=== PATIENT | male | born 1945 | race Caucasian/White ===

== ENCOUNTER → 2017-03-26 | Day surgery (SDC) | payer BC ==
[2017-03-05 15:06] VITALS: Ht 172.7 cm; Wt 61.8 kg
[~2017-03-26] VITALS: Ht 172.7 cm; Wt 61.8 kg
[~2017-03-26] MED LIST: 500ML BSS 0.3ML EPI 1:1000PF IRRIG ONE; ACETAMINOPHEN 325 MG TAB PO PRN; AMVISC PLUS 0.8ML SYRINGE INT OCU ONE; ATROPINE SULFATE 0.1 MG/ML 5ML SYR IV PRN; BSS FLUSH ONE; EpHEDrine SULFATE INJ 50 MG/ML AMP IV PRN; EpINEphrine INJ 1MG/ML AMP 1 MG/ML AMP ONE; LACTATED RINGER'S 1000ML 500 ML IV SCH; LIDOCAINE 3.5% OPH GEL PER APPLICATION CHARGE ONE; LIDOCAINE HCL 1% MPF 2 ML VIAL ONE; MIDAZOLAM HCL 1 MG/ML 2ML VIAL ONE; OCUCOAT 1 ML SOLN IO ONE; POVIDONE-IODINE OP SOLN 30 ML BTL ONE; PROPARACAINE 0.5% OP SOLN PER DROP CHARGE OPR SCH; TOBRAMYCIN/DEXAMETHASONE OPH OINT PER APPLN CHARGE ONE
--- NOTE | 2017-03-26 08:30 | History & Physical Bridge - SC ---
H&P Re-Evaluation Bridge Note: I have examined the patient, reviewed the History & Physical and in the interval since the performance of the History & Physical I have noted the following changes of clinical significance: No changes noted
[2017-03-26] MEDS: PHENYLEPHRINE HCL 2.5% OP SOLN PER DROP CHARGE OPR SCH ×2 (08:31→08:36)
[2017-03-26] MEDS: TROPICAMIDE 1% OP SOLN PER DROP CHARGE OPR SCH ×2 (08:32→08:37)
[2017-03-26] MEDS: CYCLOPENTOLATE HCL 1% OP SOLN PER DROP CHARGE OPR SCH ×2 (08:33→08:38)
[2017-03-26] MEDS: KETOROLAC 0.5% OP SOLN PER DROP CHARGE OPR SCH ×2 (08:34→08:39)
[2017-03-26] MEDS: GATIFLOXACIN OP SOLN PER DROP CHARGE OPR SCH ×2 (08:35→08:45)
--- NOTE | 2017-03-26 09:31 | [facility] Operative Report ---
Operative Report Date of Service Mar 26, 2017. Operative Report 1. PREOPERATIVE DIAGNOSIS: Cataract of the right eye. 2. POSTOPERATIVE DIAGNOSIS: Same. 3. PROCEDURE: Phacoemulsification with intraocular lens implantation of the right eye. SURGEON: Dr. Regulo Alvarez. ANESTHESIA: Topical Lidocaine gel, 1% Non- Preserved intracameral Lidocaine, and monitored intravenous sedation. INDICATIONS FOR THE PROCEDURE: The patient is a 71 - year-old male with a history of cataract of the right eye causing significant visual impairment. The details of the proposed procedure were explained to the patient who asked appropriate questions and following discussion of all risks, benefits and alternatives agreed to have the procedure done. 4. OPERATION AND FINDINGS: DESCRIPTION OF PROCEDURE: After informed consent was obtained, the patient was brought to the Operating Room at the [facility]. The patient was placed in a supine position and then the right eye was prepped and draped in the usual sterile fashion for intraocular surgery. A drop of topical Lidocaine gel was placed in the operative eye. A wire lid speculum was then placed in the fornices. A corneal paracentesis was then created temporally. The Non-Preserved Lidocaine was then instilled into the anterior chamber. The anterior chamber was then pressurized with viscoelastic. A 2.0 mm clear corneal incision was then created temporally. A cystotome was inserted into the anterior chamber and used to create a tear in the anterior lens capsule. This capsular tear was then used to create a small flap and the flap was dragged in a counterclockwise direction in order to create a continuous curvilinear capsulorrhexis. Hydrodissection was accomplished with balanced salt solution. Phacoemulsification of the lens nucleus was then performed in a standard [id number]-[id number]-[id number] technique. The phaco time was 35 seconds with an average power of 12 %. The remaining cortical material was removed using irrigation aspiration. The capsular bag was then filled with viscoelastic. A Bausch & Lomb MI60L +20.5 diopters lens was then loaded into the injector and injected into the capsular bag. The remaining viscoelastic was removed with the irrigation aspiration handpiece. The wound was hydrated and then checked and found to be watertight. The intraocular pressure was checked and found to be adequate. The wire lid speculum was removed and the patient's face was cleaned and dried. TobraDex ointment was placed in the inferior fornix. The patient was discharged to the Recovery Room having tolerated the procedure well. There were no complications. The patient will be seen tomorrow in the office for follow-up. I attest to the content of the Intraoperative Record and any orders documented therein. Any exceptions are noted below.
--- NOTE | 2017-03-26 09:31 | Discharge Instructions-SurgCtr ---
Discharge Instructions Date of Service Mar 26, 2017. Visit Reason for Visit: Right Cataract Discharge Discharge Diagnosis / Problem: cataract Discharge Goals Goal(s): Improve function Activity Recommendations Activity Limitations: per Instructions/Follow-up section Anesthesia . Post Anesthesia Instructions: If you have had General Anesthesia or IV Sedation: * Do not drive today. * Resume driving when surgeon permits. * Do not make important decisions or sign legal documents today. * Call surgeon for: 1. Temperature elevations greater than 101 degrees F. 2. Uncontrollable pain. 3. Excessive bleeding. 4. Persistent nausea and vomiting. 5. Medication intolerance (nausea, vomiting or rash). * For nausea and vomiting use only clear liquids such as: tea, soda, bouillon until nausea subsides, then gradually increase diet as tolerated. * If you have any concerns or questions, call your surgeon's office. If physician is unavailable and it is an emergency, call 911 or go to the nearest emergency room. . Instructions / Follow-Up Instructions / Follow-Up ACTIVITY RECOMMENDATIONS: * No strenuous lifting, jogging or running for 4 days * No swimming or yard work for 1 week. * Limited bending is permitted, such as putting on shoes. RETURN TO SCHOOL/WORK: No work until seen by physician in office. MEDICATIONS: Resume previous medications unless instructed otherwise by your surgeon. This includes eye drops for glaucoma. Zymaxid/Gatifloxacin (morris cap) - one drop every 2 hours until bedtime Nevanac/Ilevro/Prolensa/Ketorolac (juarez cap) - one drop every 4 hours until bedtime Prednisolone (white/pink cap, SHAKE WELL) - one drop every 2 hours until bedtime Starting tomorrow - all 3 drops every 4 hours until seen in the office Optive drops - as needed for discomfort SPECIAL CARE INSTRUCTIONS: * Wear eyeshield when sleeping, for four nights. * You may wear your own glasses or sunglasses while awake. * You may read or watch TV * You may shower and wash your face, but be gentle around the eye and pat dry. * Blurry vision and mild irritation are normal. * Call office if pain is more severe or vision becomes dark at . FOLLOW UP VISIT: Follow-up with Dr Alvarez tomorrow. Diet Recommendations Home Diet: resume previous diet Procedures Procedures Performed: Right Cataract Phacoemulsification With Intraocular Lens Implant Pending Studies Studies pending at discharge: no Medical Emergencies . Who to Call and When: Medical Emergencies: If at any time you feel your situation is an emergency, please call 911 immediately. . Non-Emergent Contact Non-Emergency issues call your: Yacht Master . . "Provider Documentation" section prepared by Regulo Alvarez. .
[2017-03-26 09:32] VITALS: TEMP 36.8
--- NOTE | 2017-03-26 09:43 | Anesthesia Progress Nt - [facility] ---
Anesthesia Post Op Note Date & Time Mar 26, 2017 at 09:42 Vital Signs Pain Intensity: 0 Vital Signs Past 12 Hours Date Time Temp Pulse Resp B/P Pulse Ox O2 Delivery O2 Flow Rate FiO2 03/26/17 09:32 36.8 65 16 156/90 100 Room Air 03/26/17 08:20 36.4 74 16 183/95 98 Room Air Notes Mental Status: alert / awake / arousable, participated in evaluation Pt Amnestic to Procedure: Yes Nausea / Vomiting: adequately controlled Pain: adequately controlled Airway Patency, RR, SpO2: stable & adequate BP & HR: stable & adequate Hydration State: stable & adequate Anesthetic Complications: no major complications apparent
[2017-03-26 09:47] VITALS: BP 151/80; PULSE 61; O2SAT 98
== END | disposition home or self-care (01) ==
LOC: X.SURG 08:01
PROVIDERS: ATTEND Ophthalmology
DX: H26.9 Unspecified cataract (principal); N18.3 Chronic kidney disease, stage 3 (moderate); I12.9 Hypertensive chronic kidney disease with stage 1 through stage 4 chronic kidney disease, or unspecified chronic kidney disease; J44.9 Chronic obstructive pulmonary disease, unspecified; M19.90 Unspecified osteoarthritis, unspecified site; F17.200 Nicotine dependence, unspecified, uncomplicated; Z68.20 Body mass index [BMI] 20.0-20.9, adult

== ENCOUNTER → 2017-04-23 | Day surgery (SDC) | payer BC ==
[2017-04-09 11:24] VITALS: Ht 172.7 cm; Wt 61.8 kg
[~2017-04-23] VITALS: Ht 172.7 cm; Wt 61.8 kg
[~2017-04-23] MED LIST changes: +PROPARACAINE 0.5% OP SOLN PER DROP CHARGE OPL SCH; -PROPARACAINE 0.5% OP SOLN PER DROP CHARGE OPR SCH
[2017-04-23] MEDS: PHENYLEPHRINE HCL 2.5% OP SOLN PER DROP CHARGE OPL SCH ×2 (10:17→10:22)
[2017-04-23] MEDS: TROPICAMIDE 1% OP SOLN PER DROP CHARGE OPL SCH ×2 (10:18→10:23)
[2017-04-23] MEDS: CYCLOPENTOLATE HCL 1% OP SOLN PER DROP CHARGE OPL SCH ×2 (10:19→10:24)
[2017-04-23] MEDS: KETOROLAC 0.5% OP SOLN PER DROP CHARGE OPL SCH ×2 (10:20→10:25)
[2017-04-23] MEDS: GATIFLOXACIN OP SOLN PER DROP CHARGE OPL SCH ×2 (10:21→10:31)
--- NOTE | 2017-04-23 11:46 | [facility] Operative Report ---
Operative Report Date of Service April 23, 2017. Operative Report 1. PREOPERATIVE DIAGNOSIS: Cataract of the left eye. 2. POSTOPERATIVE DIAGNOSIS: Same. 3. PROCEDURE: Phacoemulsification with intraocular lens implantation of the left eye. SURGEON: Dr. Regulo Alvarez. ANESTHESIA: Topical Lidocaine gel, 1% Non- Preserved intracameral Lidocaine, and monitored intravenous sedation. INDICATIONS FOR THE PROCEDURE: The patient is a 71 - year-old male with a history of cataract of the left eye causing significant visual impairment. The details of the proposed procedure were explained to the patient who asked appropriate questions and following discussion of all risks, benefits and alternatives agreed to have the procedure done. 4. OPERATION AND FINDINGS: DESCRIPTION OF PROCEDURE: After informed consent was obtained, the patient was brought to the Operating Room at the [facility]. The patient was placed in a supine position and then the left eye was prepped and draped in the usual sterile fashion for intraocular surgery. A drop of topical Lidocaine gel was placed in the operative eye. A wire lid speculum was then placed in the fornices. A corneal paracentesis was then created temporally. The Non-Preserved Lidocaine was then instilled into the anterior chamber. The anterior chamber was then pressurized with viscoelastic. A 2.0 mm clear corneal incision was then created temporally. A cystotome was inserted into the anterior chamber and used to create a tear in the anterior lens capsule. This capsular tear was then used to create a small flap and the flap was dragged in a counterclockwise direction in order to create a continuous curvilinear capsulorrhexis. Hydrodissection was accomplished with balanced salt solution. Phacoemulsification of the lens nucleus was then performed in a standard cyakhy-chz-xlkkaaz technique. The phaco time was 27 seconds with an average power of 20 %. The remaining cortical material was removed using irrigation aspiration. The capsular bag was then filled with viscoelastic. A Bausch & Lomb MI60L +21.5 diopters lens was then loaded into the injector and injected into the capsular bag. The remaining viscoelastic was removed with the irrigation aspiration handpiece. The wound was hydrated and then checked and found to be watertight. The intraocular pressure was checked and found to be adequate. The wire lid speculum was removed and the patient's face was cleaned and dried. TobraDex ointment was placed in the inferior fornix. The patient was discharged to the Recovery Room having tolerated the procedure well. There were no complications. The patient will be seen tomorrow in the office for follow-up. I attest to the content of the Intraoperative Record and any orders documented therein. Any exceptions are noted below.
--- NOTE | 2017-04-23 11:46 | Discharge Instructions-SurgCtr ---
Discharge Instructions Date of Service April 23, 2017. Visit Reason for Visit: Left Cataract Discharge Discharge Diagnosis / Problem: cataract Discharge Goals Goal(s): Improve function Activity Recommendations Activity Limitations: per Instructions/Follow-up section Anesthesia . Post Anesthesia Instructions: If you have had General Anesthesia or IV Sedation: * Do not drive today. * Resume driving when surgeon permits. * Do not make important decisions or sign legal documents today. * Call surgeon for: 1. Temperature elevations greater than 101 degrees F. 2. Uncontrollable pain. 3. Excessive bleeding. 4. Persistent nausea and vomiting. 5. Medication intolerance (nausea, vomiting or rash). * For nausea and vomiting use only clear liquids such as: tea, soda, bouillon until nausea subsides, then gradually increase diet as tolerated. * If you have any concerns or questions, call your surgeon's office. If physician is unavailable and it is an emergency, call 911 or go to the nearest emergency room. . Instructions / Follow-Up Instructions / Follow-Up ACTIVITY RECOMMENDATIONS: * No strenuous lifting, jogging or running for 4 days * No swimming or yard work for 1 week. * Limited bending is permitted, such as putting on shoes. RETURN TO SCHOOL/WORK: No work until seen by physician in office. MEDICATIONS: Resume previous medications unless instructed otherwise by your surgeon. This includes eye drops for glaucoma. Zymaxid/Gatifloxacin (morris cap) - one drop every 2 hours until bedtime Nevanac/Ilevro/Prolensa/Ketorolac (juarez cap) - one drop every 4 hours until bedtime Prednisolone (white/pink cap, SHAKE WELL) - one drop every 2 hours until bedtime Starting tomorrow - all 3 drops every 4 hours until seen in the office Optive drops - as needed for discomfort SPECIAL CARE INSTRUCTIONS: * Wear eyeshield when sleeping, for four nights. * You may wear your own glasses or sunglasses while awake. * You may read or watch TV * You may shower and wash your face, but be gentle around the eye and pat dry. * Blurry vision and mild irritation are normal. * Call office if pain is more severe or vision becomes dark at . FOLLOW UP VISIT: Follow-up with Dr Alvarez tomorrow. Diet Recommendations Home Diet: resume previous diet Procedures Procedures Performed: Left Cataract Phacoemulsification With Intraocular Lens Implant Pending Studies Studies pending at discharge: no Medical Emergencies . Who to Call and When: Medical Emergencies: If at any time you feel your situation is an emergency, please call 911 immediately. . Non-Emergent Contact Non-Emergency issues call your: Candle Making Supervisor . . "Provider Documentation" section prepared by Regulo Alvarez. .
[2017-04-23 11:49] VITALS: TEMP 36.3
[2017-04-23 11:58] VITALS: BP 143/83; PULSE 60; O2SAT 97
--- NOTE | 2017-04-23 12:03 | Anesthesia Progress Nt - [facility] ---
Anesthesia Post Op Note Date & Time April 23, 2017 at 12:04 Vital Signs Pain Intensity: 0 Vital Signs Past 12 Hours Date Time Temp Pulse Resp B/P Pulse Ox O2 Delivery O2 Flow Rate FiO2 04/23/17 11:58 60 16 143/83 97 Room Air 04/23/17 11:49 36.3 60 16 146/80 100 Room Air 04/23/17 10:12 36.8 62 20 183/104 97 Room Air 195/74 Notes Mental Status: alert / awake / arousable, participated in evaluation Pt Amnestic to Procedure: Yes Nausea / Vomiting: adequately controlled Pain: adequately controlled Airway Patency, RR, SpO2: stable & adequate BP & HR: stable & adequate Hydration State: stable & adequate Anesthetic Complications: no major complications apparent
== END | disposition home or self-care (01) ==
LOC: X.SURG 09:47
PROVIDERS: ATTEND Ophthalmology
DX: H26.9 Unspecified cataract (principal); N18.3 Chronic kidney disease, stage 3 (moderate); J44.9 Chronic obstructive pulmonary disease, unspecified

== ENCOUNTER 2019-08-31 08:45 | Inpatient (IN) ==
[2019-08-31] MEDS ORDERED: HEPARIN (PORCINE) 1000 UNIT/ML 10 ML (CATH LAB USE ONLY) ONE (09:03)
[2019-08-31] MEDS ORDERED: NiCARDipine HCL INJ 2.5 MG/ML 10 ML AMP ONE (09:03)
[2019-08-31] MEDS ORDERED: fentaNYL citrate 100 MCG/2 ML VIAL ONE (09:03)
[2019-08-31] MEDS ORDERED: MIDAZOLAM HCL 1 MG/ML 2ML VIAL ONE (09:04)
[2019-08-31] MEDS ORDERED: NITROGLYCERIN/D5W 100MCG/ML 20ML SYR ONE (09:04)
[2019-08-31] MEDS ORDERED: ASPIRIN CHEW 324 MG ONE (09:06)
[2019-08-31] MEDS ORDERED: NITROGLYCERIN SL 0.4 MG/TAB TAB ONE (09:09)
[2019-08-31] MEDS ORDERED: ASPIRIN CHEW 324 MG PO STA (09:11)
[2019-08-31] MEDS ORDERED: NITROGLYCERIN SL 0.4 MG/TAB TAB SL PRN (09:11)
[2019-08-31] MEDS ORDERED: HEPARIN SOD (PORCINE) 1000 UNIT/ML 10 ML VIAL ONE (09:17)
--- NOTE | 2019-08-31 09:24 | Pre Anesthesia Assessment ---
Date of Service August 31, 2019 Pre Sedation Assessment Vital Signs Temp Pulse Pulse Resp BP BP Pulse Ox 08/31/19 09:11 72 16 158/90 H 96 08/31/19 08:51 97.7 F 70 16 134/77 96 Cardiovascular RRR, no murmur, no edema Respiratory normal respiratory effort, lungs clear to auscultation Pre-Sedation Airway Assessment Smoking Status: Current every day smoker Hx Sleep Apnea: No Hx Difficult Intubation: No Short, Thick Neck: No Thyromental Distance: > or= 3.5 Finger Breadths Oral Cavity: + WNL Mallampati Class: III Procedure Planning Contraindications for Sedation: none Current Medications Reviewed: Yes Notes The planned sedation has been discussed with the patient. Informed Consent was obtained. I have identified the patient, determined the appropriateness of sedation and have assessed the patient immediately prior to the procedure. All medicine(s) and interventions are by my order.
--- NOTE | 2019-08-31 09:25 | Cardiology Consultation ---
Date of Consultation August 31, 2019 Assessment & Plan (1) Acute ST elevation myocardial infarction (STEMI): Presentation consistent with inferoposterior STEMI and recommend proceeding with emergent cardiac catheterization and likely primary PCI. No apparent contraindications to procedure. Discussed risks, benefits, alternatives of procedure with patient and they are willing to proceed. Given IV heparin in the ED. Further recommendations pending findings of coronary angiography. History of Present Illness History of Present Illness 73-year-old man here with acute chest pain and ECG concerning for acute VT. Patient seen emergently in the ED after heart alert activated upon arrival. No prior cardiac history. Cardiac risk factors include hypertension and ongoing tobacco use. No other active medical issues and takes no medications. Chest pain has been ongoing for the last 2 days off and on. Associated with some nausea, vomiting. No prior similar symptoms in the past. This morning again had chest pressure and contacted his PCP who recommended he present to ED. Emergency department mild active ongoing pain given once a little nitroglycerin and aspirin. Hemodynamically stable. EKG consistent with inferoposterior STEMI with deep Q waves in inferior leads and possible 2-1 AV block. Allergies Allergy/AdvReac Type Severity Reaction Status Date / Time No Known Drug Allergies Allergy Unknown . Verified 08/31/19 09:09 Patient History Medical History Hypertension Rheumatic fever Family History Other Family history non-contributory Social History Feels Safe at Home: Yes Smoking Status: Current every day smoker Review of Systems Review of Systems: Not obtained in the setting of emergent situation. Physical Exam Physical Exam: General: No acute distress HEENT: Sclerae anicteric Lungs: Clear to auscultation bilaterally Cardiac: Regular rate and rhythm, no murmurs. Abdomen: Soft, nontender Extremities: Warm, well perfused, no edema. 2+ radial pulses Skin: No rashes or lesions. Neuro: Nonfocal Psych: Alert orient x3, normal affect and mood Results & Data Vital Signs (Past 12 Hours) Vital Signs Temp Pulse Pulse Resp BP BP Pulse Ox 08/31/19 09:11 72 16 158/90 H 96 08/31/19 08:51 97.7 F 70 16 134/77 96 PG Care Time/CCT Total # of Minutes Spent Total Time Spent with Patient: Total time spent is greater than 50% in coordination of care (as documented) at patient's floor/unit and/or counseling patient: (1) Acute ST elevation myocardial infarction (STEMI) Involved coronary artery: unspecified coronary artery Qualified Code(s): I21.3 - ST elevation (STEMI) myocardial infarction of unspecified site
[2019-08-31 09:42] LABS: Basophils # (auto) 0.02 K/uL (0-0.2); Basophils % (auto) 0.1 %; Hematocrit (blood only) 46.7 % (42-52); Hemoglobin 15.9 g/dL (14.0-18.0); Immature Granulocytes # (auto) 0.06 K/uL (0.00-0.02); Immature Granulocytes % (auto) 0.4 %; Lymphocytes # (auto) 1.21 K/uL (1.2-3.4); Lymphocytes % (auto) 7.6 %; Mean Corpuscular Hemoglobin 30.9 pg (25-34); Mean Corpuscular Volume 90.7 fL (80-100); Mean Platelet Volume 11.6 fL (7.4-10.4); Monocytes # (auto) 1.62 K/uL (0.11-0.59); Monocytes % (auto) 10.2 %; Neutrophils # (auto) 12.99 K/uL (1.4-6.5); Neutrophils % (auto) 81.7 %; Platelet Count 169 K/uL (130-400); RDW Standard Deviation 49.9 fL (36.4-46.3); Red Blood Count 5.15 M/uL (4.7-6.1)
[2019-08-31] MEDS ORDERED: ATROPINE SULFATE 0.1 MG/ML 10ML SYR IV ONE (09:47)
[2019-08-31] MEDS ORDERED: EPTIFIBATIDE 2 MG/ML 10 ML VIAL (CATH LAB USE ONLY) ONE (09:49)
[2019-08-31] MEDS ORDERED: EPTIFIBATIDE 0.75 MG/ML 75MG VIAL (CATH LAB USE ONLY) ONE (09:49)
[2019-08-31 09:59] LABS: Albumin Level 3.7 gm/dl (3.4-5.0); BUN Creatinine Ratio 19.4 (10-20); Calcium 9.2 mg/dl (8.5-10.1); Creatinine Clr Calc Pharmacy 24.5 ml/min; Est GFR (Non-African American) 30.2; Potassium 4.5 mmol/L (3.5-5.1)
[2019-08-31 10:04] LABS: Globulin 3.6 gm/dl (2.5-4.0); Total Protein 7.3 gm/dl (6.4-8.2)
[2019-08-31] MEDS ORDERED: TICAGRELOR 90 MG TAB PO ONE (10:15)
[2019-08-31] MEDS ORDERED: ICU PROTOCOL FOR HYPERGLYCEMIA PRN (10:25)
[2019-08-31] MEDS ORDERED: ONDANSETRON INJ 2 MG/ML 2 ML VIAL IV PRN (10:31)
[2019-08-31] MEDS ORDERED: ACETAMINOPHEN 325 MG TAB PO PRN (10:31)
[2019-08-31] MEDS ORDERED: EPTIFIBATIDE BOLUS/DRIP IV STA (10:31)
[2019-08-31] MEDS ORDERED: SODIUM CHLORIDE 0.9% 1000ML 1,000 ML IV SCH (10:45)
--- NOTE | 2019-08-31 10:47 | Post Anesthesia Assessment ---
Date of Service August 31, 2019 Post Sedation Assessment Vital Signs Temp Pulse Pulse Resp BP BP Pulse Ox 08/31/19 09:11 72 16 158/90 H 96 08/31/19 08:51 97.7 F 70 16 134/77 96 Recovery Score Activity: Moves 4 extremities Respiration: Deep Breath/Cough Circulation: +/-20% PreAnes Value Consciousness: Fully Awake Oxygen Saturation: O2 needed for >90% Discharge Sedation Level of Care: Fast Track Phase II Post Sedation Plan On clinical assessment, the patient appears to have tolerated the sedation without complications. Patient is recovering as anticipated. Patient will continue to be monitored by nursing and may be discharged when sedation discharge criteria are met per below protocol. Upon Completions of procedure and additional 15 minutes continue every 5 minute vital signs and the P.A.R. score; then discharge to a Phase I or Fast Track to Phase II per the following guidelines: * Discharge Patient to appropriate Phase II area if PAR is 8 or greater or return to pre- procedure baseline. The post - procedure orders will be as directed. * If PAR score is less than 8 or not return to pre-procedure baseline then patient will follow Phase I monitoring till PAR is reached for Phase II. The Phase I may be done in procedure room or may call to secure a Phase I area. * If naloxone or flumazenil are used for reversal, hold in Phase I for continued monitoring from when last reversal dose was given for a minimum of 60 minutes or longer pending the nurse and/or physician discretion of patient condition before discharge to Phase II. Please call the Sedation Physician to re-evaluate and complete post-note for discharge to Phase II area. Do NOT discharge from procedure sedation or Phase 1 until post- sedation evaluation note is complete by procedure /sedation MD Sedation Discharge Instructions to be given to the patient at discharge to home.
--- NOTE | 2019-08-31 10:58 | Cardiac Catheterization ---
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 Cardiac Status Clinical evaluation leading to the procedure CAD Presenation: STEMI Anginal Classification: CCS IV Heart Failure: No Cardiogenic Shock within 24 Hours: No Cardiac Arrest within 24 Hours: No Imaging Studies Past 6 Months: No Stress Studies Past 6 Months: No Diagnostic Physicians Name: Ruben Elizabeth MD Status: Elective Closure Device Percutaneous Entry Location: Radial Closure Device: Radial Band Recommendations: PCI without planned CABG PCI Indication: PCI for STEMI - Stable Lesion Segment Name: mid RCA Culprit Artery: Yes Stenosis Prior to Rx (%): 100 Chronic Total Occlusion: No IVUS: No Pre-Procedure MARY Flow: 0 Previously Treated Lesion: No Lesion Complexity: Non-High/Non-C Lesion Length (mm): 30 Thrombus Present: Yes Bifurcation Lesion: No Guidewire Across Lesion: Stenosis Post-Procedure (%): 0 Post-Procedure MARY Flow: 3 Devices(s) Deployed: Yes Yes Intraprocedure Events Significant Disection: No Perforation: No Cardiac Cath Procedure Full Procedure Date August 31, 2019 Pre-Procedure Diagnosis Pre-Procedure Diagnosis: STEMI AUC Score AUC Score: 9 Post-Procedure Diagnosis Post-Procedure Diagnosis: Severe CAD, Successful PCI and Normal Intracardiac Pressures Procedure(s) Performed Procedure(s) Performed: Coronary Angiography, Left Heart Cath and Drug Eluting Stent Diet Aide Ruben Elizabeth MD Name Plate Stamping Machine Operator(s) Luis Estimated Blood Loss Estimated Blood Loss: 15 Medication(s) Medication(s): Fentanyl, Heparin, Integrilin, Lidocaine 1%, Nicardipine, Nitroglycerin and Versed Medication(s): Ticagrelor Summary of Findings Indication: STEMI/Heart Alert Access: 6 Fr right radial artery under ultrasound guidance Catheters: Ikari 3.5 guide, pigtail Findings: LM -Short, moderate caliber, no significant disease LAD -moderate caliber, luminal irregularities, wraps around apex, gives off 2 small diagonals without significant disease. Circumflex -small caliber vessel, luminal irregularities. RCA -large caliber vessel, dominant, 100% acute on chronic mid RCA occlusion. Distal vessel fills partially via left to right collaterals. LVEDP -17 -- PCI -- Antithrombotic therapy: Heparin, Integrilin, ticagrelor Procedure: RCA cannulated with Ikari 3.5 guide Manager Sports 50 wire passed across lesion into distal vessel Mid RCA lesion predilated with 2.5 compliant balloon Heavy thrombus burden and started on IC Integrilin as well as Integrilin drip. Dilated lesion stented with 3.5 x 30 mm [place] drug-eluting stent Stent post-dilated with 4.0 noncompliant balloon IC vasodilators administered for spasm Noted to have moderate to severe residual stenosis in latemid RCA which was stented with a second overlapping BJ (3.5 x 15 mm [place]). Post procedure MARY 3 flow, stents well expanded with minimal residual stenosis and no apparent cardiac complications. Arterial Closure: TR band Summary: 1. Inferior STEMI/acute on chronic 100% mid RCA occlusion 2. No significant non-culprit coronary artery disease 3. Normal intracardiac filling pressure 4. Successful PCI of mid RCA with 2 overlapping drug-eluting stents (3.5 x 30, 3.5 x 15 [place]; postdilated with 4.0 NC). Recommendations: Admit to ICU for continued monitoring Loaded with ticagrelor 180 mg in qc lab technician Continue Integrilin for 2 hours. Continue dual-antiplatelet therapy for at least 1 year. Trend troponins until peak, Check Echo Uptitrate beta-mich/ROSALINDA as BP allows High-dose statin Consult cardiac Rehab Smoking cessation Hemodynamics Rest Ao:: 140/64/92 Final Ao: 112/46/62 LV: 109/17 Recommendations Recommendations: PCI without planned CABG Specimens Specimens: None Radiation Exposure (mGy) 488 Contrast (mls) 100 Fluids (cc crystalloids) Fluids (cc crystalloids): 400 Drains Drains: none Anesthesia moderate Procedural Complication(s) None Disposition ICU I attest to the content of the Intraoperative Record and any orders documented therein. Any exceptions are noted below.
[2019-08-31 11:19] LABS: Troponin I 50.9 ng/ml (0-0.045)
--- NOTE | 2019-08-31 12:11 | History & Physical Report ---
Date of Service August 31, 2019 Assessment & Plan (1) Acute ST elevation myocardial infarction (STEMI): This is a 73-year-old male who has significant past medical history of HTN, HLD, CKD stage III, COPD, tobacco abuse who presents to [facility] ED secondary to chest pain x 2-3 days. In ED pt noted to have evidence of ischemia of ECG, troponin 50 Patient given ASA, nitro, heparin in ED Heart Alert was called and patient underwent successful PCI with BJ x2 to RCA by Dr. 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 Elizabeth - felt likely due to trauma Doppler to R radial site per protocol which has been adequate thus far Smoking cessation lipid panel/A1C in am. (2) Acute worsening of stage 3 chronic kidney disease: baseline CR 1.6 Bun 41 and Cr 2.12 continue IVF repeat bmp in a.m. (3) Hypertension: pt on lisinopril 20mg daily at home hold off for now given BP on lower side (4) HLD (hyperlipidemia): atorvastatin 80mg daily initiated Fasting lipid panel in a.m. previously not on anti hyperlipidemic medication (5) Tobacco abuse: nicotine patch offered by declined recommend smoking cessation monitor (6) Glaucoma: continue eye gtts (7) DVT prophylaxis: SCD/TEDS received IV heparin in ED receiving IV Integrilin Disposition: Pt admitted to ICU Follow up: PCP Dr. Victoria upon discharge History of Present Illness Chief Complaint: Heart alert/ STEMI Primary Care Provider: Alhaji Pitts MD This is a 73-year-old male who has significant past medical history of HTN, HLD, CKD stage III, COPD, tobacco abuse who presents to [facility] ED secondary to chest pain x 2-3 days. Patient symptoms initially started 2 days ago with nausea, vomiting chest heaviness, decreased appetite and weakness. Symptoms progressed and this morning he developed substernal chest pressure, nonradiating, "felt like elephant sitting on chest." Never had similar symptoms in the past. Did not try anything [id number]. He called into PCP and recommended being seen in ED. Upon arrival EKG concerning for acute STEMI and initial troponin 50.9. Initially IV heparin was initiated and he was given ASA and nitro. Heart alert was called and patient proceeded to [facility]. He had 100% occlusion of RCA and underwent 2 drug-eluting stents by Dr. Elizabeth. After successful PCI he was then transitioned to ICU. Currently patient is sitting up in bed and admits to feeling much better prior to arrival. He does complain of numbness and coolness to right upper extremity, the site of the catheterization. Requesting food as his appetite is returning. Denies fever, chills, sweats, lightheadedness, dizziness, chest pain, cough, shortness breath, palpitations, nausea, vomiting, abdominal pain, change in bowel or urinary habits, dysuria, increased urgency. Allergies Allergy/AdvReac Type Severity Reaction Status Date / Time No Known Drug Allergies Allergy Unknown . Verified 08/31/19 09:09 Home Medications Home Medications Medication Instructions Recorded Confirmed Type latanoprost 1 drp OPB HS 08/31/19 08/31/19 History latanoprost 1 drp OPR QAM 08/31/19 08/31/19 History lisinopril 20 mg PO DAILY 08/31/19 08/31/19 History Past Med/Surg History Medical History COPD (chronic obstructive pulmonary disease) HLD (hyperlipidemia) CKD (chronic kidney disease) stage 3, GFR 30-59 ml/min Tobacco abuse History of SCC (squamous cell carcinoma) of skin Glaucoma Hypertension Rheumatic fever Surgical History History of cataract extraction Family History Father Rheumatic heart disease Mother Pleurisy Social History Preferred Language: Guamanian Communication Ability: Effective marital status: Current Living Situation: Spouse current occupational status: retired Feels Safe at Home: Yes Smoking Status: Current every day smoker Tobacco Type: cigarettes ; packs per day: 1 ; Years Smoked: 60 ; Hx Alcohol Use: No Hx Substance Use: No Review of Systems Review of Systems: All systems reviewed & are unremarkable except as noted in HPI & below Physical Exam Physical Exam: Constitutional: Thin, WD, Male, vitals as above, NAD, sitting up in bed, pleasant, conversing easily Head: Normocephalic, Atraumatic Eyes: PERRL, conjunctivae normal, anicteric sclerae ENMT: external ear and nose normal, oropharynx normal Neck: trachea midline, no thyromegaly normal visual inspection Respiratory: normal respiratory effort, lungs clear to auscultation, no wheeze, rales, rhonchi. Normal insp/exp effort, no accessory muscle use Cardiovascular: bradycardic but regular rate, no murmur, +RUE edema distal to radial band, dusky skin coloration, cold decreased sensation and diminished R radial pulse. Vessels: no JVD or carotid bruit Chest: normal inspection of chest Abdomen: normal bowel sounds, soft, nontender, no hepatosplenomegaly Musculoskeletal: no cyanosis or clubbing, extremities motor strength 5/5 Skin: no rashes, warm with exception of distal RUE Neurologic: PERRL, EOMI, accommodation nl, no face palsy, no dysarthria CN's II-XI intact bilaterally and moves all extremities Psychiatric: A+Ox3, euthymic affect Lymphatic: no cervical or axillary lymphadenopathy : deferred Results & Data Vital Signs (Past 12 Hours) Vital Signs Temp Pulse Pulse Resp BP BP Pulse Ox 08/31/19 09:11 72 16 158/90 H 96 08/31/19 08:51 36.5 C 70 16 134/77 96 Laboratory Results Short CBC 08/31/19 08/31/19 Range/Units 09:04 09:04 WBC 15.90 H (4.8-10.8) K/uL Hgb 15.9 (14.0-18.0) g/dL Hct 46.7 (42-52) % Plt Count 169 (130-400) K/uL Creatinine 2.12 H (0.6-1.4) mg/dl BMP 08/31/19 09:04 Sodium 136 Potassium 4.5 Chloride 104 Carbon Dioxide 22 BUN 41 H Creatinine 2.12 H Glucose 107 H Calcium 9.2 Cardiac Enzymes 08/31/19 Range/Units 09:04 Troponin I 50.900 H* (0-0.045) ng/ml Liver Function 08/31/19 Range/Units 09:04 Total Bilirubin 1.0 (0.2-1) mg/dl AST 287 H (15-37) U/L ALT 61 (12-78) U/L Alkaline Phosphatase 62 (45-117) U/L Albumin 3.7 (3.4-5.0) gm/dl Medications Administered Discontinued Medications Aspirin (Aspirin) Confirm Administered Dose 324 mg .ROUTE .STK-MED ONE Stop: 08/31/19 09:07 Last Admin: 08/31/19 09:10 Dose: 324 mg Documented by: [id number] Aspirin (Aspirin) 324 mg PO NOW STA Stop: 08/31/19 09:12 Last Admin: 08/31/19 09:28 Dose: Not Given Documented by: [id number] Atropine Sulfate (Atropine Sulfate) Confirm Administered Dose 1 mg IV .STK-MED ONE Stop: 08/31/19 09:48 Last Admin: 08/31/19 11:10 Dose: Not Given Documented by: [id number] Fentanyl Citrate (Fentanyl Citrate) Confirm Administered Dose 100 mcg .ROUTE .STK-MED ONE Stop: 08/31/19 09:04 Last Admin: 08/31/19 11:08 Dose: 25 mcg Documented by: [id number] Heparin Sodium (Porcine) (Heparin Iv Bolus ([facility] Use Only)) Confirm Administered Dose 10,000 units .ROUTE .STK-MED ONE Stop: 08/31/19 09:04 Last Admin: 08/31/19 11:09 Dose: 4,000 units Documented by: [id number] Heparin Sodium (Porcine) (Heparin Iv Bolus) Confirm Administered Dose 10,000 units .ROUTE .STK-MED ONE Stop: 08/31/19 09:18 Last Admin: 08/31/19 11:10 Dose: Not Given Documented by: [id number] Heparin Sodium/Sodium Chloride (Heparin/Nss 1000 Unit/500ml Flush Bag) Confirm Administered Dose 3,000 units IV .STK-MED ONE Stop: 08/31/19 09:05 Last Admin: 08/31/19 11:09 Dose: 3,000 units Documented by: [id number] Midazolam HCl (Versed) Confirm Administered Dose 2 mg .ROUTE .STK-MED ONE Stop: 08/31/19 09:05 Last Admin: 08/31/19 11:10 Dose: 1 mg Documented by: [id number] Nicardipine HCl (Cardene) Confirm Administered Dose 25 mg .ROUTE .STK-MED ONE Stop: 08/31/19 09:04 Last Admin: 08/31/19 11:08 Dose: 25 mg Documented by: [id number] Nitroglycerin (Nitrostat) Confirm Administered Dose 0.4 mg .ROUTE .STK-MED ONE Stop: 08/31/19 09:10 Last Admin: 08/31/19 09:12 Dose: 0.4 mg Documented by: [id number] Nitroglycerin/Dextrose (Nitroglycerin/D5w 100 Mcg/Ml 20ml Syringe) Confirm Administered Dose 2,000 mcg .ROUTE .STK-MED ONE Stop: 08/31/19 09:05 Last Admin: 08/31/19 11:09 Dose: 2,000 mcg Documented by: [id number] Ticagrelor (Brilinta) Confirm Administered Dose 180 mg PO .STK-MED ONE Stop: 08/31/19 10:16 Last Admin: 08/31/19 11:11 Dose: 180 mg Documented by: [id number] ECG Rate (beats per minute): 55 Findings: + acute ischemic change Code Status & VTE Plan VTE Prophylaxis Plan VTE Prophylaxis will be ordered: Yes Supervising Physician Co-Signing Physician Notes I, Dr. 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 Other medical management of: Continue dual-antiplatelet therapy for at least 1 year. Trend troponins until peak, Check Echo Uptitrate beta-mich/ROSALINDA as blood pressure and renal function allows High-dose statin Consult cardiac Rehab Monitor right hand pulse and color as the cardiac cath insertion site was to left wrist ACUTE KIDNEY INJURY ON CHRONIC KIDNEY DISEASE STAGE 3 -monitor renal function after cardiac cath, give gentle IV fluids for now On physical Exam HYPERTENSION -Uptitrate beta-mich/ROSALINDA as blood pressure and renal function allows TOBACCO USE -Patient declined nicotine patch -recommend Smoking cessation at home GLAUCOMA -eye drops DVT prophylaxis -received IV heparin in ED -currently receiving IV Integrilin -will benefit from SCDs and PT/OT evaluations General: no acute distress HEENT: normal external exam Eyes: extraocular movements intact Lungs: clear to auscultation, no wheezing Heart: regular rate, regular rhythm Abdomen-soft, nontender, positive bowel sound Extremities: right wrist in TR band, some discoloration of right wrist/hand, mild hand swelling My colleague Dr. Rodriguez will be following the patient as hospitalist physician starting on 09/01/2019 (1) Acute ST elevation myocardial infarction (STEMI) Involved coronary artery: unspecified coronary artery Qualified Code(s): I21.3 - ST elevation (STEMI) myocardial infarction of unspecified site
--- NOTE | 2019-08-31 14:53 | Emergency Department Note ---
Entered by Ralph Barahona acting as a scribe for Carlos De La Paz M.D. History of Present Illness General Chief complaint: Illness Stated complaint: DIZZINESS,DIARRHEA,VOMITING,CHEST PAIN, Source: patient History of Present Illness Provider complaint: Chest pain Onset (ago): day(s) 2 Location: chest Radiation: extremity Pain Consistency: + intermittent Maximum Pain Intensity: 4 Current Pain Intensity: 2 Quality: + other (Pressure) Relieved By: + none Exacerbated By: + none Associated symptoms: + nausea/vomiting; no shortness of breath The patient is a 73 year old male who presents to the Emergency Room with complaints of intermittent chest discomfort that started about 2 days ago. The patient rates the pain as a 4/10 at its worst and notes it radiates down his left arm. The patient describes the chest pain stating "It feels like an elephant is on my chest". The patient states that a few hours prior to the onset of chest pain, he was nauseous and had multiple episodes of emesis. The patient adds that he also had diarrhea, however all of these GI symptoms have resolved. The patient notes that following the vomiting he became weak and did fall while in the bathroom, however he reports he was able to catch himself so he never hit the ground. Currently the patient rates his pain as a 2/10 and notes he did not take any Aspirin prior to arrival. The patient denies any fevers. The patient has a history of hypertension for which he takes Lisinopril, but he does not have any cardiac history. He also mentioned that as a child he had rheumatic fev er. Home Medications Home Medications Medication Instructions Recorded Confirmed Type latanoprost 1 drp OPB HS 08/31/19 08/31/19 History lisinopril 20 mg PO DAILY 08/31/19 08/31/19 History Allergies Allergy/AdvReac Type Severity Reaction Status Date / Time No Known Drug Allergies Allergy Unknown . Verified 08/31/19 09:09 Past Med/Surg History Medical History COPD (chronic obstructive pulmonary disease) HLD (hyperlipidemia) CKD (chronic kidney disease) stage 3, GFR 30-59 ml/min Tobacco abuse History of SCC (squamous cell carcinoma) of skin Glaucoma Hypertension Rheumatic fever Surgical History History of cataract extraction Family History Father Rheumatic heart disease Mother Pleurisy Social History Preferred Language: Russian Communication Ability: Effective marital status: Current Living Situation: Spouse current occupational status: retired Feels Safe at Home: Yes Smoking Status: Current every day smoker Tobacco Type: cigarettes ; packs per day: 1 ; Years Smoked: 60 ; Hx Alcohol Use: No Hx Substance Use: No Review of Systems See HPI for pertinent positives & negatives. and A total of 10 systems reviewed and were otherwise negative Physical Exam Vital Signs Vital Signs - 24 hr 08/31/19 08:51 08/31/19 09:11 08/31/19 09:20 Temperature 36.5 C Temperature Source Oral Sepsis Recent Fever Within 48 Hours No Sepsis Action Taken by Nursing No Action Required Fraction of Inspired Oxygen - Titration 2 Pulse Oximetry Post Tiitration 98 Pulse Rate 70 Pulse Rate [Apical] 72 Pulse Rhythm [Apical] Irregular Respiratory Rate 16 16 Respiratory Effort / Characteristics Non-Labored Respiratory Depth Normal Blood Pressure 134/77 Blood Pressure [Right Arm] 158/90 H Blood Pressure Mean 96 Blood Pressure Mean [Right Arm] 112 Blood Pressure Position [Right Arm] Sitting Pulse Oximetry 96 96 Oxygen Delivery Method Room Air Nasal Cannula Oxygen Flow Rate 0 2 GENERAL: Awake, alert, fatigued-appearing HENT: Normocephalic, atraumatic. EYES: Normal conjunctiva. Sclera non-icteric. NECK: Supple. No nuchal rigidity. RESPIRATORY: Clear to auscultation. No wheezes. Normal respiratory effort. CARDIAC: Normal rate. Normal rhythm. Extremities warm and well perfused. GI: Soft, non-distended. No tenderness to palpation. RECTAL: Deferred. MUSCULOSKELETAL: Atraumatic. Chest examination reveals no tenderness. LOWER EXTREMITIES: Calves are equal size bilaterally and non-tender. No edema NEURO: Normal sensorium. No sensory or motor deficits noted. No facial droop. SKIN: Warm and dry. No jaundice noted. Course 09: Past medical records reviewed. The patient was evaluated in room A09B, and a complete history and physical examination were performed. Just prior to the history and physical examination being performed, the patient had an EKG done that was concerning so a heart alert was immediately called. 0916: I spoke to Dr. Glenn Crow Cardiology at the patient's bedside and filled him in on the patient's case. He is going to take the patient to the catheterization lab. Consultations Consultation #1: I spoke to Dr. Glenn Wilson at the patient's bedside and filled him in on the patient's case. He is going to take the patient to the catheterization lab. Time: 09:16 Administered Medications Discontinued Medications Aspirin (Aspirin) Confirm Administered Dose 324 mg .ROUTE .STK-MED ONE Stop: 08/31/19 09:07 Last Admin: 08/31/19 09:10 Dose: 324 mg Documented by: [id number] Aspirin (Aspirin) 324 mg PO NOW STA Stop: 08/31/19 09:12 Last Admin: 08/31/19 09:28 Dose: Not Given Documented by: [id number] Atropine Sulfate (Atropine Sulfate) Confirm Administered Dose 1 mg IV .STK-MED ONE Stop: 08/31/19 09:48 Last Admin: 08/31/19 11:10 Dose: Not Given Documented by: [id number] Eptifibatide (Integrilin (Emt/Dispatcher Use Only)) Confirm Administered Dose 20 mg .R OUTE .STK-MED ONE Stop: 08/31/19 09:50 Last Admin: 08/31/19 12:58 Dose: Not Given Documented by: [id number] Eptifibatide (Integrilin (Emt/Dispatcher Use Only)) Confirm Administered Dose 75 mg .ROUTE .STK-MED ONE Stop: 08/31/19 09:50 Last Admin: 08/31/19 12:58 Dose: Not Given Documented by: [id number] Fentanyl Citrate (Fentanyl Citrate) Confirm Administered Dose 100 mcg .ROUTE .STK-MED ONE Stop: 08/31/19 09:04 Last Admin: 08/31/19 11:08 Dose: 25 mcg Documented by: [id number] Heparin Sodium (Porcine) (Heparin Iv Bolus (Emt/Dispatcher Use Only)) Confirm Administered Dose 10,000 units .ROUTE .STK-MED ONE Stop: 08/31/19 09:04 Last Admin: 08/31/19 11:09 Dose: 4,000 units Documented by: [id number] Heparin Sodium (Porcine) (Heparin Iv Bolus) Confirm Administered Dose 10,000 units .ROUTE .STK-MED ONE Stop: 08/31/19 09:18 Last Admin: 08/31/19 11:10 Dose: Not Given Documented by: [id number] Heparin Sodium/Sodium Chloride (Heparin/Nss 1000 Unit/500ml Flush Bag) Confirm Administered Dose 3,000 units IV .STK-MED ONE Stop: 08/31/19 09:05 Last Admin: 08/31/19 11:09 Dose: 3,000 units Documented by: [id number] Sodium Chloride (Nss 1000ml) 1,000 mls @ 100 mls/hr IV .Q10H CARLOS Stop: 08/31/19 20:44 Last Admin: 08/31/19 12:58 Dose: 100 mls/hr Documented by: [id number] Midazolam HCl (Versed) Confirm Administered Dose 2 mg .ROUTE .STK-MED ONE Stop: 08/31/19 09:05 Last Admin: 08/31/19 11:10 Dose: 1 mg Documented by: [id number] Nicardipine HCl (Cardene) Confirm Administered Dose 25 mg .ROUTE .STK-MED ONE Stop: 08/31/19 09:04 Last Admin: 08/31/19 11:08 Dose: 25 mg Documented by: [id number] Nitroglycerin (Nitrostat) Confirm Administered Dose 0.4 mg .ROUTE .STK-MED ONE Stop: 08/31/19 09:10 Last Admin: 08/31/19 09:12 Dose: 0.4 mg Documented by: [id number] Nitroglycerin/Dextrose (Nitroglycerin/D5w 100 Mcg/Ml 20ml Syringe) Confirm Administered Dose 2,000 mcg .ROUTE .STK-MED ONE Stop: 08/31/19 09:05 Last Admin: 08/31/19 11:09 Dose: 2,000 mcg Documented by: [id number] Ticagrelor (Brilinta) Confirm Administered Dose 180 mg PO .STK-MED ONE Stop: 08/31/19 10:16 Last Admin: 08/31/19 11:11 Dose: 180 mg Documented by: [id number] Medical Decision Making Differential Diagnosis Differential diagnoses includes but is not limited to acute coronary syndrome, myocardial infarction, pericarditis, pulmonary embolus, aortic dissection, pneumonia, pneumothorax, musculoskeletal, shingles, esophageal. Medical Records Attestation: I reviewed the patient's medical records. Home Medications Current Medication List: was personally reviewed by me Laboratory Data Attestation: I reviewed the patient's lab results. Result diagrams: 08/31/19 09:04 08/31/19 09:04 Lab Results 08/31/19 08/31/19 08/31/19 Range/Units 09:04 09:04 09:10 WBC 15.90 H (4.8-10.8) K/uL RBC 5.15 (4.7-6.1) M/uL Hgb 15.9 (14.0-18.0) g/dL Hct 46.7 (42-52) % MCV 90.7 (80-100) fL MCH 30.9 (25-34) pg MCHC 34.0 (32-36) g/dL RDW Std Deviation 49.9 H (36.4-46.3) fL RDW Coeff of Juice 15.0 H (11.5-14.5) % Plt Count 169 (130-400) K/uL MPV 11.6 H (7.4-10.4) fL Immature Gran % (Auto) 0.4 % Neut % (Auto) 81.7 % Lymph % (Auto) 7.6 % [place] % (Auto) 10.2 % Eos % (Auto) 0.0 % Baso % (Auto) 0.1 % Immature Gran # (Auto) 0.06 H (0.00-0.02) K/uL Neut # (Auto) 12.99 H (1.4-6.5) K/uL Lymph # (Auto) 1.21 (1.2-3.4) K/uL [place] # (Auto) 1.62 H (0.11-0.59) K/uL Eos # (Auto) 0.00 (0-0.5) K/uL Baso # (Auto) 0.02 (0-0.2) K/uL Activ Coag Time Kaolin (94-140) SECONDS Sodium 136 (136-145) mmol/L Potassium 4.5 (3.5-5.1) mmol/L Chloride 104 (98-107) mmol/L Carbon Dioxide 22 (21-32) mmol/L Anion Gap 11.0 (3-11) BUN 41 H (7-18) mg/dl Creatinine 2.12 H (0.6-1.4) mg/dl Est Cr Clr Drug Dosing 24.5 ml/min Est GFR ( Amer) 35.0 Est GFR (Non-Af Amer) 30.2 BUN/Creatinine Ratio 19.4 (10-20) Glucose 107 H (70-99) mg/dl Calcium 9.2 (8.5-10.1) mg/dl Total Bilirubin 1.0 (0.2-1) mg/dl AST 287 H (15-37) U/L ALT 61 (12-78) U/L Alkaline Phosphatase 62 (45-117) U/L POC Troponin I 28.47 H (0-0.045) ng/ml Troponin I 50.900 H* (0-0.045) ng/ml Total Protein 7.3 (6.4-8.2) gm/dl Albumin 3.7 (3.4-5.0) gm/dl Globulin 3.6 (2.5-4.0) gm/dl Albumin/Globulin Ratio 1.0 (0.9-2) Lipase 66 L (73-393) U/L 08/31/19 Range/Units 09:55 WBC (4.8-10.8) K/uL RBC (4.7-6.1) M/uL Hgb (14.0-18.0) g/dL Hct (42-52) % MCV (80-100) fL MCH (25-34) pg MCHC (32-36) g/dL RDW Std Deviation (36.4-46.3) fL RDW Coeff of Juice (11.5-14.5) % Plt Count (130-400) K/uL MPV (7.4-10.4) fL Immature Gran % (Auto) % Neut % (Auto) % Lymph % (Auto) % [place] % (Auto) % Eos % (Auto) % Baso % (Auto) % Immature Gran # (Auto) (0.00-0.02) K/uL Neut # (Auto) (1.4-6.5) K/uL Lymph # (Auto) (1.2-3.4) K/uL [place] # (Auto) (0.11-0.59) K/uL Eos # (Auto) (0-0.5) K/uL Baso # (Auto) (0-0.2) K/uL Activ Coag Time Kaolin 307 H (94-140) SECONDS Sodium (136-145) mmol/L Potassium (3.5-5.1) mmol/L Chloride (98-107) mmol/L Carbon Dioxide (21-32) mmol/L Anion Gap (3-11) BUN (7-18) mg/dl Creatinine (0.6-1.4) mg/dl Est Cr Clr Drug Dosing ml/min Est GFR ( Amer) Est GFR (Non-Af Amer) BUN/Creatinine Ratio (10-20) Glucose (70-99) mg/dl Calcium (8.5-10.1) mg/dl Total Bilirubin (0.2-1) mg/dl AST (15-37) U/L ALT (12-78) U/L Alkaline Phosphatase (45-117) U/L POC Troponin I (0-0.045) ng/ml Troponin I (0-0.045) ng/ml Total Protein (6.4-8.2) gm/dl Albumin (3.4-5.0) gm/dl Globulin (2.5-4.0) gm/dl Albumin/Globulin Ratio (0.9-2) Lipase (73-393) U/L ECG Data Attestation: I personally reviewed and interpreted this ECG as follows: Indication: chest pain Rate (beats per minute): 55 Rhythm: other (Complete heart block) Findings: + ST elevation (Inferior) and + left axis deviation Comparison ECG Date: no prior available Blood Pressure Blood Pressure Findings: Elevated blood pressure Blood Pressure Disposition: Referred to patients primary care provider RICHARD Narrative Patient is a 73-year with a smoking history and history of distant rheumatic fever presenting today complaining of several days of illness. States on Saturday has had diarrhea and vomited and slid off the toilet. Been feeling generally unwell since then with the onset of May of some chest pressure. Mild continues to be mild at this time but describes as pressure sensation. No difficulty breathing. No more nausea or abdominal discomfort. No evidence of trauma. EKG here concerning for inferior wall ST segment elevation [place] as well what appears to be a heart block. Heart alert was called. Patient given aspirin one nitroglycerin. Not hypotension requiring pacing here. Feed House Supervisor evaluated at bedside and proceeded to catheterization lab. Basic labs ordered. Do not believe any imaging of the head at this time or trauma imaging is needed from fall. Patient was transported to the cardiac catheterization lab for further care. Impression & Plan Acute ST elevation myocardial infarction (STEMI), Nausea & vomiting Critical Care Time Critical Care Time: Yes Total Critical Care Time: 30 I have personally spent 30 minutes of critical care time in the direct management of this patient. This includes bedside care, interpretation of diagnostic studies, and testing, discussion with consultants, patient, and family members, and other required patient management activities. These 30 minutes is in excess of all separately billable procedures. Discharge Plan Visit Data *Final* Discharge Date/Time: 08/31/19 09:21 Chief Complaint: Illness Stated Complaint: DIZZINESS,DIARRHEA,VOMITING,CHEST PAIN, ED Provider: Carlos De La Paz Discharge Problem: Acute ST elevation myocardial infarction (STEMI), Nausea & vomiting Patient Disposition: Still a Patient Discharge Instructions Interventions: ED Discharge Assessment Last Done: 08/31/19 09:20 Discharge Problem: Acute ST elevation myocardial infarction (STEMI) Qualifiers: Involved coronary artery: unspecified coronary artery Qualified Code(s): I21.3 - ST elevation (STEMI) myocardial infarction of unspecified site Nausea & vomiting Qualifiers: Vomiting type: unspecified Vomiting Intractability: non-intractable Qualified Code(s): R11.2 - Nausea with vomiting, unspecified The scribe's documentation has been prepared under my direction and personally reviewed by me in its entirety. I confirm that the note above accurately reflects all work, treatment, procedures, and medical decision making performed by me.
[2019-08-31] MEDS: MoRPHine SULFATE 2 MG/ML CARP IV SCH ×4 (15:03→20:23)
[2019-08-31] MEDS: SODIUM CHLORIDE 0.9% 1000ML 1,000 ML IV SCH ×2 (16:18→23:10)
--- NOTE | 2019-08-31 19:13 | Critical Care Consultation ---
Date of Consultation August 31, 2019 Assessment & Plan (1) Acute worsening of stage 3 chronic kidney disease: Reason Critically Ill: Post op from cardiac catheterization Cardiovascular: STEMI in leads II III and AVF Taken to screedman/laborer immediately RCA stented x2 Patient admitted to the ICU for close monitoring He has developed some AV dissociation possible accelerated junctional rhythm. Dr. Elizabeth made aware, holding beta mich tonight, will continue to monitor Has remained well clinically, no change in breathing or pulse. Blood pressure low normal 100/62 Will continue asa, clopidogrel, ROSALINDA-I and statin moving forward hold beta blockers for now EKG in morning Patient also had large hematoma in right forearm, causing painful, swollen purple left hand and forearm. pulses remained present throughout and after treating with pressure dressing swelling has gone down markedly Respiratory Breathing comfortably saturating well on room air GI: No issues currently Renal: History of CKD III Patient continues to make good urine Creatinine elevated to 2.12 ELectrolytes within normal limits Heme: WBC elevated to 15.9 likely secondary to [facility] no concern for infectious disease at this time H and H WNL, will recheck in morning to make sure patient not bleeding further ID: No concern for infectious process DVT PPx: ASA clopidogrel, patient got heparin during cardiac cath today F/E/N: Regular diet Dispo: ICU Code status: Full code (2) DVT prophylaxis: (3) COPD (chronic obstructive pulmonary disease): (4) HLD (hyperlipidemia): (5) CKD (chronic kidney disease) stage 3, GFR 30-59 ml/min: (6) Tobacco abuse: (7) History of SCC (squamous cell carcinoma) of skin: (8) Glaucoma: (9) History of cataract extraction: (10) Hypertension: (11) Rheumatic fever: (12) Acute ST elevation myocardial infarction (STEMI): (13) Nausea & vomiting: Supervising Physician Co-Signing Physician Notes Dr. Wilkinson was the resident-physician during care of patient. I separately evaluated patient for toure portions of the history and the exam. I was present during the critical portion of medical decision making, and I discussed the case with the resident. I generally agree with the findings and plan except for any additions/exceptions noted. Patient clinically doing better. Denies any chest pain. Had a hematoma in the right antecubital fossa which responded to bandage. Good radial pulse appreciated. Patient did have a junctional rhythm appreciated on the repeat EKG with no change in blood pressure. Patient is hemodynamically stable although the map runs around low 60s. Cardiology was made aware, DC'd Lopressor. I have personally spent 25 minutes of critical care time in the direct management of this patient. This is a life/limb threatening event. This includes time spent evaluating patient, direct bedside care, chart review, placing orders, interpretation of diagnostic studies, discussion with consultants, patient, and/or family members regarding treatment decisions, as well as other required patient management activities. This time is exclusive of all separately billable procedures, and teaching time and separate from and in addition to any other critical care service time. History of Present Illness Reason for Consultation: Status post cardiac stent x2 in right coronary artery Requesting Physician: Alessandro Low MD Attending Physician: Alessandro Low MD History of Present Illness Haroon Catalan is a 73 year old man with a Past medical history significant for CKD III, COPD, tobacco abuse, hyperlipidemia, hypertension who presented to the ED after 3 days of intermittent chest pain with exertion. He reports he had never had anything like this previously, and that the chest pain was coupled with shortness of breath. He presents the emergency department where he is found to have an inferior STEMI. He was taken to me as the [place] Clerk and received drug-eluting coronary stents x2 to a single obstruction in the right coronary artery. He was admitted to intensive care unit for further care Allergies Allergy/AdvReac Type Severity Reaction Status Date / Time No Known Drug Allergies Allergy Unknown . Verified 08/31/19 09:09 Home Medications Home Medications Medication Instructions Recorded Confirmed Type latanoprost 1 drp OPB HS 08/31/19 08/31/19 History lisinopril 20 mg PO DAILY 08/31/19 08/31/19 History Patient History Medical History COPD (chronic obstructive pulmonary disease) HLD (hyperlipidemia) CKD (chronic kidney disease) stage 3, GFR 30-59 ml/min Tobacco abuse History of SCC (squamous cell carcinoma) of skin Glaucoma Hypertension Rheumatic fever Surgical History History of cataract extraction Family History Father Rheumatic heart disease Mother Pleurisy Social History Preferred Language: Icelandic Communication Ability: Effective marital status: Current Living Situation: Spouse current occupational status: retired Feels Safe at Home: Yes Smoking Status: Current every day smoker Tobacco Type: cigarettes ; packs per day: 1 ; Years Smoked: 60 ; Hx Alcohol Use: No Hx Substance Use: No Review of Systems Review of Systems: All systems reviewed & are unremarkable except as noted in HPI & below Physical Exam Physical Exam: Constitutional: 73-year-old man appears stated age in no apparent distress Eyes: Pupils equal round reactive anicteric sclerae, extraocular muscle movements intact bilaterally Respiratory: Chest expansion symmetric, good air entry globally, vesicular breath sounds Cardiovascular: Patient with regular rate, regular rhythm, no murmurs rubs skips or gallops GI: No GI upset no nausea vomiting diarrhea Integumentary: Patient with pressure bandage to right radial artery Swelling proximal. Good pulse right radial appreciated. Results & Data Vital Signs (Past 12 Hours) Vital Signs Temp Pulse Pulse Resp BP BP Pulse Ox 08/31/19 18:00 72 24 96/64 L 98 08/31/19 17:00 72 20 91/54 L 98 08/31/19 16:50 36.9 C 69 22 99 08/31/19 16:40 73 23 100 08/31/19 16:01 64 23 97 08/31/19 16:00 65 25 H 110/61 98 08/31/19 15:50 68 27 H 100 08/31/19 15:40 68 20 99 08/31/19 15:30 72 24 98 08/31/19 15:20 70 26 H 99 08/31/19 14:45 73 21 101/56 L 100 08/31/19 14:40 78 18 97/60 L 99 08/31/19 14:30 72 31 H 92/61 L 100 08/31/19 14:15 65 23 93/55 L 99 08/31/19 14:00 67 22 105/59 L 100 08/31/19 13:45 61 24 99/61 L 100 08/31/19 13:31 65 25 H 108/54 L 99 08/31/19 13:15 63 23 136/66 99 08/31/19 13:00 59 L 26 H 126/65 95 08/31/19 12:45 59 L 20 126/72 92 08/31/19 12:30 59 L 25 H 116/65 98 08/31/19 12:16 36.4 C L 54 L 23 110/65 97 08/31/19 12:00 61 19 93/57 L 96 08/31/19 11:45 59 L 26 H 118/70 91 08/31/19 11:30 56 L 28 H 108/64 95 08/31/19 11:16 56 L 26 H 08/31/19 11:15 46 L 23 103/55 L 08/31/19 11:00 43 L 24 95/54 L 98 08/31/19 10:45 43 L 21 110/51 L 08/31/19 10:41 42 L 16 95/56 L 08/31/19 09:11 72 16 158/90 H 96 08/31/19 08:51 36.5 C 70 16 134/77 96 PG Care Time/CCT Total # of Minutes Spent Total Time Spent with Patient: Total time spent is greater than 50% in coordination of care (as documented) at patient's floor/unit and/or counseling patient: Resident Activity Tracking Resident Involvement: Resident Care Provided Care Provided: Adult Hospital Medicine (1) Acute ST elevation myocardial infarction (STEMI) Involved coronary artery: unspecified coronary artery Qualified Code(s): I 21.3 - ST elevation (STEMI) myocardial infarction of unspecified site (2) Nausea & vomiting Vomiting Intractability: non-intractable Vomiting type: unspecified Qualified Code(s): R11.2 - Nausea with vomiting, unspecified
[2019-08-31] MEDS: LATANOPROST 0.005% OP SOLN 2.5 ML BTL OPB SCH (20:21)
[2019-08-31] MEDS: TICAGRELOR 90 MG TAB PO SCH (20:23)
[2019-08-31] MEDS ORDERED: METOPROLOL TARTRATE 25 MG TAB PO SCH (21:00)
[2019-09-01] MEDS: MoRPHine SULFATE 2 MG/ML CARP IV SCH ×4 (02:14→08:40)
[2019-09-01 04:58] LABS: Basophils # (auto) 0.02 K/uL (0-0.2); Basophils % (auto) 0.2 %; Eosinophils # (auto) 0.02 K/uL (0-0.5); Eosinophils % (auto) 0.2 %; Hematocrit (blood only) 30.8 % (42-52); Hemoglobin 10.5 g/dL (14.0-18.0); Immature Granulocytes # (auto) 0.03 K/uL (0.00-0.02); Immature Granulocytes % (auto) 0.3 %; Lymphocytes # (auto) 1.05 K/uL (1.2-3.4); Lymphocytes % (auto) 10.3 %; Mean Corpuscular Hemoglobin 30.3 pg (25-34); Mean Corpuscular Hgb Conc 34.1 g/dL (32-36); Mean Platelet Volume 11.3 fL (7.4-10.4); Monocytes # (auto) 1.42 K/uL (0.11-0.59); Monocytes % (auto) 13.9 %; Neutrophils # (auto) 7.67 K/uL (1.4-6.5); Neutrophils % (auto) 75.1 %; Platelet Count 123 K/uL (130-400); RDW Coefficient of Variation 14.5 % (11.5-14.5); RDW Standard Deviation 47.2 fL (36.4-46.3); Red Blood Count 3.46 M/uL (4.7-6.1); White Blood Count 10.21 K/uL (4.8-10.8)
[2019-09-01 05:14] LABS: Albumin Level 2.5 gm/dl (3.4-5.0); BUN Creatinine Ratio 21.8 (10-20); Calcium 7.2 mg/dl (8.5-10.1); Creatinine Clr Calc Pharmacy 36.9 ml/min; Est GFR (African American) 56.3; Est GFR (Non-African American) 48.6; Potassium 4.1 mmol/L (3.5-5.1)
[2019-09-01 05:49] LABS: Albumin Globulin Ratio 0.9 (0.9-2); Globulin 2.7 gm/dl (2.5-4.0); Total Protein 5.2 gm/dl (6.4-8.2); Troponin I 44.1 ng/ml (0-0.045)
[2019-09-01 06:26] LABS: Estimated Average Glucose 114 mg/dl; Hemoglobin A1C 5.6 % (4.5-5.6)
--- NOTE | 2019-09-01 07:55 | Critical Care Progress Note ---
Date of Service September 01, 2019 Assessment & Plan (1) Acute worsening of stage 3 chronic kidney disease: Reason Critically Ill: Post op from cardiac catheterization Cardiovascular: STEMI in leads II III and AVF Taken to labor relations consultant immediately RCA stented x2 Post op day 1 Patient admitted to the ICU for close monitoring He has developed some AV dissociation possible junctional rhythm. Dr. Elizabeth made aware, holding beta mich and hypertensive medication. Will continue to monitor Has remained well clinically, no change in breathing or pulse. Blood pressure low normal with no symptoms Patient asymptomatic Will give 500 ml bolus of normal saline Will continue asa, clopidogrel, ROSALINDA-I (when tolerated) and statin moving forward hold beta blockers for now Will check ECG this morning Hematoma in right arm improving Respiratory Breathing comfortably saturating well on room air GI: No issues currently Renal: History of CKD III Patient continues to make good urine Creatinine elevated to 1.42, initial elevation likely secondary to procedure and contrast Electrolytes within normal limits Heme: Hemoglobin dropped from 15.9-10.5, feel this is likely secondary to procedure yesterday, bleeding into hematoma, and dilutional effect because patient does not have any other evidence of hemorrhage. Will recheck h and h at noon to make sure not worsening Thrombocytopenia likely secondary to consumption with dilutional effect. Will monitor. ID: No concern for infectious process DVT PPx: ASA clopidogrel. Hold heparin given there is drop in hemoglobin and hematoma. F/E/N: Regular diet Dispo: Possible downgrade today Code status: Full code (2) DVT prophylaxis: (3) COPD (chronic obstructive pulmonary disease): (4) HLD (hyperlipidemia): (5) CKD (chronic kidney disease) stage 3, GFR 30-59 ml/min: (6) Tobacco abuse: (7) History of SCC (squamous cell carcinoma) of skin: (8) Glaucoma: (9) History of cataract extraction: (10) Hypertension: (11) Rheumatic fever: (12) Acute ST elevation myocardial infarction (STEMI): (13) Nausea & vomiting: Supervising Physician Co-Signing Physician Notes Dr. Wilkinson was the resident-physician during care of patient. I separately evaluated patient for toure portions of the history and the exam. I was present during the critical portion of medical decision making, and I discussed the case with the resident. I generally agree with the findings and plan except for any additions/exceptions noted. Patient is doing better. Denies any dizziness, no palpitation, no nausea, no vomiting. Right arm pain is improved. Hematoma has decreased in size. Blood pressure has been running on the lower side with map being in the low 60s. We will give him some fluids. We will repeat H&H as there is drop in hemoglobin to make sure it is stable. We will coordinate with cardiology. I have personally spent 35 minutes of critical care time in the direct managem ent of this patient. This is a life/limb threatening event. This includes time spent evaluating patient, direct bedside care, chart review, placing orders, interpretation of diagnostic studies, discussion with consultants, patient, and/or family members regarding treatment decisions, as well as other required patient management activities. This time is exclusive of all separately billable procedures, and teaching time and separate from and in addition to any other critical care service time. Subjective Mr Catalan is resting comfortably this morning, no shortness of breath, no chest pain, feels better than he has in three days, right arm pain is greatly decreased, he endorses full function. No complaints at this time. Heart rate remains slow. Review of Systems Review of Systems: All systems reviewed & are unremarkable except as noted in HPI & below Physical Exam Physical Exam: Constitutional: Well appearing 73 year old man with swollen purple right hand down remarkably from yesterday. No apparent distress Eyes: Anicteric sclerae, EOMI bilaterally Neck: Supple, no masses appreciated Respiratory: Lungs clear to auscultation, chest expansion symmetric Cardiovascular: Heart sounds dual, no murmurs rubs, skips or gallops, peripheral pulses all intact including radial and ulnar pulses on swollen right arm. Large hematoma of right arm with bandage in place Gastrointestinal: Soft non tender bowel sounds present. Skin: Blueish purple discoloration of right hand, improved from yesterday. Neuro: No focal deficits, intact to sensation bilateral extremities, full streng th and coordination. Results & Data Vital Signs (Past 12 Hours) Vital Signs Temp Pulse Resp BP Pulse Ox 09/01/19 06:00 58 L 23 96/55 L 98 09/01/19 05:00 59 L 21 84/51 L 98 09/01/19 04:00 36.9 C 61 22 83/48 L 99 09/01/19 03:00 65 20 96/46 L 98 09/01/19 02:00 61 27 H 90/52 L 99 09/01/19 01:00 63 22 95/53 L 99 09/01/19 00:00 36.7 C 64 23 82/50 L 99 08/31/19 23:11 67 23 95/56 L 99 08/31/19 22:00 69 25 H 96/56 L 99 08/31/19 21:00 68 24 95/56 L 99 08/31/19 20:01 36.9 C 75 28 H 100/62 99 Laboratory Results 09/01/19 08:57 09/01/19 04:16 PG Care Time/CCT Total # of Minutes Spent Total Time Spent with Patient: Total time spent is greater than 50% in coordination of care (as documented) at patient's floor/unit and/or counseling patient: Critical Care Time: Yes Total Critical Care Time: 35 Resident Activity Tracking Resident Involvement: Resident Care Provided Care Provided: Adult Hospital Medicine (1) Acute ST elevation myocardial infarction (STEMI) Involved coronary artery: unspecified coronary artery Qualified Code(s): I21.3 - ST elevation (STEMI) myocardial infarction of unspecified site (2) Nausea & vomiting Vomiting Intractability: non-intractable Vomiting type: unspecified Qualified Code(s): R11.2 - Nausea with vomiting, unspecified
[2019-09-01] MEDS ORDERED: SODIUM CHLORIDE 0.9% 1000ML 500 ML IV ONE (08:10)
[2019-09-01] MEDS: ATORVASTATIN 40 MG TAB PO SCH (08:42)
[2019-09-01] MEDS: ASPIRIN 81 MG ECTAB PO SCH (08:42)
[2019-09-01] MEDS: TICAGRELOR 90 MG TAB PO SCH ×2 (08:44→20:48)
[2019-09-01] MEDS: TIMOLOL MALEATE 0.5% OP SOLN 5 ML BTL OPR SCH (08:44)
[2019-09-01] MEDS ORDERED: SODIUM CHLORIDE 0.9% 500 ML IV ONE (08:54)
[2019-09-01] MEDS ORDERED: LATANOPROST 0.005% OP SOLN 2.5 ML BTL OPR SCH (09:00)
[2019-09-01 09:05] LABS: Hematocrit (blood only) 30.2 % (42-52); Hemoglobin 10.3 g/dL (14.0-18.0)
[2019-09-01] MEDS: SODIUM CHLORIDE 0.9% 1000ML 1,000 ML IV SCH ×2 (09:30→20:27)
[2019-09-01] MEDS: lisinopriL 5 MG TAB PO SCH (10:24)
--- NOTE | 2019-09-01 11:08 | Hospitalist Progress Note ---
Date of Service September 01, 2019 Assessment & Plan (1) Acute ST elevation myocardial infarction (STEMI): Inferior STEMI yesterday status post cardiac catheterization with 2 overlapping drug-eluting stents placed into the RCA. He is doing well today with a mild complication of right upper extremity swelling. Radial pulse is palpable and pressure dressing is in place. He continues to recover in the ICU. Likely hemodynamically stable and will be transferred to the floor later today. Defer to registered respiratory technician. Continue medical management of CAD including JAMA inhibitor,Lipitor 80, Brilinta twice daily. Defer to cardiology to add beta- mich. Heart rate is in the low 60s today. (2) Acute worsening of stage 3 chronic kidney disease: Improved closer to baseline with treatment of STEMI. Continue to trend. Continue oral rehydration. (3) Tobacco abuse: Strongly encouraged to quit smoking and inform the patient that active smoking causes the highest risk of repeat infarction. 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 He is in contemplative phase. He verbalized understanding with intent to comply. (4) Nausea & vomiting: Resolved, likely secondary to STEMI event yesterday. Patient is tolerating p.o. without issue. (5) DVT prophylaxis: SCDs. Multiple blood thinners in the last 24 hours. Would restart chemoprophylaxis tomorrow if he stays. Encourage ambulation Full code Dispo-likely to home in a.m. Kathe Rodriguez DO [facility] Hospitalist Subjective Patient doing well status post 2 drug-eluting stents to the [facility] yesterday. Denies any chest pain overnight. Troponin is peaked and trended down. He underwent a radial artery approach on the right upper extremity and developed subsequent swelling. His right upper extremity is warm and well-perfused with palpable radial pulse today. There is an Jama wrap in place acting as a pressure bandage Review of Systems Review of Systems: All systems reviewed & are unremarkable except as noted in HPI & below Physical Exam Physical Exam: CONSTITUTIONAL: WNWD, vitals as above, generally well- appearing EYES: normal conjunctivae, no scleral icterus ENT: MMM RESPIRATORY: clear to auscultation bilaterally, no crackles, rales or wheezes, normal respiratory effort CARDIOVASCULAR: regular rate and rhythm, S1 and 2 heard without murmurs, gallops or rubs, no JVD, no peripheral edema GASTROINTESTINAL: normal bowel sounds, soft, nontender, nondistended MUSCULOSKELETAL: strength 5/5 throughout, head is normocephalic and atraumatic SKIN: warm and dry NEUROLOGIC: CN 2-12 grossly intact, no sensory deficit, normal cognition, no gr oss focal deficits. PSYCHIATRIC: alert cooperative and oriented to person, place and time. Results & Data Vital Signs (Past 12 Hours) Vital Signs Temp Pulse Resp BP Pulse Ox 09/01/19 09:00 65 21 91/58 L 100 09/01/19 08:08 73 25 H 82/46 L 99 09/01/19 08:00 36.7 C 74 22 87/48 L 97 09/01/19 07:45 75 20 81/56 L 98 09/01/19 07:00 64 23 88/49 L 98 09/01/19 06:00 58 L 23 96/55 L 98 09/01/19 05:00 59 L 21 84/51 L 98 09/01/19 04:00 36.9 C 61 22 83/48 L 99 09/01/19 03:00 65 20 96/46 L 98 09/01/19 02:00 61 27 H 90/52 L 99 09/01/19 01:00 63 22 95/53 L 99 09/01/19 00:00 36.7 C 64 23 82/50 L 99 08/31/19 23:11 67 23 95/56 L 99 Laboratory Results Short CBC 09/01/19 09/01/19 Range/Units 04:17 08:57 WBC 10.21 (4.8-10.8) K/uL Hgb 10.5 L D 10.3 L (14.0-18.0) g/dL Hct 30.8 L 30.2 L (42-52) % Plt Count 123 L (130-400) K/uL BMP 09/01/19 04:16 Sodium 138 Potassium 4.1 Chloride 108 H Carbon Dioxide 21 BUN 31 H Creatinine 1.43 H D Glucose 87 Calcium 7.2 L D Cardiac Enzymes 08/31/19 08/31/19 08/31/19 Range/Units 09:04 16:21 22:28 Troponin I 50.900 H* 69.200 H* 48.600 H* (0-0.045) ng/ml 09/01/19 Range/Units 04:16 Troponin I 44.100 H* (0-0.045) ng/ml Liver Function 09/01/19 Range/Units 04:16 Total Bilirubin 1.0 (0.2-1) mg/dl AST 127 H (15-37) U/L ALT 37 (12-78) U/L Alkaline Phosphatase 42 L (45-117) U/L Albumin 2.5 L (3.4-5.0) gm/dl Medications Administered Current Inpatient Medications Acetaminophen (Tylenol) 650 mg PO Q4H PRN PRN Reason: Mild Pain (scale 1-3) Stop: 09/30/19 10:30 Aspirin (Ecotrin Ectab) [facility] [place] Stop: 10/01/19 08:59 Last Admin: 09/01/19 08:42 Dose: 81 mg Documented by: Atorvastatin Calcium (Lipitor) 80 [facility] [place] Stop: 10/01/19 08:59 Last Admin: 09/01/19 08:42 Dose: 80 mg Documented by: Sodium Chloride (Nss 1000ml) 1,000 mls @ 90 mls/hr IV .[id number] [facility] Stop: 10/01/19 09:44 Last Admin: 09/01/19 09:30 Dose: 90 mls/hr Documented by: Latanoprost (Xalatan Oph) 1 drops OPB HS [facility] Stop: 09/30/19 20:59 Last Admin: 08/31/19 20:21 Dose: 1 drops Documented by: Lisinopril (Zestril) 5 [facility] [place] Stop: 10/01/19 08:59 Last Admin: 09/01/19 10:24 Dose: Not Given Documented by: Miscellaneous (Icu Protocol For Hyperglycemia) 1 ea N/A PRN PRN; Protocol PRN Reason: Hyperglycemia Protocol Stop: 09/02/19 10:24 Nitroglycerin (Nitrostat) 0.4 mg SL UD PRN PRN Reason: Chest Pain Stop: 09/30/19 09:10 Ondansetron HCl (Zofran) 4 mg IV Q6H PRN PRN Reason: Nausea And Vomiting Stop: 09/30/19 10:30 Ticagrelor (Brilinta) 90 mg PO BID [facility] Stop: 09/30/19 20:59 Last Admin: 09/01/19 08:44 Dose: 90 mg Documented by: Timolol Maleate (Timoptic 0.5% Oph) 1 drops OPR DAILY [facility] Stop: 10/01/19 08:59 Last Admin: 09/01/19 08:44 Dose: 1 drops Documented by: (1) Acute ST elevation myocardial infarction (STEMI) Involved coronary artery: unspecified coronary artery Qualified Code(s): I21.3 - ST elevation (STEMI) myocardial infarction of unspecified site (2) Nausea & vomiting Vomiting Intractability: non-intractable Vomiting type: unspecified Qualified Code(s): R11.2 - Nausea with vomiting, unspecified
--- NOTE | 2019-09-01 17:45 | Cardiology Progress Note ---
Date of Service September 01, 2019 Assessment & Plan (1) Acute ST elevation myocardial infarction (STEMI): 2. Due to RCA occlusion post PCI with 2 overlapping drug-eluting stents 3. Mild LV dysfunction, EF 40 to 45%, hypokinetic to akinetic inferolateral and basal inferior wall 4. Severe RV dysfunction 5. Hypertension 6. Junctional rhythm 7. Mild mitral regurgitation 8. Tobacco abuse 9. MELCHOR 10. Anemia Patient has remained chest pain-free, troponin peaked. Hypotensive this a.m. Has improved with aggressive IV fluids. Suspect secondary to RV infarct/dysfunction. Remains in junctional rhythm but asymptomatic. MELCHOR improved. Diffuse ecchymosis across right upper extremity but no other apparent access site complications. Continue aspirin, ticagrelor today. Hold a.m. ticagrelor and will transition to clopidogrel tomorrow due to cost concerns. Give loading dose of 300 mg then continue 75 mg daily. Continue high intensity statin. Hold beta-mich, ROSALINDA inhibitor for now. From a cardiac standpoint okay for transition to telemetry today. Potential discharge tomorrow morning. Subjective Feeling well. Up in chair. Walked halls earlier. No recurrent chest pain. Remains in junctional rhythm. Hypotensive this morning, improved this morning after IV fluids. Review of Systems Review of Systems: All systems reviewed & are unremarkable except as noted in HPI & below Physical Exam Physical Exam: General: Comfortable, no acute distress HEENT: Sclerae anicteric Lungs: Clear to auscultation bilaterally, no rhonchi or wheezes Cardiac: Regular rate and rhythm, no murmurs. Abdomen: Soft, nontender, positive bowel sounds. Extremities: Warm, well perfused, no edema. Diffuse ecchymosis over right upper extremity extending above elbow. 2+ radial pulse, no hematoma. Sensation intact distally. Neuro: Nonfocal Psych: Alert orient x3, normal affect and mood Results & Data Vital Signs (Past 12 Hours) Vital Signs Temp Pulse Resp BP Pulse Ox 09/01/19 16:00 64 09/01/19 15:01 59 L 21 100 09/01/19 15:00 58 L 22 108/64 100 09/01/19 14:05 63 24 113/59 L 99 09/01/19 14:00 62 25 H 100/51 L 100 09/01/19 13:15 65 23 92/54 L 99 09/01/19 13:00 69 23 86/47 L 98 10/01/19 12:01 71 24 98 09/01/19 12:00 71 24 97/48 L 97 09/01/19 11:22 103/53 L 09/01/19 11:21 67 17 112/60 100 09/01/19 11:00 55 L 24 103/56 L 99 09/01/19 10:00 58 L 25 H 109/60 100 09/01/19 09:00 65 21 91/58 L 100 09/01/19 08:08 73 25 H 82/46 L 99 09/01/19 08:00 98.1 F 74 22 87/48 L 97 09/01/19 07:45 75 20 81/56 L 98 09/01/19 07:00 64 23 88/49 L 98 09/01/19 06:00 58 L 23 96/55 L 98 PG Care Time/CCT Total # of Minutes Spent Total Time Spent with Patient: Total time spent is greater than 50% in coordination of care (as documented) at patient's floor/unit and/or counseling patient: (1) Acute ST elevation myocardial infarction (STEMI) Involved coronary artery: unspecified coronary artery Qualified Code(s): I21.3 - ST elevation (STEMI) myocardial infarction of unspecified site
[2019-09-01] MEDS: LATANOPROST 0.005% OP SOLN 2.5 ML BTL OPB SCH (20:27)
[2019-09-02] MEDS: SODIUM CHLORIDE 0.9% 1000ML 1,000 ML IV SCH (07:34)
[2019-09-02 07:57] LABS: BUN Creatinine Ratio 18.5 (10-20); Calcium 7.2 mg/dl (8.5-10.1); Creatinine Clr Calc Pharmacy 44.3 ml/min; Est GFR (Non-African American) 56.1; Potassium 4.3 mmol/L (3.5-5.1)
[2019-09-02] MEDS ORDERED: CLOPIDOGREL BISULFATE 300 MG TAB PO ONE (08:00)
[2019-09-02] MEDS: TIMOLOL MALEATE 0.5% OP SOLN 5 ML BTL OPR SCH (08:39)
[2019-09-02] MEDS: ATORVASTATIN 40 MG TAB PO SCH (08:39)
[2019-09-02] MEDS: lisinopriL 5 MG TAB PO SCH (08:40)
[2019-09-02] MEDS: ASPIRIN 81 MG ECTAB PO SCH (08:40)
--- NOTE | 2019-09-02 11:00 | Cardiology Progress Note ---
Date of Service September 02, 2019 Assessment & Plan (1) Acute ST elevation myocardial infarction (STEMI): 2. Due to RCA occlusion post PCI with 2 overlapping drug-eluting stents 3. Mild LV dysfunction, EF 40 to 45%, hypokinetic to akinetic inferolateral and basal inferior wall 4. Severe RV dysfunction 5. Hypertension 6. Junctional rhythm 7. Mild mitral regurgitation 8. Tobacco abuse 9. MELCHOR 10. Anemia Patient has remained chest pain-free, troponin peaked. Blood pressure stable overnight Remains in junctional rhythm but asymptomatic. MELCHOR improved. Diffuse ecchymosis across right upper extremity but no other apparent access site complications. Can discontinue IV fluids this morning. Up walking halls later today If remains asymptomatic, blood pressure stable okay with discharge later this afternoon Switch to clopidogrel this morning, continue DAPT with aspirin/clopidogrel for at least one year Continue high intensity statin ROSALINDA as tolerates Plan to start beta-mich as an outpatient. Follow-up with me in 2 weeks. Subjective Feeling well. No recurrent chest pain. Breathing comfortably. Telemetry reviewedremains in junctional rhythm in the 60s Review of Systems Review of Systems: All systems reviewed & are unremarkable except as noted in HPI & below Physical Exam Physical Exam: General: Comfortable, no acute distress HEENT: Sclerae anicteric, mucous membranes moist Lungs: Clear to auscultation bilaterally, no rhonchi or wheezes Cardiac: Regular rate, premature beats, no murmurs Abdomen: Soft, nontender, nondistended, positive bowel sounds. Extremities: Warm, well perfused, no edema. Diffuse ecchymosis, swelling of right upper extremity, 2+ radial pulse distal sensation intact Neuro: Nonfocal Psych: Alert orient x3, normal affect and mood Results & Data Vital Signs (Past 12 Hours) Vital Signs Temp Pulse Resp BP Pulse Ox 09/02/19 06:48 98.2 F 61 18 96/60 L 98 09/02/19 03:16 99.5 F 72 17 101/55 L 96 09/01/19 23:29 98.8 F 64 18 113/60 98 PG Care Time/CCT Total # of Minutes Spent Total Time Spent with Patient: Total time spent is greater than 50% in coordination of care (as documented) at patient's floor/unit and/or counseling patient: (1) Acute ST elevation myocardial infarction (STEMI) Involved coronary artery: unspecified coronary artery Qualified Code(s): I 21.3 - ST elevation (STEMI) myocardial infarction of unspecified site
[2019-09-02 11:46] VITALS: BP 111/66; TEMP 97.9; O2SAT 97
--- NOTE | 2019-09-02 11:46 | Discharge Summary ---
Date of Service September 02, 2019 Admission HPI Per Admitting Provider This is a 73-year-old male who has significant past medical history of HTN, HLD, CKD stage III, COPD, tobacco abuse who presents to [facility] ED secondary to chest pain x 2-3 days. Patient symptoms initially started 2 days ago with nausea, vomiting chest heaviness, decreased appetite and weakness. Symptoms progressed and this morning he developed substernal chest pressure, nonradiating, "felt like elephant sitting on chest." Never had similar symptoms in the past. Did not try anything [id number]. He called into PCP and recommended being seen in ED. Upon arrival EKG concerning for acute STEMI and initial troponin 50.9. Initially IV heparin was initiated and he was given ASA and nitro. Heart alert was called and patient proceeded to [place]. He had 100% occlusion of RCA and underwent 2 drug-eluting stents by Dr. Elizabeth. After successful PCI he was then transitioned to ICU. Currently patient is sitting up in bed and admits to feeling much better prior to arrival. He does complain of numbness and coolness to right upper extremity, the site of the catheterization. Requesting food as his appetite is returning. Denies fever, chills, sweats, lightheadedness, dizziness, chest pain, cough, shortness breath, palpitations, nausea, vomiting, abdominal pain, change in bowel or urinary habits, dysuria, increased urgency. Admission Exam Per Admitting Provider Constitutional: Thin, WD, Male, vitals as above, NAD, sitting up in bed, pleasant, conversing easily Head: Normocephalic, Atraumatic Eyes: PERRL, conjunctivae normal, anicteric sclerae ENMT: external ear and nose normal, oropharynx normal Neck: trachea midline, no thyromegaly normal visual inspection Respiratory: normal respiratory effort, lungs clear to auscultation, no wheeze, rales, rhonchi. Normal insp/exp effort, no accessory muscle use Cardiovascular: bradycardic but regular rate, no murmur, +RUE edema distal to radial band, dusky skin coloration, cold decreased sensation and diminished R radial pulse. Vessels: no JVD or carotid bruit Chest: normal inspection of chest Abdomen: normal bowel sounds, soft, nontender, no hepatosplenomegaly Musculoskeletal: no cyanosis or clubbing, extremities motor strength 5/5 Skin: no rashes, warm with exception of distal RUE Neurologic: PERRL, EOMI, accommodation nl, no face palsy, no dysarthria CN's II-XI intact bilaterally and moves all extremities Psychiatric: A+Ox3, euthymic affect Lymphatic: no cervical or axillary lymphadenopathy : deferred Principal Diagnosis inferior STEMI 2/2 CAD MELCHOR-resolved Discharge Data Allergies Allergy/AdvReac Type Severity Reaction Status Date / Time No Known Drug Allergies Allergy Unknown . Verified 08/31/19 09:09 Consultations 08/31/19 10:27 Consult Case Management - Discharge Planning Routine 08/31/19 10:28 Consult Psychologist Private Practice Routine 08/31/19 10:35 Consult Cardiac Rehabilitation Routine Procedures Performed Operation Date: 08/31/19 09:10 Actual Procedures s Cineradiography w/Routine Exam - Rashi Elizabeth MD p Aspiration/PCI w/BJ for Stemi - Rashi Elizabeth MD s Cath, Left with Cors and Vent - Rashi Elizabeth MD Ordered Studies 08/31/19 09:11 CL Cath Imgs for PACS use only Stat Hospital Course (1) Acute ST elevation myocardial infarction (STEMI): (2) MELCHOR (acute kidney injury): (3) Tobacco abuse: 73-year-old man admitted to the hospitalist service after presenting with a STEMI and initial troponin was 50.9. In the ER IV heparin was initiated and he was given aspirin and nitroglycerin. A heart alert was called and the patient proceeded to heart catheterization. He had a 100% occlusion of the RCA and underwent two overlapping drug-eluting stents to this area by Dr. Elizabeth. PCI was successful and he was transitioned to the ICU for monitoring. He had a complication of some right arm swelling after radial puncture this was also associated with significant ecchymosis. Risk factors for cardiac disease included active smoking, which was strongly recommended against at discharge. Patient verbalized understanding with intent to comply. He continued to remain chest pain-free during his hospitalization. He developed some hypotension the following day, but this improved improved with aggressive IV fluids and was suspected secondary to RV infarct/dysfunction. Rhythm remained junctional but asymptomatic. This rhythm became more consistent with Type I second degree heart block at time of discharge, but junctional beats were still seen inter mittently on telemetry review. An echocardiogram revealed a normal left ventricular size with mildly reduced systolic function and an ejection fraction 40-45%. Severe hypokinesis to akinesis of the inferior lateral and basal inferior wall segments was noted. Otherwise there was mild global hypokinesis. Mild concentric left ventricular hypertrophy was noted. Right ventricular systolic function was severely reduced. As a result of his hypotension his lisinopril was decreased from 20mg daily to 5mg daily. At time of discharge he was hemodynamically stable and afebrile and feeling good with ambulation. He was ambulating and mentating at baseline and tolerating p.o. His right upper extremity swelling continue to improve with evidence of scattered ecchymosis to indicate healing. Cardiac exam revealed a regular rate and rhythm with S2 and S1 heard. No murmurs gallops or rubs were heard and there was no evidence of JVD or peripheral edema. His lungs were clear to auscultation bilaterally without crackles, wheezes or rales. He had a normal respiratory effort. Neurologically he had normal cognition and was alert and cooperative and oriented to person and place and time. Strength was 5 out of 5 throughout. He was discharged in stable condition with close primary care and cardiology care follow-up recommended. He did have evidence of acute kidney injury on arrival on 08/31. This improved with IV hydration and treatment for STEMI. Creatinine at time of discharge was 1.2. Total Time Total Time Spent Total Time Spent (In Minutes): 60 Total Time Includes: Examination of the Patient, Discharge Planning, Medication Reconciliation, Communication With Other Providers and Other (arrange outpatient follow-up) Discharge Plan Discharge Items Patient Disposition: Home - Self-Care Reason For Visit: HEART ALERT Discharge Diagnosis: inferior STEMI 2/2 CAD (heart attack) Acute kidney injury-resolved Condition on Discharge: Good Health Concerns: STOP SMOKING Activity: Resume your previous activity Lifting: Gradually increase as tolerated Bathing: No limitations Non-emergency contact: Primary Care Provider and Bundle Packer Call non-emergency contact if: you have any medication questions, your symptoms worsen, your pain is not controlled, your pain is worsening, your pain is unusual for you, your pain is concerning for you and you have a fever Follow-up/Referrals: Alhaji Pitts MD [Primary Care Provider] - Diet: Heart Healthy Add Attending Provider Instructions: Please take medications as instructed on discharge list below. Please follow-up with Dr. Ruben Elizabeth from [facility] [place] [facility] in two weeks time. You have been scheduled for follow-up with your primary care physician to ensure you are still doing well on all new medications post-hospital discharge. 09/09/2019 3:00 PM Alhaji Pitts MD Internal Medicine [facility] Regarding your R arm swelling, this should improve and the bruising should start to subside over the next several days. Any blistering present should be left alone and when it breaks open, feel free to use some vaseline or keep it clean and open to air. It was a pleasure taking care of you! Please call if you have any questions or problems. You can reach a [facility] hospitalist on duty at [facility] 24 hours a day by calling [phone]. Take care of yourself. Kathe Rodriguez DO [facility] Pending Studies at Discharge: No Stand-Alone Forms: My [facility] Medications and DC Order Prescriptions: New clopidogrel 75 mg Tablet 75 mg PO QAM Qty: 30 RF: 2 atorvastatin 40 mg Tablet 80 mg PO QAM Qty: 30 RF: 2 lisinopril [Zestril] 5 mg Tablet 5 mg PO QAM Qty: 30 RF: 1 nitroglycerin [Nitrostat] 0.4 mg Tablet, Sublingual 0.4 mg sublingual UD PRN (Reason: chest pain) 30 Days Qty: 20 RF: 0 aspirin [Ecotrin Low Strength] 81 mg Tablet,Delayed Release (Dr/Ec) 81 mg PO QAM Qty: 90 RF: 1 Continued latanoprost 0.005 % drops 1 drp OPB HS RF: 0 Discontinued lisinopril 20 mg tablet 20 mg PO DAILY RF: 0 Discharge Orders: Discharge Order (Routine); Ordered 09/02/19 Ordered By: Kathe Rodriguez Admission Data Admit Date/Time: 08/31/19 10:27 Attending Provider: Kathe Rodriguez Admit Provider: Rashi Elizabeth Primary Care Provider: Alhaji Pitts Other Providers: Lay Cardona Other Interventions: Discharge Summary Assessment (RN) Last Done: 09/02/19 13:29 DC Date/Time DO NOT enter until pt leaves facility: 09/02/19 13:50
[2019-09-02 13:30] VITALS: PULSE 65
[2019-09-03] MEDS ORDERED: CLOPIDOGREL BISULFATE 75 MG TAB PO SCH (09:00)
== END 2019-09-02 13:50 | disposition home or self-care (01) | DRG 247 ==
LOC: ED 08:45 → CC 09:21 → SUATTDRO 10:27 → 1E 10:27 → 2S 09-01 21:01
DX: I21.11 ST elevation (STEMI) myocardial infarction involving right coronary artery; I13.10 Hypertensive heart and chronic kidney disease without heart failure, with stage 1 through stage 4 chronic kidney disease, or unspecified chronic kidney disease; L76.32 Postprocedural hematoma of skin and subcutaneous tissue following other procedure; D69.59 Other secondary thrombocytopenia; Z82.49 Family history of ischemic heart disease and other diseases of the circulatory system; I45.89 Other specified conduction disorders; N18.3 Chronic kidney disease, stage 3 (moderate); D64.9 Anemia, unspecified; Z79.899 Other long term (current) drug therapy; H40.9 Unspecified glaucoma; F17.210 Nicotine dependence, cigarettes, uncomplicated; N17.9 Acute kidney failure, unspecified; I44.1 Atrioventricular block, second degree; E78.5 Hyperlipidemia, unspecified; I95.9 Hypotension, unspecified

== ENCOUNTER 2023-06-20 17:48 | Inpatient (IN) ==
--- NOTE | 2023-06-20 17:56 | ED Triage Note ---
Date of Service June 20, 2023 History of Present Illness This patient was briefly evaluated while in triage. An abbreviated physical exam was performed. This patient is a 77-year-old Male who presents to the ED for evaluation of dehydration. He has had cramping in his legs and has been feeling weak. He was recently on Lasix 80mg daily but that was dropped down to 40mg daily. He has had decreased appetite and doesn't drink much. Physical Exam VITALS: Vitals are noted on the nurse's note and reviewed by myself. GENERAL: This is a 77-year-old male, in no acute distress, well-developed well- nourished. SKIN: The skin was without rashes. HEART: Regular rate and rhythm without murmurs gallops or rubs. LUNGS: Clear to auscultation bilaterally without wheezes, rales or rhonchi. EXTREMITIES: 1+ pitting edema bilaterally NEURO: Patient was alert and oriented to person place and time. Initial orders for labs and / or imaging were placed and patient was placed in the waiting area until a bed is available. Please see further documentation for the full ED course. MDM / Impression Impression Impression: GI bleed Impression: GI bleed Qualifiers: GI bleed type/associated pathology: melena Qualified Code(s): K92.1 - Melena
[2023-06-20 19:29] LABS: Albumin Globulin Ratio 1.6 (0.9-2); BUN Creatinine Ratio 23.5 (10-20); Calcium 8.8 mg/dl (8.6-10.3); Creatinine Clr Calc Pharmacy 27.4 ml/min; Est GFR (African American) 41.7 ml/min; Globulin 2.5 gm/dl (2.5-4.0); Potassium 3.9 mmol/L (3.5-5.1); Total Protein 6.5 gm/dl (6.0-8.3)
[2023-06-20 19:35] LABS: Hematocrit (blood only) 23.6 % (42.0-52.0); Mean Corpuscular Hgb Conc 29.7 g/dL (32.0-36.0); Mean Corpuscular Volume 74.2 fL (80.0-100.0); Mean Platelet Volume 10.9 fL (9.4-12.4); Platelet Count 167 K/uL (130-400); RDW Coefficient of Variation 20.4 % (11.5-14.5); RDW Standard Deviation 54.7 fL (36.4-46.3); Red Blood Count 3.18 M/uL (4.70-6.10); White Blood Count 5.44 K/ul (4.8-10.8)
[2023-06-20 19:37] LABS: Acanthocytes 2+; Anisocytosis Present; Basophils # (auto) 0.05 K/uL (0-0.2); Basophils % (auto) 0.9 %; Eosinophils # (auto) 0.17 K/uL (0-0.50); Eosinophils % (auto) 3.1 %; Immature Granulocytes # (auto) 0.02 K/uL (0.01-0.20); Immature Granulocytes % (auto) 0.4 %; Lymphocytes # (auto) 0.74 K/uL (1.2-3.4); Lymphocytes % (auto) 13.6 %; Monocytes # (auto) 0.49 K/uL (0.11-0.59); Neutrophils # (auto) 3.97 K/uL (1.40-6.50); Poikilocytosis Present
[2023-06-20] MEDS ORDERED: PANTOprazole 80 MG in DEXTROSE 5% 100 ML IV ONE (20:29)
[2023-06-20] MEDS ORDERED: PANTOPRAZOLE BOLUS/DRIP 1 EACH IV STA (20:29)
[2023-06-20] MEDS ORDERED: SODIUM CHLORIDE 0.9% 250 ML IV PRN (20:29)
[2023-06-20] MEDS: PANTOprazole 40 MG in DEXTROSE 5% 100 ML IV SCH (21:15)
--- NOTE | 2023-06-20 23:24 | XRay Report ---
SINGLE VIEW CHEST CLINICAL HISTORY: Illness. FINDINGS: An AP, portable, upright chest radiograph is obtained. No prior studies are available for c omparison at the time of dictation. The heart is enlarged noting atherosclerotic calcification of the thoracic aorta. The pulmonary vasculature is not congested. The lungs and pleural spaces are clear. No pneumothorax is seen. The skeletal structures are osteopenic. The bony thorax is grossly intact. IMPRESSION: Cardiomegaly with no active disease in the chest. ACT 112: Negative or not required by law. Electronically signed by: Juvencio Aragon M.D. 06/20/2023 11:23 PM
[2023-06-20] MEDS ORDERED: FUROSEMIDE INJ 20 MG/2 ML VIAL IV ONE (23:32)
--- NOTE | 2023-06-20 23:40 | History & Physical Report ---
Date of Service June 20, 2023 Assessment & Plan (1) GI bleed: Plan: 77-year-old male with past medical history significant for CAD with inferior ST elevated RI in 2019 s/p 2 drug-eluting stents to RCA, chronic systolic CHF EF 35 to 40% 10/2022 improved to 45% in January 2023, persistent atrial fibrillation, left ICA severe stenosis asymptomatic, COPD ongoing tobacco abuse, hypertension, moderate mitral regurgitation, moderate to severe pulmonary hypertension, mod erate RV dilatation dysfunction, chronic kidney disease stage III, generalized osteoarthritis, primary open-angle glaucoma presents with leg cramps and found to have anemia and Hemoccult positive. Acute blood loss anemia Hemoccult positive We will hold Eliquis and aspirin Hemoglobin 7. -year-old 1 unit of PRBC We will follow H&H We will continue Protonix drip GI consult in a.m. N.p.o., gentle fluids and monitoring telemetry floor Chronic systolic CHF, moderate RV dilatation and dysfunction Moderate moderate to severe pulmonary hypertension EF 45% Continue Coreg, Entresto Lasix and spironolactone Getting gentle fluids we will monitor for volume overload History of CAD s/p stents Continue Coreg and statin holding aspirin for now we will start as soon as possible History of persistent A-fib Holding Eliquis On Coreg Will monitor COPD Continue home inhalers DuoNebs as needed Chronic kidney disease stage III presented with creatinine of 1.7 Seems at baseline We will follow the labs DVT prophylaxis SCDs for now Disposition close monitoring telemetry floor Full code (2) Acute blood loss anemia: History of Present Illness Chief Complaint: Anemia, GI bleed Primary Care Provider: Alhaji Pitts MD 77-year-old male with past medical history significant for CAD with inferior ST elevated RI in 2019 s/p 2 drug-eluting stents to RCA, chronic systolic CHF EF 35 to 40% 10/2022 improved to 45% in January 2023, persistent atrial fibrillation, left ICA severe stenosis asymptomatic, COPD ongoing tobacco abuse, hypertension, moderate mitral regurgitation, moderate to severe pulmonary hypertension, moderate RV dilatation dysfunction, chronic kidney disease stage III, generalized osteoarthritis, primary open-angle glaucoma, who lives at home with his ambulates without any support on regular diet presents with cramps in his lower extremity going on for last few days and found to have anemia with hemoglobin of 7 and Hemoccult positive and patient is on Eliquis. Patient is getting monitor PRBC in the ER. Denies any abdominal pain. Patient did not notice any blood or black stools. No hematuria. No abdominal pain. No chest pain or shortness of breath. No nausea. No cough. Afebrile. No headache no blurred visions or earache runny nose or sore throat. Currently resting comfortably and hemodynamically stable. Past medical history as mentioned above Past surgical history cardiac cath, cataract Family history significant for father had lung cancer and rheumatic fever as a child Social history smokes 0.1 packs a day, no alcohol use, no drug use Allergies Allergy/AdvReac Type Severity Reaction Status Date / Time No Known Drug Allergies Allergy Unknown . Verified 05/28/23 09:35 Home Medications Medication Instructions Recorded Confirmed Type latanoprost 0.005 % eye drops 1 drp OPB HS 08/31/19 05/28/23 History atorvastatin 40 mg tablet 80 mg PO QAM #30 tabs 09/02/19 05/28/23 Rx apixaban 5 mg tablet (Eliquis) 5 mg PO BID #60 tabs 04/24/21 05/28/23 Rx aspirin 81 mg tablet,delayed 81 mg PO DAILY #90 tabs 08/02/21 05/28/23 Rx release (Adult Low Dose Aspirin) sacubitril 24 mg-valsartan 26 mg 1 tab PO BID #60 tabs 10/24/22 05/28/23 Rx tablet (Entresto) spironolactone 25 mg tablet 25 mg PO DAILY #90 tabs 12/13/22 05/28/23 Rx fluticasone 250 mcg-salmeterol 50 1 inh inhalation BID 04/15/23 05/28/23 History mcg/dose blistr powdr for inhalation (Advair Diskus) carvedilol 3.125 mg tablet 3.125 mg PO BID #60 tabs 04/22/23 05/28/23 Rx furosemide 40 mg tablet (Lasix) 40 mg PO DAILY #120 tabs 05/28/23 05/28/23 Rx Past Med/Surg History Medical History (Updated 06/20/23 @ 23:43 by Darion Conrad MD) CKD (chronic kidney disease) stage 3, GFR 30-59 ml/min COPD (chronic obstructive pulmonary disease) Glaucoma History of SCC (squamous cell carcinoma) of skin HLD (hyperlipidemia) Hypertension Rheumatic fever Tobacco abuse Surgical History History of cataract extraction Family History Father Rheumatic heart disease Mother Pleurisy Social History Smoking Status: Current every day smoker Tobacco Type: Cigarettes packs per day: 1; Hx Alcohol Use: No Hx Substance Use: No Preferred Language: Wolof Communication Ability: Effective marital status: Current Living Situation: Spouse current occupational status: retired Feels Safe at Home: Yes Assistive Devices: None Review of Systems Review of Systems: All systems reviewed & are unremarkable except as noted in Subjective Physical Exam Physical Exam: General- Not in distress Head- atraumatic Eyes- PERRL ENT- oropharynx clear Neck- supple, no JVD, Lungs- clear to auscultation and percussion Heart- regular rhythm; no murmur, no gallop, no rub appreciated Abdomen- normal bowel sounds, soft, nontender, no masses or hepatosplenomegaly Extremities- mild pedal edema present no erythema seen, Neuro- alert, oriented x 3; non focal. Skin- warm & dry Results & Data Results & Data Vital Signs (Past 12 Hours) Vital Signs Temp Pulse Resp BP Pulse Ox O2 Del Method 06/20/23 23:15 36.8 C 81 18 111/65 91 06/20/23 22:45 79 24 124/76 96 06/20/23 22:36 80 23 127/89 97 06/20/23 22:00 77 18 122/69 06/20/23 21:30 69 16 110/65 96 06/20/23 21:21 77 18 122/62 97 06/20/23 22:58 36.7 C 81 21 121/75 96 06/20/23 22:37 36.8 C 74 22 127/89 97 06/20/23 19:58 78 23 112/66 95 06/20/23 19:58 81 06/20/23 17:53 36.8 C 83 17 100/59 L 95 Room Air Diagnostic Findings Laboratory Results WBC 5.44 K/ul (4.8-10.8) 06/20/23 18:49 RBC 3.18 M/uL (4.70-6.10) L 06/20/23 18:49 Hgb 7.0 g/dl (14.0-18.0) L 06/20/23 18:49 Hct 23.6 % (42.0-52.0) L 06/20/23 18:49 MCV 74.2 fL (80.0-100.0) L 06/20/23 18:49 MCH 22.0 pg (25.0-34.0) L 06/20/23 18:49 MCHC 29.7 g/dL (32.0-36.0) L 06/20/23 18:49 RDW Std Deviation 54.7 fL (36.4-46.3) H 06/20/23 18:49 RDW Coeff of Juice 20.4 % (11.5-14.5) H 06/20/23 18:49 Plt Count 167 K/uL (130-400) 06/20/23 18:49 MPV 10.9 fL (9.4-12.4) 06/20/23 18:49 Immature Gran % (Auto) 0.4 % 06/20/23 18:49 Neut % (Auto) 73.0 % 06/20/23 18:49 Lymph % (Auto) 13.6 % 06/20/23 18:49 [place] % (Auto) 9.0 % 06/20/23 18:49 Eos % (Auto) 3.1 % 06/20/23 18:49 Baso % (Auto) 0.9 % 06/20/23 18:49 Neut # (Auto) 3.97 K/uL (1.40-6.50) 06/20/23 18:49 Lymph # (Auto) 0.74 K/uL (1.2-3.4) L 06/20/23 18:49 [place] # (Auto) 0.49 K/uL (0.11-0.59) 06/20/23 18:49 Eos # (Auto) 0.17 K/uL (0-0.50) 06/20/23 18:49 Baso # (Auto) 0.05 K/uL (0-0.2) 06/20/23 18:49 Immature Gran # (Auto) 0.02 K/uL (0.01-0.20) 06/20/23 18:49 Poikilocytosis Present 06/20/23 18:49 Anisocytosis Present 06/20/23 18:49 Acanthocytes (Spur) 2+ 06/20/23 18:49 Sodium 136 mmol/L (136-145) 06/20/23 18:49 Potassium 3.9 mmol/L (3.5-5.1) 06/20/23 18:49 Chloride 102 mmol/L (98-107) 06/20/23 18:49 Carbon Dioxide 27 mmol/L (21-32) 06/20/23 18:49 Anion Gap 7 (3-11) 06/20/23 18:49 BUN 42 mg/dl (6-23) H 06/20/23 18:49 Creatinine 1.79 mg/dl (0.6-1.4) H 06/20/23 18:49 Est Cr Clr Drug Dosing 27.4 ml/min 06/20/23 18:49 Est GFR ( Amer) 41.7 ml/min 06/20/23 18:49 Est GFR (Non-Af Amer) 36.0 ml/min 06/20/23 18:49 BUN/Creatinine Ratio 23.5 (10-20) H 06/20/23 18:49 Glucose 100 mg/dl (70-99(Fasting)) H 06/20/23 18:49 Calcium 8.8 mg/dl (8.6-10.3) 06/20/23 18:49 Total Bilirubin 1.0 mg/dl (0.2-1.0) 06/20/23 18:49 AST 15 U/L (13-39) 06/20/23 18:49 ALT 9 U/L (7-52) 06/20/23 18:49 Alkaline Phosphatase 77 U/L (34-104) 06/20/23 18:49 Total Protein 6.5 gm/dl (6.0-8.3) 06/20/23 18:49 Albumin 4.0 gm/dl (3.4-5.0) 06/20/23 18:49 Globulin 2.5 gm/dl (2.5-4.0) 06/20/23 18:49 Albumin/Globulin Ratio 1.6 (0.9-2) 06/20/23 18:49 SARS-CoV-2, RNA, NAAT NEGATIVE (NEGATIVE) 06/20/23 Unknown Blood Type O Positive 06/20/23 20:50 Blood Type Recheck O Positive 06/20/23 21:17 Antibody Screen NEGATIVE 06/20/23 20:50 Crossmatch See Detail 06/20/23 20:50 Impressions Chest X-Ray 06/20/23 18:31 SINGLE VIEW CHEST CLINICAL HISTORY: Illness. FINDINGS: An AP, portable, upright chest radiograph is obtained. No prior studies are available for comparison at the time of dictation. The heart is enlarged noting atherosclerotic calcification of the thoracic aorta. The pulmonary vasculature is not congested. The lungs and pleural spaces are clear. No pneumothorax is seen. The skeletal structures are osteopenic. The bony thorax is grossly intact. IMPRESSION: Cardiomegaly with no active disease in the chest. ACT 112: Negative or not required by law. Electronically signed by: Juvencio Aragon M.D. 06/20/2023 11:23 PM ECG Additional Comments: ECG A-fib at a rate of 72 with right superior axis deviation. QTc of 431 Code Status & VTE Plan VTE Prophylaxis Plan VTE Prophylaxis will be ordered: Yes
--- NOTE | 2023-06-21 00:28 | Emergency Department Note ---
History of Present Illness General Chief complaint: Dehydration Stated complaint: DEHYDRATION,LEG CRAMPING,SOB,TROUBLE STANDING Time Seen by Provider: 06/20/23 20:02 History of Present Illness Provider complaint: Weakness shortness of breath Onset (ago): week(s) 1 77-year-old male presents emergency department for weakness and shortness of breath. Patient denies any falls. No headaches. No chest pain. Patient is on Eliquis. No hematuria dysuria or melena. Home Medications Medication Instructions Recorded Confirmed Type latanoprost 0.005 % eye drops 1 drp OPB HS 08/31/19 05/28/23 History atorvastatin 40 mg tablet 80 mg PO QAM #30 tabs 09/02/19 05/28/23 Rx apixaban 5 mg tablet (Eliquis) 5 mg PO BID #60 tabs 04/24/21 05/28/23 Rx aspirin 81 mg tablet,delayed 81 mg PO DAILY #90 tabs 08/02/21 05/28/23 Rx release (Adult Low Dose Aspirin) sacubitril 24 mg-valsartan 26 mg 1 tab PO BID #60 tabs 10/24/22 05/28/23 Rx tablet (Entresto) spironolactone 25 mg tablet 25 mg PO DAILY #90 tabs 12/13/22 05/28/23 Rx fluticasone 250 mcg-salmeterol 50 1 inh inhalation BID 04/15/23 05/28/23 History mcg/dose blistr powdr for inhalation (Advair Diskus) carvedilol 3.125 mg tablet 3.125 mg PO BID #60 tabs 04/22/23 05/28/23 Rx furosemide 40 mg tablet (Lasix) 40 mg PO DAILY #120 tabs 05/28/23 05/28/23 Rx Allergies Allergy/AdvReac Type Severity Reaction Status Date / Time No Known Drug Allergies Allergy Unknown . Verified 05/28/23 09:35 Past Med/Surg History Medical History (Updated 06/21/23 @ 00:28 by Pramod Smith MD) CKD (chronic kidney disease) stage 3, GFR 30-59 ml/min COPD (chronic obstructive pulmonary disease) Glaucoma History of SCC (squamous cell carcinoma) of skin HLD (hyperlipidemia) Hypertension Rheumatic fever Tobacco abuse Surgical History History of cataract extraction Family History Father Rheumatic heart disease Mother Pleurisy Social History Smoking Status: Current every day smoker Tobacco Type: Cigarettes packs per day: 1; Hx Alcohol Use: No Hx Substance Use: No Preferred Language: Welsh Communication Ability: Effective marital status: Current Living Situation: Spouse current occupational status: retired Feels Safe at Home: Yes Assistive Devices: None Physical Exam Vital Signs Vital Signs - 24 hr 06/20/23 17:53 06/20/23 19:58 06/20/23 19:58 Temperature 36.8 C Temperature Source Temporal Artery Scan Pulse Rate 83 81 78 Pulse Rate from SpO2 Sensor 80 Respiratory Rate 17 23 Respiratory Effort / Characteristics Non-Labored Spontaneous Respiratory Depth Normal Respiratory Pattern Regular Blood Pressure 100/59 L 112/66 Blood Pressure Mean 72 81 Blood Pressure Position Pulse Oximetry 95 95 Oxygen Delivery Method Room Air Sepsis Recent Fever Within 48 Hours No Sepsis New/Unexplained Change in Mental Status No Sepsis Action Taken by Nursing No Action Required 06/20/23 22:37 06/20/23 22:58 06/20/23 21:21 Temperature 36.8 C 36.7 C Temperature Source Oral Oral Pulse Rate 74 81 77 Pulse Rate from SpO2 Sensor 72 Respiratory Rate 22 21 18 Respiratory Effort / Characteristics Respiratory Depth Respiratory Pattern Blood Pressure 127/89 121/75 122/62 Blood Pressure Mean 101 90 82 Blood Pressure Position Pulse Oximetry 97 96 97 Oxygen Delivery Method Sepsis Recent Fever Within 48 Hours Sepsis New/Unexplained Change in Mental Status Sepsis Action Taken by Nursing 06/20/23 21:30 06/20/23 22:00 06/20/23 22:36 Temperature Temperature Source Pulse Rate 69 77 80 Pulse Rate from SpO2 Sensor 70 78 Respiratory Rate 16 18 23 Respiratory Effort / Characteristics Respiratory Depth Respiratory Pattern Blood Pressure 110/65 122/69 127/89 Blood Pressure Mean 80 86 101 Blood Pressure Position Pulse Oximetry 96 97 Oxygen Delivery Method Sepsis Recent Fever Within 48 Hours Sepsis New/Unexplained Change in Mental Status Sepsis Action Taken by Nursing 06/20/23 22:45 06/20/23 23:15 06/20/23 23:45 Temperature 36.8 C 36.8 C Temperature Source Oral Oral Pulse Rate 79 81 74 Pulse Rate from SpO2 Sensor 77 Respiratory Rate 24 18 18 Respiratory Effort / Characteristics Respiratory Depth Respiratory Pattern Blood Pressure 124/76 111/65 110/66 Blood Pressure Mean 92 80 80 Blood Pressure Position Semi-fowlers Semi-fowlers Pulse Oximetry 96 91 97 Oxygen Delivery Method Sepsis Recent Fever Within 48 Hours Sepsis New/Unexplained Change in Mental Status Sepsis Action Taken by Nursing 06/20/23 23:58 Temperature Temperature Source Pulse Rate 71 Pulse Rate from SpO2 Sensor Respiratory Rate Respiratory Effort / Characteristics Respiratory Depth Respiratory Pattern Blood Pressure Blood Pressure Mean Blood Pressure Position Pulse Oximetry Oxygen Delivery Method Sepsis Recent Fever Within 48 Hours Sepsis New/Unexplained Change in Mental Status Sepsis Action Taken by Nursing Physical Exam GENERAL: oriented to person, place, and time. appears well-developed and well- nourished. HENT: Exam performed. - Head: Normocephalic and atraumatic. EYES: Conjunctivae and EOM are normal. Right eye exhibits no discharge. Left eye exhibits no discharge. No scleral icterus. NECK: Normal range of motion. Neck supple. No JVD present. CV: Normal rate, irregular rhythm, normal heart sounds and intact distal pulses. There is 1+ pitting edema bilaterally. Palpable radial pulses bue. PULM/CHEST: Effort normal and breath sounds normal. No respiratory distress. No stridor. no wheezes. no rales. ABD: The abdomen is soft. There is no tenderness. Rectal: Melanotic stools that are Hemoccult positive. NEURO: Motor and sensation grossly intact. SKIN: Skin is warm and dry. He is not diaphoretic. PSYCH: normal mood and affect. Behavior is normal. Judgment and thought content normal. Course Course 2002: The patient was evaluated in room C12. A complete history and physical exam was performed Administered Medications Pantoprazole Sodium 40 mg/ (Dextrose) 100 mls @ 20 mls/hr IV Q5H [facility] Stop: 07/20/23 20:44 Last Admin: 06/20/23 21:15 Dose: 8 mg/hr, 20 mls/hr Documented By: NRB Discontinued Medications Pantoprazole Sodium (Protonix Bolus/Drip) 0 mls @ 1 mls/hr IV ONE STA Stop: 06/20/23 20:30 Last Admin: 06/20/23 23:34 Dose: Not Given Documented By: Pantoprazole Sodium 80 mg/ (Dextrose) 120 mls @ 400 mls/hr IV NOW ONE Stop: 06/20/23 20:46 Last Infusion: 06/20/23 21:17 Dose: 0 mls/hr Documented By: Admin: 06/20/23 20:54 Dose: 400 mls/hr Documented By: JASPREET Critical Care Time Critical Care Time: Yes Total Critical Care Time: 67 I have personally spent greater than 67 minutes of critical care time in the direct management of this patient. This includes bedside care, interpretation of diagnostic studies, and testing, discussion with consultants, patient, and family members, and other required patient management activities. This 67 minutes is in excess of all separately billable procedures. Medical Decision Making Laboratory Data Attestation: I reviewed the patient's lab results. 06/20/23 18:49 06/20/23 18:49 Lab Results 06/20/23 06/20/23 06/20/23 Range/Units 18:49 18:49 20:50 WBC 5.44 (4.8-10.8) K/ul RBC 3.18 L (4.70-6.10) M/uL Hgb 7.0 L (14.0-18.0) g/dl Hct 23.6 L (42.0-52.0) % MCV 74.2 L (80.0-100.0) fL MCH 22.0 L (25.0-34.0) pg MCHC 29.7 L (32.0-36.0) g/dL RDW Std Deviation 54.7 H (36.4-46.3) fL RDW Coeff of Juice 20.4 H (11.5-14.5) % Plt Count 167 (130-400) K/uL MPV 10.9 (9.4-12.4) fL Immature Gran % (Auto) 0.4 % Neut % (Auto) 73.0 % Lymph % (Auto) 13.6 % [place] % (Auto) 9.0 % Eos % (Auto) 3.1 % Baso % (Auto) 0.9 % Neut # (Auto) 3.97 (1.40-6.50) K/uL Lymph # (Auto) 0.74 L (1.2-3.4) K/uL [place] # (Auto) 0.49 (0.11-0.59) K/uL Eos # (Auto) 0.17 (0-0.50) K/uL Baso # (Auto) 0.05 (0-0.2) K/uL Immature Gran # (Auto) 0.02 (0.01-0.20) K/uL Poikilocytosis Present Anisocytosis Present Acanthocytes (Spur) 2+ Sodium 136 (136-145) mmol/L Potassium 3.9 (3.5-5.1) mmol/L Chloride 102 (98-107) mmol/L Carbon Dioxide 27 (21-32) mmol/L Anion Gap 7 (3-11) BUN 42 H (6-23) mg/dl Creatinine 1.79 H (0.6-1.4) mg/dl Est Cr Clr Drug Dosing 27.4 ml/min Est GFR ( Amer) 41.7 ml/min Est GFR (Non-Af Amer) 36.0 ml/min BUN/Creatinine Ratio 23.5 H (10-20) Glucose 100 H (70-99(Fasting)) mg/dl Calcium 8.8 (8.6-10.3) mg/dl Total Bilirubin 1.0 (0.2-1.0) mg/dl AST 15 (13-39) U/L ALT 9 (7-52) U/L Alkaline Phosphatase 77 (34-104) U/L Total Protein 6.5 (6.0-8.3) gm/dl Albumin 4.0 (3.4-5.0) gm/dl Globulin 2.5 (2.5-4.0) gm/dl Albumin/Globulin Ratio 1.6 (0.9-2) SARS-CoV-2, RNA, NAAT (NEGATIVE) Blood Type O Positive Blood Type Recheck Antibody Screen NEGATIVE Crossmatch See Detail 06/20/23 06/20/23 Range/Units 21:17 Unknown WBC (4.8-10.8) K/ul RBC (4.70-6.10) M/uL Hgb (14.0-18.0) g/dl Hct (42.0-52.0) % MCV (80.0-100.0) fL MCH (25.0-34.0) pg MCHC (32.0-36.0) g/dL RDW Std Deviation (36.4-46.3) fL RDW Coeff of Juice (11.5-14.5) % Plt Count (130-400) K/uL MPV (9.4-12.4) fL Immature Gran % (Auto) % Neut % (Auto) % Lymph % (Auto) % [place] % (Auto) % Eos % (Auto) % Baso % (Auto) % Neut # (Auto) (1.40-6.50) K/uL Lymph # (Auto) (1.2-3.4) K/uL [place] # (Auto) (0.11-0.59) K/uL Eos # (Auto) (0-0.50) K/uL Baso # (Auto) (0-0.2) K/uL Immature Gran # (Auto) (0.01-0.20) K/uL Poikilocytosis Anisocytosis Acanthocytes (Spur) Sodium (136-145) mmol/L Potassium (3.5-5.1) mmol/L Chloride (98-107) mmol/L Carbon Dioxide (21-32) mmol/L Anion Gap (3-11) BUN (6-23) mg/dl Creatinine (0.6-1.4) mg/dl Est Cr Clr Drug Dosing ml/min Est GFR ( Amer) ml/min Est GFR (Non-Af Amer) ml/min BUN/Creatinine Ratio (10-20) Glucose (70-99(Fasting)) mg/dl Calcium (8.6-10.3) mg/dl Total Bilirubin (0.2-1.0) mg/dl AST (13-39) U/L ALT (7-52) U/L Alkaline Phosphatase (34-104) U/L Total Protein (6.0-8.3) gm/dl Albumin (3.4-5.0) gm/dl Globulin (2.5-4.0) gm/dl Albumin/Globulin Ratio (0.9-2) SARS-CoV-2, RNA, NAAT NEGATIVE (NEGATIVE) Blood Type Blood Type Recheck O Positive Antibody Screen Crossmatch Imaging Data Attestation: I personally reviewed and interpreted this imaging study as fol lows: My Impression: Chest x-ray: Cardiomegaly. Radiologist's Impression: Chest X-Ray 06/20/23 18:31 SINGLE VIEW CHEST CLINICAL HISTORY: Illness. FINDINGS: An AP, portable, upright chest radiograph is obtained. No prior studies are available for comparison at the time of dictation. The heart is enlarged noting atherosclerotic calcification of the thoracic aorta. The pulmonary vasculature is not congested. The lungs and pleural spaces are clear. No pneumothorax is seen. The skeletal structures are osteopenic. The bony thorax is grossly intact. IMPRESSION: Cardiomegaly with no active disease in the chest. ACT 112: Negative or not required by law. Electronically signed by: Juvencio Aragon M.D. 06/20/2023 11:23 PM ECG Data Attestation: I personally reviewed and interpreted this ECG as follows: Rate (beats per minute): 72 Rhythm: + atrial fibrillation ECG Intervals/blocks: + Normal QT-c ECG ST segments: + Normal ST segments Additional Comments: QRS 78 MDM Narrative Cardiac monitoring: An order was placed for continuous cardiac monitoring. The monitor shows a rate of 90 with sinus rhythm interpreted by me Labs show hemoglobin of 7. Patient will be transfused 1 packed red blood cells giving he is Hemoccult positive. Protonix bolus and drip started. Initially the patient was reluctant to stay in the hospital however after discussing with myself his daughter and at bedside the patient is amenable to this. Patient will be admitted to the [facility] team Dr. Conrad notified Impression & Plan GI bleed Discharge Plan Visit Data Chief Complaint: Dehydration Stated Complaint: DEHYDRATION,LEG CRAMPING,SOB,TROUBLE STANDING ED Provider: Pramod Smith Discharge Problem: GI bleed Patient Disposition: Admitted As Inpatient Forms Stand Alone Forms: [facility] Prescriptions Prescriptions: No Action Eliquis 5 mg tablet 5 mg PO BID Qty: 60 11RF Entresto 24-26 mg tablet 1 tab PO BID Qty: 60 2RF spironolactone 25 mg tablet 25 mg PO DAILY Qty: 90 3RF carvedilol 3.125 mg tablet 3.125 mg PO BID Qty: 60 2RF Rx Instructions: must administer with a meal/food aspirin [Adult Low Dose Aspirin] 81 mg tablet,delayed release (DR/EC) 81 mg PO DAILY Qty: 90 3RF fluticasone propion-salmeterol [Advair Diskus] 250-50 mcg/dose blister with device 1 inh inhalation BID furosemide [Lasix] 40 mg tablet 40 mg PO DAILY Qty: 120 3RF Rx Instructions: May increase to 40 mg BID PRN for weight gain, swelling, dyspnea. latanoprost 0.005 % drops 1 drp OPB HS atorvastatin 40 mg Tablet 80 mg PO QAM Qty: 30 2RF Referrals Referrals: Alhaji Pitts MD [Primary Care Provider] -
[2023-06-21] MEDS ORDERED: ACETAMINOPHEN 325 MG TAB PO PRN (02:28)
[2023-06-21] MEDS ORDERED: ALBUT/IPRATROP 3MG/0.5MG NEB 3 ML VIAL NEB PRN (02:28)
[2023-06-21] MEDS ORDERED: NITROGLYCERIN SL 0.4 MG/TAB TAB SL PRN (02:28)
[2023-06-21] MEDS: PANTOprazole 40 MG in DEXTROSE 5% 100 ML IV SCH ×4 (04:54→20:02)
[2023-06-21] MEDS: SODIUM CHLORIDE 0.9% 1000ML 1,000 ML IV SCH ×2 (04:58→18:31)
[2023-06-21 06:33] LABS: Hematocrit (blood only) 24.9 % (42.0-52.0); Hemoglobin 7.5 g/dl (14.0-18.0)
[2023-06-21 06:35] LABS: Hematocrit (blood only) 24.6 % (42.0-52.0); Hemoglobin 7.8 g/dl (14.0-18.0); Mean Corpuscular Hemoglobin 23.6 pg (25.0-34.0); Mean Corpuscular Hgb Conc 31.7 g/dL (32.0-36.0); Mean Corpuscular Volume 74.5 fL (80.0-100.0); Mean Platelet Volume 11.1 fL (9.4-12.4); Platelet Count 133 K/uL (130-400); RDW Coefficient of Variation 20.1 % (11.5-14.5); RDW Standard Deviation 53.9 fL (36.4-46.3); White Blood Count 4.55 K/ul (4.8-10.8)
[2023-06-21 06:47] LABS: BUN Creatinine Ratio 22.7 (10-20); Calcium 8.5 mg/dl (8.6-10.3); Creatinine Clr Calc Pharmacy 26.9 ml/min; Est GFR (African American) 40.1 ml/min; Est GFR (Non-African American) 34.6 ml/min; Magnesium 1.9 mg/dl (1.7-2.4); Potassium 3.8 mmol/L (3.5-5.1)
[2023-06-21 07:17] LABS: ALC (manual) 0.46 K/uL (1.2-3.4); ANC (manual) 3.87 K/uL (1.4-6.5); Acanthocytes 2+; Anisocytosis Present; Basophils # (manual) 0.18 K/uL (0-0.2); Basophils % (manual) 4 %; Eosinophils # (manual) 0.05 K/uL (0-0.50); Eosinophils % (manual) 1 %; Hypochromasia Present; Lymphocytes # (manual) 0.45 K/uL (1.2-3.4); Lymphocytes % (manual) 10 %; Neutrophils # (manual) 3.87 K/uL (1.40-6.50); Neutrophils % (manual) 85 %
[2023-06-21] MEDS ORDERED: FUROSEMIDE 40 MG TAB PO SCH (09:00)
[2023-06-21] MEDS: SPIRONOLACTONE 25 MG TAB PO SCH (09:27)
[2023-06-21] MEDS: VALSARTAN/SACUBITRIL 26/24MG TAB PO SCH ×2 (09:27→19:54)
[2023-06-21] MEDS: carvediloL 3.125 MG TAB PO SCH ×2 (09:27→19:56)
[2023-06-21] MEDS: FLUTICASONE/VILANTEROL 200/25MCG 14 PUFFS/INHALER INH SCH (09:28)
[2023-06-21] MEDS: ATORVASTATIN 40 MG TAB PO SCH (09:28)
--- NOTE | 2023-06-21 09:51 | Gastrointestinal Consultation ---
Date of Consultation June 21, 2023 Assessment & Plan (1) Heme positive stool: Plan 77 year old male with history of CAD with inferior ST elevated MA in 2019 s/p 2 drug-eluting stents to RCA, chronic systolic CHF EF 35 to 40%, persistent atrial fibrillation, left ICA severe stenosis asymptomatic, COPD ongoing tobacco abuse, hypertension, moderate mitral regurgitation, moderate to severe pulmonary hypertension, moderate RV dilatation dysfunction, chronic kidney disease stage III admitted with symptomatic anemia. He reports brown stools, no abd pain, change in bowel habits, nausea/vomiting. We discussed EGD/Colonoscopy. He reports he has never had a colonoscopy and is not sure how he wants to proceed with endoscopic evaluation. No plan for inpatient evaluation. Trend H&H. Monitor and document GI output. Transufse PRN. OP EGD/Colonoscopy was recommended. Would recommend a CT scan of abd/pelvis. Thank you for allowing us to participate in the care of this patient. Please call with any acute changes, questions or concerns. Please see addendum below with additional recommendation from my supervising physician. Supervising Physician Co-Signing Physician Notes I performed a history and physical examination of the patient today, including specifically on physical exam - soft abdomen. I have discussed the patient's management with the advanced practitioner. Please refer to the nurse practi mónica's note for the documented findings and plan of care. Anemia with no overt GI bleeding. OP EGD/colonoscopy. Recall GI if needed. History of Present Illness Reason for Consultation: anemia, heme + stool Requesting Physician: Shalonda Attending Physician: Jil Liz MD History of Present Illness 77 year old male with history of CAD with inferior ST elevated MA in 2019 s/p 2 drug-eluting stents to RCA, chronic systolic CHF EF 35 to 40%, persistent atrial fibrillation, left ICA severe stenosis asymptomatic, COPD ongoing tobacco abuse, hypertension, moderate mitral regurgitation, moderate to severe pulmonary hypertension, moderate RV dilatation dysfunction, chronic kidney disease stage III, osteoarthritis, primary open-angle glaucoma admitted w/ symptomatic anemia, Hemoccult positive. GI asked to evaluated, chart reviewed. Notes that from GI standpoint feeling well. No abd pain. No nausea, vomiting. Tolerating PO intake. No dysphagia. Moving bowels well. No report of black or bloody stools. Suggests last BM was yesterday. No fever, chills, CP, SOB. EGD: none Colonoscopy: none Allergies Allergy/AdvReac Type Severity Reaction Status Date / Time No Known Drug Allergies Allergy Unknown . Verified 05/28/23 09:35 Home Medications Medication Instructions Recorded Confirmed Type latanoprost 0.005 % eye drops 1 drp OPB HS 08/31/19 05/28/23 History atorvastatin 40 mg tablet 80 mg PO QAM #30 tabs 09/02/19 05/28/23 Rx apixaban 5 mg tablet (Eliquis) 5 mg PO BID #60 tabs 04/24/21 05/28/23 Rx aspirin 81 mg tablet,delayed 81 mg PO DAILY #90 tabs 08/02/21 05/28/23 Rx release (Adult Low Dose Aspirin) sacubitril 24 mg-valsartan 26 mg 1 tab PO BID #60 tabs 10/24/22 05/28/23 Rx tablet (Entresto) spironolactone 25 mg tablet 25 mg PO DAILY #90 tabs 12/13/22 05/28/23 Rx fluticasone 250 mcg-salmeterol 50 1 inh inhalation BID 04/15/23 05/28/23 History mcg/dose blistr powdr for inhalation (Advair Diskus) carvedilol 3.125 mg tablet 3.125 mg PO BID #60 tabs 04/22/23 05/28/23 Rx furosemide 40 mg tablet (Lasix) 40 mg PO DAILY #120 tabs 05/28/23 05/28/23 Rx Patient History Medical History (Updated 06/21/23 @ 09:55 by JULIO Schneider) CKD (chronic kidney disease) stage 3, GFR 30-59 ml/min COPD (chronic obstructive pulmonary disease) Glaucoma History of SCC (squamous cell carcinoma) of skin HLD (hyperlipidemia) Hypertension Rheumatic fever Tobacco abuse Surgical History History of cataract extraction Family History Father Rheumatic heart disease Mother Pleurisy Social History Smoking Status: Current every day smoker Tobacco Type: Cigarettes packs per day: 1; Hx Alcohol Use: No Hx Substance Use: No Preferred Language: Malian Communication Ability: Effective Collections Manager Required: No Beliefs That Will Affect Care: None marital status: Current Living Situation: Spouse current occupational status: retired Other Information That Helps Us Care for You: No Feels Safe at Home: Yes Safety Concerns: Feels Safe At This Time Assistive Devices: Denture - Upper, Denture - Lower and Glasses Review of Systems Review of Systems: All systems reviewed & are unremarkable except as noted in HPI & below Physical Exam Constitutional: WD/WN, vitals as above Respiratory: normal respiratory effort, lungs clear to auscultation Cardiovascular: Rate/Rhythm: regular rate Gastrointestinal (Abdomen): normal bowel sounds, soft, nontender, no hepatosplenomegaly Skin: no rashes, warm and dry Results & Data Vital Signs (Past 12 Hours) Vital Signs Temp Pulse Pulse Resp BP BP Pulse Ox 06/21/23 08:00 36.5 C 79 16 104/54 L 92 06/21/23 03:27 77 06/21/23 02:36 06/21/23 02:34 36.6 C 80 18 132/76 92 06/21/23 01:52 06/21/23 01:30 81 23 95 06/21/23 01:30 137/78 06/21/23 00:33 36.8 C 69 18 117/75 96 06/20/23 23:58 71 06/21/23 00:22 36.9 C 67 18 113/62 95 06/20/23 23:45 36.8 C 74 18 110/66 97 06/20/23 23:15 36.8 C 81 18 111/65 91 06/20/23 22:45 79 24 124/76 96 06/20/23 22:36 80 23 127/89 97 06/20/23 22:00 77 18 122/69 06/20/23 22:58 36.7 C 81 21 121/75 96 06/20/23 22:37 36.8 C 74 22 127/89 97 O2 Del Method 06/21/23 08:00 Room Air 06/21/23 03:27 06/21/23 02:36 Room Air 06/21/23 02:34 Room Air 06/21/23 01:52 Room Air 06/21/23 01:30 Room Air 06/21/23 01:30 06/21/23 00:33 06/20/23 23:58 06/21/23 00:22 06/20/23 23:45 06/20/23 23:15 06/20/23 22:45 06/20/23 22:36 06/20/23 22:00 06/20/23 22:58 06/20/23 22:37 Laboratory Results 06/21/23 06/21/23 06/21/23 Range/Units 05:22 05:22 05:22 WBC 4.55 L (4.8-10.8) K/ul RBC 3.30 L (4.70-6.10) M/uL Hgb 7.8 L 7.5 L (14.0-18.0) g/dl Hct 24.6 L 24.9 L (42.0-52.0) % MCV 74.5 L (80.0-100.0) fL MCH 23.6 L (25.0-34.0) pg MCHC 31.7 L (32.0-36.0) g/dL RDW Std Deviation 53.9 H (36.4-46.3) fL RDW Coeff of Juice 20.1 H (11.5-14.5) % Plt Count 133 (130-400) K/uL MPV 11.1 (9.4-12.4) fL Immature Gran % (Auto) % Neut % (Auto) % Lymph % (Auto) % [place] % (Auto) % Eos % (Auto) % Baso % (Auto) % Neut # (Auto) (1.40-6.50) K/uL Lymph # (Auto) (1.2-3.4) K/uL [place] # (Auto) (0.11-0.59) K/uL Eos # (Auto) (0-0.50) K/uL Baso # (Auto) (0-0.2) K/uL Immature Gran # (Auto) (0.01-0.20) K/uL Neutrophils % (Manual) 85 % Lymphocytes % (Manual) 10 % Eosinophils % (Manual) 1 % Basophils % (Manual) 4 % Neutrophils # (Manual) 3.87 (1.40-6.50) K/uL Total Absolute Neuts 3.87 (1.4-6.5) K/uL Lymphocytes # (Manual) 0.45 L (1.2-3.4) K/uL Total Abs Lymphocytes 0.46 L (1.2-3.4) K/uL Eosinophils # (Manual) 0.05 (0-0.50) K/uL Basophils # (Manual) 0.18 (0-0.2) K/uL Hypochromasia Present Poikilocytosis Anisocytosis Present Acanthocytes (Spur) 2+ Sodium 136 (136-145) mmol/L Potassium 3.8 (3.5-5.1) mmol/L Chloride 103 (98-107) mmol/L Carbon Dioxide 27 (21-32) mmol/L Anion Gap 6 (3-11) BUN 42 H (6-23) mg/dl Creatinine 1.85 H (0.6-1.4) mg/dl Est Cr Clr Drug Dosing 26.9 ml/min Est GFR ( Amer) 40.1 ml/min Est GFR (Non-Af Amer) 34.6 ml/min BUN/Creatinine Ratio 22.7 H (10-20) Glucose 91 (70-99(Fasting)) mg/dl Calcium 8.5 L (8.6-10.3) mg/dl Magnesium 1.9 (1.7-2.4) mg/dl Total Bilirubin (0.2-1.0) mg/dl AST (13-39) U/L ALT (7-52) U/L Alkaline Phosphatase (34-104) U/L Total Protein (6.0-8.3) gm/dl Albumin (3.4-5.0) gm/dl Globulin (2.5-4.0) gm/dl Albumin/Globulin Ratio (0.9-2) SARS-CoV-2, RNA, NAAT (NEGATIVE) Blood Type Blood Type Recheck Antibody Screen Crossmatch 06/20/23 06/20/23 06/20/23 Range/Units Unknown 21:17 20:50 WBC (4.8-10.8) K/ul RBC (4.70-6.10) M/uL Hgb (14.0-18.0) g/dl Hct (42.0-52.0) % MCV (80.0-100.0) fL MCH (25.0-34.0) pg MCHC (32.0-36.0) g/dL RDW Std Deviation (36.4-46.3) fL RDW Coeff of Juice (11.5-14.5) % Plt Count (130-400) K/uL MPV (9.4-12.4) fL Immature Gran % (Auto) % Neut % (Auto) % Lymph % (Auto) % [place] % (Auto) % Eos % (Auto) % Baso % (Auto) % Neut # (Auto) (1.40-6.50) K/uL Lymph # (Auto) (1.2-3.4) K/uL [place] # (Auto) (0.11-0.59) K/uL Eos # (Auto) (0-0.50) K/uL Baso # (Auto) (0-0.2) K/uL Immature Gran # (Auto) (0.01-0.20) K/uL Neutrophils % (Manual) % Lymphocytes % (Manual) % Eosinophils % (Manual) % Basophils % (Manual) % Neutrophils # (Manual) (1.40-6.50) K/uL Total Absolute Neuts (1.4-6.5) K/uL Lymphocytes # (Manual) (1.2-3.4) K/uL Total Abs Lymphocytes (1.2-3.4) K/uL Eosinophils # (Manual) (0-0.50) K/uL Basophils # (Manual) (0-0.2) K/uL Hypochromasia Poikilocytosis Anisocytosis Acanthocytes (Spur) Sodium (136-145) mmol/L Potassium (3.5-5.1) mmol/L Chloride (98-107) mmol/L Carbon Dioxide (21-32) mmol/L Anion Gap (3-11) BUN (6-23) mg/dl Creatinine (0.6-1.4) mg/dl Est Cr Clr Drug Dosing ml/min Est GFR ( Amer) ml/min Est GFR (Non-Af Amer) ml/min BUN/Creatinine Ratio (10-20) Glucose (70-99(Fasting)) mg/dl Calcium (8.6-10.3) mg/dl Magnesium (1.7-2.4) mg/dl Total Bilirubin (0.2-1.0) mg/dl AST (13-39) U/L ALT (7-52) U/L Alkaline Phosphatase (34-104) U/L Total Protein (6.0-8.3) gm/dl Albumin (3.4-5.0) gm/dl Globulin (2.5-4.0) gm/dl Albumin/Globulin Ratio (0.9-2) SARS-CoV-2, RNA, NAAT NEGATIVE (NEGATIVE) Blood Type O Positive Blood Type Recheck O Positive Antibody Screen NEGATIVE Crossmatch See Detail 06/20/23 06/20/23 Range/Units 18:49 18:49 WBC 5.44 (4.8-10.8) K/ul RBC 3.18 L (4.70-6.10) M/uL Hgb 7.0 L (14.0-18.0) g/dl Hct 23.6 L (42.0-52.0) % MCV 74.2 L (80.0-100.0) fL MCH 22.0 L (25.0-34.0) pg MCHC 29.7 L (32.0-36.0) g/dL RDW Std Deviation 54.7 H (36.4-46.3) fL RDW Coeff of Juice 20.4 H (11.5-14.5) % Plt Count 167 (130-400) K/uL MPV 10.9 (9.4-12.4) fL Immature Gran % (Auto) 0.4 % Neut % (Auto) 73.0 % Lymph % (Auto) 13.6 % [place] % (Auto) 9.0 % Eos % (Auto) 3.1 % Baso % (Auto) 0.9 % Neut # (Auto) 3.97 (1.40-6.50) K/uL Lymph # (Auto) 0.74 L (1.2-3.4) K/uL [place] # (Auto) 0.49 (0.11-0.59) K/uL Eos # (Auto) 0.17 (0-0.50) K/uL Baso # (Auto) 0.05 (0-0.2) K/uL Immature Gran # (Auto) 0.02 (0.01-0.20) K/uL Neutrophils % (Manual) % Lymphocytes % (Manual) % Eosinophils % (Manual) % Basophils % (Manual) % Neutrophils # (Manual) (1.40-6.50) K/uL Total Absolute Neuts (1.4-6.5) K/uL Lymphocytes # (Manual) (1.2-3.4) K/uL Total Abs Lymphocytes (1.2-3.4) K/uL Eosinophils # (Manual) (0-0.50) K/uL Basophils # (Manual) (0-0.2) K/uL Hypochromasia Poikilocytosis Present Anisocytosis Present Acanthocytes (Spur) 2+ Sodium 136 (136-145) mmol/L Potassium 3.9 (3.5-5.1) mmol/L Chloride 102 (98-107) mmol/L Carbon Dioxide 27 (21-32) mmol/L Anion Gap 7 (3-11) BUN 42 H (6-23) mg/dl Creatinine 1.79 H (0.6-1.4) mg/dl Est Cr Clr Drug Dosing 27.4 ml/min Est GFR ( Amer) 41.7 ml/min Est GFR (Non-Af Amer) 36.0 ml/min BUN/Creatinine Ratio 23.5 H (10-20) Glucose 100 H (70-99(Fasting)) mg/dl Calcium 8.8 (8.6-10.3) mg/dl Magnesium (1.7-2.4) mg/dl Total Bilirubin 1.0 (0.2-1.0) mg/dl AST 15 (13-39) U/L ALT 9 (7-52) U/L Alkaline Phosphatase 77 (34-104) U/L Total Protein 6.5 (6.0-8.3) gm/dl Albumin 4.0 (3.4-5.0) gm/dl Globulin 2.5 (2.5-4.0) gm/dl Albumin/Globulin Ratio 1.6 (0.9-2) SARS-CoV-2, RNA, NAAT (NEGATIVE) Blood Type Blood Type Recheck Antibody Screen Crossmatch
[2023-06-21 10:54] LABS: Hematocrit (blood only) 24.4 % (42.0-52.0); Hemoglobin 7.5 g/dl (14.0-18.0)
[2023-06-21] MEDS ORDERED: OPTIRAY 320 100ml IV ONE (13:41)
--- NOTE | 2023-06-21 14:01 | CT Scan Report ---
CT SCAN OF THE ABDOMEN AND PELVIS WITH IV CONTRAST CLINICAL HISTORY: Nausea and vomiting. GI bleeding. Change in bowel habits. COMPARISON STUDY: No priors. TECHNIQUE: Following the IV administration of 95 cc of Optiray 320, CT scan of the abdomen and pelvi s is performed from the lung bases to the proximal femora. Images are reviewed in the axial, sagittal , and coronal planes. IV contrast was administered without complication. A dose lowering technique wa s utilized adhering to the principles of ALARA. CT DOSE: 333.92 mGy.cm FINDINGS: Lung bases: The heart is enlarged and without pericardial effusion. The coronary arteries are densely calcified. Emphysematous change is noted. There are small pleural effusions with dependent atelectas is. There are numerous (at least 20) pulmonary nodules present at both lung bases. These measure up t o 8 mm. Planer Tailer nodules are seen in the right lower lobe on images #8 and #26 and in the left lower lobe on image #1. Intralobular septal thickening is seen at the lung bases. The distal esophagu s is circumferentially thick walled. Liver: The IVC and hepatic veins are significantly dilated. The contrast-enhanced liver is enlarged, measuring 18.5 cm in length. Attenuation is markedly heterogeneous and there is periportal edema. The re is no intrahepatic biliary ductal dilatation. The portal veins are patent. The hepatic veins are n ot opacified. Gallbladder: The gallbladder is contracted and the wall appears thickened and edematous. This is like ly related to periportal edema. Spleen: Normal in size and attenuation. Pancreas: Unremarkable. Adrenal glands: Unremarkable. Kidneys: The contrast enhanced kidneys are normal in size and without hydronephrosis. The kidneys enh ance symmetrically. There are at least 3 nonobstructing left renal calculi which measure up to 6 mm. There are also likely tiny nonobstructing right renal calculi. Bilateral renal cysts measure up to 3. 4 cm. Abdominal vasculature: There is advanced atherosclerotic calcification and ectasia of the abdominal a michael. The abdominal aorta and iliac arteries are patent. There is complete thrombosis of the right stevenson perficial femoral artery seen on image #271. Bowel: There is moderate colonic fecal retention. No bowel obstruction is seen. The appendix is norm al as visualized. Peritoneum: There is a small volume of abdominopelvic ascites. No intraperitoneal free air is seen. Lymphadenopathy: None. Pelvic viscera: The prostate gland is enlarged and heterogeneous noting median lobe hypertrophy. The bladder wall is thickened/trabeculated indicating chronic outlet obstruction. Skeletal structures: The skeletal structures are osteopenic. There is mild lumbar sacral spondylosis. No lytic or blastic lesions are seen. Soft tissues: There is anasarca of the body wall. IMPRESSION: 1. Cardiomegaly and emphysema with evidence of congestive failure and small pleural effusions. 2. The IVC and hepatic veins are significantly distended. The liver is enlarged, markedly heterogeneo us, with evidence of periportal edema. Findings suggest congestive hepatopathy. Correlate clinically. 3. There is anasarca of the body wall and a small volume of abdominopelvic ascites. 4. The distal esophagus appears thick walled. Correlate clinically for evidence of esophagitis. If wa rranted this could be further assessed with endoscopy. 5. There are numerous (at least 20) subcentimeter pulmonary nodules at both lung bases. These are pat hologically indeterminate. A follow-up chest CT in 2-3 months time is recommended for reassessment an d full evaluation of the thorax. 6. Moderate colonic fecal retention. 7. Nephrolithiasis. 8. There is complete thrombosis of the right superficial femoral artery. 9. Additional findings as above. ACT 112: Negative or not required by law. Electronically signed by: Juvencio Aragon M.D. 06/21/2023 1:58 PM
--- NOTE | 2023-06-21 14:16 | Electrocardiogram Report ---
Test Reason : Blood Pressure : / mmHG Vent. 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 lead placement vs. LVH Abnormal ECG When compared with ECG of 01-SEP-2019 09:15, Atrial fibrillation has replaced Junctional rhythm Confirmed by Ted Rosado ([id number]) on 06/21/2023 12:22:31 PM Referred By: REFERRED SELF Confirmed By:Ted Rosado
[2023-06-21 17:17] LABS: Hemoglobin 7.6 g/dl (14.0-18.0)
--- NOTE | 2023-06-21 19:03 | Hospitalist Progress Note ---
Date of Service June 21, 2023 Assessment & Plan (1) Acute blood loss anemia: (2) HFrEF (heart failure with reduced ejection fraction): (3) Carotid artery disease: (4) Coronary artery disease: (5) CHF (congestive heart failure): (6) CKD (chronic kidney disease) stage 3, GFR 30-59 ml/min: (7) Periorbital edema: Plan 77yoM with PMHx significant for CAD, CHF, PAF, left ICA severe stenosis, COPD ongoing tobacco abuse, HTN,, CKD stage III admitted with an acute GI bleed. Acute blood loss anemia Hemoccult positive, hgb of [address] abdomen/pelvis noting distal esophagus with evidence of esophagitis, periportal edema S/p transfusion with 1U pRBCs, hgb stable about 7.5 with q6h re-checks Trend H&H, continue protonix drip GI recommending EGD/colonoscopy outpatient at this time. However, notified by nursing during the day that pt was now willing to consider a procedure for further evaluation while hospitalized, GI notified. 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 Noted on CT abd/pelvis With acute blood loss noted above, will hold off on anticoagulation at this time Moderate Stool burden Noted on Ct abd/pelvis Chronic systolic CHF, moderate RV dilatation and dysfunction Moderate moderate to severe pulmonary hypertension EF 45% Continue Coreg, Entresto Lasix and spironolactone Monitor for fluid overload while on fluids History of CAD s/p stents Continue Coreg and statin Holding aspirin for possible procedure History of persistent A-fib Holding Eliquis for possible procedure On Coreg Pulmonary Nodules Noted on CT/Abdomen pelvis Numerous at the lung bases Recommending repeat CT in 2-3 months COPD Continue home inhalers DuoNebs as needed Chronic kidney disease stage III Creatinine of 1.7 on admission, slightly above baseline in Dec Continue to monitor the need for gentle hydration in the setting of CHF DVT prophylaxis: SCDs for now Diet: HH. low sodium Full code Admission and Anticipated Discharge Date Admission Date: June 20, 2023 Subjective Pt seen this AM with at bedside. was not aware that he had declined colonoscopy or EGD procedures while hospitalized and verbalized that she thought it [place] to complete. Pt repeatedly declining but stating that he would like to go home. States he is hoping that his symptoms spontaneously resolve. Review of Systems Review of Systems: All systems reviewed & are unremarkable except as noted in Subjective Physical Exam Physical Exam: General: Alert, oriented. No acute distress, fail gentleman Skin: No noted rashes or bruises Psych: Occasionally angry at during discussion of possible colonoscopy/EGD evaluation Neuro: Some difficulty moving HEENT: NC/AT CV: RRR Resp: no increased effort of breathing. Abdomen: Soft, mildly generally tender, nondistended. Extremities: No edema in lower extremities bilaterally. Results & Data Results & Data Vital Signs (Past 12 Hours) Vital Signs Temp Pulse Pulse Resp BP Pulse Ox O2 Del Method 06/21/23 12:00 36.5 C 104 H 16 114/66 96 Room Air 06/21/23 08:00 36.5 C 79 16 104/54 L 92 Room Air
[2023-06-21] MEDS ORDERED: POLYETHYLENE (MIRALAX) 17 GM PACK PO PRN (19:30)
[2023-06-21] MEDS ORDERED: cefTRIAXone SODIUM 1,000 MG in DEXTROSE 5% AD-VAN 50 ML IV SCH (21:00)
[2023-06-21] MEDS ORDERED: LATANOPROST 0.005% OP SOLN 2.5 ML BTL OPB SCH (21:00)
[2023-06-22 06:19] LABS: Hematocrit (blood only) 23.5 % (42.0-52.0); Hemoglobin 7.3 g/dl (14.0-18.0); Mean Corpuscular Hemoglobin 22.6 pg (25.0-34.0); Mean Corpuscular Hgb Conc 31.1 g/dL (32.0-36.0); Mean Corpuscular Volume 72.8 fL (80.0-100.0); Mean Platelet Volume 10.2 fL (9.4-12.4); Platelet Count 133 K/uL (130-400); RDW Coefficient of Variation 20.4 % (11.5-14.5); RDW Standard Deviation 53.1 fL (36.4-46.3); Red Blood Count 3.23 M/uL (4.70-6.10); White Blood Count 5.39 K/ul (4.8-10.8)
[2023-06-22 06:28] LABS: BUN Creatinine Ratio 19.1 (10-20); Calcium 8.1 mg/dl (8.6-10.3); Creatinine Clr Calc Pharmacy 27.6 ml/min; Est GFR (African American) 39.3 ml/min; Est GFR (Non-African American) 33.9 ml/min; Potassium 3.8 mmol/L (3.5-5.1)
[2023-06-22 06:32] LABS: INR 1.2 (0.9-1.1); Prothrombin Time 13.5 Seconds (9.0-12.0)
[2023-06-22] MEDS: PANTOprazole 40 MG in DEXTROSE 5% 100 ML IV SCH ×2 (07:33→07:34)
[2023-06-22] MEDS: SODIUM CHLORIDE 0.9% 1000ML 1,000 ML IV SCH (07:39)
--- NOTE | 2023-06-22 08:04 | Hospitalist Progress Note ---
Date of Service June 22, 2023 Assessment & Plan (1) Acute blood loss anemia: (2) HFrEF (heart failure with reduced ejection fraction): (3) Carotid artery disease: (4) Coronary artery disease: (5) CHF (congestive heart failure): (6) CKD (chronic kidney disease) stage 3, GFR 30-59 ml/min: (7) Periorbital edema: Plan 77yoM with PMHx significant for CAD, CHF, PAF, left ICA severe stenosis, COPD ongoing tobacco abuse, HTN,, CKD stage III admitted with an acute GI bleed. Acute blood loss anemia Hemoccult positive, hgb of [address] abdomen/pelvis noting distal esophagus with evidence of esophagitis, periportal edema S/p transfusion with 1U pRBCs, hgb stable about 7.5 with q6h re-checks Trend H&H, continue protonix drip GI recommending EGD/colonoscopy outpatient at this time. However, notified by nursing during the day that pt was now willing to consider a procedure for further evaluation while hospitalized, GI notified. 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 Noted on CT abd/pelvis With acute blood loss noted above, will hold off on anticoagulation at this time Moderate Stool burden Noted on Ct abd/pelvis Chronic systolic CHF, moderate RV dilatation and dysfunction Moderate moderate to severe pulmonary hypertension EF 45% Continue Coreg, Entresto Lasix and spironolactone Monitor for fluid overload while on fluids History of CAD s/p stents Continue Coreg and statin Holding aspirin for possible procedure History of persistent A-fib Holding Eliquis for possible procedure On Coreg Pulmonary Nodules Noted on CT/Abdomen pelvis Numerous at the lung bases Recommending repeat CT in 2-3 months COPD Continue home inhalers DuoNebs as needed Chronic kidney disease stage III Creatinine of 1.7 on admission, slightly above baseline in Dec Continue to monitor the need for gentle hydration in the setting of CHF DVT prophylaxis: SCDs for now Diet: HH. low sodium Full code Admission and Anticipated Discharge Date Admission Date: June 20, 2023 Results & Data Results & Data Vital Signs (Past 12 Hours) Vital Signs Temp Pulse Resp BP Pulse Ox O2 Del Method 06/22/23 07:49 36.7 C 80 20 118/68 96 Room Air 07/22/23 03:53 36.7 C 72 18 110/61 90 Room Air 06/21/23 23:30 36.6 C 67 18 109/61 95 Room Air 06/21/23 20:13 36.7 C 63 18 96/59 L 95 Room Air 06/21/23 20:09 Room Air Laboratory Results Short CBC 06/21/23 06/21/23 06/22/23 Range/Units 10:37 16:57 05:19 WBC 5.39 (4.8-10.8) K/ul Hgb 7.5 L 7.6 L 7.3 L (14.0-18.0) g/dl Hct 24.4 L 25.0 L 23.5 L (42.0-52.0) % Plt Count 133 (130-400) K/uL BMP 06/22/23 05:19 Sodium 137 Potassium 3.8 Chloride 104 Carbon Dioxide 26 BUN 36 H Creatinine 1.88 H Glucose 82 Calcium 8.1 L Medications Administered Current Inpatient Medications Acetaminophen (Acetaminophen 325 Mg Tab) 650 mg PO Q4H PRN PRN Reason: Pain or Fever Stop: 07/21/23 02:27 Albuterol (Albut/Ipratrop 3mg/0.5mg Neb 3 Ml Vial) 3 ml NEB Q4R PRN; Protocol PRN Reason: Shortness Of Breath Or Wheezing Stop: 07/21/23 02:27 Atorvastatin Calcium (Atorvastatin 40 Mg Tab) 80 mg PO QAM CARLOS Stop: 07/21/23 08:59 Last Admin: 06/21/23 09:28 Dose: 80 mg Carvedilol (Carvedilol 3.125 Mg Tab) 3.125 mg PO BID CARLOS Stop: 07/21/23 08:59 Last Admin: 06/21/23 19:56 Dose: Not Given Fluticasone/Vilanterol (Fluticasone/Vilanterol 200/25mcg 14 Puffs/Inhaler) 1 puffs INH DAILY CARLOS Stop: 07/21/23 08:59 Last Admin: 06/21/23 09:28 Dose: 1 puffs Furosemide (Furosemide 40 Mg Tab) 40 mg PO DAILY CARLOS Stop: 07/21/23 08:59 Last Admin: 06/21/23 09:27 Dose: 40 mg Pantoprazole Sodium 40 mg/ (Dextrose) 100 mls @ 20 mls/hr IV Q5H [facility] Stop: 07/20/23 20:44 Last Admin: 06/22/23 07:34 Dose: 8 mg/hr, 20 mls/hr Ceftriaxone Sodium 1,000 mg/ (Dextrose) 50 mls @ 100 mls/hr IV Q24H [facility]; Protocol Stop: 06/25/23 20:59 Last Infusion: 06/22/23 07:40 Dose: Infused Latanoprost (Latanoprost 0.005% Op Soln 2.5 Ml Btl) 1 drops OPB HS [facility] Stop: 07/21/23 20:59 Last Admin: 06/21/23 19:55 Dose: 1 drops Nitroglycerin (Nitroglycerin Sl 0.4 Mg/Tab Tab) 0.4 mg SL Q5M PRN PRN Reason: Chest Pain Stop: 07/21/23 02:27 Polyethylene Glycol (Polyethylene (Miralax) 17 Gm Pack) 17 gm PO DAILY PRN PRN Reason: Constipation Stop: 07/21/23 19:29 Sacubitril/Valsartan (Valsartan/Sacubitril 26/24mg Tab) 1 tab PO BID [facility] Stop: 07/21/23 08:59 Last Admin: 06/21/23 19:54 Dose: 1 tab Spironolactone (Spironolactone 25 Mg Tab) 25 mg PO DAILY [facility] Stop: 07/21/23 08:59 Last Admin: 06/21/23 09:27 Dose: 25 mg
[2023-06-22] MEDS: carvediloL 3.125 MG TAB PO SCH (08:34)
[2023-06-22] MEDS: ATORVASTATIN 40 MG TAB PO SCH (08:34)
[2023-06-22] MEDS: SPIRONOLACTONE 25 MG TAB PO SCH (08:35)
[2023-06-22] MEDS: FLUTICASONE/VILANTEROL 200/25MCG 14 PUFFS/INHALER INH SCH (08:35)
[2023-06-22] MEDS: VALSARTAN/SACUBITRIL 26/24MG TAB PO SCH (08:36)
--- NOTE | 2023-06-22 10:04 | Discharge Summary ---
Discharge Summary Date of Service June 22, 2023 Notes For Next Care Provider Medication Changes From Visit please see med rec Admission HPI Per Admitting Provider 77-year-old male with past medical history significant for CAD with inferior ST elevated [place] in 2019 s/p 2 drug-eluting stents to RCA, chronic systolic CHF EF 35 to 40% 10/2022 improved to 45% in January 2023, persistent atrial fibrillation, left ICA severe stenosis asymptomatic, COPD ongoing tobacco abuse, hypertension, moderate mitral regurgitation, moderate to severe pulmonary hypertension, moderate RV dilatation dysfunction, chronic kidney disease stage III, generalized osteoarthritis, primary open-angle glaucoma, who lives at home with his ambulates without any support on regular diet presents with cramps in his lower extremity going on for last few days and found to have anemia with hemoglobin of 7 and Hemoccult positive and patient is on Eliquis. Patient is getting monitor PRBC in the ER. Denies any abdominal pain. Patient did not notice any blood or black stools. No hematuria. No abdominal pain. No chest pain or shortness of breath. No nausea. No cough. Afebrile. No headache no blurred visions or earache runny nose or sore throat. Currently resting comfortably and hemodynamically stable. Past medical history as mentioned above Past surgical history cardiac cath, cataract Family history significant for father had lung cancer and rheumatic fever as a child Social history smokes 0.1 packs a day, no alcohol use, no drug use Principal Dx & Hospital Course #1 = Principal Diagnosis (1) Acute blood loss anemia: (2) HFrEF (heart failure with reduced ejection fraction): (3) Carotid artery disease: (4) Coronary artery disease: (5) CHF (congestive heart failure): (6) CKD (chronic kidney disease) stage 3, GFR 30-59 ml/min: (7) Periorbital edema: Plan 77-year-old man admitted with leg cramps and found to have anemia with positive Hemoccult. He was admitted for acute blood loss anemia with a hemoglobin of 7 and Eliquis and aspirin were held. He received 1 unit of packed red blood cells. He was started on a Protonix drip with a GI consult the following day. Per GI he reports brown stools no abdominal pain or change in bowel habits no nausea and vomiting. EGD and colonoscopy were discussed and he will follow-up as outpatient for these. CT scan of abdomen pelvis was recommended and showed that the IVC and hepatic veins were very distended, the liver was enlarged with evidence of periportal edema suggestive of congestive hepatopathy, anasarca of the body wall with small volume ascites was present, distal esophagus suggestive of esophagitis. There were numerous subcentimeter pulmonary nodules of both lung bases that were pathologically indeterminate. A repeat CT in 2 to 3 months time was recommended for reassessment and full evaluation of the thorax. These findings were discussed with the patient who did not have evidence of fluid wave on exam. His abdomen was soft nondistended and flat. He did not appear hypervolemic on exam at discharge. He was expecting to leave the hospital and was already in his jeans. He had no significant lower extremity edema. Fluids were held and he was placed on his typical diuretic medications. He was discharged in stable condition with close primary care follow-up recommended. He was told that ascites was not normal and this should be evaluated further as outpatient with possible paracentesis. He is already following up with GI for endoscopy evaluation. He will also closely follow with his primary care provider. Patient and his were both comfortable with him returning home at that time and all questions were answered to his satisfaction. Discharge Exam Hemodynamically stable and afebrile Mentating clearly Ambulating at baseline Tolerating p.o. Updated Medication List Medication Instructions Recorded Confirmed Type latanoprost 0.005 % eye drops 1 drp OPB HS 08/31/19 06/21/23 History atorvastatin 40 mg tablet 80 mg PO QAM #30 tabs 09/02/19 06/21/23 Rx sacubitril 24 mg-valsartan 26 mg 1 tab PO BID #60 tabs 10/24/22 06/21/23 Rx tablet (Entresto) spironolactone 25 mg tablet 25 mg PO DAILY #90 tabs 12/13/22 06/21/23 Rx fluticasone 250 mcg-salmeterol 50 1 inh inhalation BID 04/15/23 06/21/23 History mcg/dose blistr powdr for inhalation (Advair Diskus) carvedilol 3.125 mg tablet 3.125 mg PO BID #60 tabs 04/22/23 06/21/23 Rx furosemide 40 mg tablet (Lasix) 40 mg PO DAILY #120 tabs 05/28/23 06/21/23 Rx Hospital Stay Data Consultations 06/20/23 21:25 ED Decision to Admit Stat 06/21/23 08:00 Consult Gastroenterology Routine Diagnostic Imagining Performed 06/21/23 11:00 CT abd pelvis IV con only Urgent Pending Results Patient Have Any Pending Studies at Discharge: No Discharge Instructions Given to Patient (Per Discharging Provider) Please take all medications as instructed on discharge list below. Please hold off taking any blood thinners. Please followup with [facility] this week for outpatient scope. Please discuss a referral to a vascular surgeon for peripheral arterial disease seen in your right leg. Please kep a close eye on your blood count (CBC) as your hemoglobin was 7.3 at time of discharge. A blood transfusion would be recommended if it falls <7. Dr. Victoria may want to recheck that on followup later this week. Smoking cessation is strongly recommended. It was a pleasure taking care of you! Please call if you have any questions or problems. You can reach a [facility] hospitalist on duty at [facility] 24 hours a day by calling [phone]. Take care of yourself. Kathe Rodriguez, [place] Hospitalist Total Time Total Time Spent Total Time Spent (In Minutes): 60
--- NOTE | 2023-06-23 22:54 | Communication Note ---
Date of Service: June 23, 2023 Although I did not write to have him follow-up with a chest CT in 2 to 3 months, this was discussed with he and his at time of discharge who verbalized understanding with intent to comply. We will also add the addendum to the discharge summary which will be communicated with primary care physician. DO Michael
== END 2023-06-22 12:06 | disposition home or self-care (01) | DRG 812 ==
LOC: ED 17:48 → 4W 23:32 → SUATTDRO 23:32 → 4W 06-21 01:52

== ENCOUNTER 2023-08-05 11:33 | Inpatient (IN) ==
[2023-08-05 12:11] LABS: Hematocrit (blood only) 18.9 % (42.0-52.0); Hemoglobin 5.4 g/dl (14.0-18.0); Mean Corpuscular Hemoglobin 21.8 pg (25.0-34.0); Mean Corpuscular Hgb Conc 28.6 g/dL (32.0-36.0); Mean Corpuscular Volume 76.2 fL (80.0-100.0); Mean Platelet Volume 10.9 fL (9.4-12.4); Platelet Count 173 K/uL (130-400); RDW Coefficient of Variation 21.2 % (11.5-14.5); RDW Standard Deviation 58.2 fL (36.4-46.3); Red Blood Count 2.48 M/uL (4.70-6.10); White Blood Count 5.58 K/ul (4.8-10.8)
[2023-08-05 12:25] LABS: Alanine Aminotransferase 9 U/L (7-52); Albumin Globulin Ratio 1.5 (0.9-2); Albumin Level 3.6 gm/dl (3.4-5.0); Alkaline Phosphatase 75 U/L (34-104); Anion Gap 4 (3-11); Aspartate Aminotransferase 13 U/L (13-39); BUN Creatinine Ratio 24.6 (10-20); Bilirubin,Total 0.7 mg/dl (0.2-1.0); Blood Urea Nitrogen 43 mg/dl (6-23); Calcium 8.6 mg/dl (8.6-10.3); Carbon Dioxide 29 mmol/L (21-32); Chloride 107 mmol/L (98-107); Est GFR (African American) 42.9 ml/min; Globulin 2.4 gm/dl (2.5-4.0); Glucose 116 mg/dl (70-99(Fasting)); Potassium 3.5 mmol/L (3.5-5.1); Sodium 140 mmol/L (136-145)
[2023-08-05 12:36] LABS: Acanthocytes 2+; Anisocytosis Present; Basophils # (auto) 0.04 K/uL (0.00-0.20); Basophils % (auto) 0.7 %; Eosinophils # (auto) 0.15 K/uL (0.00-0.50); Eosinophils % (auto) 2.7 %; Immature Granulocytes # (auto) 0.02 K/uL (0.01-0.20); Immature Granulocytes % (auto) 0.4 %; Lymphocytes # (auto) 0.73 K/uL (1.20-3.40); Lymphocytes % (auto) 13.1 %; Monocytes # (auto) 0.41 K/uL (0.11-0.59); Monocytes % (auto) 7.3 %; Neutrophils # (auto) 4.23 K/uL (1.40-6.50); Neutrophils % (auto) 75.8 %
[2023-08-05] MEDS ORDERED: SODIUM CHLORIDE 0.9% 250 ML IV PRN (12:45)
--- NOTE | 2023-08-05 12:48 | Emergency Department Note ---
Impression & Plan Weakness, Anemia requiring transfusions, Non-ST elevation RI (NSTEMI) ED Provider Note HISTORY OF PRESENT ILLNESS: Patient is a 77-year-old male presenting with weakness in his right lower extremity and also in his right upper extremity. He reportedly has had recurrent falls over the last week secondary to profound weakness from his right knee down to his right foot. He reportedly has been dragging his right lower extremity secondary to profound weakness. No reported head injuries with the falls. Patient is on Eliquis for history of A-fib. He denies any chest pain or shortness of breath. Reports right-sided numbness and tingling in the right upper and right lower extremity. Denies any headache or changes in vision. Denies any dysuria or hematuria. ROS: as above PHYSICAL EXAM: Constitutional: Patient appears in no acute distress. HENT: Head: Normocephalic and atraumatic. Eyes: EOMI, PERRL Mouth/Throat: Mucous membranes moist. Neck: Trachea midline. Neck supple. No midline cervical spine tenderness to palpation. Cardiovascular: RRR, No murmurs, rubs or gallops. Intact distal pulses. Pulmonary/Chest: No respiratory distress. Breath sounds clear and equal bilaterally. No wheezes or rales. Abdominal: Abdomen soft, no tenderness, rebound or guarding. Rectal: Chaperoned by nursing staff. No palpable masses or hemorrhoids. Fecal occult blood test negative. Musculoskeletal: No edema, tenderness or deformity noted. Skin: Warm and dry. No rash, erythema, pallor or cyanosis Psychiatric: Appropriate mood and affect for situation. Neurological: Alert and keenly responsive. CN II-XII grossly intact, moving all extremities equally and fully. MDM: - Vitals signs showed hypotensive - History obtained via patient. Patient presents with weakness. Patient reports significant right lower extremity weakness over the last week. He has reportedly been having recurrent falls and has been dragging his right leg secondary to weakness in the right lower extremity. Denies any chest pain or shortness of breath. He is on Eliquis for history of PE. Denies any nausea or vomiting. - Chronic conditions affecting care: CKD; CAD; Afib; HTN; HLD - Differential diagnoses include, but are not limited to: CVA; intracranial hemorrhage; anemia; electrolyte abnormality; ACS; pneumonia - Order placed for continuous cardiac monitoring. At this time, monitor showed rate of 78 bpm with normal sinus rhythm, per my interpretation. - External medical records reviewed. - EKG reviewed by myself showed atrial fibrillation. Rate 76 bpm. QTc 429. No acute ischemic changes - Laboratory workup interpreted by myself showed normal WBC; anemia (Hgb 5.4); stable electrolyte; CKD; normal TSH; normal lactate; elevated troponin (31.4) - NSTEMI likely type II in nature secondary to the patient's profound anemia. - Patient was consented for blood. 2 units of packed red blood cells were ordered for transfusion. - CT head wo contrast negative for acute intracranial pathology - CXR negative for pneumonia, per my interpretation. - Discussion was had with social organization professor about patient's case and need for admission - Hospitalist consulted for admission - Patient admitted to [facility] Hospitalist service for further evaluation and management. I provided 33 minutes of critical care time to this patient's care outside of billable procedures. ASSESSMENT AND PLAN: Diagnosis: Anemia requiring transfusion; weakness; NSTEMI Plan: admit Past Med/Surg History Medical History Acute blood loss anemia Atrial fibrillation was on eliquis, taken off last week due to bleeding---follows with Dr. Elizabeth Carotid artery disease Carotid stenosis CKD (chronic kidney disease) stage 3, GFR 30-59 ml/min COPD (chronic obstructive pulmonary disease) inhaler daily/prn Coronary artery disease Glaucoma History of COVID-19 12/2022--mild symptoms, no symptoms now History of recent blood transfusion 06/20/2023 @ [facility] History of SCC (squamous cell carcinoma) of skin HLD (hyperlipidemia) Hypertension Myocardial Infarction 2018--had heart cath with 2 BJ placed--follows with Dr. Elizabeth Osteoarthritis Rheumatic fever Tobacco abuse Surgical History History of cardiac cath 08/2019 with 2 stents placed History of cataract extraction bilateral History of heart artery stent 2 BJ placed 08/2019 @ [facility] History of tooth extraction all teeth Family History Father Rheumatic heart disease Mother Pleurisy Other No family history of adverse response to anesthesia Social History Smoking Status: Current some day smoker Tobacco Type: Cigarettes packs per day: 1; Cigarettes Per Day: "not even a pack a week" (advised on policy); Second Hand Exposure: No; Do You Dip or Chew Tobacco: No; Hx Alcohol Use: No Hx Substance Use: No Preferred Language: Chilean Communication Ability: Effective Airline Radio Operator Required: No Beliefs That Will Affect Care: None marital status: Current Living Situation: Spouse current occupational status: retired Feels Safe at Home: Yes Assistive Devices: Denture - Upper, Denture - Lower and Glasses Allergies Allergies Allergy/AdvReac Type Severity Reaction Status Date / Time No Known Drug Allergies Allergy Unknown . Verified 07/18/23 13:01 Home Meds Home Medications Medication Instructions Recorded Confirmed latanoprost 0.005 % eye drops 1 drp OPB HS 08/31/19 08/05/23 fluticasone 250 mcg-salmeterol 50 1 inh inhalation BID 04/15/23 08/05/23 mcg/dose blistr powdr for inhalation (Advair Diskus) albuterol sulfate 90 mcg/actuation 2 puff inhalation Q4H PRN 07/03/23 08/05/23 aerosol inhaler (Ventolin HFA) Shortness Of Breath atorvastatin 40 mg tablet 80 mg PO HS 07/03/23 08/05/23 nitroglycerin 0.4 mg sublingual 0.4 mg sublingual UD PRN Chest Pain 07/03/23 08/05/23 tablet spironolactone 25 mg tablet 25 mg PO QAM 07/03/23 08/05/23 apixaban [Eliquis] PO 07/18/23 07/18/23 aspirin 81 mg tablet 81 mg PO DAILY 07/18/23 08/05/23 pantoprazole 40 mg tablet,delayed 40 mg PO QAM 08/05/23 08/05/23 release sacubitril 24 mg-valsartan 26 mg 0 tab PO BID 08/05/23 tablet (Entresto) timolol maleate 0.5 % eye drops 1 drp OPB QAM 08/05/23 08/05/23 Previous Rx's Medication Instructions Recorded carvedilol 3.125 mg tablet 3.125 mg PO BID #180 tabs 07/26/23 furosemide 40 mg tablet (Lasix) 40 mg PO QAM #120 tabs 08/01/23 Results & Data (ED) Vital Signs Vital Signs - 24 hr 08/05/23 11:36 08/05/23 12:30 08/05/23 12:40 Temperature 37 C Temperature Source Temporal Artery Scan Pulse Rate 79 78 Pulse Rate [Left Apical] 71 Pulse Rhythm Regular Pulse Strength Normal Respiratory Rate 18 18 Respiratory Effort / Characteristics Non-Labored Non-Labored Respiratory Depth Normal Normal Respiratory Pattern Regular Blood Pressure 99/61 L Blood Pressure [Right Arm] 109/61 Blood Pressure Mean 73 Blood Pressure Mean [Right Arm] 77 Blood Pressure Position Sitting Pulse Oximetry 95 95 Oxygen Delivery Method Room Air Room Air Sepsis Recent Fever Within 48 Hours No Sepsis New/Unexplained Change in Mental Status No Sepsis Action Taken by Nursing No Action Required 08/05/23 12:48 08/05/23 12:48 08/05/23 14:00 Temperature 36.7 C Temperature Source Oral Pulse Rate 74 Pulse Rate [Left Apical] Pulse Rhythm Pulse Strength Respiratory Rate 16 Respiratory Effort / Characteristics Respiratory Depth Respiratory Pattern Blood Pressure 115/54 L Blood Pressure [Right Arm] Blood Pressure Mean 74 Blood Pressure Mean [Right Arm] Blood Pressure Position Pulse Oximetry 98 96 Oxygen Delivery Method Room Air Room Air Sepsis Recent Fever Within 48 Hours Sepsis New/Unexplained Change in Mental Status Sepsis Action Taken by Nursing 08/05/23 14:20 08/05/23 14:25 08/05/23 14:35 Temperature 36.4 C L Temperature Source Oral Pulse Rate 82 71 Pulse Rate [Left Apical] 78 Pulse Rhythm Pulse Strength Respiratory Rate 16 18 16 Respiratory Effort / Characteristics Non-Labored Respiratory Depth Normal Respiratory Pattern Regular Blood Pressure 117/71 113/69 Blood Pressure [Right Arm] 117/71 Blood Pressure Mean 86 83 Blood Pressure Mean [Right Arm] 86 Blood Pressure Position Pulse Oximetry 96 95 98 Oxygen Delivery Method Room Air Sepsis Recent Fever Within 48 Hours Sepsis New/Unexplained Change in Mental Status Sepsis Action Taken by Nursing Laboratory Data 08/05/23 11:51 08/05/23 11:51 Lab Results 08/05/23 08/05/23 08/05/23 Range/Units 11:51 11:51 11:51 WBC 5.58 (4.8-10.8) K/ul RBC 2.48 L (4.70-6.10) M/uL Hgb 5.4 L* (14.0-18.0) g/dl Hct 18.9 L* (42.0-52.0) % MCV 76.2 L (80.0-100.0) fL MCH 21.8 L (25.0-34.0) pg MCHC 28.6 L (32.0-36.0) g/dL RDW Std Deviation 58.2 H (36.4-46.3) fL RDW Coeff of Juice 21.2 H (11.5-14.5) % Plt Count 173 (130-400) K/uL MPV 10.9 (9.4-12.4) fL Immature Gran % (Auto) 0.4 % Neut % (Auto) 75.8 % Lymph % (Auto) 13.1 % [place] % (Auto) 7.3 % Eos % (Auto) 2.7 % Baso % (Auto) 0.7 % Neut # (Auto) 4.23 (1.40-6.50) K/uL Lymph # (Auto) 0.73 L (1.20-3.40) K/uL [place] # (Auto) 0.41 (0.11-0.59) K/uL Eos # (Auto) 0.15 (0.00-0.50) K/uL Baso # (Auto) 0.04 (0.00-0.20) K/uL Immature Gran # (Auto) 0.02 (0.01-0.20) K/uL Anisocytosis Present Acanthocytes (Spur) 2+ PT (9.0-12.0) Seconds INR (0.9-1.1) APTT (21.0-31.0) Seconds PTT Ratio Sodium 140 (136-145) mmol/L Potassium 3.5 (3.5-5.1) mmol/L Chloride 107 (98-107) mmol/L Carbon Dioxide 29 (21-32) mmol/L Anion Gap 4 (3-11) BUN 43 H (6-23) mg/dl Creatinine 1.75 H (0.6-1.4) mg/dl Est Cr Clr Drug Dosing Not Reportable Est GFR ( Amer) 42.9 ml/min Est GFR (Non-Af Amer) 37.0 ml/min BUN/Creatinine Ratio 24.6 H (10-20) Glucose 116 H (70-99(Fasting)) mg/dl Lactate (0.4-2.0) mmol/L Calcium 8.6 (8.6-10.3) mg/dl Total Bilirubin 0.7 (0.2-1.0) mg/dl AST 13 (13-39) U/L ALT 9 (7-52) U/L Alkaline Phosphatase 75 (34-104) U/L Troponin I High Sens 31.4 H (0-20) pg/ml Total Protein 6.0 (6.0-8.3) gm/dl Albumin 3.6 (3.4-5.0) gm/dl Globulin 2.4 L (2.5-4.0) gm/dl Albumin/Globulin Ratio 1.5 (0.9-2) TSH 1.526 (0.300-4.500) uIu/ml Urine Color Urine Appearance (Clear) Urine pH (4.5-7.5) Ur Specific [place] (1.000-1.030) Urine Protein (Negative) Urine Glucose (UA) (Negative) Urine Ketones (Negative) Urine Blood (Negative) Urine Nitrite (Negative) Urine Bilirubin (Negative) Urine Urobilinogen (Negative) Ur Leukocyte Esterase (Negative) POC Stool Occult Blood (Negative) Blood Type Antibody Screen Crossmatch 08/05/23 08/05/23 08/05/23 Range/Units 12:37 12:37 12:48 WBC (4.8-10.8) K/ul RBC (4.70-6.10) M/uL Hgb (14.0-18.0) g/dl Hct (42.0-52.0) % MCV (80.0-100.0) fL MCH (25.0-34.0) pg MCHC (32.0-36.0) g/dL RDW Std Deviation (36.4-46.3) fL RDW Coeff of Juice (11.5-14.5) % Plt Count (130-400) K/uL MPV (9.4-12.4) fL Immature Gran % (Auto) % Neut % (Auto) % Lymph % (Auto) % [place] % (Auto) % Eos % (Auto) % Baso % (Auto) % Neut # (Auto) (1.40-6.50) K/uL Lymph # (Auto) (1.20-3.40) K/uL [place] # (Auto) (0.11-0.59) K/uL Eos # (Auto) (0.00-0.50) K/uL Baso # (Auto) (0.00-0.20) K/uL Immature Gran # (Auto) (0.01-0.20) K/uL Anisocytosis Acanthocytes (Spur) PT 13.0 H (9.0-12.0) Seconds INR 1.2 H (0.9-1.1) APTT 26.8 (21.0-31.0) Seconds PTT Ratio 1.0 Sodium (136-145) mmol/L Potassium (3.5-5.1) mmol/L Chloride (98-107) mmol/L Carbon Dioxide (21-32) mmol/L Anion Gap (3-11) BUN (6-23) mg/dl Creatinine (0.6-1.4) mg/dl Est Cr Clr Drug Dosing Est GFR ( Amer) ml/min Est GFR (Non-Af Amer) ml/min BUN/Creatinine Ratio (10-20) Glucose (70-99(Fasting)) mg/dl Lactate (0.4-2.0) mmol/L Calcium (8.6-10.3) mg/dl Total Bilirubin (0.2-1.0) mg/dl AST (13-39) U/L ALT (7-52) U/L Alkaline Phosphatase (34-104) U/L Troponin I High Sens (0-20) pg/ml Total Protein (6.0-8.3) gm/dl Albumin (3.4-5.0) gm/dl Globulin (2.5-4.0) gm/dl Albumin/Globulin Ratio (0.9-2) TSH (0.300-4.500) uIu/ml Urine Color Urine Appearance (Clear) Urine pH (4.5-7.5) Ur Specific [place] (1.000-1.030) Urine Protein (Negative) Urine Glucose (UA) (Negative) Urine Ketones (Negative) Urine Blood (Negative) Urine Nitrite (Negative) Urine Bilirubin (Negative) Urine Urobilinogen (Negative) Ur Leukocyte Esterase (Negative) POC Stool Occult Blood Negative (Negative) Blood Type O Positive Antibody Screen NEGATIVE Crossmatch See Detail 08/05/23 08/05/23 Range/Units 12:58 13:10 WBC (4.8-10.8) K/ul RBC (4.70-6.10) M/uL Hgb (14.0-18.0) g/dl Hct (42.0-52.0) % MCV (80.0-100.0) fL MCH (25.0-34.0) pg MCHC (32.0-36.0) g/dL RDW Std Deviation (36.4-46.3) fL RDW Coeff of Juice (11.5-14.5) % Plt Count (130-400) K/uL MPV (9.4-12.4) fL Immature Gran % (Auto) % Neut % (Auto) % Lymph % (Auto) % [place] % (Auto) % Eos % (Auto) % Baso % (Auto) % Neut # (Auto) (1.40-6.50) K/uL Lymph # (Auto) (1.20-3.40) K/uL [place] # (Auto) (0.11-0.59) K/uL Eos # (Auto) (0.00-0.50) K/uL Baso # (Auto) (0.00-0.20) K/uL Immature Gran # (Auto) (0.01-0.20) K/uL Anisocytosis Acanthocytes (Spur) PT (9.0-12.0) Seconds INR (0.9-1.1) APTT (21.0-31.0) Seconds PTT Ratio Sodium (136-145) mmol/L Potassium (3.5-5.1) mmol/L Chloride (98-107) mmol/L Carbon Dioxide (21-32) mmol/L Anion Gap (3-11) BUN (6-23) mg/dl Creatinine (0.6-1.4) mg/dl Est Cr Clr Drug Dosing Est GFR ( Amer) ml/min Est GFR (Non-Af Amer) ml/min BUN/Creatinine Ratio (10-20) Glucose (70-99(Fasting)) mg/dl Lactate 1.4 (0.4-2.0) mmol/L Calcium (8.6-10.3) mg/dl Total Bilirubin (0.2-1.0) mg/dl AST (13-39) U/L ALT (7-52) U/L Alkaline Phosphatase (34-104) U/L Troponin I High Sens (0-20) pg/ml Total Protein (6.0-8.3) gm/dl Albumin (3.4-5.0) gm/dl Globulin (2.5-4.0) gm/dl Albumin/Globulin Ratio (0.9-2) TSH (0.300-4.500) uIu/ml Urine Color Yellow Urine Appearance Clear (Clear) Urine pH 5.5 (4.5-7.5) Ur Specific [place] 1.013 (1.000-1.030) Urine Protein Negative (Negative) Urine Glucose (UA) Negative (Negative) Urine Ketones Negative (Negative) Urine Blood Negative (Negative) Urine Nitrite Negative (Negative) Urine Bilirubin Negative (Negative) Urine Urobilinogen Negative (Negative) Ur Leukocyte Esterase Negative (Negative) POC Stool Occult Blood (Negative) Blood Type Antibody Screen Crossmatch Imaging Data Radiologist's Impression: Chest X-Ray 08/05/23 11:42 XR chest 1V portable HISTORY: weakness COMPARISON: Chest 06/20/2023. FINDINGS: The lungs are clear. The heart is mildly enlarged. This remains unchanged. There are calcifications within the aortic knob. No pleural effusions. No pneumothorax. No acute fractures identified. No evidence for pulmonary edema. IMPRESSION: Stable cardiomegaly. ACT 112: Negative or not required by law. Electronically signed by: Juan Shields M.D. 08/05/2023 2:[address] 08/05/23 12:[address] DOSE: 625.80 mGy.cm HISTORY: right-sided weakness TECHNIQUE: Multiaxial CT images of the head were performed without the use of intravenous contrast. Automated exposure control was utilized for this study. A dose lowering technique was utilized adhering to the principles of ALARA. Comparison: None. Findings: Small retention cyst within the left maxillary sinus. The remaining paranasal sinuses and mastoid air cells are clear. The calvarium and skull base are intact. Prior bilateral lens replacement. There is no mass, hematoma, midline shift. Mild atrophy and microvascular ischemic changes are noted. Hypodense foci within the left parietal and left occipital lobes with associated encephalomalacia favors old infarcts. There is associated wallerian degeneration of the left midbrain consistent with a chronic infarct. No definite acute inf arct identified. Impression: 1. No acute intracranial hemorrhage or acute infarct identified. 2. Areas of encephalomalacia within the left parietal and left occipital lobes consistent with old infarcts. ACT 112: Negative or not required by law. Electronically signed by: Juan Shields M.D. 08/05/2023 2:16 PM Discharge Plan Visit Data Chief Complaint: Weakness Stated Complaint: WEAKNESS RIGH SIDE, CANNOT LIFE LEG ED Provider: Lily Reid Discharge Problem: Weakness, Anemia requiring transfusions, Non-ST elevation RI (NSTEMI) Forms Stand Alone Forms: My [facility] [place] Prescriptions Prescriptions: No Action carvedilol 3.125 mg tablet 3.125 mg PO BID Qty: 180 3RF Rx Instructions: must administer with a meal/food furosemide [Lasix] 40 mg tablet 40 mg PO QAM Qty: 120 3RF Rx Instructions: May increase to 40 mg BID PRN for weight gain, swelling, dyspnea. fluticasone propion-salmeterol [Advair Diskus] 250-50 mcg/dose blister with device 1 inh inhalation BID apixaban [Eliquis] PO Rx Instructions: Not filled with [facility] in last 2 years aspirin 81 mg tablet 81 mg PO DAILY Rx Instructions: Filled back in march latanoprost 0.005 % drops 1 drp OPB HS nitroglycerin 0.4 mg Tablet, Sublingual 0.4 mg sublingual UD PRN (Reason: Chest Pain) albuterol sulfate [Ventolin HFA] 90 mcg/actuation Hfa Aerosol Inhaler 2 puff INHALATION Q4H PRN (Reason: Shortness Of Breath) atorvastatin 40 mg tablet 80 mg PO HS spironolactone 25 mg tablet 25 mg PO QAM pantoprazole 40 mg tablet,delayed release (DR/EC) 40 mg PO QAM timolol maleate 0.5 % drops 1 drp OPB QAM Rx Instructions: right eye Entresto 24-26 mg tablet 0 tab PO BID Rx Instructions: [facility] October [facility]22 Referrals Referrals: Alhaji Pitts MD [Primary Care Provider] -
[2023-08-05 13:20] LABS: Troponin I High Sensitivity 31.4 pg/ml (0-20)
[2023-08-05 13:47] LABS: INR 1.2 (0.9-1.1); Partial Thromboplastin Time 26.8 Seconds (21.0-31.0)
[2023-08-05 14:03] LABS: Appearance Urine Clear (Clear); Bilirubin Urine Negative (Negative); Blood Urine Negative (Negative); Color Urine Yellow; Glucose Urine UA Negative (Negative); Ketones Urine Negative (Negative); Leukocyte Esterase Urine Negative (Negative); Nitrite Urine Negative (Negative); Protein Urine Negative (Negative); Specific Gravity Urine 1.013 (1.000-1.030); Urobilinogen Urine Negative (Negative); pH Urine 5.5 (4.5-7.5)
--- NOTE | 2023-08-05 14:06 | XRay Report ---
XR chest 1V portable HISTORY: weakness COMPARISON: Chest 06/20/2023. FINDINGS: The lungs are clear. The heart is mildly enlarged. This remains unchanged. There are calcif ications within the aortic knob. No pleural effusions. No pneumothorax. No acute fractures identified . No evidence for pulmonary edema. IMPRESSION: Stable cardiomegaly. ACT 112: Negative or not required by law. Electronically signed by: Juan Shields M.D. 08/05/2023 2:04 PM
--- NOTE | 2023-08-05 14:18 | CT Scan Report ---
HEAD CT NONCONTRAST CT DOSE: 625.80 mGy.cm HISTORY: right-sided weakness TECHNIQUE: Multiaxial CT images of the head were performed without the use of intravenous contrast. A utomated exposure control was utilized for this study. A dose lowering technique was utilized adheri ng to the principles of ALARA. Comparison: None. Findings: Small retention cyst within the left maxillary sinus. The remaining paranasal sinuses and m astoid air cells are clear. The calvarium and skull base are intact. Prior bilateral lens replacement . There is no mass, hematoma, midline shift. Mild atrophy and microvascular ischemic changes are note d. Hypodense foci within the left parietal and left occipital lobes with associated encephalomalacia favors old infarcts. There is associated wallerian degeneration of the left midbrain consistent with a chronic infarct. No definite acute infarct identified. Impression: 1. No acute intracranial hemorrhage or acute infarct identified. 2. Areas of encephalomalacia within the left parietal and left occipital lobes consistent with old in farcts. ACT 112: Negative or not required by law. Electronically signed by: Juan Shields M.D. 08/05/2023 2:16 PM
--- NOTE | 2023-08-05 14:55 | History & Physical Report ---
Date of Service August 05, 2023 Assessment & Plan (1) Anemia: (2) Weakness: Plan: Anemia - presents with Hgb 5.4 -in ED 2 units of pRBCs ordered -recently admitted d/t anemia, at that time Hemoccult was positive and GI was consulted - pt underwent EGD and colonoscopy earlier in July -No active bleeding was noted during his endoscopies, EGD with candidiasis and gastritis, colonoscopy with 30 mm polyp which was tattooed and patient is to follow-up further in [facility] in November. Per family they also discussed small bowel capsule study, which is scheduled for August. Patient and family says that patient was prescribed Protonix, however was not prescribed Diflucan as was mentioned in GI note. - consider starting diflucan - currently FOBT negative in ED - hold Eliquis and aspirin for now - monitor H&H - pt denies any blood in stool, or in urine, UA in ED negat. for blood - cont PO PPI - will obtain CT abd pelvis w/ contrast tmrw AM (given his CKD - holding entresto and lasix prior to study - discussed w/ nephrology) - per PCP - referral to nephrology for possible Epogen as believed anemia of CKD - pt is supposed to see Dr. Veliz on Saturday. Discussed with Dr. Veliz over the phone, she does not believe this is anemia of CKD. She will discuss further with patient and family -Peripheral smear also ordered -If CT abdomen pelvis with contrast negative, consider hematology consultation Chronic systolic CHF, moderate RV dilatation and dysfunction Moderate moderate to severe pulmonary hypertension EF 45% Coreg and spironolactone just stopped by PCP d/t low BP Entresto Lasix on hold for now - prior to CT w/ contrast Receiving pRBCs and NS - monitor volume status and renal function, resume meds as appropriate -pt follows w/ Dr. Elizabeth for cardiology ([facility] [place]) History of CAD s/p stents Continue statin holding aspirin for now we will start as soon as possible History of persistent A-fib Holding Eliquis Coreg recently stopped d/t low BP monitor on tele elev. trop. - troponin at 31, no chest pain, likely demand ischemia secondary to anemia - will repeat - monitor on tele, if concern, consult w/ cardiology COPD Continue home inhalers DuoNebs as needed Chronic kidney disease stage III - creatinine of 1.7 Seems at baseline We will follow the labs R lower extremity weakness - during last admission, CT w/ complete thrombosis of the right superficial femoral artery, and outpt referral for vascular surgery was recommended - ideally would continue ASA and eliquis however holding now d/t poss. bleed/ anemia - pain seems to be improving w/ blood transfusion -consider vasc. consult while inpt History of Present Illness Chief Complaint: R-sided weakness Primary Care Provider: Alhaji Pitts MD 77 yo M with CAD with inferior ST elevated SD in 2019 s/p 2 drug-eluting stents to RCA, chronic systolic CHF EF 35 to 40% 10/2022 improved to 45% in January 2023, persistent atrial fibrillation, left ICA severe stenosis asymptomatic, COPD ongoing tobacco abuse, hypertension, moderate mitral regurgitation, moderate to severe pulmonary hypertension, moderate RV dilatation dysfunction, chronic kidney disease stage III, generalized osteoarthritis, primary open-angle glaucoma, who presents with r-sided weakness and found to be profoundly anemic in the ED. Patient is currently sitting up in bed, in no distress. His and daughter are present at the bedside. Patient denies any chest pain or shortness of breath, or feeling lightheaded or dizzy. He says that for the past week or so his right leg has been feeling weak from the knee down, and also reports some weakness in his right hand. His hemoglobin in the ER was only 5.4, and 2 units of pRBCs were ordered. Patient is currently receiving blood transfusion, and reports that his leg is feeling somewhat better. Patient was recently admitted in the hospital for anemia and GI was consulted. He underwent upper endoscopy and colonoscopy earlier in July. For cardiology, patient follows with Dr. Elizabeth. No active bleeding was noted during his endoscopies, EGD with candidiasis and gastritis, colonoscopy with 30 mm polyp which was tattooed and patient is to follow-up further in [facility] in November. Per family they also discussed small bowel capsule study, which is scheduled for August. Patient and family says that patient was prescribed Protonix, however was not prescribed Diflucan as was mentioned in GI note. During his hospital discharge follow-up with PCP, patient's blood pressures been on the lower side, and his Coreg and spironolactone were stopped by PCP. Patient was also referred to nephrology for possible Epogen evaluation. Ultrasound of kidneys. Today in the ED creatinine 1.7, and troponin 31. Per ED provider FOBT negative. CT head negative for acute pathology. CXR - cardiomegaly, no evidence of pulm. edema. Patient tells me he has been eating okay, however family states that he has poor appetite. Denies any blood in the stool, denies any blood in the urine. He says that he has been taking Protonix. He did not take Eliquis today. Allergies Allergy/AdvReac Type Severity Reaction Status Date / Time No Known Drug Allergies Allergy Unknown . Verified 07/18/23 13:01 Home Medications Medication Instructions Recorded Confirmed Type latanoprost 0.005 % eye drops 1 drp OPB HS 08/31/19 08/05/23 History fluticasone 250 mcg-salmeterol 50 1 inh inhalation BID 04/15/23 08/05/23 History mcg/dose blistr powdr for inhalation (Advair Diskus) albuterol sulfate 90 mcg/actuation 2 puff inhalation Q4H PRN 07/03/23 08/05/23 History aerosol inhaler (Ventolin HFA) Shortness Of Breath atorvastatin 40 mg tablet 80 mg PO HS 07/03/23 08/05/23 History nitroglycerin 0.4 mg sublingual 0.4 mg sublingual UD PRN Chest Pain 07/03/23 08/05/23 History tablet spironolactone 25 mg tablet 25 mg PO QAM 07/03/23 08/05/23 History apixaban [Eliquis] PO 07/18/23 07/18/23 History aspirin 81 mg tablet 81 mg PO DAILY 07/18/23 08/05/23 History carvedilol 3.125 mg tablet 3.125 mg PO BID #180 tabs 07/26/23 08/05/23 Rx furosemide 40 mg tablet (Lasix) 40 mg PO QAM #120 tabs 08/01/23 08/05/23 Rx pantoprazole 40 mg tablet,delayed 40 mg PO QAM 08/05/23 08/05/23 History release sacubitril 24 mg-valsartan 26 mg 0 tab PO BID 08/05/23 History tablet (Entresto) timolol maleate 0.5 % eye drops 1 drp OPB QAM 08/05/23 08/05/23 History Past Med/Surg History Medical History Acute blood loss anemia Atrial fibrillation was on eliquis, taken off last week due to bleeding---follows with Dr. Elizabeth Carotid artery disease Carotid stenosis CKD (chronic kidney disease) stage 3, GFR 30-59 ml/min COPD (chronic obstructive pulmonary disease) inhaler daily/prn Coronary artery disease Glaucoma History of COVID-19 12/2022--mild symptoms, no symptoms now History of recent blood transfusion 06/20/2023 @ [facility] History of SCC (squamous cell carcinoma) of skin HLD (hyperlipidemia) Hypertension Myocardial Infarction 2018--had heart cath with 2 BJ placed--follows with Dr. Elizabeth Osteoarthritis Rheumatic fever Tobacco abuse Surgical History History of cardiac cath 08/2019 with 2 stents placed History of cataract extraction bilateral History of heart artery stent 2 BJ placed 08/2019 @ [facility] History of tooth extraction all teeth Family History Father Rheumatic heart disease Mother Pleurisy Other No family history of adverse response to anesthesia Social History Smoking Status: Current some day smoker Tobacco Type: Cigarettes packs per day: 1; Cigarettes Per Day: "not even a pack a week" (advised on policy); Second Hand Exposure: No; Do You Dip or Chew Tobacco: No; Hx Alcohol Use: No Hx Substance Use: No Preferred Language: Faroese Communication Ability: Effective 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: No Beliefs That Will Affect Care: None marital status: Current Living Situation: Spouse current occupational status: retired Feels Safe at Home: Yes Assistive Devices: Denture - Upper, Denture - Lower and Glasses Review of Systems Review of Systems: All systems reviewed & are unremarkable except as noted in HPI & below Physical Exam Constitutional: WD/WN, vitals as above Eyes: PERRL, conjunctivae normal, anicteric sclerae ENMT: external ear and nose normal, oropharynx normal Neck: trachea midline, no thyromegaly Respiratory: normal respiratory effort, lungs clear to auscultation Cardiovascular: Rate/Rhythm: + irregularly irregular Chest (Breasts): Chest: normal inspection of chest Gastrointestinal (Abdomen): normal bowel sounds, soft, nontender, no hepatosplenomegaly Musculoskeletal: Extremities: extremities normal to inspection (no LE edema , noted, pt moves extremities while laying in bed) Skin: no rashes, warm and dry Neurologic: PERRL, EOMI, accommodation nl, no face palsy, no dysarthria Psychiatric: A+Ox3, euthymic affect Results & Data Results & Data Vital Signs (Past 12 Hours) Vital Signs Temp Pulse Pulse Resp BP BP Pulse Ox 08/05/23 14:35 71 16 113/69 98 08/05/23 14:25 78 18 117/71 95 08/05/23 14:20 36.4 C L 82 16 117/71 96 08/05/23 14:00 36.7 C 74 16 115/54 L 96 08/05/23 12:48 98 08/05/23 12:48 08/05/23 12:40 78 08/05/23 12:30 71 18 109/61 95 08/05/23 11:36 37 C 79 18 99/61 L 95 O2 Del Method 08/05/23 14:35 08/05/23 14:25 Room Air 08/05/23 14:20 08/05/23 14:00 08/05/23 12:48 Room Air 08/05/23 12:48 Room Air 08/05/23 12:40 08/05/23 12:30 Room Air 08/05/23 11:36 Room Air Laboratory Results 08/05/23 08/05/23 08/05/23 Range/Units 13:10 12:58 12:48 WBC (4.8-10.8) K/ul RBC (4.70-6.10) M/uL Hgb (14.0-18.0) g/dl Hct (42.0-52.0) % MCV (80.0-100.0) fL MCH (25.0-34.0) pg MCHC (32.0-36.0) g/dL RDW Std Deviation (36.4-46.3) fL RDW Coeff of Juice (11.5-14.5) % Plt Count (130-400) K/uL MPV (9.4-12.4) fL Immature Gran % (Auto) % Neut % (Auto) % Lymph % (Auto) % [place] % (Auto) % Eos % (Auto) % Baso % (Auto) % Neut # (Auto) (1.40-6.50) K/uL Lymph # (Auto) (1.20-3.40) K/uL [place] # (Auto) (0.11-0.59) K/uL Eos # (Auto) (0.00-0.50) K/uL Baso # (Auto) (0.00-0.20) K/uL Immature Gran # (Auto) (0.01-0.20) K/uL Anisocytosis Acanthocytes (Spur) PT (9.0-12.0) Seconds INR (0.9-1.1) APTT (21.0-31.0) Seconds PTT Ratio Sodium (136-145) mmol/L Potassium (3.5-5.1) mmol/L Chloride (98-107) mmol/L Carbon Dioxide (21-32) mmol/L Anion Gap (3-11) BUN (6-23) mg/dl Creatinine (0.6-1.4) mg/dl Est Cr Clr Drug Dosing Est GFR ( Amer) ml/min Est GFR (Non-Af Amer) ml/min BUN/Creatinine Ratio (10-20) Glucose (70-99(Fasting)) mg/dl Lactate 1.4 (0.4-2.0) mmol/L Calcium (8.6-10.3) mg/dl Total Bilirubin (0.2-1.0) mg/dl AST (13-39) U/L ALT (7-52) U/L Alkaline Phosphatase (34-104) U/L Troponin I High Sens (0-20) pg/ml Total Protein (6.0-8.3) gm/dl Albumin (3.4-5.0) gm/dl Globulin (2.5-4.0) gm/dl Albumin/Globulin Ratio (0.9-2) TSH (0.300-4.500) uIu/ml Urine Color Yellow Urine Appearance Clear (Clear) Urine pH 5.5 (4.5-7.5) Ur Specific [place] 1.013 (1.000-1.030) Urine Protein Negative (Negative) Urine Glucose (UA) Negative (Negative) Urine Ketones Negative (Negative) Urine Blood Negative (Negative) Urine Nitrite Negative (Negative) Urine Bilirubin Negative (Negative) Urine Urobilinogen Negative (Negative) Ur Leukocyte Esterase Negative (Negative) POC Stool Occult Blood Negative (Negative) Blood Type Antibody Screen Crossmatch 08/05/23 08/05/23 08/05/23 Range/Units 12:37 12:37 11:51 WBC (4.8-10.8) K/ul RBC (4.70-6.10) M/uL Hgb (14.0-18.0) g/dl Hct (42.0-52.0) % MCV (80.0-100.0) fL MCH (25.0-34.0) pg MCHC (32.0-36.0) g/dL RDW Std Deviation (36.4-46.3) fL RDW Coeff of Juice (11.5-14.5) % Plt Count (130-400) K/uL MPV (9.4-12.4) fL Immature Gran % (Auto) % Neut % (Auto) % Lymph % (Auto) % [place] % (Auto) % Eos % (Auto) % Baso % (Auto) % Neut # (Auto) (1.40-6.50) K/uL Lymph # (Auto) (1.20-3.40) K/uL [place] # (Auto) (0.11-0.59) K/uL Eos # (Auto) (0.00-0.50) K/uL Baso # (Auto) (0.00-0.20) K/uL Immature Gran # (Auto) (0.01-0.20) K/uL Anisocytosis Acanthocytes (Spur) PT 13.0 H (9.0-12.0) Seconds INR 1.2 H (0.9-1.1) APTT 26.8 (21.0-31.0) Seconds PTT Ratio 1.0 Sodium (136-145) mmol/L Potassium (3.5-5.1) mmol/L Chloride (98-107) mmol/L Carbon Dioxide (21-32) mmol/L Anion Gap (3-11) BUN (6-23) mg/dl Creatinine (0.6-1.4) mg/dl Est Cr Clr Drug Dosing Est GFR ( Amer) ml/min Est GFR (Non-Af Amer) ml/min BUN/Creatinine Ratio (10-20) Glucose (70-99(Fasting)) mg/dl Lactate (0.4-2.0) mmol/L Calcium (8.6-10.3) mg/dl Total Bilirubin (0.2-1.0) mg/dl AST (13-39) U/L ALT (7-52) U/L Alkaline Phosphatase (34-104) U/L Troponin I High Sens (0-20) pg/ml Total Protein (6.0-8.3) gm/dl Albumin (3.4-5.0) gm/dl Globulin (2.5-4.0) gm/dl Albumin/Globulin Ratio (0.9-2) TSH 1.526 (0.300-4.500) uIu/ml Urine Color Urine Appearance (Clear) Urine pH (4.5-7.5) Ur Specific [place] (1.000-1.030) Urine Protein (Negative) Urine Glucose (UA) (Negative) Urine Ketones (Negative) Urine Blood (Negative) Urine Nitrite (Negative) Urine Bilirubin (Negative) Urine Urobilinogen (Negative) Ur Leukocyte Esterase (Negative) POC Stool Occult Blood (Negative) Blood Type O Positive Antibody Screen NEGATIVE Crossmatch See Detail 08/05/23 08/05/23 Range/Units 11:51 11:51 WBC 5.58 (4.8-10.8) K/ul RBC 2.48 L (4.70-6.10) M/uL Hgb 5.4 L* (14.0-18.0) g/dl Hct 18.9 L* (42.0-52.0) % MCV 76.2 L (80.0-100.0) fL MCH 21.8 L (25.0-34.0) pg MCHC 28.6 L (32.0-36.0) g/dL RDW Std Deviation 58.2 H (36.4-46.3) fL RDW Coeff of Juice 21.2 H (11.5-14.5) % Plt Count 173 (130-400) K/uL MPV 10.9 (9.4-12.4) fL Immature Gran % (Auto) 0.4 % Neut % (Auto) 75.8 % Lymph % (Auto) 13.1 % [place] % (Auto) 7.3 % Eos % (Auto) 2.7 % Baso % (Auto) 0.7 % Neut # (Auto) 4.23 (1.40-6.50) K/uL Lymph # (Auto) 0.73 L (1.20-3.40) K/uL [place] # (Auto) 0.41 (0.11-0.59) K/uL Eos # (Auto) 0.15 (0.00-0.50) K/uL Baso # (Auto) 0.04 (0.00-0.20) K/uL Immature Gran # (Auto) 0.02 (0.01-0.20) K/uL Anisocytosis Present Acanthocytes (Spur) 2+ PT (9.0-12.0) Seconds INR (0.9-1.1) APTT (21.0-31.0) Seconds PTT Ratio Sodium 140 (136-145) mmol/L Potassium 3.5 (3.5-5.1) mmol/L Chloride 107 (98-107) mmol/L Carbon Dioxide 29 (21-32) mmol/L Anion Gap 4 (3-11) BUN 43 H (6-23) mg/dl Creatinine 1.75 H (0.6-1.4) mg/dl Est Cr Clr Drug Dosing Not Reportable Est GFR ( Amer) 42.9 ml/min Est GFR (Non-Af Amer) 37.0 ml/min BUN/Creatinine Ratio 24.6 H (10-20) Glucose 116 H (70-99(Fasting)) mg/dl Lactate (0.4-2.0) mmol/L Calcium 8.6 (8.6-10.3) mg/dl Total Bilirubin 0.7 (0.2-1.0) mg/dl AST 13 (13-39) U/L ALT 9 (7-52) U/L Alkaline Phosphatase 75 (34-104) U/L Troponin I High Sens 31.4 H (0-20) pg/ml Total Protein 6.0 (6.0-8.3) gm/dl Albumin 3.6 (3.4-5.0) gm/dl Globulin 2.4 L (2.5-4.0) gm/dl Albumin/Globulin Ratio 1.5 (0.9-2) TSH (0.300-4.500) uIu/ml Urine Color Urine Appearance (Clear) Urine pH (4.5-7.5) Ur Specific [place] (1.000-1.030) Urine Protein (Negative) Urine Glucose (UA) (Negative) Urine Ketones (Negative) Urine Blood (Negative) Urine Nitrite (Negative) Urine Bilirubin (Negative) Urine Urobilinogen (Negative) Ur Leukocyte Esterase (Negative) POC Stool Occult Blood (Negative) Blood Type Antibody Screen Crossmatch Diagnostic Findings CT head Findings: Small retention cyst within the left maxillary sinus. The remaining paranasal sinuses and mastoid air cells are clear. The calvarium and skull base are intact. Prior bilateral lens replacement. There is no mass, hematoma, mi dline shift. Mild atrophy and microvascular ischemic changes are noted. Hypodense foci within the left parietal and left occipital lobes with associated encephalomalacia favors old infarcts. There is associated wallerian degeneration of the left midbrain consistent with a chronic infarct. No definite acute infarct identified. Impression: 1. No acute intracranial hemorrhage or acute infarct identified. 2. Areas of encephalomalacia within the left parietal and left occipital lobes consistent with old infarcts. CXR FINDINGS: The lungs are clear. The heart is mildly enlarged. This remains unchanged. There are calcifications within the aortic knob. No pleural effusions. No pneumothorax. No acute fractures identified. No evidence for pulmonary edema. IMPRESSION: Stable cardiomegaly.
[2023-08-05] MEDS ORDERED: ALBUTEROL HFA 8 GM INHALER INH PRN (17:09)
[2023-08-05] MEDS ORDERED: Patient's HEIGHT &/or WEIGHT Needed STA (17:16)
[2023-08-05 22:55] LABS: Hematocrit (blood only) 24.4 % (42.0-52.0); Hemoglobin 7.9 g/dl (14.0-18.0); Mean Corpuscular Hemoglobin 25.5 pg (25.0-34.0); Mean Corpuscular Hgb Conc 32.4 g/dL (32.0-36.0); Mean Corpuscular Volume 78.7 fL (80.0-100.0); Mean Platelet Volume 10.4 fL (9.4-12.4); Platelet Count 143 K/uL (130-400); RDW Standard Deviation 60.1 fL (36.4-46.3); White Blood Count 4.95 K/ul (4.8-10.8)
[2023-08-06] MEDS: ATORVASTATIN 40 MG TAB PO SCH ×2 (00:34→20:36)
[2023-08-06 06:48] LABS: Hematocrit (blood only) 24.2 % (42.0-52.0); Hemoglobin 7.6 g/dl (14.0-18.0); Mean Corpuscular Hemoglobin 25.2 pg (25.0-34.0); Mean Corpuscular Hgb Conc 31.4 g/dL (32.0-36.0); Mean Corpuscular Volume 80.1 fL (80.0-100.0); Mean Platelet Volume 11.3 fL (9.4-12.4); Platelet Count 138 K/uL (130-400); RDW Coefficient of Variation 20.8 % (11.5-14.5); RDW Standard Deviation 60.9 fL (36.4-46.3); Red Blood Count 3.02 M/uL (4.70-6.10); White Blood Count 5.31 K/ul (4.8-10.8)
[2023-08-06 07:07] LABS: Albumin Globulin Ratio 1.7 (0.9-2); Albumin Level 3.3 gm/dl (3.4-5.0); BUN Creatinine Ratio 25.5 (10-20); Bilirubin,Total 1.8 mg/dl (0.2-1.0); Calcium 8.4 mg/dl (8.6-10.3); Creatinine Clr Calc Pharmacy 29.6 ml/min; Est GFR (African American) 47.4 ml/min; Est GFR (Non-African American) 40.9 ml/min; Magnesium 2.2 mg/dl (1.7-2.4); Phosphorus 3.3 mg/dl (2.5-4.9); Potassium 3.8 mmol/L (3.5-5.1); Total Protein 5.3 gm/dl (6.0-8.3)
[2023-08-06] MEDS ORDERED: FLUCONAZOLE 100 MG TAB PO ONE (07:50)
[2023-08-06] MEDS: PANTOprazole 40 MG TAB PO SCH (09:23)
[2023-08-06] MEDS: FLUTICASONE/VILANTEROL 100/25MCG 14 PUFFS/INHALER INH SCH (09:23)
[2023-08-06] MEDS ORDERED: OPTIRAY 320 100ml IV ONE (11:20)
--- NOTE | 2023-08-06 11:35 | Nephrology Consultation ---
Date of Consultation August 06, 2023 Assessment & Plan (1) Acute blood loss anemia: would not start epogen at this time. pt needs a full work-up of anemia first (2) Acute worsening of stage 3 chronic kidney disease: Baseline creatinine 1.5-1.6 from July 2017 through early 2022. Most recent labs July 17, 2023 showed creatinine 1.7. Stage I nonoliguric acute on chronic kidney injury versus progression of CKD 3 in the setting of severe and protracted anemia with more noticeable hypotension recently as well. Renal function stable/plateaued Daily basic metabolic panel Avoid IV contrast unless lifesaving Spironolactone, Lasix, Entresto all on hold currently. Not clear how long he will tolerate holding these but will continue to monitor; no need to resume at this time (3) HFrEF (heart failure with reduced ejection fraction): Follows with [facility] cardiology Dr. Elizabeth. Heart failure medications on hold currently History of Present Illness Reason for Consultation: Question anemia of CKD; question Epogen candidacy Requesting Physician: Dr Lopez Attending Physician: Missy Sanchez MD History of Present Illness 77-year-old male whom I am asked to see for possible anemia of CKD was admitted yesterday with acute on chronic anemia featuring presenting hemoglobin of 5.4 after presenting with right-sided weakness and a fall at home. PMH CAD w/ 2018 STEMI s/p stents, HFrEF( EF 45% January 2023), persistent atrial fibrillation on apixiban, HTN, asx but severe L left ICA stenosis, COPD w/ active tobacco abuse, moderate to severe pulmonary hypertension, longstanding CKD 3A w/ eGFR mid 40s w/ new in past year 100 mg albuminuria, OA, primary open- angle glaucoma. He had no hx of anemia on annual checks until June of this year when he suddenly had hgb in 8s. Follows w/ [facility] [place] cardiology, Dr Elizabeth. He has been admitted to [facility] in June for eval of acute blood loss anemia > CT scan of abdomen pelvis during that admission showed marked IVC and hepatic veins distension, the liver was enlarged with evidence of periportal edema suggestive of congestive hepatopathy, anasarca of the body wall with small volume ascites was present, distal esophagus suggestive of esophagitis. There were numerous subcentimeter pulmonary nodules of both lung bases that were pathologically indeterminate. A repeat CT in 2 to 3 months time was recommended for reassessment and full evaluation of the thorax. GI was consulted and he underwent EGD and colonoscopy, neither of which showed active bleeding though the EGD showed candidiasis and gastritis. Colonoscopy showed a 3 cm polyp tattooed for reevaluation in November. Patient is to have small bowel capsule study sometime this month. Discharge hemoglobin June 22 was 7.3. He was seen in the ER July 29 with a hemoglobin of 7.1. After 2 units packed red cells since admission, hemoglobin came up to 7.9 yesterday but down to 7.6 today. Coreg and spironolactone were recently stopped by PCP due to concerns about symptomatic hypotension. Patient was also referred to nephrology for evaluation for possible Epogen. He denies shortness of breath. He had a full supper and is hungry and asking for further snacks. No nausea vomiting. Right lower extremity weakness has improved. Endorses easy bruising particularly with slight trauma. No new or worrisome voiding symptoms. No overt bleeding that he can identify. Allergies Allergy/AdvReac Type Severity Reaction Status Date / Time No Known Drug Allergies Allergy Unknown . Verified 07/18/23 13:01 Home Medications Medication Instructions Recorded Confirmed Type latanoprost 0.005 % eye drops 1 drp OPB HS 08/31/19 08/05/23 History fluticasone 250 mcg-salmeterol 50 1 inh inhalation BID 04/15/23 08/05/23 History mcg/dose blistr powdr for inhalation (Advair Diskus) albuterol sulfate 90 mcg/actuation 2 puff inhalation Q4H PRN 07/03/23 08/05/23 History aerosol inhaler (Ventolin HFA) Shortness Of Breath atorvastatin 40 mg tablet 80 mg PO HS 07/03/23 08/05/23 History nitroglycerin 0.4 mg sublingual 0.4 mg sublingual UD PRN Chest Pain 07/03/23 08/05/23 History tablet spironolactone 25 mg tablet 25 mg PO QAM 07/03/23 08/05/23 History apixaban [Eliquis] PO 07/18/23 07/18/23 History aspirin 81 mg tablet 81 mg PO DAILY 07/18/23 08/05/23 History carvedilol 3.125 mg tablet 3.125 mg PO BID #180 tabs 07/26/23 08/05/23 Rx furosemide 40 mg tablet (Lasix) 40 mg PO QAM #120 tabs 08/01/23 08/05/23 Rx pantoprazole 40 mg tablet,delayed 40 mg PO QAM 08/05/23 08/05/23 History release sacubitril 24 mg-valsartan 26 mg 0 tab PO BID 08/05/23 History tablet (Entresto) timolol maleate 0.5 % eye drops 1 drp OPB QAM 08/05/23 08/05/23 History Patient History Medical History Acute blood loss anemia Atrial fibrillation was on eliquis, taken off last week due to bleeding---follows with Dr. Elizabeth Carotid artery disease Carotid stenosis CKD (chronic kidney disease) stage 3, GFR 30-59 ml/min COPD (chronic obstructive pulmonary disease) inhaler daily/prn Coronary artery disease Glaucoma History of COVID-12/2022--mild symptoms, no symptoms now History of recent blood transfusion 06/20/2023 @ [facility] History of SCC (squamous cell carcinoma) of skin HLD (hyperlipidemia) Hypertension Myocardial Infarction 2018--had heart cath with 2 BJ placed--follows with Dr. Elizabeth Osteoarthritis Rheumatic fever Tobacco abuse Surgical History History of cardiac cath 08/2019 with 2 stents placed History of cataract extraction bilateral History of heart artery stent 2 BJ placed 08/2019 @ [facility] History of tooth extraction all teeth Family History Father Rheumatic heart disease Mother Pleurisy Other No family history of adverse response to anesthesia Social History Smoking Status: Former smoker Tobacco Type: Cigarettes packs per day: 1; Cigarettes Per Day: "not even a pack a week" (advised on policy); Second Hand Exposure: No; Do You Dip or Chew Tobacco: No; Hx Alcohol Use: No Hx Substance Use: No Preferred Language: Egyptian Communication Ability: Effective Fish Trapper Required: No Beliefs That Will Affect Care: None marital status: Current Living Situation: Spouse current occupational status: retired Feels Safe at Home: Yes Assistive Devices: Denture - Upper and Denture - Lower Review of Systems Review of Systems: All systems reviewed & are unremarkable except as noted in Subjective Physical Exam Constitutional: well developed, + cachectic, + frail appearing and cooperative; no acute distress Eyes: EOM intact bilaterally ENMT: Ears: no external ear abnormality Nose: no external nose abnormality Mouth: + dry oral mucous membranes Neck: no nuchal rigidity Respiratory: normal respiratory effort; no cough Auscultation: + diminished lung sounds Cardiovascular: RRR, no murmur, no edema Gastrointestinal (Abdomen): Inspection/Auscultation: normal bowel sounds Percussion/Palpation: abdomen soft; abdomen nontender Musculoskeletal: Extremities: strength 5/5 throughout Skin: no rashes, warm and dry Neurologic: sanchez, fluent speech, no tremor Psychiatric: Orientation: alert and oriented x 3 Results & Data Vital Signs (Past 12 Hours) Vital Signs Pulse Pulse Resp BP Pulse Ox O2 Del Method 08/06/23 06:00 72 16 116/53 L 92 Room Air 08/06/23 05:00 69 14 108/59 L 94 Room Air 08/06/23 03:00 65 16 148/75 H 93 Room Air 08/05/23 23:40 69 Laboratory Results 08/06/23 06:05 08/06/23 06:[address] a/p w/ con June 2023 Lung bases: The heart is enlarged and without pericardial effusion. The coronary arteries are densely calcified. Emphysematous change is noted. There are small pleural effusions with dependent atelectasis. There are numerous (at least 20) pulmonary nodules present at both lung bases. These measure up to 8 mm. Talent Acquisition Assistant nodules are seen in the right lower lobe on images #8 and #26 and in the left lower lobe on image #1. Intralobular septal thickening is seen at the lung bases. The distal esophagus is circumferentially thick walled. Liver: The IVC and hepatic veins are significantly dilated. The contrast- enhanced liver is enlarged, measuring 18.5 cm in length. Attenuation is markedly heterogeneous and there is periportal edema. There is no intrahepatic biliary ductal dilatation. The portal veins are patent. The hepatic veins are not opacified. Gallbladder: The gallbladder is contracted and the wall appears thickened and edematous. This is likely related to periportal edema. Spleen: Normal in size and attenuation. Pancreas: Unremarkable. Adrenal glands: Unremarkable. Kidneys: The contrast enhanced kidneys are normal in size and without hydronephrosis. The kidneys enhance symmetrically. There are at least 3 nonobstructing left renal calculi which measure up to 6 mm. There are also likely tiny nonobstructing right renal calculi. Bilateral renal cysts measure up to 3.4 cm. Abdominal vasculature: There is advanced atherosclerotic calcification and ectasia of the abdominal aorta. The abdominal aorta and iliac arteries are patent. There is complete thrombosis of the right superficial femoral artery seen on image #271. Bowel: There is moderate colonic fecal retention. No bowel obstruction is seen. The appendix is normal as visualized. Peritoneum: There is a small volume of abdominopelvic ascites. No intraperitoneal free air is seen. Lymphadenopathy: None. Pelvic viscera: The prostate gland is enlarged and heterogeneous noting median lobe hypertrophy. The bladder wall is thickened/trabeculated indicating chronic outlet obstruction. Skeletal structures: The skeletal structures are osteopenic. There is mild lumbar sacral spondylosis. No lytic or blastic lesions are seen. Soft tissues: There is anasarca of the body wall. IMPRESSION: 1. Cardiomegaly and emphysema with evidence of congestive failure and small pleural effusions. 2. The IVC and hepatic veins are significantly distended. The liver is enlarged, markedly heterogeneous, with evidence of periportal edema. Findings suggest congestive hepatopathy. Correlate clinically. 3. There is anasarca of the body wall and a small volume of abdominopelvic ascites. 4. The distal esophagus appears thick walled. Correlate clinically for evidence of esophagitis. If warranted this could be further assessed with endoscopy. 5. There are numerous (at least 20) subcentimeter pulmonary nodules at both lung bases. These are pathologically indeterminate. A follow-up chest CT in 2-3 months time is recommended for reassessment and full evaluation of the thorax. 6. Moderate colonic fecal retention. 7. Nephrolithiasis. 8. There is complete thrombosis of the right superficial femoral artery.
[2023-08-06 12:46] LABS: Immature Retic Fraction 34.4 % (2.3-15.9); Reticulated Hemoglobin 19.8 pg (28.2-36.6); Reticulocyte % 1.5 % (0.5-2.0); Reticulocytes # 0.05 10^6/uL (0.02-0.10)
[2023-08-06 13:22] LABS: Folate (Folic Acid),Ser orPlas 11.37 ng/ml (>5.38)
--- NOTE | 2023-08-06 16:51 | Hospitalist Progress Note ---
Date of Service August 06, 2023 Assessment & Plan (1) Anemia: (2) Weakness: Plan: Mr. 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 Patient was administered 2U PRBC with appropriate response. Patient denies any overt signs of bleeding and states his fatigue has been ongoing for over 2 weeks, but worse over the course of the last 24-48 hours. Patient is status post [address] AP pending read. Nephrology, Heme, and GI consulted. #Acute on Chronic Microcytic Anemia, c/w iron deficiency -Admitted hgb 5.4, 2Uprbc 7.6 -recently admitted d/t anemia, at that time Hemoccult was positive and GI was consulted; negative on this admission -s/p 07/11, EGD and colonoscopy earlier in July without bleeding reported, esophageal candidiasis (confirmed on culture) and gastritis, colonoscopy with 30 mm polyp which was tattooed; not prescribed diflucan at time, started on PPI -Patient pending OP video swallow; no history of other anemia labs on file, blood smear abnormal consistent with mostly blood loss/iron deficiency. -Heme consult and discussion had over phone with Dr Nathan, formal consult to follow pending the following labs: -Ordered B12, Folate, Retic count, LDH, Hapto -Ferritin to be ordered in am with CBC -Transfuse Hgb < 7.0, trend cbc -GI consulted for discussion of additional work up, and ?capsule study inpatient -Started Fluconazole 200mg load with 100mg daily for 14 days for esophageal candidiasis -Continue home ppi BID PO g - Hold Eliquis and aspirin for now until stable hgb - Pending CT AP read (given his CKD - holding entresto and lasix prior to study - discussed w/ nephrology) -Nephrology on consult for any further supplementation/utility of Epogen - per PCP - referral to nephrology for possible Epogen as believed anemia of CKD - pt is supposed to see Dr. Veliz on Saturday. Discussed with Dr. Veliz over the phone, she does not believe this is anemia of CKD. She will discuss further with patient and family #Chronic Heart Failure with mildly reduced ejection fraction moderate RV dilatation and dysfunction, EF 45% 01/2023 Moderate moderate to severe pulmonary hypertension Appears euvolemic on exam -Recently, Coreg and spironolactone just stopped by PCP d/t low BP -Holding Entresto Lasix on hold for now -resume when able per nephrology recommendations given contrast load 08/06 - monitor volume status and renal function, resume meds as appropriate -pt follows w/ Dr. Elizabeth for cardiology ([facility] [place]) #Obstructive CAD s/p stents 2018 Continue statin -holding aspirin, resume when able, consider plavix as alternative given c/f GI process and active gastritis #Persistent Atrial Fibrillation Holding Eliquis Coreg recently stopped d/t low BP Continue on Telemetry iso ?bleeding, no active rate control #Elevated Troponin - troponin at 31, no chest pain, likely demand ischemia secondary to anemia -Downtrended - monitor on tele, if concern, consult w/ cardiology #COPD Continue home inhalers DuoNebs as needed #CKD stage III - creatinine of 1.7, stable -s/p contrast load, trend BMP #R lower extremity weakness - during last admission, CT w/ complete thrombosis of the right superficial f emoral artery, and outpt referral for vascular surgery was recommended - ideally would continue ASA and eliquis however holding now d/t poss. bleed/ anemia -Consider Vascular consult when stable hemodynamically SCDS Admission and Anticipated Discharge Date Admission Date: August 05, 2023 Subjective Patient evaluated in ED. Patient states that he feels a bit better since yesterday. He denies any acute symptoms overnight. When discussing his recent history, he remarks that he has been progressively tired over the course of 2 weeks. He denies any melena/hematochezia, vomiting, or other sign of bleeding. He denies fevers, night sweats, or concerns for unintentional weight loss. He reports the usual bowel movements. He reports occasional dysphagia, but denies any overt GERD/reflux or other gastric symptoms. Patient hopeful to find a way to potential find source or attempt to prevent hospitalization in the future due to this issue. Review of Systems Review of Systems: All systems reviewed & are unremarkable except as noted in Subjective Physical Exam Constitutional: WD/WN, vitals as above Thin, frail gentleman, conversation and pleasant Eyes: PERRL, conjunctivae normal, anicteric sclerae Respiratory: normal respiratory effort, lungs clear to auscultation Cardiovascular: irregular, no appreciable murmur Gastrointestinal (Abdomen): normal bowel sounds, soft, nontender, no hepatosplenomegaly Musculoskeletal: moving all extremities equally Skin: no rashes, warm and dry Results & Data Results & Data Vital Signs (Past 12 Hours) Vital Signs Pulse Resp BP Pulse Ox Pulse Ox O2 Del Method O2 Del Method 08/06/23 16:41 95 Room Air 08/06/23 11:34 77 19 130/69 99 Room Air 08/06/23 06:00 72 16 116/53 L 92 Room Air 08/06/23 05:00 69 14 108/59 L 94 Room Air Laboratory Results Short CBC 08/05/23 08/06/23 Range/Units 22:37 06:05 WBC 4.95 5.31 (4.8-10.8) K/ul Hgb 7.9 L 7.6 L (14.0-18.0) g/dl Hct 24.4 L 24.2 L (42.0-52.0) % Plt Count 143 138 (130-400) K/uL BMP 08/06/23 06:05 Sodium 144 Potassium 3.8 Chloride 111 H Carbon Dioxide 28 BUN 41 H Creatinine 1.61 H Glucose 82 Calcium 8.4 L Liver Function 08/06/23 Range/Units 06:05 Total Bilirubin 1.8 H D (0.2-1.0) mg/dl AST 12 L (13-39) U/L ALT 9 (7-52) U/L Alkaline Phosphatase 65 (34-104) U/L Albumin 3.3 L (3.4-5.0) gm/dl Diagnostic Findings Pending CT AP with contrast Medications Administered Home Medications Medication Instructions Recorded Confirmed Last Taken latanoprost 0.005 % eye drops 1 drp OPB HS 08/31/19 08/05/23 Unknown fluticasone 250 mcg-salmeterol 50 1 inh inhalation BID 04/15/23 08/05/23 Unknown mcg/dose blistr powdr for inhalation (Advair Diskus) albuterol sulfate 90 mcg/actuation 2 puff inhalation Q4H PRN 07/03/23 08/05/23 07/10/23 aerosol inhaler (Ventolin HFA) Shortness Of Breath atorvastatin 40 mg tablet 80 mg PO HS 07/03/23 08/05/23 07/10/23 nitroglycerin 0.4 mg sublingual 0.4 mg sublingual UD PRN Chest Pain 07/03/23 08/05/23 Unknown tablet spironolactone 25 mg tablet 25 mg PO QAM 07/03/23 08/05/23 Unknown apixaban [Eliquis] PO 07/18/23 07/18/23 Unknown aspirin 81 mg tablet 81 mg PO DAILY 07/18/23 08/05/23 Unknown carvedilol 3.125 mg tablet 3.125 mg PO BID #180 tabs 07/26/23 08/05/23 Unknown furosemide 40 mg tablet (Lasix) 40 mg PO QAM #120 tabs 08/01/23 08/05/23 Unknown pantoprazole 40 mg tablet,delayed 40 mg PO QAM 08/05/23 08/05/23 Unknown release sacubitril 24 mg-valsartan 26 mg 0 tab PO BID 08/05/23 Unknown tablet (Entresto) timolol maleate 0.5 % eye drops 1 drp OPB QAM 08/05/23 08/05/23 Unknown Active Medications Generic Name Dose Route Start Last Admin Trade Name Freq PRN Reason Stop Dose Admin Atorvastatin Calcium 80 mg 08/05/23 21:00 08/06/23 00:34 Atorvastatin 40 Mg Tab PO 09/04/23 20:59 80 mg HS CARLOS Administration Fluticasone/Vilanterol 1 puffs 08/06/23 09:00 08/06/23 09:23 Fluticasone/Vilanterol 100/25mcg 14 Puffs/Inhaler INH 09/05/23 08:59 1 puffs DAILY CARLOS Administration Protocol Pantoprazole Sodium 40 mg 08/06/23 09:00 08/06/23 09:23 Pantoprazole 40 Mg Tab PO 09/05/23 08:59 40 mg QAM CARLOS Administration
--- NOTE | 2023-08-06 17:56 | CT Scan Report ---
CT abd pelvis IV con only CLINICAL HISTORY: anemia, r/o bleed TECHNIQUE: Helical axial images of the abdomen and pelvis were obtained and displayed. Automated dose lowering techniques and/or adjustment according to patient size were utilized for this exam. This e xam was performed with intravenous contrast. CT DOSE: 306.25 mGy.cm COMPARISON: Comparison is made to CT abdomen pelvis 06/21/2023 FINDINGS: Lower chest: Small bilateral pleural effusions are seen without underlying abnormality. Emphysema is seen. Numerous pulmonary nodules appear stable from prior exam. Liver: Unremarkable. No focal lesions are seen. Gallbladder and biliary tree: No calcified gallstones. Normal caliber wall. No intra- or extrahepatic biliary ductal dilation. Pancreas: Unremarkable, no focal lesions. Spleen: Unremarkable. Adrenals: Unremarkable. Kidneys and ureters: Renal cysts are seen. Bladder: Diffuse homogeneous wall thickening is seen. Reproductive organs: Prostatic calcifications are seen which may represent prior hemorrhage or granul omatous disease. Bowel: Unremarkable. Lymph nodes Retroperitoneal: Unremarkable. Pelvic: Unremarkable. Mesenteric: Unremarkable. Peritoneum: Small ascites is noted in the abdomen and pelvis. Vessels: Atherosclerotic calcifications are seen. 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 Abdominal wall: Left fat containing inguinal hernia. Bones: Degenerative changes in the visualized spine. IMPRESSION: 1. Small pleural effusions and ascites are seen. No definite evidence of intraperitoneal hemorrhage. 2. Stable pulmonary nodules as above. 3. Renal cysts. ACT 112: Negative or not required by law. Electronically signed by: Dae Tucker M.D. 08/06/2023 5:55 PM
--- NOTE | 2023-08-06 18:48 | Electrocardiogram Report ---
Test Reason : Blood Pressure : / mmHG Vent. Rate : 076 BPM Atrial Rate : 000 BPM P-R Int : 000 ms QRS Dur : 078 ms QT Int : 382 ms P-R-T Axes : 000 268 257 degrees QTc Int : 429 ms Atrial fibrillation Right superior axis deviation Right ventricular hypertrophy Inferior infarct (cited on or before 31-AUG-2019) possible Anterior infarct (cited on or before 31-AUG-2019) Nonspecific ST abnormality Abnormal ECG When compared with ECG of 29-JUL-2023 20:59, No significant change was found Confirmed by Ruben Cleary ([id number]) on 08/06/2023 6:47:56 PM Referred By: REFERRED SELF Confirmed By:Nicolas Cleary
[2023-08-07 05:19] LABS: Hematocrit (blood only) 24.2 % (42.0-52.0); Hemoglobin 7.4 g/dl (14.0-18.0); Lymphocytes % (auto) 11.2 %; Mean Corpuscular Hemoglobin 24.2 pg (25.0-34.0); Mean Corpuscular Hgb Conc 30.6 g/dL (32.0-36.0); Mean Corpuscular Volume 79.1 fL (80.0-100.0); Mean Platelet Volume 11.4 fL (9.4-12.4); Neutrophils % (auto) 75.1 %; Platelet Count 144 K/uL (130-400); RDW Coefficient of Variation 21.9 % (11.5-14.5); RDW Standard Deviation 62.5 fL (36.4-46.3); Red Blood Count 3.06 M/uL (4.70-6.10); White Blood Count 6.16 K/ul (4.8-10.8)
[2023-08-07 05:20] LABS: Basophils # (auto) 0.03 K/uL (0.00-0.20); Basophils % (auto) 0.5 %; Eosinophils # (auto) 0.14 K/uL (0.00-0.50); Eosinophils % (auto) 2.3 %; Immature Granulocytes # (auto) 0.02 K/uL (0.01-0.20); Immature Granulocytes % (auto) 0.3 %; Lymphocytes # (auto) 0.69 K/uL (1.20-3.40); Monocytes # (auto) 0.65 K/uL (0.11-0.59); Monocytes % (auto) 10.6 %; Neutrophils # (auto) 4.63 K/uL (1.40-6.50)
[2023-08-07 05:36] LABS: BUN Creatinine Ratio 21.6 (10-20); Calcium 8.3 mg/dl (8.6-10.3); Creatinine Clr Calc Pharmacy 28.6 ml/min; Est GFR (African American) 45.4 ml/min; Est GFR (Non-African American) 39.2 ml/min; Magnesium 2.2 mg/dl (1.7-2.4); Phosphorus 3.1 mg/dl (2.5-4.9); Potassium 3.9 mmol/L (3.5-5.1)
[2023-08-07 05:49] LABS: Acanthocytes 2+; Hypochromasia Present; Polychromasia 1+; Tear Drop Cells 1+
[2023-08-07 05:56] LABS: Ferritin 15.1 ng/ml (8-388)
--- NOTE | 2023-08-07 07:01 | Consultation ---
Date of Consultation August 07, 2023 Assessment & Plan (1) Anemia: Patient has an acquired microcytic anemia with low reticulocyte count in face of at least previously documented heme positive stools, some signs on EGD of possible previous gastric bleeding and an unresected ascending colonic polyp. Ferritin levels are quite low, B12 levels are at the low end of normal. The anisopoikilocytosis seen on peripheral smear could certainly be consistent with an iron deficiency anemia. Low reticulocyte count and good response to transfusion suggest against major hemolysis (modest elevation of bilirubin is nonspecific but could reflect some level of ineffective erythropoiesis within the marrow). Platelet counts are in the normal range and overall white count and neutrophil counts are unremarkable. The notation of dysplastic changes in the neutrophil series on peripheral smear review is somewhat nonspecific in the absence of more pathologic forms in the white cells. This could reflect a somewhat low levels of B12, possibly previous transient folic acid deficiency in face of increased erythropoiesis with blood loss, or simply be a somewhat nonspecific indicator of a stressed marrow. There does not seem to be a significant shaw marrow process at this point and bone marrow biopsy is not likely to be helpful in immediate management. Would work aggressively to replete iron and B12 as well as continuing to supplement folic acid and control of ongoing blood losses. Bone marrow might be reconsidered if there are persistent changes over time. Notably there are only occasional spherocytes and no significant increase in schistocytes again suggesting against a major hemolytic process and also specifically suggesting against microangiopathic hemolytic anemia with the elevated creatinine being a pre-existing issue. Given his history of cardiac issues and apparently of cerebrovascular disease would keep his hemoglobin above 7.5 to 8 g/dL with transfusion as necessary. Given what appears to be a significant iron deficiency (combination of red cell iron deficit of 600 to 700 mg as well as depleted iron stores as reflected by the low ferritin) would suggest Venofer 300 mg doses every 5 days x 3. We will need to work with GI and surgery as to how to approach diagnosis and intervention for the colonic polyp. Needs to continue on PPI and complete any needed treatment for Abi esophagitis per GI recommendations. Not clear that small bowel capsule study is immediately indicated where there are potential indications of sources for blood loss form the stomach and colon that would be a consideration if there is less than a complete response to GI interventions and iron repletion. Do finally note that CKD may be associated with an erythropoietin deficiency and modest anemia. If iron repletion, B12 supplementation, and definitive GI rectification do not accomplish a strong return to normal hemoglobin levels, there could be some consideration for RONEY's in that setting. (2) GI bleed: Endoscopic studies on July 11 both identified adherent blood in the stomach and a 30 mm polyp in the colon, pathology from the former did not indicate any evidence of malignancy or H. pylori infection. There were some adherent white plaques in the esophagus suggesting possible Abi infection. The polyp was not technically removable. While he does not have heme positive stools at this time certainly there are concerns for ongoing GI loss. Presumably the gastric losses are mitigated by ongoing PPI. Both because of the concern is a source for blood loss but also the inherent concern over its nature will need some more definitive intervention diagnostically and potentially therapeutically for the polyp in the colon (3) Colon polyp: Colonic polyp may have both functional issues related to a source of GI blood loss but also inherent concern over its nature if malignant or premalignant. Will need to work with GI and surgery as to how to best approach histologic definition and ultimate mitigation (4) Lung nodule, multiple: Patient has multiple subcentimeter lung nodules. Though these were "stable" compared to the study in June but that represents only short-term follow-up. Patient has COPD and a long history of smoking continuing to do so now. These will certainly need additional monitoring in time with pulmonary evaluation and follow-up worthwhil (5) B12 deficiency: While B12 levels are technically normal, would strongly consider at least oral supplementation perhaps after a single subcutaneous dose to start to try to maintain them in more mid range to assure we have optimally repleted him nutritionally Plan 1. Would maintain transfusion support to keep his hemoglobin levels above 7.5 to 8 g/dL 2. Based on calculated iron deficiency, and discounting the 200 mg he has already received of iron as packed red cell transfusion, would plan 3 doses of Venofer 300 mg per dose approximately 5 days. 3. Need a more definitive diagnosis of the colonic polyp and based on that may need resection. Would coordinate those efforts with gastroenterology and surgery 4. Would work with gastroenterology with regards to any additional needed intervention for the proximal GI tract with respect to the previously noted plaques, would continue PPI 5. Ongoing antiplatelet and anticoagulation therapy may be important from a cardiac perspective. May need to work with cardiology in terms of to what extent those might be reduced or at least temporarily held as we approach the GI issues 6. Would replete B12 with a potential initial parenteral dose of 1000 mcg followed by oral therapy at least for now monitoring to hopefully restore to good mid range 7. While he is not folic acid deficient, his folic acid needs may be increased as he has recovery erythropoiesis and empiric folic acid supplementation would be worthwhile as well 8. Would need to monitor over time to see if his hemoglobin levels return to good range. If not, given the CKD there may be some consideration for RONEY support 9. Marrow aspiration biopsy are not likely to be helpful in the acute setting but could be reconsidered if we do not see good moravian of red cells and normalization of his white cell morphology History of Present Illness Reason for Consultation: Patient with microcytic anemia in the setting of previous established GI bleeding and persistent polyp of the ascending colon Attending Physician: Missy Sanchez MD History of Present Illness Please note that this is a consultation constructed purely from review of the electronic database. I am working remotely and unable to speak directly with the patient or examine him. I reviewed the previous and current admission records which seem to be an accurate source of relevant information but I am completely reliant on that for my conclusions and perspectives. If there are urgent concerns regarding the need for more direct [id number] review, you should consider transferring the patient to another institution. I will plan to follow up with the patient in a [id number] meeting tomorrow to augment my assessment and recommendations. The evaluation is consultative in nature and all patient care and treatment decisions can either be accepted or rejected by the patient's primary hospital- based treating physician using their own independent medical judgment for the patient. Notably the patient does have historically normal hemoglobin and MCV levels from 2019 study suggesting against any congenital anomaly. He has significant comorbidities including coronary artery disease for which he had been treated with apixaban and aspirin. He has a history of CHF, COPD with ongoing tobacco use, hypertension, moderate mitral regurgitation, pulmonary hypertension, CKD stage III, osteoarthritis. He had been admitted in June with anemia and heme positive stools. He responded to transfusion at that time and in follow-up as outpatient July 11, 2023 EGD and colonoscopy did identify some white plaques in the esophagus, adherent blood in the stomach, biopsy those areas do not show any evidence of malignancy or H. pylori. A 30 mm polyp was seen in the colon but technically could not be biopsied at the time. He is admitted again with weakness and decreased hemoglobin to 5.4 g/dL. After 1 packed red blood cell transfusion upon admission his hemoglobin is risen above 7 g/dL is remaining stable at that level. Fecal occult blood testing is negative on this admission Allergies Allergy/AdvReac Type Severity Reaction Status Date / Time No Known Drug Allergies Allergy Unknown . Verified 07/18/23 13:01 Home Medications Medication Instructions Recorded Confirmed Type latanoprost 0.005 % eye drops 1 drp OPB HS 08/31/19 08/05/23 History fluticasone 250 mcg-salmeterol 50 1 inh inhalation BID 04/15/23 08/05/23 History mcg/dose blistr powdr for inhalation (Advair Diskus) albuterol sulfate 90 mcg/actuation 2 puff inhalation Q4H PRN 07/03/23 08/05/23 History aerosol inhaler (Ventolin HFA) Shortness Of Breath atorvastatin 40 mg tablet 80 mg PO HS 07/03/23 08/05/23 History nitroglycerin 0.4 mg sublingual 0.4 mg sublingual UD PRN Chest Pain 07/03/23 08/05/23 History tablet spironolactone 25 mg tablet 25 mg PO QAM 07/03/23 08/05/23 History apixaban [Eliquis] PO 07/18/23 07/18/23 History aspirin 81 mg tablet 81 mg PO DAILY 07/18/23 08/05/23 History carvedilol 3.125 mg tablet 3.125 mg PO BID #180 tabs 07/26/23 08/05/23 Rx furosemide 40 mg tablet (Lasix) 40 mg PO QAM #120 tabs 08/01/23 08/05/23 Rx pantoprazole 40 mg tablet,delayed 40 mg PO QAM 08/05/23 08/05/23 History release sacubitril 24 mg-valsartan 26 mg 0 tab PO BID 08/05/23 History tablet (Entresto) timolol maleate 0.5 % eye drops 1 drp OPB QAM 08/05/23 08/05/23 History Patient History Medical History Acute blood loss anemia Atrial fibrillation was on eliquis, taken off last week due to bleeding---follows with Dr. Elizabeth Carotid artery disease Carotid stenosis CKD (chronic kidney disease) stage 3, GFR 30-59 ml/min COPD (chronic obstructive pulmonary disease) inhaler daily/prn Coronary artery disease Glaucoma History of COVID-19 12/2022--mild symptoms, no symptoms now History of recent blood transfusion 06/20/2023 @ [facility] History of SCC (squamous cell carcinoma) of skin HLD (hyperlipidemia) Hypertension Myocardial Infarction 2018--had heart cath with 2 BJ placed--follows with Dr. Elizabeth Osteoarthritis Rheumatic fever Tobacco abuse Surgical History History of cardiac cath 08/2019 with 2 stents placed History of cataract extraction bilateral History of heart artery stent 2 BJ placed 08/2019 @ [facility] History of tooth extraction all teeth Family History Father Rheumatic heart disease Mother Pleurisy Other No family history of adverse response to anesthesia Social History Smoking Status: Former smoker Tobacco Type: Cigarettes packs per day: 1; Cigarettes Per Day: "not even a pack a week" (advised on policy); Second Hand Exposure: No; Do You Dip or Chew Tobacco: No; Hx Alcohol Use: No Hx Substance Use: No Preferred Language: Bruneian Communication Ability: Effective 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 Described history and physical exams by nephrology and hospitalist service do not indicate immediately concerning findings on the exam otherwise. Results & Data Vital Signs (Past 12 Hours) Vital Signs Pulse Pulse Resp BP BP Pulse Ox O2 Del Method 08/07/23 06:02 78 16 98/54 L 94 Room Air 08/07/23 03:46 72 16 130/68 92 Room Air 08/07/23 02:00 24 91 08/07/23 02:00 100/54 L 08/07/23 01:30 21 89 L 08/07/23 01:00 26 H 91 08/07/23 01:00 106/52 L 08/06/23 23:25 76 08/07/23 00:30 30 H 91 08/07/23 00:00 23 91 08/07/23 00:00 109/37 L 08/06/23 23:30 69 23 93 08/06/23 23:03 86/49 L 08/06/23 23:03 69 22 93 08/06/23 23:00 65 23 94 08/06/23 23:00 80/45 L 08/06/23 22:30 22 94 08/06/23 22:00 22 91 08/06/23 22:00 88/44 L 08/06/23 21:30 63 23 96 08/06/23 21:00 27 H 72 L 08/06/23 21:00 124/63 08/06/23 20:30 20 92 08/06/23 20:00 21 94 08/06/23 20:00 100/56 L 08/06/23 19:30 20 94 08/06/23 19:00 25 H 93 08/06/23 19:00 127/69 08/06/23 20:00 84 100/56 L 92 Room Air Laboratory Results Laboratory Results - last 24 hr 08/05/23 08/05/23 08/06/23 11:51 22:38 06:05 WBC RBC Hgb Hct MCV MCH MCHC RDW Std Deviation RDW Coeff of Juice Plt Count MPV Immature Gran % (Auto) Neut % (Auto) Lymph % (Auto) Wetzel % (Auto) Eos % (Auto) Baso % (Auto) Reticulocyte % (Auto) Neut # (Auto) Lymph # (Auto) Wetzel # (Auto) Eos # (Auto) Baso # (Auto) Reticulocyte # Immature Gran # (Auto) Polychromasia Hypochromasia Tear Drop Cells Acanthocytes (Spur) Peripher Smr Path Cons Immature Retic Fraction Retic Hgb Content Haptoglobin Pending Sodium 144 Potassium 3.8 Chloride 111 H Carbon Dioxide 28 Anion Gap 5 BUN 41 H Creatinine 1.61 H Est Cr Clr Drug Dosing 29.6 Est GFR ( Amer) 47.4 Est GFR (Non-Af Amer) 40.9 BUN/Creatinine Ratio 25.5 H Glucose 82 Calcium 8.4 L Phosphorus 3.3 Magnesium 2.2 Ferritin Total Bilirubin 1.8 H D AST 12 L ALT 9 Alkaline Phosphatase 65 Lactate Dehydrogenase Total Protein 5.3 L Albumin 3.3 L Globulin 2.0 L Albumin/Globulin Ratio 1.7 Vitamin B12 Folate 08/06/23 08/06/23 08/06/23 06:05 06:05 06:05 WBC RBC Hgb Hct MCV MCH MCHC RDW Std Deviation RDW Coeff of Juice Plt Count MPV Immature Gran % (Auto) Neut % (Auto) Lymph % (Auto) Wetzel % (Auto) Eos % (Auto) Baso % (Auto) Reticulocyte % (Auto) 1.5 Neut # (Auto) Lymph # (Auto) Wetzel # (Auto) Eos # (Auto) Baso # (Auto) Reticulocyte # 0.05 Immature Gran # (Auto) Polychromasia Hypochromasia Tear Drop Cells Acanthocytes (Spur) Peripher Smr Path Cons Immature Retic Fraction 34.4 H Retic Hgb Content 19.8 L Haptoglobin Sodium Potassium Chloride Carbon Dioxide Anion Gap BUN Creatinine Est Cr Clr Drug Dosing Est GFR ( Amer) Est GFR (Non-Af Amer) BUN/Creatinine Ratio Glucose Calcium Phosphorus Magnesium Ferritin Total Bilirubin AST ALT Alkaline Phosphatase Lactate Dehydrogenase 129 Total Protein Albumin Globulin Albumin/Globulin Ratio Vitamin B12 219 Folate 11.37 08/07/23 08/07/23 04:19 04:19 WBC 6.16 RBC 3.06 L Hgb 7.4 L Hct 24.2 L MCV 79.1 L MCH 24.2 L MCHC 30.6 L RDW Std Deviation 62.5 H RDW Coeff of Juice 21.9 H Plt Count 144 MPV 11.4 Immature Gran % (Auto) 0.3 Neut % (Auto) 75.1 Lymph % (Auto) 11.2 Wetzel % (Auto) 10.6 Eos % (Auto) 2.3 Baso % (Auto) 0.5 Reticulocyte % (Auto) Neut # (Auto) 4.63 Lymph # (Auto) 0.69 L Wetzel # (Auto) 0.65 H Eos # (Auto) 0.14 Baso # (Auto) 0.03 Reticulocyte # Immature Gran # (Auto) 0.02 Polychromasia 1+ Hypochromasia Present Tear Drop Cells 1+ Acanthocytes (Spur) 2+ Peripher Smr Path Cons Immature Retic Fraction Retic Hgb Content Haptoglobin Sodium 141 Potassium 3.9 Chloride 109 H Carbon Dioxide 25 Anion Gap 7 BUN 36 H Creatinine 1.67 H Est Cr Clr Drug Dosing 28.6 Est GFR ( Amer) 45.4 Est GFR (Non-Af Amer) 39.2 BUN/Creatinine Ratio 21.6 H Glucose 91 Calcium 8.3 L Phosphorus 3.1 Magnesium 2.2 Ferritin 15.1 Total Bilirubin AST ALT Alkaline Phosphatase Lactate Dehydrogenase Total Protein Albumin Globulin Albumin/Globulin Ratio Vitamin B12 Folate Diagnostic Findings Chest X-Ray 08/05/23 11:42 XR chest 1V portable HISTORY: weakness COMPARISON: Chest 06/20/2023. FINDINGS: The lungs are clear. The heart is mildly enlarged. This remains unchanged. There are calcifications within the aortic knob. No pleural effusions. No pneumothorax. No acute fractures identified. No evidence for pulmonary edema. IMPRESSION: Stable cardiomegaly. ACT 112: Negative or not required by law. Electronically signed by: Juan Shields M.D. 08/05/2023 2:[address] 08/05/23 12:[address] DOSE: 625.80 mGy.cm HISTORY: right-sided weakness TECHNIQUE: Multiaxial CT images of the head were performed without the use of intravenous contrast. Automated exposure control was utilized for this study. A dose lowering technique was utilized adhering to the principles of ALARA. Comparison: None. Findings: Small retention cyst within the left maxillary sinus. The remaining paranasal sinuses and mastoid air cells are clear. The calvarium and skull base are intact. Prior bilateral lens replacement. There is no mass, hematoma, midline shift. Mild atrophy and microvascular ischemic changes are noted. Hypodense foci within the left parietal and left occipital lobes with associated encephalomalacia favors old infarcts. There is associated wallerian degeneration of the left midbrain consistent with a chronic infarct. No definite acute infarct identified. Impression: 1. No acute intracranial hemorrhage or acute infarct identified. 2. Areas of encephalomalacia within the left parietal and left occipital lobes consistent with old infarcts. ACT 112: Negative or not required by law. Electronically signed by: Juan Shields M.D. 08/05/2023 2:16 PM Abdomen/Pelvis CT 08/06/23 08:00 CT abd pelvis IV con only CLINICAL HISTORY: anemia, r/o bleed TECHNIQUE: Helical axial images of the abdomen and pelvis were obtained and displayed. Automated dose lowering techniques and/or adjustment according to patient size were utilized for this exam. This exam was performed with intravenous contrast. CT DOSE: 306.25 mGy.cm COMPARISON: Comparison is made to CT abdomen pelvis 06/21/2023 FINDINGS: Lower chest: Small bilateral pleural effusions are seen without underlying abnormality. Emphysema is seen. Numerous pulmonary nodules appear stable from prior exam. Liver: Unremarkable. No focal lesions are seen. Gallbladder and biliary tree: No calcified gallstones. Normal caliber wall. No intra- or extrahepatic biliary ductal dilation. Pancreas: Unremarkable, no focal lesions. Spleen: Unremarkable. Adrenals: Unremarkable. Kidneys and ureters: Renal cysts are seen. Bladder: Diffuse homogeneous wall thickening is seen. Reproductive organs: Prostatic calcifications are seen which may represent prior hemorrhage or granulomatous disease. Bowel: Unremarkable. Lymph nodes Retroperitoneal: Unremarkable. Pelvic: Unremarkable. Mesenteric: Unremarkable. Peritoneum: Small ascites is noted in the abdomen and pelvis. Vessels: Atherosclerotic calcifications are seen. 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 Abdominal wall: Left fat containing inguinal hernia. Bones: Degenerative changes in the visualized spine. IMPRESSION: 1. Small pleural effusions and ascites are seen. No definite evidence of intraperitoneal hemorrhage. 2. Stable pulmonary nodules as above. 3. Renal cysts. ACT 112: Negative or not required by law. Electronically signed by: Dae Tucker M.D. 08/06/2023 5:55 PM PG Care Time/CCT Total # of Minutes Spent Total Time Spent with Patient: Total time spent is greater than 50% in coordination of care (as documented) at patient's floor/unit and/or counseling patient: [place] [address] IN/OBS CONSULT LVL 4,60M Patient Type New History Expanded Problem Focused Exam Problem Focused Medical Decision Making High Complexity Diagnoses Anemia D64.9 GI bleed K92.1 GI bleed type/associated pathology: melena Colon polyp K63.5 Lung nodule, multiple R91.8 B12 deficiency E53.8 (2) GI bleed GI bleed type/associated pathology: melena Qualified Code(s): K92.1 - Melena
[2023-08-07] MEDS ORDERED: CYANOCOBALAMIN 1000 MCG/ML VIAL IM ONE (08:49)
[2023-08-07] MEDS: PANTOprazole 40 MG TAB PO SCH (10:03)
[2023-08-07] MEDS: FLUTICASONE/VILANTEROL 100/25MCG 14 PUFFS/INHALER INH SCH (10:03)
[2023-08-07] MEDS: FLUCONAZOLE 100 MG TAB PO SCH (10:03)
[2023-08-07] MEDS: IRON SUCROSE 300 MG in SODIUM CHLORIDE 0.9% 250 ML IV SCH (10:04)
--- NOTE | 2023-08-07 10:53 | Nephrology Progress Note ---
Date of Service August 07, 2023 Assessment & Plan (1) Acute blood loss anemia: Plan: p/w hgb 5.4. hgb slowly downtrending again. abrupt onset severe anemia 4-6 wks back. -heme recommends target hgb >7.5-8 d/t cardiac issues -per heme, ok to consider EPO AFTER repletion of B12, Fe and continued GI w/u and/or f/u of proximal plaques AND surgical/GI coordination how best to dx/treat colon polyp -heme also recommends pulm f/u as OP recommended for f/u of pulm nodules in heavy smoker; also favor generous targets for B12, folate intake/levels (2) Acute worsening of stage 3 chronic kidney disease: Plan: Baseline creatinine 1.5-1.6 from July 2017 through early 2022. Most recent labs July 17, 2023 showed creatinine 1.7. Stage I nonoliguric acute on chronic kidney injury versus progression of CKD 3 in the setting of severe and protracted anemia with more noticeable hypotension recently as well. Renal function stable/plateaued. Had IV contrast on 08/06. Daily basic metabolic panel Avoid IV contrast unless lifesaving Spironolactone, Lasix, Entresto all on hold since 08/05 admission. Not clear how long he will tolerate holding these but will continue to monitor; no need to resume at this time >low threshold for CXR given that he's off meds for HF > defer to HF service >at risk for MELCHOR to recur next 24-36 hrs yet (3) HFrEF (heart failure with reduced ejection fraction): Plan: Follows with [facility] cardiology Dr. Elizabeth whose c/s is pending. Heart failure medications on hold currently Admission and Anticipated Discharge Date Admission Date: August 05, 2023 Subjective Hematology consult posted. No interval events clinically. Denies shortness of breath or wheezing or cough though RN reports some concerns about sats dropping intermittently (questionable tracing) and soft diffuse wheezes auscultated earlier today Review of Systems Review of Systems: All systems reviewed & are unremarkable except as noted in Subjective Physical Exam Constitutional: well developed, + cachectic, + frail appearing and cooperative; no acute distress Eyes: EOM intact bilaterally ENMT: Ears: no external ear abnormality Nose: no external nose abnormality Mouth: + dry oral mucous membranes Neck: no nuchal rigidity Respiratory: normal respiratory effort; no cough Auscultation: + diminished lung sounds Cardiovascular: RRR, no murmur, no edema Gastrointestinal (Abdomen): Inspection/Auscultation: normal bowel sounds Percussion/Palpation: abdomen soft; abdomen nontender Musculoskeletal: Extremities: strength 5/5 throughout Skin: no rashes, warm and dry Psychiatric: Orientation: alert and oriented x 3 Results & Data Vital Signs (Past 12 Hours) Vital Signs Pulse Pulse Resp BP BP Pulse Ox O2 Del Method 08/07/23 06:02 78 16 98/54 L 94 Room Air 08/07/23 03:46 72 16 130/68 92 Room Air 08/07/23 02:00 24 91 08/07/23 02:00 100/54 L 08/07/23 01:30 21 89 L 08/07/23 01:00 26 H 91 08/07/23 01:00 106/52 L 08/06/23 23:25 76 08/07/23 00:30 30 H 91 08/07/23 00:00 23 91 08/07/23 00:00 109/37 L 08/06/23 23:30 69 23 93 08/06/23 23:03 86/49 L 08/06/23 23:03 69 22 93 08/06/23 23:00 65 23 94 08/06/23 23:00 80/45 L Laboratory Results 08/07/23 04:19 08/07/23 04:19
--- NOTE | 2023-08-07 13:10 | Cardiology Consultation ---
Date of Consultation August 07, 2023 Assessment & Plan (1) Symptomatic anemia: (2) COPD (chronic obstructive pulmonary disease): (3) CKD (chronic kidney disease) stage 3, GFR 30-59 ml/min: (4) Hypertension: Plan Haroon is a 77 y/o male with PMHx of A-fib on Eliquis 5mg BID, CHF, COPD, CKD, and HTN who comes to the ED due to significant weakness and dizziness. He was seen in the ED and found accompanied by his , awake, alert, oriented in all spheres, and in no acute distress. Labs performed in the ED consistent with significant anemia (Hb of 5.4), which may explain the patient's worsening symptoms throughout the last week. His Hb improved after transfusion of 2 units of PRBCs, and his symptoms have improved as well. It is unclear whether or not he has a current active bleed causing his worsening anemia, since no active bleed source has been found. Unsure whether or not patient's right lower extremity thrombus is an acute vs chronic occurrence, and further evaluation should be considered. The question was raised whether or not the patient's anticoagulation with Eliquis should be discontinued. After a risk/benefit assessment, it may be beneficial to temporarily discontinue Eliquis until the patient's source of bleeding is found and controlled, since continued use may worsen his current presentation. Aspirin has also been discontinued in this is reasonable in the short term. He does suffer from congestive heart failure. Medications have been discontin ued due to worsening renal function and hypotension. Supervising Physician Co-Signing Physician Notes I saw and evaluated the patient with Dr. Mahajan agree with the documentation noted above. Briefly, the patient has a history of ischemic heart disease suffering an inferoposterior myocardial infarction in 2019. This required percutaneous intervention to the right coronary artery. He was subsequently noted to have an ischemic cardiomyopathy with reduced LV systolic function regional wall motion abnormalities involving the inferior wall. He has permanent atrial fibrillation and has been on systemic anticoagulation with apixaban. He is also known to have peripheral vascular disease involving the left internal carotid artery. Recently he has been struggling with anemia. Unclear etiology. [place] to be iron deficiency related to chronic blood loss. At this point would seem reasonable to temporarily hold agents which would worsen blood loss such as his apixaban and aspirin. If a defined source can be adequately found and address these medications could certainly be restarted. Unclear if he will be a good cand idate for left atrial appendage occlusion as this does require a short period of anticoagulation and use of anti-platelet agents. Is also noted to have occlusion of the superficial femoral artery. H did describe some symptoms of immobility associated with the right leg recently. However, the thrombosis was noted in June of this year. I suspect this was a longstanding subtotal occlusion in the perhaps eventually thrombosed entirely but was well collateralized given the absence of symptoms. With regards to his heart failure, he seems to be well compensated at this time. However he did receive a transfusion and has not been on his usual diuretic regimen. We will need to monitor him closely and diurese as necessary. Once his blood pressure is more stable we can restart carvedilol. Will continue to hold spironolactone and Entresto for the time being. History of Present Illness Reason for Consultation: Hx A-fib on anticoagulation Requesting Physician: Fátima Attending Physician: Matthew Shine MD History of Present Illness Haroon is a 77 y/o male with PMHx of A-fib on Eliquis 5mg BID, CHF, COPD, CKD, and HTN who comes to the ED due to significant weakness and dizziness. Patient was recently discharged last week for similar complaints, and at this time his Hb was found to be low at around 7. At this time, upper endoscopy and colonoscopy was performed in an effort to find a possible GI bleed to explain his anemia. These studies were only remarkable for a small colonic polyp and a stomach ulcer, but no active bleeding. Since no active bleed was found and patient was stable, he was discharged with recommendations to have close outpatient follow up with his PCP. During the week, he was still feeling weak and dizzy, and had fallen in certain occasions with no head impact or LOC. He was taken to his PCP office, where they recommended he use a walker and discontinued his Spironolactone and Coreg medications due to possible imbalance or orthostatism impacting his symptoms. As the week went on, his symptoms worsened and this past weekend he was significantly dizzy upon standing, SOB, palpitations, and could not ambulate on his own due to significant weakness more marked in his right leg. For this reason, his took him to the ED where his Hb was found to be 5.4. Due to this finding and his history of symptom, 2 units of PRBCs were transfused in the ED with improvement of his Hb to 7.9 and improvement of his symptoms. He currently has rhythm consistent with A-fib without increased HR, and denies any recent history of chest pain, ME, or muscle/sensory changes consistent with recent stroke. He denies having noticed any blood in his stool, urine, vomiting, or any other sites of bleeding to explain his anemia. On Juy, he was found to have a thrombus in his superficial femoral artery in his right leg. He denies having any current or history of recent chest pain, pain on deep inspiration, hemoptysis, fevers, chills, malaise, or any other symptom. Allergies Allergy/AdvReac Type Severity Reaction Status Date / Time No Known Drug Allergies Allergy Unknown . Verified 07/18/23 13:01 Home Medications Medication Instructions Recorded Confirmed Type latanoprost 0.005 % eye drops 1 drp OPB HS 08/31/19 08/05/23 History fluticasone 250 mcg-salmeterol 50 1 inh inhalation BID 04/15/23 08/05/23 History mcg/dose blistr powdr for inhalation (Advair Diskus) albuterol sulfate 90 mcg/actuation 2 puff inhalation Q4H PRN 07/03/23 08/05/23 History aerosol inhaler (Ventolin HFA) Shortness Of Breath atorvastatin 40 mg tablet 80 mg PO HS 07/03/23 08/05/23 History nitroglycerin 0.4 mg sublingual 0.4 mg sublingual UD PRN Chest Pain 07/03/23 08/05/23 History tablet apixaban [Eliquis] PO 07/18/23 07/18/23 History aspirin 81 mg tablet 81 mg PO DAILY 07/18/23 08/05/23 History carvedilol 3.125 mg tablet 3.125 mg PO BID #180 tabs 07/26/23 08/05/23 Rx furosemide 40 mg tablet (Lasix) 40 mg PO QAM #120 tabs 08/01/23 08/05/23 Rx sacubitril 24 mg-valsartan 26 mg 0 tab PO BID 08/05/23 History tablet (Entresto) timolol maleate 0.5 % eye drops 1 drp OPB QAM 08/05/23 08/05/23 History cyanocobalamin (vitamin B-12) 500 1,000 mcg PO QAM #60 tabs 08/09/23 Rx mcg tablet ferrous sulfate 325 mg (65 mg 325 mg PO BIDM #60 tabs 08/09/23 Rx iron) tablet,delayed release fluconazole 100 mg tablet 100 mg PO QAM #11 tabs 08/09/23 Rx (Diflucan) folic acid 400 mcg tablet 400 mcg PO QAM #30 tabs 08/09/23 Rx furosemide 20 mg tablet (Lasix) 20 mg PO DAILY #30 tabs 08/09/23 Rx pantoprazole 40 mg tablet,delayed 40 mg PO BID #60 tabs 08/09/23 Rx release spironolactone 25 mg tablet 12.5 mg PO QAM #30 tabs 08/09/23 Rx Patient History Medical History (Updated 08/07/23 @ 13:32 by Maria Del Rosario Mahajan MD) Acute blood loss anemia Atrial fibrillation was on eliquis, taken off last week due to bleeding---follows with Dr. Elizabeth Carotid artery disease Carotid stenosis CKD (chronic kidney disease) stage 3, GFR 30-59 ml/min COPD (chronic obstructive pulmonary disease) inhaler daily/prn Coronary artery disease Glaucoma History of COVID-19 12/2022--mild symptoms, no symptoms now History of recent blood transfusion 06/20/2023 @ [facility] History of SCC (squamous cell carcinoma) of skin HLD (hyperlipidemia) Hypertension Myocardial Infarction 2018--had heart cath with 2 BJ placed--follows with Dr. Elizabeth Osteoarthritis Rheumatic fever Tobacco abuse Surgical History History of cardiac cath 08/2019 with 2 stents placed History of cataract extraction bilateral History of heart artery stent 2 BJ placed 08/2019 @ [facility] History of tooth extraction all teeth Family History Father Rheumatic heart disease Mother Pleurisy Other No family history of adverse response to anesthesia Social History Smoking Status: Former smoker Tobacco Type: Cigarettes packs per day: 1; Cigarettes Per Day: "not even a pack a week" (advised on policy); Second Hand Exposure: No; Do You Dip or Chew Tobacco: No; Hx Alcohol Use: No Hx Substance Use: No Preferred Language: Romanian Communication Ability: Effective Center Punch Operator Required: No Beliefs That Will Affect Care: None marital status: Current Living Situation: Spouse current occupational status: retired Feels Safe at Home: Yes Assistive Devices: Denture - Upper and Denture - Lower Review of Systems Review of Systems: As per HPI. Physical Exam Physical Exam: General: thin, alert, awake, oriented in all spheres, no acute distress HEENT: [place], EOM intact, anicteric sclera, no thyromegaly, trachea midline Chest: symmetrical expansions with respirations, no abnormality on percussion, no obvious sign of trauma Cardio: irregular rhythm, no rubs/murmurs/gallops Respiratory: CTA bilaterally, no respiratory distress Abdominal: non-distended, soft and depressible, no tenderness Extremity: no swelling and negative Maricruz's bilaterally, no cyanosis or discoloration, no visible deformity Skin: warm, dry, no rashes, pale nail beds Results & Data Vital Signs (Past 12 Hours) Vital Signs Pulse Resp BP BP Pulse Ox O2 Del Method 08/07/23 10:52 71 18 103/51 L 92 Room Air 08/07/23 06:02 78 16 98/54 L 94 Room Air 08/07/23 03:46 72 16 130/68 92 Room Air 08/07/23 02:00 24 91 08/07/23 02:00 100/54 L 08/07/23 01:30 21 89 L Diagnostic Findings Echo 01/2023: EF 45 to 50%. RV mild to moderately dilated with dysfunction, moderate MR, moderate pulm hypertension, estimated PASP 50-55. Lexiscan SPECT 11/2022: No significant ischemia. Inferior infarct. EF 64% Echo 10/2022: EF 35 to 40%, moderate LVH, severe inferior wall hypokinesis, borderline dilated RV, mild RV dysfunction. Severe TA. Moderate MR, estimated PASP 55-60 Carotid duplex 08/2022: Right ICA <50%, left ICA >70% PSV 618, EDV 201, ICA/CCA ratio 11 Neck CTA 03/2021: High-grade 80% LICA stenosis, occluded mid left vertebral with question dissection Echo 03/2021: LVEF 45% based on mid akinesis, mild RV dilation/dysfunction, moderate MR, PASP 45-50 Carotid duplex 09/2020: >80% left ICA (PSV 650, EDV 187). Echo 01/2020: Mild IVH, LVEF 45 to 50%, base to mid inferior hypokinesis. Mildly reduced RV function, normal size. Echo 08/2019: LVEF 40 to 45% hypokinetic to akinetic inferolateral wall/basal inferior, mild LVH, severe RV dysfunction, mild MR Cardiac cath/PCI 08/2019: 100% acute on chronic mid RCA occlusion, partially filled via [id number] collaterals. Treated with 2 BJ (3.5 x 30, 3.5 x 15 [place], postdilated with 4.0 NC) no other non-culprit disease Abdominal aorta duplex 08/2017: No aneurysm PG Care Time/CCT Total # of Minutes Spent Total Time Spent with Patient: Total time spent is greater than 50% in coordination of care (as documented) at patient's floor/unit and/or counseling patient: Coding Level of Care Code 99787 INT INP/OBS CARE 3/75MIN Diagnoses Symptomatic anemia D64.9 COPD (chronic obstructive pulmonary disease) J44.9 CKD (chronic kidney disease) stage 3, GFR 30-59 ml/min N18.3 Hypertension I10 Resident Activity Tracking Resident Involvement: Resident Care Provided Care Provided: Adult Hospital Medicine
[2023-08-07] MEDS: FOLIC ACID 400 MCG TAB PO SCH (15:13)
--- NOTE | 2023-08-07 15:45 | Gastrointestinal Consultation ---
Date of Consultation August 07, 2023 Assessment & Plan (1) Weakness: (2) Anemia: Pt is a 77 yo male w anemia in setting of Eliquis use for Afib, FOBT negative on exam. Prior egd and colonoscopy last month wo source of GI bleeding but he does have 30mm colon polyp, pending EMR in November. - Video capsule endoscopy (VCE) indication reviewed today. He denies any hx of bowel obstruction or surgeries. We will ask clinic staff to initiate prior auth for VCE and schedule appt after pt's EMR for colon polyp has been completed. - Monitor blood ct and transfuse prn - Diet as tolerated. - GI to sign off; pls recall prn Supervising Physician Co-Signing Physician Notes I personally saw and evaluated the patient on 08/07/2023 with JULIO Duran and agree with her findings and plan of care. 77 y/o M wit history of atrial fibrillation Eliquis, CKD, COPD, HTN admitted with weakness and falls. He was found to have a hgb of 5.4 from baseline of 7s which improved to 7.4 after 2 units of PRBC. He denies any overt bleeding inc luding melena, hematemesis, or hematochezia. He had a recent EGD and colonoscopy last month found to have gastritis and a 3 cm ascending colon polyp which was not removed. He has a colonoscopy scheduled in November for EMR of that large polyp. At this time he has colonoscopy with EMR scheduled as outpatient and we will arrange a VCE for further evaluation of his anemia to assess the small bowel. Continue to trend H/H and transfuse for hgb <7. If he were to develop overt GI bleeding or ongoing drop in his H/H could consider push enteroscopy at that time to assess the small bowel. PPI 40 mg BID. Catalina Das, Gastroenterology and Hepatology History of Present Illness Reason for Consultation: Anemia, request for VCE inpatient Requesting Physician: Dr. Matthew Shine Attending Physician: Dr. Catalina Das History of Present Illness Pt is a 77 yo male w PMHx as noted below who presented w weakness. He's noted to be anemia w Hgb of 5 on presentation, given 2U PRBC transfusion. Hgb up to 7.4 this AM. He denies CP, sob, dizziness, lightheadedness, abd pain, n/v. Appetite low. Denies any dark tarry stools or rectal bleeding. FOBT on this admission ne gative. He is on Eliquis for hx of Afib, INR 1.2. He had EGD and colonoscopy by Dr. Villalobos last month, which showed 30mm colon polyp, scheduled to have endoscopic mucosal resection by Dr. Mina 11/2023. Otherwise no areas of GI bleeding Allergies Allergy/AdvReac Type Severity Reaction Status Date / Time No Known Drug Allergies Allergy Unknown . Verified 07/18/23 13:01 Home Medications Medication Instructions Recorded Confirmed Type latanoprost 0.005 % eye drops 1 drp OPB HS 08/31/19 08/05/23 History fluticasone 250 mcg-salmeterol 50 1 inh inhalation BID 04/15/23 08/05/23 History mcg/dose blistr powdr for inhalation (Advair Diskus) albuterol sulfate 90 mcg/actuation 2 puff inhalation Q4H PRN 07/03/23 08/05/23 History aerosol inhaler (Ventolin HFA) Shortness Of Breath atorvastatin 40 mg tablet 80 mg PO HS 07/03/23 08/05/23 History nitroglycerin 0.4 mg sublingual 0.4 mg sublingual UD PRN Chest Pain 07/03/23 08/05/23 History tablet spironolactone 25 mg tablet 25 mg PO QAM 07/03/23 08/05/23 History apixaban [Eliquis] PO 07/18/23 07/18/23 History aspirin 81 mg tablet 81 mg PO DAILY 07/18/23 08/05/23 History carvedilol 3.125 mg tablet 3.125 mg PO BID #180 tabs 07/26/23 08/05/23 Rx furosemide 40 mg tablet (Lasix) 40 mg PO QAM #120 tabs 08/01/23 08/05/23 Rx pantoprazole 40 mg tablet,delayed 40 mg PO QAM 08/05/23 08/05/23 History release sacubitril 24 mg-valsartan 26 mg 0 tab PO BID 08/05/23 History tablet (Entresto) timolol maleate 0.5 % eye drops 1 drp OPB QAM 08/05/23 08/05/23 History Patient History Medical History (Updated 08/07/23 @ 13:32 by Maria Del Rosario Mahajan MD) Acute blood loss anemia Atrial fibrillation was on eliquis, taken off last week due to bleeding---follows with Dr. Elizabeth Carotid artery disease Carotid stenosis CKD (chronic kidney disease) stage 3, GFR 30-59 ml/min COPD (chronic obstructive pulmonary disease) inhaler daily/prn Coronary artery disease Glaucoma History of COVID-19 12/2022--mild symptoms, no symptoms now History of recent blood transfusion 06/20/2023 @ [facility] History of SCC (squamous cell carcinoma) of skin HLD (hyperlipidemia) Hypertension Myocardial Infarction 2018--had heart cath with 2 BJ placed--follows with Dr. Elizabeth Osteoarthritis Rheumatic fever Tobacco abuse Surgical History History of cardiac cath 08/2019 with 2 stents placed History of cataract extraction bilateral History of heart artery stent 2 BJ placed 08/2019 @ [facility] History of tooth extraction all teeth Family History Father Rheumatic heart disease Mother Pleurisy Other No family history of adverse response to anesthesia Social History Smoking Status: Former smoker Tobacco Type: Cigarettes packs per day: 1; Cigarettes Per Day: "not even a pack a week" (advised on policy); Second Hand Exposure: No; Do You Dip or Chew Tobacco: No; Hx Alcohol Use: No Hx Substance Use: No Preferred Language: Swedish Communication Ability: Effective Farrowing Worker Required: No Beliefs That Will Affect Care: None marital status: Current Living Situation: Spouse current occupational status: retired Feels Safe at Home: Yes Assistive Devices: Denture - Upper and Denture - Lower Review of Systems Review of Systems: All systems reviewed & are unremarkable except as noted in HPI & below Physical Exam Constitutional: + thin, + frail appearing, well groomed, cooperative and comfortable Eyes: PERRL, conjunctivae normal, anicteric sclerae ENMT: external ear and nose normal, oropharynx normal Respiratory: normal respiratory effort, lungs clear to auscultation Cardiovascular: RRR, no murmur, no edema Gastrointestinal (Abdomen): normal bowel sounds, soft, nontender, no hepatosplenomegaly Skin: no rashes, warm and dry no jaundice Psychiatric: A+Ox3, euthymic affect Lymphatic: no lymphedema Results & Data Vital Signs (Past 12 Hours) Vital Signs Pulse Resp BP Pulse Ox O2 Del Method 08/07/23 10:52 71 18 103/51 L 92 Room Air 08/07/23 06:02 78 16 98/54 L 94 Room Air 08/07/23 03:46 72 16 130/68 92 Room Air
--- NOTE | 2023-08-07 16:08 | Electrocardiogram Report ---
Test Reason : Blood Pressure : / mmHG Vent. Rate : 071 BPM Atrial Rate : 000 BPM P-R Int : 000 ms QRS Dur : 076 ms QT Int : 396 ms P-R-T Axes : 000 -87 -49 degrees QTc Int : 430 ms Atrial fibrillation with premature ventricular or aberrantly conducted complexes Left axis deviation Low voltage QRS Inferior infarct (cited on or before 31-AUG-2019) Cannot rule out Anterior infarct (cited on or before 31-AUG-2019) Abnormal ECG When compared with ECG of 05-AUG-2023 11:45, No significant change was found Confirmed by Ruben Cleary ([id number]) on 08/07/2023 4:08:16 PM Referred By: REFERRED SELF Confirmed By:Nicolas Cleary
--- NOTE | 2023-08-07 16:57 | Hospitalist Progress Note ---
Date of Service August 07, 2023 Assessment & Plan (1) Anemia: (2) Weakness: Plan: Mr. 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 Patient was administered 2U PRBC with appropriate response. Patient denies any overt signs of bleeding and states his fatigue has been ongoing for over 2 weeks, but worse over the course of the last 24-48 hours. Acute on Chronic Microcytic Anemia, c/w iron deficiency Symptomatic anemia -Presented with Hgb 5.4 -S/P ABD:Small pleural effusions and ascites are seen. No definite evidence of intraperitoneal hemorrhage. Stable pulmonary nodules as above. Renal cysts. -S/P 2 units PRBCs +FOBT prior admission but currently negative S/P 07/11, EGD and colonoscopy earlier in July without bleeding reported, esophageal candidiasis (confirmed on culture) and gastritis, colonoscopy with 30 mm polyp which was tattooed; not prescribed Diflucan at time, started on PPI Aspirin, Eliquis held (continue to hold until source of bleeding localized) Plan for video capsule endoscopy as outpatient Monitor H&H and transfuse PRBCs as needed Appreciate GI input Needs follow-up with gastroenterology as outpatient Dysplastic changes in the neutrophils on peripheral smear nonspecific as per hematology Continue vitamin B12, folic acid, iron supplements Also started on IV iron Nephrology to consider erythropoietin Continue PPI Esophageal candidiasis Continue fluconazole Chronic Heart Failure with mildly reduced ejection fraction Moderate RV dilatation and dysfunction, EF 45% 01/2023 Moderate moderate to severe pulmonary hypertension Appears euvolemic on exam -Recently, Coreg and spironolactone discontinued by PCP due to low blood pressure -Holding Entresto, Lasix on hold for now -monitor volume status Appreciate cardiology input Plan to resume Coreg once blood pressure more stable Obstructive CAD s/p stents 2018 Continue statin -holding aspirin as above Persistent Atrial Fibrillation Holding Eliquis as above Resume Coreg as able Peripheral vascular disease Left internal carotid artery stenosis Continue statin Aspirin on hold as above Elevated Troponin - troponin at 31, no chest pain, likely demand ischemia secondary to anemia -Downtrended COPD Continue home inhalers DuoNebs as needed CKD stage III Baseline creatinine 1.5-1.6 Cr - creatinine of 1.7, stable Cr 1.6 today Monitor renal function Right superficial femoral artery Thrombosis CT ABD:Redemonstration of thrombosis of the right femoral artery. (Also noted on prior CT from last admission) Eliquis, aspirin on hold Needs follow-up with vascular surgery Currently asymptomatic DVT Px SCDs Re: Anemia CODE STATUS DNI DNR Disposition PT OT prior to discharge Admission and Anticipated Discharge Date Admission Date: August 05, 2023 Subjective Patient is seen and examined at bedside States feeling well today Discussed with patient's family at bedside Also discussed with gastroenterology, cardiology today Denies any acute bleeding issues Also denies any chest pain, dyspnea, dizziness, nausea, vomiting, abdominal pain Review of Systems Review of Systems: All systems reviewed & are unremarkable except as noted in Subjective Physical Exam Physical Exam: Physical Exam: Vitals signs as noted above General Appearance:Thin, frail, cachectic, no apparent distress Head: normocephalic, Atraumatic Eyes: normal inspection, EOMI Neck: supple, Trachea midline Respiratory/Chest: Decreased breath sounds, CTA, No accessory muscle use Cardiovascular: Irregularly irregular, No murmur Abdomen/GI:Soft, Non tender, Bowel sounds present Extremities/Musculoskeletal:normal inspection, no edema Neurologic/Psych:AAOX3, grossly no focal neurological deficits Skin: normal color, warm Results & Data Results & Data Vital Signs (Past 12 Hours) Vital Signs Pulse Resp BP Pulse Ox O2 Del Method 08/07/23 10:00 Room Air 08/07/23 10:52 71 18 103/51 L 92 Room Air 08/07/23 06:02 78 16 98/54 L 94 Room Air Laboratory Results Short CBC 08/07/23 Range/Units 04:19 WBC 6.16 (4.8-10.8) K/ul Hgb 7.4 L (14.0-18.0) g/dl Hct 24.2 L (42.0-52.0) % Plt Count 144 (130-400) K/uL BMP 08/07/23 04:19 Sodium 141 Potassium 3.9 Chloride 109 H Carbon Dioxide 25 BUN 36 H Creatinine 1.67 H Glucose 91 Calcium 8.3 L
[2023-08-07] MEDS: ATORVASTATIN 40 MG TAB PO SCH (20:21)
[2023-08-08] MEDS: FOLIC ACID 400 MCG TAB PO SCH (07:57)
[2023-08-08] MEDS: FLUCONAZOLE 100 MG TAB PO SCH (07:57)
[2023-08-08] MEDS: PANTOprazole 40 MG TAB PO SCH ×2 (07:57→20:02)
[2023-08-08] MEDS: CYANOCOBALAMIN (B-12) 500 MCG TABLET PO SCH (07:57)
[2023-08-08] MEDS: FLUTICASONE/VILANTEROL 100/25MCG 14 PUFFS/INHALER INH SCH (07:57)
[2023-08-08 08:50] LABS: Basophils # (auto) 0.03 K/uL (0.00-0.20); Basophils % (auto) 0.6 %; Eosinophils # (auto) 0.16 K/uL (0.00-0.50); Eosinophils % (auto) 3.1 %; Hematocrit (blood only) 24.7 % (42.0-52.0); Hemoglobin 7.5 g/dl (14.0-18.0); Immature Granulocytes # (auto) 0.02 K/uL (0.01-0.20); Immature Granulocytes % (auto) 0.4 %; Lymphocytes # (auto) 0.68 K/uL (1.20-3.40); Lymphocytes % (auto) 13.2 %; Mean Corpuscular Hemoglobin 24.4 pg (25.0-34.0); Mean Corpuscular Hgb Conc 30.4 g/dL (32.0-36.0); Mean Corpuscular Volume 80.2 fL (80.0-100.0); Mean Platelet Volume 10.8 fL (9.4-12.4); Monocytes # (auto) 0.48 K/uL (0.11-0.59); Monocytes % (auto) 9.3 %; Neutrophils # (auto) 3.77 K/uL (1.40-6.50); Neutrophils % (auto) 73.4 %; Platelet Count 142 K/uL (130-400); RDW Coefficient of Variation 22.6 % (11.5-14.5); Red Blood Count 3.08 M/uL (4.70-6.10); White Blood Count 5.14 K/ul (4.8-10.8)
[2023-08-08 09:09] LABS: BUN Creatinine Ratio 15.7 (10-20); Calcium 8.3 mg/dl (8.6-10.3); Creatinine Clr Calc Pharmacy 26.7 ml/min; Est GFR (African American) 43.8 ml/min; Est GFR (Non-African American) 37.8 ml/min; Potassium 3.8 mmol/L (3.5-5.1)
[2023-08-08 09:10] LABS: Acanthocytes 2+; Polychromasia 1+
--- NOTE | 2023-08-08 09:44 | Cardiology Progress Note ---
Date of Service August 08, 2023 Assessment & Plan (1) Atrial fibrillation: (2) Anemia: (3) CHF (congestive heart failure): (4) HFrEF (heart failure with reduced ejection fraction): (5) COPD (chronic obstructive pulmonary disease): (6) CKD (chronic kidney disease) stage 3, GFR 30-59 ml/min: Plan Haroon is a 77 y/o male with PMHx of permanent A-fib on Eliquis 5mg BID, CHF, COPD, CKD, and PVD who was admitted due to symptomatic anemia (Hb 5.4 on arrival) and is s/p transfusion of 2 units of PRBCs. Today, he was evaluated at bedside and found to be clinically and hemodynamically stable, afebrile, AAOX3, and in no acute distress. He reports improvement of his symptoms and refers feeling much better. Due to his recent history of anemia and likely ongoing bleed of unknown origin, the recommendation was made to stop his Eliquis and Aspirin until the source of bleeding was found and controlled since continuation of these may impact his current presentation. 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 right leg weakness). Patient did receive IVFs and PRBC transfusions due to his initial presentation, but presents no signs of fluid overload such as SOB, abnormal lung sounds, or swelling in his lower extremities. Blood pressure somewhat improved today, but will continue to hold Entresto, spironolactone, and diuretics for the time being. Once blood pressure improves closer to his baseline, may consioder restarting Carvedilol. Admission and Anticipated Discharge Date Admission Date: August 05, 2023 Supervising Physician Co-Signing Physician Notes Clinically improving. No evidence of decompensated heart failure. Will wait for opportunity resume his usual medications. Subjective Haroon is a 77 y/o male with PMHx of A-fib on Eliquis 5mg BID, CHF, COPD, CKD, and HTN who comes to the ED due to significant weakness and dizziness. Patient was recently discharged last week for similar complaints, and at this time his Hb was found to be low at around 7. At this time, upper endoscopy and colonoscopy was performed in an effort to find a possible GI bleed to explain his anemia. These studies were only remarkable for a small colonic polyp and a stomach ulcer, but no active bleeding. Since no active bleed was found and patient was stable, he was discharged with recommendations to have close outpatient follow up with his PCP. During the week, he was still feeling weak and dizzy, and had fallen in certain occasions with no head impact or LOC. He was taken to his PCP office, where they recommended he use a walker and discontinued his Spironolactone and Coreg medications due to possible imbalance or orthostatism impacting his symptoms. As the week went on, his symptoms worsened and this past weekend he was significantly dizzy upon standing, SOB, palpitations, and could not ambulate on his own due to significant weakness more marked in his right leg. For this reason, his took him to the ED where his Hb was found to be 5.4. Due to this finding and his history of symptom, 2 units of PRBCs were transfused in the ED with improvement of his Hb to 7.9 and improvement of his symptoms. Today he continues to have rhythm consistent with A-fib and occasional PVCs, but regular rate. He denies having chest pain, SOB, palpitations, fever, chills, or any other symptom. He reports improvement of his symptoms and has been able to walk to the bathroom without significant weakness or dizziness, and has had no MOLINA, chest pain, or lightheadedness when ambulating. He denies having any blood in his urine or when he has a bowel movement. He denies having any pain or weakness in his right leg when ambulating and when at rest. Review of Systems Review of Systems: As per HPI. Physical Exam Physical Exam: General:thin, alert, awake, oriented in all spheres, no acute distress HEENT:OSWALDO, EOM intact, anicteric sclera, no thyromegaly, trachea midline Chest:symmetrical expansions with respirations, no abnormality on percussion, no obvious sign of trauma Cardio:irregular rhythm, no rubs/murmurs/gallops Respiratory:Mild wheezing in right side likely due to patient's hx of COPD, no other abnormal lung sounds, no respiratory distress Abdominal:non-distended, soft and depressible, no tenderness Extremity:no swelling and negative Maricruz's bilaterally, no cyanosis or discoloration, no visible deformity Skin:warm, dry, no rashes, pale nail beds Results & Data Vital Signs (Past 12 Hours) Vital Signs Temp Pulse Pulse Resp BP Pulse Ox O2 Del Method 08/08/23 07:55 36.6 C 87 15 115/71 Room Air 08/08/23 07:22 70 08/08/23 03:21 36.6 C 65 18 105/68 92 Room Air 08/07/23 22:30 36.6 C 74 18 108/65 95 Room Air PG Care Time/CCT Total # of Minutes Spent Total Time Spent with Patient: Total time spent is greater than 50% in coordination of care (as documented) at patient's floor/unit and/or counseling patient: Coding Level of Care Code 18911 SUB INP/OBS CARE 2/35MIN Diagnoses Atrial fibrillation I48.91 Anemia D64.9 CHF (congestive heart failure) I50.9 HFrEF (heart failure with reduced ejection fraction) I50.20 COPD (chronic obstructive pulmonary disease) J44.9 CKD (chronic kidney disease) stage 3, GFR 30-59 ml/min N18.3 Resident Activity Tracking Resident Involvement: Resident Care Provided Care Provided: Adult Hospital Medicine
--- NOTE | 2023-08-08 09:48 | Nephrology Progress Note ---
Date of Service August 08, 2023 Assessment & Plan (1) Acute blood loss anemia: Plan: p/w hgb 5.4. hgb slowly downtrending again. abrupt onset severe anemia 4-6 wks back. -heme recommends target hgb >7.5-8 d/t cardiac issues <<hemoglobin 7.5 today -per heme, ok to consider EPO AFTER repletion of B12, Fe AND AFTER continued GI w/u and/or f/u of esopphageal plaques AND after surgical/GI coordination how best to dx/treat colon polyp -heme also recommends pulm f/u as OP for pulm nodules in heavy smoker; also favor generous targets for B12, folate intake/levels (2) Acute worsening of stage 3 chronic kidney disease: Plan: Baseline creatinine 1.5-1.6 from July 2017 through early 2022. Most recent labs July 17, 2023 showed creatinine 1.7. Admission creatinine 1.8 on August 05 stage I nonoliguric acute on chronic kidney injury versus progression of CKD 3 in the setting of severe and protracted anemia with more noticeable hypotension recently as well. Renal function stable/plateaued. Had IV contrast on 08/06. Daily basic metabolic panel Avoid IV contrast unless lifesaving >>SBP low/acceptable on no antihypertensives >> started low dose lasix 10 mg IV daily right now given wheeze/time off HF meds (takes 40 mg daily as OP) Spironolactone, Entresto all on hold since 08/05 admission. Not clear how long he will tolerate holding these but will continue to monitor; no need to resume other meds at this time >>also ordered CXR given that he's off meds for HF ; wheeze/cough today and yesterday RN reported wheezes ( I did not hear them yesterday though) >at risk for MELCHOR to recur next 12-24 hrs yet after IV con (3) HFrEF (heart failure with reduced ejection fraction): Plan: Follows with [facility] [place] cardiology as OP > they are following. entresto/krissy on hold currently; looking to resume coreg when bp permits Admission and Anticipated Discharge Date Admission Date: August 05, 2023 Subjective No interval events clinically. Denies shortness of breath, cough, orthopnea. Denies chest tightness. No edema. Review of Systems Review of Systems: All systems reviewed & are unremarkable except as noted in Subjective Physical Exam Constitutional: well developed, + cachectic, + frail appearing and cooperative; no acute distress Eyes: EOM intact bilaterally ENMT: Ears: no external ear abnormality Nose: no external nose abnormality Mouth: + dry oral mucous membranes Neck: no nuchal rigidity Respiratory: normal respiratory effort and + cough (Nonproductive occasional) Auscultation: + diminished lung sounds and + wheezes (Soft diffuse expiratory) Cardiovascular: RRR, no murmur, no edema Gastrointestinal (Abdomen): Inspection/Auscultation: normal bowel sounds Percussion/Palpation: abdomen soft; abdomen nontender Musculoskeletal: Extremities: strength 5/5 throughout Skin: no rashes, warm and dry Psychiatric: Orientation: alert and oriented x 3 Results & Data Vital Signs (Past 12 Hours) Vital Signs Temp Pulse Pulse Resp BP Pulse Ox O2 Del Method 08/08/23 07:55 36.6 C 87 15 115/71 Room Air 08/08/23 07:22 70 08/08/23 03:21 36.6 C 65 18 105/68 92 Room Air 08/07/23 22:30 36.6 C 74 18 108/65 95 Room Air Laboratory Results 08/08/23 08:22 08/08/23 08:22
[2023-08-08] MEDS ORDERED: IRON SUCROSE 300 MG in SODIUM CHLORIDE 0.9% 250 ML IV ONE (10:00)
--- NOTE | 2023-08-08 10:58 | Communication Note ---
Date of Service: August 08, 2023 Noted CBC this AM showed stable blood ct. Pt wo dark tarry stools or rectal bleeding, denies abd pain, n/v. No new GI plans at this time. Will obtain prior auth for outpt video capsule endoscopy and schedule once approved. Pls recall GI prn
--- NOTE | 2023-08-08 12:05 | XRay Report ---
XR chest 1V portable CLINICAL HISTORY: HF pt wheezing, off HF meds TECHNIQUE: Single frontal radiograph of the chest was obtained. Comparison: Comparison is made to chest radiograph 08/05/2023 FINDINGS: No lines and tubes are seen. Cardiomegaly is noted. The aortic arch is calcified. The lungs are clear . No evidence of pleural effusion or pneumothorax. IMPRESSION: Stable cardiomegaly without evidence of pulmonary edema. ACT 112: Negative or not required by law. Electronically signed by: Dae Tucker M.D. 08/08/2023 12:04 PM
[2023-08-08] MEDS: FUROSEMIDE INJ 20 MG/2 ML VIAL IV SCH (14:02)
--- NOTE | 2023-08-08 15:52 | Hospitalist Progress Note ---
Date of Service August 08, 2023 Assessment & Plan (1) Anemia: (2) Weakness: Plan: Mr. 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 Patient was administered 2U PRBC with appropriate response. Patient denies any overt signs of bleeding and states his fatigue has been ongoing for over 2 weeks, but worse over the course of the last 24-48 hours. Acute on Chronic Microcytic Anemia, c/w iron deficiency Symptomatic anemia -Presented with Hgb 5.4 -S/P ABD:Small pleural effusions and ascites are seen. No definite evidence of intraperitoneal hemorrhage. Stable pulmonary nodules as above. Renal cysts. -S/P 2 units PRBCs +FOBT prior admission but currently negative S/P 07/11, EGD and colonoscopy earlier in July without bleeding reported, esophageal candidiasis (confirmed on culture) and gastritis, colonoscopy with 30 mm polyp which was tattooed; not prescribed Diflucan at time, started on PPI Aspirin, Eliquis held (continue to hold until source of bleeding localized) Plan for video capsule endoscopy as outpatient Monitor H&H and transfuse PRBCs as needed Appreciate GI input Needs follow-up with gastroenterology as outpatient Dysplastic changes in the neutrophils on peripheral smear nonspecific as per hematology Continue vitamin B12, folic acid, iron supplements Also started on IV iron Nephrology to consider erythropoietin as able Continue PPI 40 mg twice a day Hb stable, no active bleeding issues Esophageal candidiasis Continue fluconazole Chronic Heart Failure with mildly reduced ejection fraction Moderate RV dilatation and dysfunction, EF 45% 01/2023 Moderate moderate to severe pulmonary hypertension Appears euvolemic on exam -Recently, Coreg and spironolactone discontinued by PCP due to low blood pressure -Holding Entresto, Lasix on hold for now -monitor volume status Appreciate cardiology input Plan to resume Coreg once blood pressure more stable Received IV Lasix today Monitor volume status, renal function BP variable Chest x-ray today showed cardiomegaly without evidence of pulmonary edema Obstructive CAD s/p stents 2018 Continue statin -holding aspirin as above Persistent Atrial Fibrillation Holding Eliquis as above Resume Coreg as able Peripheral vascular disease Left internal carotid artery stenosis Continue statin Aspirin on hold as above Elevated Troponin - troponin at 31, no chest pain, likely demand ischemia secondary to anemia -Downtrended COPD Continue home inhalers DuoNebs as needed CKD stage III Baseline creatinine 1.5-1.6 Cr 1.7 today Monitor renal function Right superficial femoral artery Thrombosis CT ABD:Redemonstration of thrombosis of the right femoral artery. (Also noted on prior CT from last admission) Eliquis, aspirin on hold Needs follow-up with vascular surgery Currently asymptomatic DVT Px SCDs Re: Anemia CODE STATUS DNI DNR Disposition PT OT:Recommends return Home Admission and Anticipated Discharge Date Admission Date: August 05, 2023 Subjective Patient is seen and examined at bedside States feeling better today Offers no new complaints Renal function stable Denies any recurrence of bleeding issues Denies any chest pain, dyspnea, dizziness, nausea, vomiting, abdominal pain Review of Systems Review of Systems: All systems reviewed & are unremarkable except as noted in Subjective Physical Exam Physical Exam: Physical Exam: Vitals signs as noted above General Appearance:Thin, frail, cachectic, no apparent distress Head: normocephalic, Atraumatic Eyes: normal inspection, EOMI Neck: supple, Trachea midline Respiratory/Chest: Decreased breath sounds, scattered wheezes, No accessory muscle use Cardiovascular: Irregularly irregular, No murmur Abdomen/GI:Soft, Non tender, Bowel sounds present Extremities/Musculoskeletal:normal inspection, no edema Neurologic/Psych:AAOX3, grossly no focal neurological deficits Skin: normal color, warm Results & Data Results & Data Vital Signs (Past 12 Hours) Vital Signs Temp Pulse Pulse Resp BP Pulse Ox O2 Del Method 08/08/23 11:30 36.2 C L 76 16 98/65 L 94 Room Air 08/08/23 07:55 36.6 C 87 15 115/71 Room Air 08/08/23 07:22 70 Laboratory Results Short CBC 08/08/23 Range/Units 08:22 WBC 5.14 (4.8-10.8) K/ul Hgb 7.5 L (14.0-18.0) g/dl Hct 24.7 L (42.0-52.0) % Plt Count 142 (130-400) K/uL BMP 08/08/23 08:22 Sodium 141 Potassium 3.8 Chloride 111 H Carbon Dioxide 26 BUN 27 H Creatinine 1.72 H Glucose 120 H Calcium 8.3 L
[2023-08-08] MEDS: ATORVASTATIN 40 MG TAB PO SCH (20:01)
[2023-08-09 07:30] LABS: Calcium 8.1 mg/dl (8.6-10.3); Creatinine Clr Calc Pharmacy 26.7 ml/min; Est GFR (African American) 43.8 ml/min; Est GFR (Non-African American) 37.8 ml/min; Potassium 3.9 mmol/L (3.5-5.1)
[2023-08-09 07:32] LABS: Hematocrit (blood only) 23.3 % (42.0-52.0); Hemoglobin 7.1 g/dl (14.0-18.0); Mean Corpuscular Hemoglobin 25.2 pg (25.0-34.0); Mean Corpuscular Hgb Conc 30.5 g/dL (32.0-36.0); Mean Corpuscular Volume 82.6 fL (80.0-100.0); Mean Platelet Volume 11.3 fL (9.4-12.4); Platelet Count 135 K/uL (130-400); RDW Coefficient of Variation 23.4 % (11.5-14.5); RDW Standard Deviation 67.8 fL (36.4-46.3); Red Blood Count 2.82 M/uL (4.70-6.10); White Blood Count 5.18 K/ul (4.8-10.8)
[2023-08-09 07:34] LABS: Acanthocytes 1+; Anisocytosis Present; Basophils # (auto) 0.04 K/uL (0.00-0.20); Basophils % (auto) 0.8 %; Eosinophils % (auto) 3.9 %; Giant Platelets 1+; Immature Granulocytes # (auto) 0.02 K/uL (0.01-0.20); Immature Granulocytes % (auto) 0.4 %; Lymphocytes # (auto) 0.62 K/uL (1.20-3.40); Monocytes # (auto) 0.64 K/uL (0.11-0.59); Monocytes % (auto) 12.4 %; Neutrophils # (auto) 3.66 K/uL (1.40-6.50); Neutrophils % (auto) 70.5 %; Polychromasia 1+
[2023-08-09] MEDS ORDERED: SODIUM CHLORIDE 0.9% 250 ML IV PRN (08:09)
[2023-08-09] MEDS: FOLIC ACID 400 MCG TAB PO SCH (09:09)
[2023-08-09] MEDS: IRON SUCROSE 300 MG in SODIUM CHLORIDE 0.9% 250 ML IV SCH (09:09)
[2023-08-09] MEDS: PANTOprazole 40 MG TAB PO SCH (09:09)
[2023-08-09] MEDS: CYANOCOBALAMIN (B-12) 500 MCG TABLET PO SCH (09:09)
[2023-08-09] MEDS: FUROSEMIDE INJ 20 MG/2 ML VIAL IV SCH (09:09)
[2023-08-09] MEDS: FLUTICASONE/VILANTEROL 100/25MCG 14 PUFFS/INHALER INH SCH (09:09)
[2023-08-09] MEDS: FLUCONAZOLE 100 MG TAB PO SCH (09:09)
--- NOTE | 2023-08-09 11:02 | Nephrology Progress Note ---
Date of Service August 09, 2023 Assessment & Plan (1) Acute worsening of stage 3 chronic kidney disease: Plan: Baseline creatinine 1.5-1.6 from July 2017 through early 2022. Most recent labs July 17, 2023 showed creatinine 1.7. Admission creatinine 1.8 on S eptember 4 stage I nonoliguric acute on chronic kidney injury versus progression of CKD 3 in the setting of severe and protracted anemia with more noticeable hypotension recently as well. Renal function stable/plateaued. Had IV contrast on 08/06. Daily basic metabolic panel Avoid IV contrast unless lifesaving >>SBP low/acceptable on no antihypertensives pt for d/c home today > I'm being asked for d/c recommendations -resume lasix 20 mg daliy not 40 mg -resume spironolactone 12.5 mg daily not 25 mg -continue to hold entresto and coreg at d/c >close in f/u w/ cardiology, hematology, GI >bmp at PCP f/u appt >needs hospital d/c appt w/ me or my partner 1-2 wks after d/c w/ bmp to be ordered by neph nurse (unless one done in 4 days before appt w/ neph) (2) Acute blood loss anemia: Plan: p/w hgb 5.4. hgb slowly downtrending again. abrupt onset severe anemia 4-6 wks back. -heme recommends target hgb >7.5-8 d/t cardiac issues <<hemoglobin 7.1 today -per heme, ok to consider EPO AFTER repletion of B12, Fe AND AFTER continued GI w/u and/or f/u of esopphageal plaques AND after surgical/GI coordination how best to dx/treat colon polyp -heme also recommends pulm f/u as OP for pulm nodules in heavy smoker; also favor generous targets for B12, folate intake/levels (3) HFrEF (heart failure with reduced ejection fraction): Plan: Follows with [facility] cardiology as OP > they are following. entresto/krissy on hold currently; looking to resume coreg when bp permits Admission and Anticipated Discharge Date Admission Date: August 05, 2023 Subjective hgb dropped again > getting pRBC; no c/o sob, wheeze, orthopnea, edema Review of Systems Review of Systems: All systems reviewed & are unremarkable except as noted in Subjective Physical Exam Constitutional: well developed, + cachectic, + frail appearing and cooperative; no acute distress Eyes: EOM intact bilaterally ENMT: Ears: no external ear abnormality Nose: no external nose abnormality Mouth: + dry oral mucous membranes Neck: no nuchal rigidity Respiratory: normal respiratory effort and + cough (Nonproductive occasional) Auscultation: + diminished lung sounds and + wheezes (Soft diffuse expiratory) Cardiovascular: RRR, no murmur, no edema Gastrointestinal (Abdomen): Inspection/Auscultation: normal bowel sounds Percussion/Palpation: abdomen soft; abdomen nontender Musculoskeletal: Extremities: strength 5/5 throughout Skin: no rashes, warm and dry Psychiatric: Orientation: alert and oriented x 3 Results & Data Vital Signs (Past 12 Hours) Vital Signs Temp Pulse Pulse Resp BP BP Pulse Ox 08/09/23 10:30 36.4 C L 70 15 119/61 94 08/09/23 10:15 36.4 C L 70 16 106/59 L 94 08/09/23 09:55 36.4 C L 69 18 100/64 94 08/09/23 10:32 36.4 C L 70 15 119/61 94 08/09/23 10:17 36.4 C L 70 16 106/59 L 94 08/09/23 09:55 36.4 C L 69 18 100/62 94 08/09/23 07:53 36.4 C L 87 19 112/66 90 08/09/23 03:05 36.6 C 79 18 110/63 93 O2 Del Method 08/09/23 10:30 08/09/23 10:15 08/09/23 09:55 08/09/23 10:32 08/09/23 10:17 08/09/23 09:55 08/09/23 07:53 Room Air 08/09/23 03:05 Room Air Laboratory Results 08/09/23 06:35 08/09/23 06:35 Diagnostic Findings cxr yesterday clear (I personally reviewed images and agree with radiology findings)
[2023-08-09 13:23] LABS: Hematocrit (blood only) 28.5 % (42.0-52.0); Hemoglobin 8.9 g/dl (14.0-18.0)
[2023-08-09] MEDS ORDERED: FUROSEMIDE INJ 20 MG/2 ML VIAL IV ONE (14:07)
--- NOTE | 2023-08-09 14:24 | Cardiology Progress Note ---
Date of Service August 09, 2023 Assessment & Plan (1) Atrial fibrillation: (2) Anemia: (3) CHF (congestive heart failure): (4) HFrEF (heart failure with reduced ejection fraction): (5) COPD (chronic obstructive pulmonary disease): (6) CKD (chronic kidney disease) stage 3, GFR 30-59 ml/min: Plan Haroon is a 77 y/o male with PMHx of permanent A-fib on Eliquis 5mg BID, CHF, COPD, CKD, and PVD who was admitted due to symptomatic anemia (Hb 5.4 on arrival) and is s/p transfusion of 2 units of PRBCs. Today, he was evaluated at bedside and found to be clinically and hemodynamically stable, afebrile, AAOX3, and in no acute distress. He reports significant improvement of his symptoms and states he has not felt the weakness, lightheadedness, dizziness, or the bilateral lower extremity numbness he was feeling on the week prior to his admission. His Eliquis and Aspirin have remained on hold since the source of his potentially active bleed has not been identified. Since yesterday, his Hb has been gradually decreasing from 7.5 --> 7.1. For this reason, he received a transfusion of 1 unit of PRBC with resulting increase in his hemoglobin to 8.9. His other labs have remained unremarkable and his renal markers have remained stable with BUN at 24 and Creatinine at 1.72 (not much change when compared to yesterday). Despite receiving fluids, he has remained without obvious signs of fluid overload such as crackles on lung auscultation, lower extremity swelling, or SOB. His BP has continued to improve and his VS have remained relatively stable, therefore, should they continue this trend, may consider re-starting Carvedilol once adequate BP is reached to avoid possible recurrence or worsening of symptoms. Admission and Anticipated Discharge Date Admission Date: August 05, 2023 Supervising Physician Co-Signing Physician Notes Above. Clinically doing well. No objective or subjective findings consistent with decompensated heart failure despite volume administration. Recommendations have been made with respect to his diuretics by the Nephrology Service. They are recommending holding carvedilol and Entresto at this time. He will need close follow-up in the outpatient setting in the hopes of resuming his medications. Subjective Haroon is a 77 y/o male with PMHx of A-fib on Eliquis 5mg BID, CHF, COPD, CKD, and HTN who comes to the ED due to significant weakness and dizziness. Patient was recently discharged last week for similar complaints, and at this time his Hb was found to be low at around 7. At this time, upper endoscopy and colonoscopy was performed in an effort to find a possible GI bleed to explain his anemia. These studies were only remarkable for a small colonic polyp and a stomach ulcer, but no active bleeding. Since no active bleed was found and patient was stable, he was discharged with recommendations to have close outpatient follow up with his PCP. During the week, he was still feeling weak and dizzy, and had fallen in certain occasions with no head impact or LOC. He was taken to his PCP office, where they recommended he use a walker and discontinued his Spironolactone and Coreg medications due to possible imbalance or orthostatism impacting his symptoms. As the week went on, his symptoms worsened and this past weekend he was significantly dizzy upon standing, SOB, palpitations, and could not ambulate on his own due to significant weakness more marked in his right leg. For this reason, his took him to the ED where his Hb was found to be 5.4. Due to this finding and his history of symptom, 2 units of PRBCs were transfused in the ED with improvement of his Hb to 7.9 and improvement of his symptoms. Today telemetry showed persistent a-fib, but has continued to have regular rate. He reports feeling much better and has been able to ambulate to the bathroom without feeling the weakness or dizziness as he was feeling on the week prior to his admission. He denies any chest pain, SOB, MOLINA, lightheadedness, nausea, vomiting, hemoptysis, or any other symptom. He has been able to tolerate food, and has voided normally without visible blood in his urine and stools. His right leg, which was found to have a small clot in the superficial femoral artery, has not caused him any pain when walking, and his weakness and numbness in this leg has nor recurred. Review of Systems Review of Systems: As per HPI. Physical Exam Physical Exam: General:thin, alert, awake, oriented in all spheres, no acute distress HEENT:OSWALDO, EOM intact, anicteric sclera, no thyromegaly, trachea midline Chest:symmetrical expansions with respirations, no abnormality on percussion, no obvious sign of trauma Cardio:irregular rhythm, no rubs/murmurs/gallops Respiratory:Mild wheezing in right side likely due to patient's hx of COPD, no other abnormal lung sounds, no respiratory distress Abdominal:non-distended, soft and depressible, no tenderness Extremity:no swelling and negative Maricruz's bilaterally, no cyanosis or discoloration, no visible deformity Skin:warm, dry, no rashes Results & Data Vital Signs (Past 12 Hours) Vital Signs Temp Pulse Pulse Resp BP BP Pulse Ox 08/09/23 14:07 70 17 117/73 95 08/09/23 12:02 36.0 C L 78 17 124/78 95 08/09/23 10:30 36.4 C L 70 15 119/61 94 08/09/23 10:15 36.4 C L 70 16 106/59 L 94 08/09/23 09:55 36.4 C L 69 18 100/64 94 08/09/23 11:02 35.6 C L 70 16 115/67 98 08/09/23 10:32 36.4 C L 70 15 119/61 94 08/09/23 10:17 36.4 C L 70 16 106/59 L 94 08/09/23 09:55 36.4 C L 69 18 100/62 94 08/09/23 07:53 36.4 C L 87 19 112/66 90 08/09/23 03:05 36.6 C 79 18 110/63 93 O2 Del Method 08/09/23 14:07 Room Air 08/09/23 12:02 08/09/23 10:30 08/09/23 10:15 08/09/23 09:55 08/09/23 11:02 08/09/23 10:32 08/09/23 10:17 08/09/23 09:55 08/09/23 07:53 Room Air 08/09/23 03:05 Room Air Laboratory Results Abnormal Lab Results 08/09/23 08/09/23 08/09/23 06:35 06:35 08:19 WBC 5.18 RBC 2.82 L Hgb 7.1 L Hct 23.3 L MCV 82.6 MCH 25.2 MCHC 30.5 L RDW Std Deviation 67.8 H RDW Coeff of Juice 23.4 H Plt Count 135 MPV 11.3 Immature Gran % (Auto) 0.4 Neut % (Auto) 70.5 Lymph % (Auto) 12.0 [place] % (Auto) 12.4 Eos % (Auto) 3.9 Baso % (Auto) 0.8 Neut # (Auto) 3.66 Lymph # (Auto) 0.62 L [place] # (Auto) 0.64 H Eos # (Auto) 0.20 Baso # (Auto) 0.04 Immature Gran # (Auto) 0.02 Giant Platelets 1+ Polychromasia 1+ Anisocytosis Present Acanthocytes (Spur) 1+ Sodium 141 Potassium 3.9 Chloride 110 H Carbon Dioxide 27 Anion Gap 4 BUN 24 H Creatinine 1.72 H Est Cr Clr Drug Dosing 26.7 Est GFR ( Amer) 43.8 Est GFR (Non-Af Amer) 37.8 BUN/Creatinine Ratio 14.0 Glucose 79 Calcium 8.1 L Blood Type O Positive Antibody Screen NEGATIVE Crossmatch See Detail 08/09/23 12:57 WBC RBC Hgb 8.9 L Hct 28.5 L MCV MCH MCHC RDW Std Deviation RDW Coeff of Juice Plt Count MPV Immature Gran % (Auto) Neut % (Auto) Lymph % (Auto) [place] % (Auto) Eos % (Auto) Baso % (Auto) Neut # (Auto) Lymph # (Auto) [place] # (Auto) Eos # (Auto) Baso # (Auto) Immature Gran # (Auto) Giant Platelets Polychromasia Anisocytosis Acanthocytes (Spur) Sodium Potassium Chloride Carbon Dioxide Anion Gap BUN Creatinine Est Cr Clr Drug Dosing Est GFR ( Amer) Est GFR (Non-Af Amer) BUN/Creatinine Ratio Glucose Calcium Blood Type Antibody Screen Crossmatch PG Care Time/CCT Total # of Minutes Spent Total Time Spent with Patient: Total time spent is greater than 50% in coordination of care (as documented) at patient's floor/unit and/or counseling patient: Coding Level of Care Code 09559 SUB INP/OBS CARE 2/35MIN Diagnoses Atrial fibrillation I48.91 Anemia D64.9 CHF (congestive heart failure) I50.9 HFrEF (heart failure with reduced ejection fraction) I50.20 COPD (chronic obstructive pulmonary disease) J44.9 CKD (chronic kidney disease) stage 3, GFR 30-59 ml/min N18.3 Resident Activity Tracking Resident Involvement: Resident Care Provided Care Provided: Adult Hospital Medicine
--- NOTE | 2023-08-09 15:10 | Hospitalist Progress Note ---
Date of Service August 09, 2023 Assessment & Plan (1) Anemia: (2) Weakness: Plan: Mr. 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 Patient was administered 2U PRBC with appropriate response. Patient denies any overt signs of bleeding and states his fatigue has been ongoing for over 2 weeks, but worse over the course of the last 24-48 hours. Acute on Chronic Microcytic Anemia, c/w iron deficiency Symptomatic anemia -Presented with Hgb 5.4 -S/P ABD:Small pleural effusions and ascites are seen. No definite evidence of intraperitoneal hemorrhage. Stable pulmonary nodules as above. Renal cysts. -S/P 3 units PRBCs +FOBT prior admission but currently negative S/P 07/11, EGD and colonoscopy earlier in July without bleeding reported, esophageal candidiasis (confirmed on culture) and gastritis, colonoscopy with 30 mm polyp which was tattooed; not prescribed Diflucan at time, started on PPI Aspirin, Eliquis held (continue to hold until source of bleeding localized) Plan for video capsule endoscopy as outpatient Monitor H&H and transfuse PRBCs as needed Appreciate GI input Needs follow-up with gastroenterology as outpatient Dysplastic changes in the neutrophils on peripheral smear nonspecific as per hematology Continue vitamin B12, folic acid, iron supplements Also received IV iron Nephrology to consider erythropoietin as able Continue PPI 40 mg twice a day Hb stable, no active bleeding issues Needs follow up with GI and Hematology upon discharge Continue to hold Aspirin, Eliquis upon discharge Esophageal candidiasis Continue fluconazole Chronic Heart Failure with mildly reduced ejection fraction Moderate RV dilatation and dysfunction, EF 45% 01/2023 Moderate moderate to severe pulmonary hypertension Appears euvolemic on exam -Recently, Coreg and spironolactone discontinued by PCP due to low blood pressure -Held Entresto while hospitalized -monitor volume status Appreciate cardiology and Nephrology input Monitor volume status, renal function Discharge Recs per Nephrology: Resume lasix at 20mg (decreased from 40mg) , resume spironolactone 12.5 mg daily (decreased from 25mg) Plan to hold Entresto and Coreg for now Needs follow up with Cardiology and Nephrology in 1-2 weeks with repeat blood work Obstructive CAD s/p stents 2018 Continue statin -holding aspirin as above Persistent Atrial Fibrillation Holding Eliquis as above Resume Coreg as able Peripheral vascular disease Left internal carotid artery stenosis Continue statin Aspirin on hold as above Elevated Troponin - troponin at 31, no chest pain, likely demand ischemia secondary to anemia -Downtrended COPD Continue home inhalers DuoNebs as needed CKD stage III Baseline creatinine 1.5-1.6 Cr 1.7 today Monitor renal function Right superficial femoral artery Thrombosis CT ABD:Redemonstration of thrombosis of the right femoral artery. (Also noted on prior CT from last admission) Eliquis, aspirin on hold Needs follow-up with vascular surgery Currently asymptomatic Pulmonary Nodules Incidental finding on CT H/O smoking Advise to follow up with Pulmonology as outpatient DVT Px SCDs Re: Anemia CODE STATUS DNI DNR Disposition PT OT:Recommends return Home Admission and Anticipated Discharge Date Admission Date: August 05, 2023 Subjective Patient is seen and examined at bedside Noted drop in Hb today Denies any bleeding issues No new complaints Denies any chest pain, dyspnea, dizziness, nausea, vomiting, abdominal pain Discussed with Nephrology today Review of Systems Review of Systems: All systems reviewed & are unremarkable except as noted in Subjective Physical Exam Physical Exam: Physical Exam: Vitals signs as noted above General Appearance:Thin, frail, cachectic, no apparent distress Head: normocephalic, Atraumatic Eyes: normal inspection, EOMI Neck: supple, Trachea midline Respiratory/Chest: Decreased breath sounds, scattered wheezes, No accessory muscle use Cardiovascular: Irregularly irregular, No murmur Abdomen/GI:Soft, Non tender, Bowel sounds present Extremities/Musculoskeletal:normal inspection, no edema Neurologic/Psych:AAOX3, grossly no focal neurological deficits Skin: normal color, warm Results & Data Results & Data Vital Signs (Past 12 Hours) Vital Signs Temp Pulse Pulse Resp BP BP Pulse Ox 08/09/23 14:07 70 17 117/73 95 08/09/23 12:02 36.0 C L 78 17 124/78 95 08/09/23 10:30 36.4 C L 70 15 119/61 94 08/09/23 10:15 36.4 C L 70 16 106/59 L 94 08/09/23 09:55 36.4 C L 69 18 100/64 94 08/09/23 11:02 35.6 C L 70 16 115/67 98 08/09/23 10:32 36.4 C L 70 15 119/61 94 08/09/23 10:17 36.4 C L 70 16 106/59 L 94 08/09/23 09:55 36.4 C L 69 18 100/62 94 08/09/23 07:53 36.4 C L 87 19 112/66 90 08/09/23 03:05 36.6 C 79 18 110/63 93 O2 Del Method 08/09/23 14:07 Room Air 08/09/23 12:02 08/09/23 10:30 08/09/23 10:15 08/09/23 09:55 08/09/23 11:02 08/09/23 10:32 08/09/23 10:17 08/09/23 09:55 08/09/23 07:53 Room Air 08/09/23 03:05 Room Air
--- NOTE | 2023-08-09 15:31 | Discharge Summary ---
Date of Service August 09, 2023 Admission HPI Per Admitting Provider 77 yo M with CAD with inferior ST elevated OR in 2019 s/p 2 drug-eluting stents to RCA, chronic systolic CHF EF 35 to 40% 10/2022 improved to 45% in January 2023, persistent atrial fibrillation, left ICA severe stenosis asymptomatic, COPD ongoing tobacco abuse, hypertension, moderate mitral regurgitation, moderate to severe pulmonary hypertension, moderate RV dilatation dysfunction, chronic kidney disease stage III, generalized osteoarthritis, primary open-angle glaucoma, who presents with r-sided weakness and found to be profoundly anemic in the ED. Patient is currently sitting up in bed, in no distress. His and daughter are present at the bedside. Patient denies any chest pain or shortness of breath, or feeling lightheaded or dizzy. He says that for the past week or so his right leg has been feeling weak from the knee down, and also reports some weakness in his right hand. His hemoglobin in the ER was only 5.4, and 2 units of pRBCs were ordered. Patient is currently receiving blood transfusion, and reports that his leg is feeling somewhat better. Patient was recently admitted in the hospital for anemia and GI was consulted. He underwent upper endoscopy and colonoscopy earlier in July. For cardiology, patient follows with Dr. Elizabeth. No active bleeding was noted during his endoscopies, EGD with candidiasis and gastritis, colonoscopy with 30 mm polyp which was tattooed and patient is to follow-up further in [facility] in November. Per family they also discussed small bowel capsule study, which is scheduled for August. Patient and family says that patient was prescribed Protonix, however was not prescribed Diflucan as was mentioned in GI note. During his hospital discharge follow-up with PCP, patient's blood pressures been on the lower side, and his Coreg and spironolactone were stopped by PCP. Patient was also referred to nephrology for possible Epogen evaluation. Ultrasound of kidneys. Today in the ED creatinine 1.7, and troponin 31. Per ED provider FOBT negative. CT head negative for acute pathology. CXR - cardiomegaly, no evidence of pulm. edema. Patient tells me he has been eating okay, however family states that he has poor appetite. Denies any blood in the stool, denies any blood in the urine. He says that he has been taking Protonix. He did not take Eliquis today. Admission Exam Per Admitting Provider Physical Exam Constitutional: WD/WN, vitals as above Eyes: PERRL, conjunctivae normal, anicteric sclerae ENMT: external ear and nose normal, oropharynx normal Neck: trachea midline, no thyromegaly Respiratory: normal respiratory effort, lungs clear to auscultation Cardiovascular: Rate/Rhythm: + irregularly irregular Chest (Breasts): Chest: normal inspection of chest Gastrointestinal (Abdomen): normal bowel sounds, soft, nontender, no hepatosplenomegaly Musculoskeletal: Extremities: extremities normal to inspection (no LE edema , noted, pt moves extremities while laying in bed) Skin: no rashes, warm and dry Neurologic: PERRL, EOMI, accommodation nl, no face palsy, no dysarthria Psychiatric: A+Ox3, euthymic affect Principal Diagnosis Symptomatic anemia Acute on Chronic Microcytic Anemia Esophageal candidiasis Pulmonary Nodules CKD III Chronic systolic heart failure Discharge Data Allergies Allergy/AdvReac Type Severity Reaction Status Date / Time No Known Drug Allergies Allergy Unknown . Verified 07/18/23 13:01 Consultations 08/05/23 14:48 ED Decision to Admit Stat 08/05/23 15:36 Consult Nephrology Routine 08/06/23 11:14 Consult Hematology Routine 08/06/23 17:19 Consult Gastroenterology Routine 08/07/23 08:46 Consult Cardiology Routine Procedures Performed Laboratory Results WBC 5.18 K/ul (4.8-10.8) 08/09/23 06:35 RBC 2.82 M/uL (4.70-6.10) L 08/09/23 06:35 Hgb 8.9 g/dl (14.0-18.0) L 08/09/23 12:57 Hct 28.5 % (42.0-52.0) L 08/09/23 12:57 MCV 82.6 fL (80.0-100.0) 08/09/23 06:35 MCH 25.2 pg (25.0-34.0) 08/09/23 06:35 MCHC 30.5 g/dL (32.0-36.0) L 08/09/23 06:35 RDW Std Deviation 67.8 fL (36.4-46.3) H 08/09/23 06:35 RDW Coeff of Juice 23.4 % (11.5-14.5) H 08/09/23 06:35 Plt Count 135 K/uL (130-400) 08/09/23 06:35 MPV 11.3 fL (9.4-12.4) 08/09/23 06:35 Immature Gran % (Auto) 0.4 % 08/09/23 06:35 Neut % (Auto) 70.5 % 08/09/23 06:35 Lymph % (Auto) 12.0 % 08/09/23 06:35 [place] % (Auto) 12.4 % 08/09/23 06:35 Eos % (Auto) 3.9 % 08/09/23 06:35 Baso % (Auto) 0.8 % 08/09/23 06:35 Reticulocyte % (Auto) 1.5 % (0.5-2.0) 08/06/23 06:05 Neut # (Auto) 3.66 K/uL (1.40-6.50) 08/09/23 06:35 Lymph # (Auto) 0.62 K/uL (1.20-3.40) L 08/09/23 06:35 Bladen # (Auto) 0.64 K/uL (0.11-0.59) H 08/09/23 06:35 Eos # (Auto) 0.20 K/uL (0.00-0.50) 08/09/23 06:35 Baso # (Auto) 0.04 K/uL (0.00-0.20) 08/09/23 06:35 Reticulocyte # 0.05 10^6/uL (0.02-0.10) 08/06/23 06:05 Immature Gran # (Auto) 0.02 K/uL (0.01-0.20) 08/09/23 06:35 Giant Platelets 1+ 08/09/23 06:35 Polychromasia 1+ 08/09/23 06:35 Hypochromasia Present 08/07/23 04:19 Anisocytosis Present 08/09/23 06:35 Tear Drop Cells 1+ 08/07/23 04:19 Acanthocytes (Spur) 1+ 08/09/23 06:35 Peripher Smr Path Cons 08/05/23 11:51 Peripher Smr Path Cons Cancelled 08/05/23 11:51 Immature Retic Fraction 34.4 % (2.3-15.9) H 08/06/23 06:05 Retic Hgb Content 19.8 pg (28.2-36.6) L 08/06/23 06:05 Haptoglobin 98 mg/dL (43-212) 08/07/23 09:31 PT 13.0 Seconds (9.0-12.0) H 08/05/23 12:37 INR 1.2 (0.9-1.1) H 08/05/23 12:37 APTT 26.8 Seconds (21.0-31.0) 08/05/23 12:37 PTT Ratio 1.0 08/05/23 12:37 Sodium 141 mmol/L (136-145) 08/09/23 06:35 Potassium 3.9 mmol/L (3.5-5.1) 08/09/23 06:35 Chloride 110 mmol/L (98-107) H 08/09/23 06:35 Carbon Dioxide 27 mmol/L (21-32) 08/09/23 06:35 Anion Gap 4 (3-11) 08/09/23 06:35 BUN 24 mg/dl (6-23) H 08/09/23 06:35 Creatinine 1.72 mg/dl (0.6-1.4) H 08/09/23 06:35 Est Cr Clr Drug Dosing 26.7 ml/min 08/09/23 06:35 Est GFR ( Amer) 43.8 ml/min 08/09/23 06:35 Est GFR (Non-Af Amer) 37.8 ml/min 08/09/23 06:35 BUN/Creatinine Ratio 14.0 (10-20) 08/09/23 06:35 Glucose 79 mg/dl (70-99(Fasting)) 08/09/23 06:35 Lactate 1.4 mmol/L (0.4-2.0) 08/05/23 13:10 Calcium 8.1 mg/dl (8.6-10.3) L 08/09/23 06:35 Phosphorus 3.1 mg/dl (2.5-4.9) 08/07/23 04:19 Magnesium 2.2 mg/dl (1.7-2.4) 08/07/23 04:19 Ferritin 15.1 ng/ml (8-388) 08/07/23 04:19 Total Bilirubin 1.8 mg/dl (0.2-1.0) H D 08/06/23 06:05 AST 12 U/L (13-39) L 08/06/23 06:05 ALT 9 U/L (7-52) 08/06/23 06:05 Alkaline Phosphatase 65 U/L (34-104) 08/06/23 06:05 Lactate Dehydrogenase 129 U/L (86-244) 08/06/23 06:05 Troponin I High Sens 29.2 pg/ml (0-20) H 08/05/23 20:06 Total Protein 5.3 gm/dl (6.0-8.3) L 08/06/23 06:05 Albumin 3.3 gm/dl (3.4-5.0) L 08/06/23 06:05 Globulin 2.0 gm/dl (2.5-4.0) L 08/06/23 06:05 Albumin/Globulin Ratio 1.7 (0.9-2) 08/06/23 06:05 Vitamin B12 219 pg/ml (180-914) 08/06/23 06:05 Folate 11.37 ng/ml (>5.38) 08/06/23 06:05 TSH 1.526 uIu/ml (0.300-4.500) 08/05/23 11:51 Urine Color Yellow 08/05/23 12:58 Urine Appearance Clear (Clear) 08/05/23 12:58 Urine pH 5.5 (4.5-7.5) 08/05/23 12:58 Ur Specific [place] 1.013 (1.000-1.030) 08/05/23 12:58 Urine Protein Negative (Negative) 08/05/23 12:58 Urine Glucose (UA) Negative (Negative) 08/05/23 12:58 Urine Ketones Negative (Negative) 08/05/23 12:58 Urine Blood Negative (Negative) 08/05/23 12:58 Urine Nitrite Negative (Negative) 08/05/23 12:58 Urine Bilirubin Negative (Negative) 08/05/23 12:58 Urine Urobilinogen Negative (Negative) 08/05/23 12:58 Ur Leukocyte Esterase Negative (Negative) 08/05/23 12:58 POC Stool Occult Blood Negative (Negative) 08/05/23 12:48 Blood Type O Positive 08/09/23 08:19 Antibody Screen NEGATIVE 08/09/23 08:19 Crossmatch See Detail 08/09/23 08:[address] 08/05/23 12:[address] DOSE: 625.80 mGy.cm HISTORY: right-sided weakness TECHNIQUE: Multiaxial CT images of the head were performed without the use of intravenous contrast. Automated exposure control was utilized for this study. A dose lowering technique was utilized adhering to the principles of ALARA. Comparison: None. Findings: Small retention cyst within the left maxillary sinus. The remaining paranasal sinuses and mastoid air cells are clear. The calvarium and skull base are intact. Prior bilateral lens replacement. There is no mass, hematoma, midline shift. Mild atrophy and microvascular ischemic changes are noted. Hypodense foci within the left parietal and left occipital lobes with associated encephalomalacia favors old infarcts. There is associated wallerian degeneration of the left midbrain consistent with a chronic infarct. No definite acute infarct identified. Impression: 1. No acute intracranial hemorrhage or acute infarct identified. 2. Areas of encephalomalacia within the left parietal and left occipital lobes consistent with old infarcts. ACT 112: Negative or not required by law. Electronically signed by: Juan Shields M.D. 08/05/2023 2:16 PM Abdomen/Pelvis CT 08/06/23 08:00 CT abd pelvis IV con only CLINICAL HISTORY: anemia, r/o bleed TECHNIQUE: Helical axial images of the abdomen and pelvis were obtained and displayed. Automated dose lowering techniques and/or adjustment according to patient size were utilized for this exam. This exam was performed with intravenous contrast. CT DOSE: 306.25 mGy.cm COMPARISON: Comparison is made to CT abdomen pelvis 06/21/2023 FINDINGS: Lower chest: Small bilateral pleural effusions are seen without underlying abnormality. Emphysema is seen. Numerous pulmonary nodules appear stable from prior exam. Liver: Unremarkable. No focal lesions are seen. Gallbladder and biliary tree: No calcified gallstones. Normal caliber wall. No intra- or extrahepatic biliary ductal dilation. Pancreas: Unremarkable, no focal lesions. Spleen: Unremarkable. Adrenals: Unremarkable. Kidneys and ureters: Renal cysts are seen. Bladder: Diffuse homogeneous wall thickening is seen. Reproductive organs: Prostatic calcifications are seen which may represent prior hemorrhage or granulomatous disease. Bowel: Unremarkable. Lymph nodes Retroperitoneal: Unremarkable. Pelvic: Unremarkable. Mesenteric: Unremarkable. Peritoneum: Small ascites is noted in the abdomen and pelvis. Vessels: Atherosclerotic calcifications are seen. 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 Abdominal wall: Left fat containing inguinal hernia. Bones: Degenerative changes in the visualized spine. IMPRESSION: 1. Small pleural effusions and ascites are seen. No definite evidence of intraperitoneal hemorrhage. 2. Stable pulmonary nodules as above. 3. Renal cysts. ACT 112: Negative or not required by law. Electronically signed by: Dae Tucker M.D. 08/06/2023 5:55 PM Chest X-Ray 08/08/23 11:34 XR chest 1V portable CLINICAL HISTORY: HF pt wheezing, off HF meds TECHNIQUE: Single frontal radiograph of the chest was obtained. Comparison: Comparison is made to chest radiograph 08/05/2023 FINDINGS: No lines and tubes are seen. Cardiomegaly is noted. The aortic arch is calcified. The lungs are clear. No evidence of pleural effusion or pneumothorax. IMPRESSION: Stable cardiomegaly without evidence of pulmonary edema. ACT 112: Negative or not required by law. Electronically signed by: Dae Tucker M.D. 08/08/2023 12:04 PM Ordered Studies 08/05/23 12:44 CT head/brain wo con Stat 08/06/23 08:00 CT abd pelvis IV con only Routine Hospital Course (1) Anemia: (2) Weakness: Mr. Haroon Catalan is a 77 year old gentleman with history notable for HFmrEF 2/2 ICM, prior STEMU s/p 2 BJ (2019), persistent a fib on ac, left ICA stenosis, COPD/tobacco use, HTN, and ongoing microcytic anemia undergoing active GI workup as an OP who is admitted for progressive weakness and fall, found to have hemoglobin of 5.4. Patient was administered 2U PRBC with appropriate response. Patient denies any overt signs of bleeding and states his fatigue has been ongoing for over 2 weeks, but worse over the course of the last 24-48 hours. Acute on Chronic Microcytic Anemia, c/w iron deficiency Symptomatic anemia -Presented with Hgb 5.4 -S/P ABD:Small pleural effusions and ascites are seen. No definite evidence of intraperitoneal hemorrhage. Stable pulmonary nodules as above. Renal cysts. -S/P 3 units PRBCs +FOBT prior admission but currently negative S/P 07/11, EGD and colonoscopy earlier in July without bleeding reported, esophageal candidiasis (confirmed on culture) and gastritis, colonoscopy with 30 mm polyp which was tattooed; not prescribed Diflucan at time, started on PPI Aspirin, Eliquis held (continue to hold until source of bleeding localized) Plan for video capsule endoscopy as outpatient Monitor H&H and transfuse PRBCs as needed Appreciate GI input Needs follow-up with gastroenterology as outpatient Dysplastic changes in the neutrophils on peripheral smear nonspecific as per hematology Continue vitamin B12, folic acid, iron supplements Also received IV iron Nephrology to consider erythropoietin as able Continue PPI 40 mg twice a day Hb stable, no active bleeding issues Needs follow up with GI and Hematology upon discharge Continue to hold Aspirin, Eliquis upon discharge Esophageal candidiasis Continue fluconazole Chronic Heart Failure with mildly reduced ejection fraction Moderate RV dilatation and dysfunction, EF 45% 01/2023 Moderate moderate to severe pulmonary hypertension Appears euvolemic on exam -Recently, Coreg and spironolactone discontinued by PCP due to low blood pressure -Held Entresto while hospitalized -monitor volume status Appreciate cardiology and Nephrology input Monitor volume status, renal function Discharge Recs per Nephrology: Resume lasix at 20mg (decreased from 40mg) , resume spironolactone 12.5 mg daily (decreased from 25mg) Plan to hold Entresto and Coreg for now Needs follow up with Cardiology and Nephrology in 1-2 weeks with repeat blood work Obstructive CAD s/p stents 2018 Continue statin -holding aspirin as above Persistent Atrial Fibrillation Holding Eliquis as above Resume Coreg as able Peripheral vascular disease Left internal carotid artery stenosis Continue statin Aspirin on hold as above Elevated Troponin - troponin at 31, no chest pain, likely demand ischemia secondary to anemia -Downtrended COPD Continue home inhalers DuoNebs as needed CKD stage III Baseline creatinine 1.5-1.6 Cr 1.7 today Monitor renal function Right superficial femoral artery Thrombosis CT ABD: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 (Also noted on prior CT from last admission) Eliquis, aspirin on hold Needs follow-up with vascular surgery Currently asymptomatic Pulmonary Nodules Incidental finding on CT H/O smoking Advise to follow up with Pulmonology as outpatient DVT Px SCDs Re: Anemia CODE STATUS DNI DNR Disposition PT OT:Recommends return Home Total Time Total Time Spent Total Time Spent (In Minutes): 58 minutes Discharge Plan Discharge Items Patient Disposition: Home - Self-Care Reason For Visit: WEAKNESS Discharge Diagnosis: Symptomatic anemia Acute on Chronic Microcytic Anemia Esophageal candidiasis Pulmonary Nodules CKD III Chronic systolic heart failure Activity: Per Instructions section Exercise/Sports: Wait until after follow-up appointment Non-emergency contact: Primary Care Provider, Specialist, Paleology Teacher, Boat Dock Operator and Senior Clinical Research Scientist Call non-emergency contact if: you have any medication questions, your symptoms worsen, your pain is concerning for you and you have a fever Follow-up/Referrals: Alhaji Pitts MD [Primary Care Provider] - (Date & Time 08/14/2023 12:00 PM Provider Alhaji Pitts MD Department Family Medicine [facility] ) Diet: Heart Healthy Addtl Attending Provider Instructions: Follow up with your Primary Care Physician on 08/14/2023 12:00 PM Follow up your Boat Dock Operator for outpatient video capsule endoscopy as recommended Follow up with your Supervisor Hardboard Dr.Philip Nathan in 1-2 weeks with repeat blood work (CBC) Follow up with your Senior Clinical Research Scientist in 1 week with repeat blood work (Basic Metabolic Panel) Follow up with your Paleology Teacher Dr. Elizabeth in 2 weeks Follow-up with your farm assistant for further assessment of lung nodules which were noted on CT scan --Monitor your blood pressure regularly at home and follow up with your physician for further recommendations for medication adjustment. ---Complete Fluconazole course as prescribed for esophageal Candidiasis --- Continue Protonix 40 mg twice a day as recommended by blending operator -- Other medication changes: 1) Do not take aspirin, Eliquis, Entresto, Coreg until further recommendations by your physicians 2) Your Lasix is decreased to 20 mg daily 3) Your spironolactone is decreased to 12.5 mg daily Do not take group of medications belonging to NSAIDs group -can cause worsening of your kidney function and increase your risk for bleeding. List Of these medications includes but not limited to: Diclofenac Ibuprofen, Motrin, Advil Toradol,ketorolac Naproxen, Aleve, Naprosyn You can take Tylenol as needed for pain or fever When buying [id number] pain medications please consult with pharmacy if you are not sure regarding ingredients, as a lot of the pain medications have combination of NSAIDs and Tylenol. Seek immediate medical attention if your symptoms reoccur or worsen Please take all medications as instructed on discharge list below. Please call if you have any questions or problems. You can reach a [facility] hospitalist on duty at [facility] 24 hours a day by calling [phone] Pending Studies at Discharge: No Stand-Alone Forms: My [facility], Smoking Cessation Medications and DC Order Prescriptions: New fluconazole [Diflucan] 100 mg Tablet 100 mg PO QAM Qty: 11 0RF ferrous sulfate 325 mg (65 mg iron) Tablet,Delayed Release (Dr/Ec) 325 mg PO BIDM Qty: 60 1RF cyanocobalamin (vitamin B-12) 500 mcg Tablet 1,000 mcg PO QAM Qty: 60 1RF folic acid 400 mcg Tablet 400 mcg PO QAM Qty: 30 1RF furosemide [Lasix] 20 mg tablet 20 mg PO DAILY Qty: 30 1RF Continued fluticasone propion-salmeterol [Advair Diskus] 250-50 mcg/dose blister with device 1 inh inhalation BID latanoprost 0.005 % drops 1 drp OPB HS nitroglycerin 0.4 mg Tablet, Sublingual 0.4 mg sublingual UD PRN (Reason: Chest Pain) albuterol sulfate [Ventolin HFA] 90 mcg/actuation Hfa Aerosol Inhaler 2 puff INHALATION Q4H PRN (Reason: Shortness Of Breath) atorvastatin 40 mg tablet 80 mg PO HS timolol maleate 0.5 % drops 1 drp OPB QAM Rx Instructions: right eye Changed spironolactone 25 mg tablet 12.5 mg PO QAM Qty: 30 0RF pantoprazole 40 mg tablet,delayed release (DR/EC) 40 mg PO BID Qty: 60 1RF Held carvedilol 3.125 mg tablet 3.125 mg PO BID Qty: 180 3RF Hold Instructions: To be determined by your physicians on follow up visit Rx Instructions: must administer with a meal/food apixaban [Eliquis] PO Hold Instructions: To be determined by your physicians on follow up visit Rx Instructions: Not filled with [facility] in last 2 years aspirin 81 mg tablet 81 mg PO DAILY Hold Instructions: To be determined by your physicians on follow up visit Rx Instructions: Filled back in march Entresto 24-26 mg tablet 0 tab PO BID Hold Instructions: To be determined by your physicians on follow up visit Rx Instructions: [facility]22 Discontinued furosemide [Lasix] 40 mg tablet 40 mg PO QAM Qty: 120 3RF Rx Instructions: May increase to 40 mg BID PRN for weight gain, swelling, dyspnea. Discharge Orders: Discharge Order (Routine); Ordered 08/09/23 Ordered By: Matthew Shine Admission Data Admit Date/Time: 08/05/23 15:39 Attending Provider: Matthew Shine Admit Provider: Kory Lopez Primary Care Provider: Alhaji Pitts Other Providers: Kory Lopez ; Jenn Veliz ; Alhaji Nathan ; Flex Troy ; Ciro Becerra ; Ted Rosado ; Frank Freeman ; Edward Lincoln ; Checo Brown ; Eddie Moulton Jr ; Ranjith Aldana ; Faustina Berry ; Cornelia Schwartz ; Rashi Elizabeth ; Ruben Cleary ; Ralph Dillon ; Isabela Callahan ; Tahmina Harkins ; Juanjo Taylor ; Maciel Barrett ; Edward Avila V. ; Sb Juarez
[2023-08-09] MEDS ORDERED: FERROUS SULFATE 325 MG TAB PO SCH (17:00)
== END 2023-08-09 18:30 | disposition home or self-care (01) | DRG 812 ==
LOC: ED 11:33 → SUATTDRO 15:39 → EDINP 15:39 → 2S 08-07 17:09

== ENCOUNTER 2024-08-25 06:43 | Inpatient (IN) ==
[2024-08-25 07:50] LABS: Albumin Globulin Ratio 1.4 (0.9-2); Albumin Level 3.8 gm/dl (3.4-5.0); BUN Creatinine Ratio 19.3 (10-20); Bilirubin,Total 1.3 mg/dl (0.2-1.0); Calcium 8.9 mg/dl (8.6-10.3); Creatinine Clr Calc Pharmacy 28.1 ml/min; Est GFR (African American) 47.1 ml/min; Est GFR (Non-African American) 40.6 ml/min; Globulin 2.8 gm/dl (2.5-4.0); Magnesium 1.7 mg/dl (1.7-2.4); Phosphorus 2.9 mg/dl (2.5-4.9); Potassium 4.3 mmol/L (3.5-5.1); Total Protein 6.6 gm/dl (6.0-8.3)
[2024-08-25 07:52] LABS: Basophils # (auto) 0.02 K/uL (0.00-0.20); Basophils % (auto) 0.3 %; Eosinophils # (auto) 0.01 K/uL (0.00-0.50); Eosinophils % (auto) 0.2 %; Hemoglobin 14.3 g/dl (14.0-18.0); Immature Granulocytes # (auto) 0.03 K/uL (0.01-0.20); Immature Granulocytes % (auto) 0.5 %; Lymphocytes # (auto) 0.51 K/uL (1.20-3.40); Lymphocytes % (auto) 8.9 %; Mean Corpuscular Hemoglobin 31.2 pg (25.0-34.0); Mean Corpuscular Volume 91.7 fL (80.0-100.0); Mean Platelet Volume 12.3 fL (9.4-12.4); Monocytes # (auto) 0.62 K/uL (0.11-0.59); Monocytes % (auto) 10.8 %; Neutrophils # (auto) 4.55 K/uL (1.40-6.50); Neutrophils % (auto) 79.3 %; Platelet Count 82 K/uL (130-400); Platelet Estimate Decreased (Normal); RDW Coefficient of Variation 15.6 % (11.5-14.5); RDW Standard Deviation 52.8 fL (36.4-46.3); Red Blood Count 4.58 M/uL (4.70-6.10); White Blood Count 5.74 K/ul (4.8-10.8)
--- NOTE | 2024-08-25 07:52 | Emergency Department Note ---
Impression & Plan Acute respiratory failure with hypoxia, COVID-19, COPD (chronic obstructive pulmonary disease) ED Provider Note NAME: VICKY MELVIN AGE: 78 SEX: M : 1945 ARRIVES VIA: Walk-In INFORMANT: Patient ED PROVIDER(S): Roberto Ventura MD CHIEF COMPLAINT: Hypoxia, Covid PLAN: Disposition: Admit MEDICAL DECISION MAKING: The patient is a pleasant 78-year-old gentleman with a past medical history of COPD, CHF/ischemic cardiomyopathy, pulmonary hypertension, atrial fibrillation on Eliquis who presents to the emergency department via walk-in COVID by family for evaluation of worsening cough congestion, shortness of breath where the patient developed symptoms approximately 2 days ago in setting of his having COVID-19. They contacted their PCP and were instructed to present to emergency department if his oxygen ever became low. They report he was low to 77% on room air at home. He is not on oxygen normally. Patient reports his weight has been stable and is not on Lasix. 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 On evaluation the patient is fatigued appearing but no acute distress, afebrile with O2 saturation 88% on room air and vitals otherwise stable. He appears clinically dry. He has diffuse wheezes of bilateral lung sigala without significant increased work of breathing. EKG shows afib without overt acute ischemia. CXR negative for acute cardiopulmonary process per my personal preliminary review/interpretation. WBC, within normal limits. Lymphopenia is present. H/H within normal limits. Platelets 82K approximate to but decreased from prior. Creatinine is 1.6, similar to prior range values in setting of CKD. Magnesium 1.7, low normal with IV repletion provided. LFTs unremarkable. HS troponin 59, nonspecific as is BNP of 2300 in the setting of patient's known ischemic cardiomyopathy. Treatment initiated with dexamethasone given hypoxia as well as albuterol and ipratropium. Patient greeted plan for admission for further management given hypoxia in the setting of COPD, ischemic cardiomyopathy. Case was d[place]. [place]ópez, [facility] who will evaluate the patient for admission. Further management per admitting team. Triage Nursing notes reviewed and agree them. Prior/external medical records reviewed Vital Signs: reviewed Differential diagnosis: Reactive airway disease, pneumonia, pneumothorax, COPD, CHF, infections, cardiac ischemia, pulmonary embolism, musculoskeletal, gastrointestinal, as well as other pathologies. ER treatment provided: See below. Diagnostics interpreted by me: ECG: Atrial fibrillation, 95 bpm, no ectopy, no overt ST ovation or depression, QTc 464, QRS 76. Cardiac Monitoring: An order for continuous cardiac monitoring was placed and demonstrated Atrial fibrillation, 95 bpm, no ectopy. Laboratory studies: See below Imaging studies: See below Consultation(s): Case was d/[place] Dr. López, [facility] who will evaluate the patient for admission. HPI: The patient is a pleasant 78-year-old gentleman with a past medical history of COPD, CHF/ischemic cardiomyopathy, pulmonary hypertension, atrial fibrillation on Eliquis who presents to the emergency department via walk-in COVID by family for evaluation of worsening cough congestion, shortness of breath where the patient developed symptoms approximately 2 days ago in setting of his having COVID-19. They contacted their PCP and were instructed to present to emergency department if his oxygen ever became low. They report he was low to 77% on room air at home. He is not on oxygen normally. Patient reports his weight has been stable and is not on Lasix. 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 ROS: See above HPI for pertinent positives & negatives. A total of 10 systems reviewed and were otherwise negative. VITALS:See Below PHYSICAL EXAMINATION: GENERAL: Awake, alert, fatigued-appearing, in no distress HENT: Normocephalic, atraumatic. Oropharynx with dry mucous membranes and otherwise unremarkable. EYES: Normal conjunctiva. Sclera non-icteric. NECK: Supple. No nuchal rigidity. FROM. No JVD. RESPIRATORY: Wheezes of bilateral lung sigala. CARDIAC: Regular rate, irregular rhythm. Extremities warm and well perfused. Pulses equal. ABDOMEN: Soft, non-distended. No tenderness to palpation. No rebound or guarding. No masses. MUSCULOSKELETAL: Chest examination reveals no tenderness. The back is symmetrical on inspection without obvious abnormality. There is no CVA tenderness to palpation. No joint edema. LOWER EXTREMITIES: Calves are equal size bilaterally and non-tender. No edema. No discoloration. NEURO: Normal sensorium. No sensory or motor deficits noted. SKIN: No rash or jaundice noted. Roberto Ventura MD Past Med/Surg History Problem List (Updated 08/25/24 @ 19:57 by Roberto Ventura MD) COVID-19 (Acute) Acute respiratory failure with hypoxia (Acute) COVID-19 Elevated troponin Thrombocytopenia History of ST elevation myocardial infarction (STEMI) (08/2019) Atrial fibrillation B12 deficiency Lung nodule, multiple Colon polyp Non-ST elevation [place] (NSTEMI) (Acute) Anemia Mitral regurgitation HFrEF (heart failure with reduced ejection fraction) Heme positive stool Periorbital edema Carotid stenosis Carotid artery disease Coronary artery disease COPD (chronic obstructive pulmonary disease) (Acute) inhaler daily/prn HLD (hyperlipidemia) CKD (chronic kidney disease) stage 3, GFR 30-59 ml/min Tobacco abuse History of SCC (squamous cell carcinoma) of skin Glaucoma Hypertension Rheumatic fever Medical History Osteoarthritis Myocardial Infarction 2018--had heart cath with 2 BJ placed--follows with Dr. Elizabeth History of COVID-19 12/2022--mild symptoms, no symptoms now Surgical History History of tooth extraction all teeth History of heart artery stent (08/2019) 2 BJ placed 08/2019 @ [facility] History of cataract extraction bilateral Family History Father Rheumatic heart disease Mother Pleurisy Other No family history of adverse response to anesthesia Social History Smoking Status: Light tobacco smoker Tobacco Type: Cigarettes Age Started Using Tobacco: 17; packs per day: 1; Cigarettes Per Day: "not even a pack a week" (advised on policy); Second Hand Exposure: No; Do You Dip or Chew Tobacco: No; Tobacco Cessation Education Requested by Patient: No Hx Alcohol Use: No Hx Substance Use: No Preferred Language: Peruvian Communication Ability: Effective Visual Impairment: No Limitations Hearing Ability: Normal 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 Beliefs That Will Affect Care: None marital status: Current Living Situation: Spouse current occupational status: retired current occupation: [employer] How many Children do You have: 3 How many Children do You have Comment: 2 daughters, 1 son Other Information That Helps Us Care for You: No Feels Safe at Home: Yes Safety Concerns: Feels Safe At This Time Childhood Exposure to Second-Hand Smoke: Yes Diet: regular Diet Comment: regular caffeine: Yes during the past year weight has: decreased > 10 lbs Dental Care, Regularly: No Physical Activity Frequency: Does not Exercise Seatbelt Use: always Sunscreen Use: Yes Assistive Devices: Denture - Upper, Denture - Lower and Glasses Allergies Allergies Allergy/AdvReac Type Severity Reaction Status Date / Time No Known Drug Allergies Allergy Unknown . Verified 08/25/24 09:57 Home Meds Home Medications Medication Instructions Recorded Confirmed latanoprost 0.005 % eye drops 1 drp OPB HS 08/31/19 08/25/24 albuterol sulfate 90 mcg/actuation 2 puff inhalation Q4H PRN 07/03/23 08/25/24 aerosol inhaler (Ventolin HFA) Shortness Of Breath nitroglycerin 0.4 mg sublingual 0.4 mg sublingual UD PRN Chest Pain 07/03/23 08/25/24 tablet timolol maleate 0.5 % eye drops 1 drp OPB QAM 08/05/23 08/25/24 apixaban 2.5 mg tablet (Eliquis) 2.5 mg PO BID 08/26/23 08/25/24 sacubitril 49 mg-valsartan 51 mg 1 tab PO BID 08/20/24 08/25/24 tablet (Entresto) Previous Rx's Medication Instructions Recorded carvedilol 3.125 mg tablet 3.125 mg PO BID #180 tabs 07/26/23 spironolactone 25 mg tablet 12.5 mg (1/2 x 25 mg) PO QAM #30 08/09/23 tabs cyanocobalamin (vitamin B-12) 500 1,000 mcg (2 x 500 mcg) PO QAM 10/11/23 mcg tablet #180 tabs ferrous sulfate 325 mg (65 mg 325 mg PO BIDM #180 tabs 10/11/23 iron) tablet,delayed release folic acid 400 mcg tablet 400 mcg PO QAM #90 tabs 10/11/23 fluticasone 250 mcg-salmeterol 50 1 inh inhalation BID #60 ea 04/13/24 mcg/dose blistr powdr for inhalation (Advair Diskus) furosemide 40 mg tablet 40 mg PO DAILY PRN Weight gain, 04/21/24 sob, edema #90 tabs pantoprazole 40 mg tablet,delayed 40 mg PO BID #180 tabs 06/02/24 release atorvastatin 80 mg tablet 80 mg PO HS #90 tabs 08/12/24 Results & Data (ED) Vital Signs Vital Signs - 24 hr 08/25/24 06:49 08/25/24 07:20 08/25/24 07:22 Temperature 36.8 C Temperature Source Temporal Artery Scan Pulse Rate 95 H Pulse Rate [Apical] 84 Respiratory Rate 27 H 16 Respiratory Effort / Characteristics Labored Non-Labored Spontaneous Non-Labored Spontaneous Respiratory Depth Normal Normal Respiratory Pattern Regular Blood Pressure 149/90 H Blood Pressure [Left Arm] 153/95 H Blood Pressure Mean 109 Blood Pressure Mean [Left Arm] 114 Blood Pressure Position [Left Arm] Sitting Pulse Oximetry 86 L 98 Oxygen Delivery Method Room Air Nasal Cannula Nasal Cannula Oxygen Flow Rate 3 3 Sepsis Recent Fever Within 48 Hours No Sepsis New/Unexplained Change in Mental Status No Sepsis Action Taken by Nursing No Action Required Oxygen Flow Rate - Titration Pulse Oximetry Post Tiitration 08/25/24 07:23 08/25/24 08:15 Temperature Temperature Source Pulse Rate 81 Pulse Rate [Apical] Respiratory Rate Respiratory Effort / Characteristics Respiratory Depth Respiratory Pattern Blood Pressure Blood Pressure [Left Arm] Blood Pressure Mean Blood Pressure Mean [Left Arm] Blood Pressure Position [Left Arm] Pulse Oximetry 99 Oxygen Delivery Method Nasal Cannula Oxygen Flow Rate 5 Sepsis Recent Fever Within 48 Hours Sepsis New/Unexplained Change in Mental Status Sepsis Action Taken by Nursing Oxygen Flow Rate - Titration 3 Pulse Oximetry Post Tiitration 98 Laboratory Data Attestation: I reviewed the patient's lab results. 08/25/24 07:15 08/25/24 07:15 Lab Results 08/25/24 Range/Units 07:15 WBC 5.74 (4.8-10.8) K/ul RBC 4.58 L (4.70-6.10) M/uL Hgb 14.3 (14.0-18.0) g/dl Hct 42.0 (42.0-52.0) % MCV 91.7 (80.0-100.0) fL MCH 31.2 (25.0-34.0) pg MCHC 34.0 (32.0-36.0) g/dL RDW Std Deviation 52.8 H (36.4-46.3) fL RDW Coeff of Juice 15.6 H (11.5-14.5) % Plt Count 82 L (130-400) K/uL MPV 12.3 (9.4-12.4) fL Immature Gran % (Auto) 0.5 % Neut % (Auto) 79.3 % Lymph % (Auto) 8.9 % [place] % (Auto) 10.8 % Eos % (Auto) 0.2 % Baso % (Auto) 0.3 % Neut # (Auto) 4.55 (1.40-6.50) K/uL Lymph # (Auto) 0.51 L (1.20-3.40) K/uL [place] # (Auto) 0.62 H (0.11-0.59) K/uL Eos # (Auto) 0.01 (0.00-0.50) K/uL Baso # (Auto) 0.02 (0.00-0.20) K/uL Immature Gran # (Auto) 0.03 (0.01-0.20) K/uL Platelet Estimate Decreased L (Normal) PT 13.2 H (9.0-12.0) Seconds INR 1.2 H (0.9-1.1) Sodium 138 (136-145) mmol/L Potassium 4.3 (3.5-5.1) mmol/L Chloride 104 (98-107) mmol/L Carbon Dioxide 25 (21-32) mmol/L Anion Gap 9 (3-11) BUN 31 H (6-23) mg/dl Creatinine 1.61 H (0.6-1.4) mg/dl Est Cr Clr Drug Dosing 28.1 ml/min Est GFR ( Amer) 47.1 ml/min Est GFR (Non-Af Amer) 40.6 ml/min BUN/Creatinine Ratio 19.3 (10-20) Glucose 90 (70-99(Fasting)) mg/dl Calcium 8.9 (8.6-10.3) mg/dl Phosphorus 2.9 (2.5-4.9) mg/dl Magnesium 1.7 (1.7-2.4) mg/dl Total Bilirubin 1.3 H (0.2-1.0) mg/dl AST 31 (13-39) U/L ALT 19 (7-52) U/L Alkaline Phosphatase 81 (34-104) U/L Troponin I High Sens 59.0 H* (0-20) pg/ml B-Natriuretic Peptide 2395 H (0-100) pg/ml Total Protein 6.6 (6.0-8.3) gm/dl Albumin 3.8 (3.4-5.0) gm/dl Globulin 2.8 (2.5-4.0) gm/dl Albumin/Globulin Ratio 1.4 (0.9-2) Lipase 22 (11-82) U/L Administered Medications Albuterol (Albut/Ipratrop 3mg/0.5mg Neb 3 Ml Vial) 3 ml NEB QIDR [facility]; Protocol Stop: 09/24/24 10:59 Last Admin: 08/25/24 15:09 Dose: 3 ml Documented By: [id number] Admin: 08/25/24 11:39 Dose: 3 ml Documented By: [id number] Apixaban (Apixaban 2.5 Mg Tab) 2.5 mg PO BID [facility] Stop: 09/24/24 10:14 Last Admin: 08/25/24 12:22 Dose: 2.5 mg Documented By: OO Carvedilol (Carvedilol 3.125 Mg Tab) 3.125 mg PO BIDM [facility] Stop: 09/24/24 10:14 Last Admin: 08/25/24 16:53 Dose: 3.125 mg Documented By: Admin: 08/25/24 12:21 Dose: 3.125 mg Documented By: OO Cyanocobalamin (Cyanocobalamin (B-12) 500 Mcg Tablet) 1,000 mcg PO QAM [facility] Stop: 09/24/24 10:14 Last Admin: 08/25/24 12:22 Dose: 1,000 mcg Documented By: OO Ferrous Sulfate (Ferrous Sulfate 325 Mg Tab) 325 mg PO BIDM [facility] Stop: 09/24/24 16:59 Last Admin: 08/25/24 16:53 Dose: 325 mg Documented By: OO Fluticasone/Vilanterol (Fluticasone/Vilanterol 100/25mcg 14 Puffs/Inhaler) 1 puffs INH DAILY [facility] Stop: 09/24/24 10:14 Last Admin: 08/25/24 12:20 Dose: 1 puffs Documented By: OO Folic Acid (Folic Acid 400 Mcg Tab) 400 mcg PO QAM [facility] Stop: 09/24/24 09:56 Last Admin: 08/25/24 12:21 Dose: 400 mcg Documented By: OO Miscellaneous (Timolol 0.5%: Order Awaiting Action) 1 each N/A QS [facility] Stop: 09/24/24 15:59 Last Admin: 08/25/24 16:39 Dose: Not Given Documented By: OO Pantoprazole Sodium (Pantoprazole 40 Mg Tab) 40 mg PO BID [facility] Stop: 09/24/24 10:29 Last Admin: 08/25/24 12:21 Dose: 40 mg Documented By: OO Sacubitril/Valsartan (Valsartan/Sacubitril 51/49 Mg Tab) 1 tab PO BID [facility] Stop: 09/24/24 10:29 Last Admin: 08/25/24 12:21 Dose: 1 tab Documented By: OO Spironolactone (Spironolactone 12.5 Mg Tab) 12.5 mg PO QAM [facility] Stop: 09/24/24 10:29 Last Admin: 08/25/24 12:20 Dose: 12.5 mg Documented By: OO Discontinued Medications Albuterol (Albuterol Hfa 8 Gm Inhaler) 2 puffs INH NOW ONE Stop: 08/25/24 08:36 Last Admin: 08/25/24 09:04 Dose: 2 puffs Documented By: JACKIE Dexamethasone Sodium Phosphate (DexamethasonePf 10 Mg/Ml Vial) 10 mg IV NOW ONE Stop: 08/25/24 08:36 Last Admin: 08/25/24 08:59 Dose: 10 mg Documented By: CC Guaifenesin (Guaifenesin 600 Mg Tabcr) 600 mg PO NOW STA Stop: 08/25/24 08:36 Last Admin: 08/25/24 09:03 Dose: 600 mg Documented By: CC Magnesium Sulfate/Dextrose (Magnesium Sulfate / D5w) 1 gm in 100 mls @ 100 mls/hr IV NOW STA Stop: 08/25/24 09:36 Last Infusion: 08/25/24 10:10 Dose: Infused Documented By: Admin: 08/25/24 08:56 Dose: 100 mls/hr Documented By: CC Sodium Chloride (Nss) 500 mls @ 80 mls/hr IV .Q6H15M [facility] Stop: 09/24/24 08:44 Last Infusion: 08/25/24 11:43 Dose: Infused Documented By: Infusion: 08/25/24 10:48 Dose: 0 mls/hr Documented By: Admin: 08/25/24 08:58 Dose: 80 mls/hr Documented By: CC Ipratropium [place] (Ipratropium [place] Hfa Inhaler) 2 puffs INH NOW STA Stop: 08/25/24 08:36 Last Admin: 08/25/24 09:27 Dose: 2 puffs Documented By: CC Imaging Data Radiologist's Impression: Chest X-Ray 08/25/24 06:53 SINGLE VIEW CHEST CLINICAL HISTORY: Atypical chest pain FINDINGS: An AP, portable, upright chest radiograph is compared to study dated 08/08/2023 and correlated with chest CT dated 06/25/2024. The heart is markedly enlarged noting atherosclerotic calcification of the thoracic aorta. The pulmonary vasculature is noncongested. Emphysema and chronic interstitial thickening is similar to previous. No airspace consolidation or large pleural effusion is identified. There is bibasilar scarring/atelectasis. Numerous pulmonary nodules seen by CT are not appreciated on x-ray. No pneumothorax is seen. The skeletal structures are osteopenic. The bony thorax is grossly intact. IMPRESSION: Cardiomegaly and emphysema with no active disease in the chest. ACT 112: Negative or not required by law. Electronically signed by: Juvencio Aragon M.D. 08/25/2024 8:12 AM Discharge Plan Visit Data Chief Complaint: Shortness of Breath/Dyspnea Stated Complaint: LOW OXYGEN LEVELS BELOW 88,COUGH,COVID EXPOSURE ED Provider: Roberto Ventura Discharge Problem: Acute respiratory failure with hypoxia, COVID-19, COPD (chronic obstructive pulmonary disease) Patient Disposition: Admitted As Inpatient Discharge Instructions Interventions: ED Discharge Assessment Last Done: 08/25/24 09:48 Discharge Problem: COPD (chronic obstructive pulmonary disease) Qualifiers: COPD type: COPD with acute exacerbation Qualified Code(s): J44.1 - Chronic obstructive pulmonary disease with (acute) exacerbation
[2024-08-25 08:02] LABS: INR 1.2 (0.9-1.1); Prothrombin Time 13.2 Seconds (9.0-12.0)
--- NOTE | 2024-08-25 08:13 | XRay Report ---
SINGLE VIEW CHEST CLINICAL HISTORY: Atypical chest pain FINDINGS: An AP, portable, upright chest radiograph is compared to study dated 08/08/2023 and correlate d with chest CT dated 06/25/2024. The heart is markedly enlarged noting atherosclerotic calcification of the thoracic aorta. The pulmonary vasculature is noncongested. Emphysema and chronic interstitial thickening is similar to previous. No airspace consolidation or large pleural effusion is identified. There is bibasilar scarring/atelectasis. Numerous pulmonary nodules seen by CT are not appreciated o n x-ray. No pneumothorax is seen. The skeletal structures are osteopenic. The bony thorax is grossly intact. IMPRESSION: Cardiomegaly and emphysema with no active disease in the chest. ACT 112: Negative or not required by law. Electronically signed by: Juvencio Aragon M.D. 08/25/2024 8:12 AM
[2024-08-25 08:35] LABS: Adenovirus PCR Not Detected (NotDetected); Bordetella parapertussis PCR Not Detected (NotDetected); Bordetella pertussis PCR Not Detected (NotDetected); Chlamydia pneumoniae PCR Not Detected (NotDetected); Coronavirus 229E PCR Not Detected (NotDetected); Coronavirus CoV-2 (COVID19)PCR DETECTED (NotDetected); Coronavirus HKU1 PCR Not Detected (NotDetected); Coronavirus NL63 PCR Not Detected (NotDetected); Coronavirus OC43PCR Not Detected (NotDetected); Human Metapneumovirus PCR Not Detected (NotDetected); Influenza A PCR Not Detected (NotDetected); Influenza B PCR Not Detected (NotDetected); Mycoplasma pneumoniae PCR Not Detected (NotDetected); Parainfluenza Virus 1 PCR Not Detected (NotDetected); Parainfluenza Virus 2 PCR Not Detected (NotDetected); Parainfluenza Virus 3 PCR Not Detected (NotDetected); Parainfluenza Virus 4 PCR Not Detected (NotDetected); Respiratory Syncytial VirusPCR Not Detected (NotDetected); Rhinovirus/Enterovirus PCR Not Detected (NotDetected)
--- NOTE | 2024-08-25 08:50 | History & Physical Report ---
Date of Service August 25, 2024 Assessment & Plan (1) COVID-19: Plan: Presents with 2 days of sore throat, nasal congestion, and worsening shortness of breath and cough productive of green sputum. Mild headache but no objective fever. Tested positive for COVID-19 on admission. His is currently hospitalized with COVID-19 With acute respiratory failure with hypoxemia-requiring 5 L nasal cannula on admission There is no longer renal dosing for Remdesivir-start Remdesivir 20 mg daily followed by 100 mg daily x 4 days or until discharge Start dexamethasone 6 mg IV once daily Supplemental O2 to keep pulse ox greater than 89% and wean off as able to. Will need two-step walk test prior to discharge Supportive care Tylenol as needed for fever or pain Flutter valve, incentive spirometry, and scheduled DuoNebs (2) Acute respiratory failure with hypoxia: Plan: Secondary to COVID-19 with bronchitis and acute COPD exacerbation. Chest x-ray negative for pneumonia Giving steroids, nebs, pulmonary toilet, supplemental O2 as above (3) Thrombocytopenia: Plan: Low platelets in the 80s, he has had a history of low platelets in the past. Likely secondary to viral illness Follow CBC (4) Elevated troponin: Plan: Troponin mildly elevated on admission at 59 with 2-hour repeat at 58 No chest pain, ECG without acute ischemic changes Suspect myocardial demand ischemia in the setting of acute respiratory failure with hypoxia and COVID-19 illness Trend serial troponin No need for echocardiogram (5) HFrEF (heart failure with reduced ejection fraction): Plan: Stable at this time but does have significant cardiomegaly on chest x-ray. He is essentially at his baseline weight Stop IV fluids being given in the ER Continue home spironolactone, Entresto, carvedilol. He is not on SGLT2i due to cost Daily weights, low-sodium diet Lasix as needed for volume overload or weight gain (6) Atrial fibrillation: Plan: Permanent atrial fibrillation, rates are controlled Continue carvedilol and Eliquis Follow on telemetry (7) COPD (chronic obstructive pulmonary disease): Plan: With acute COPD exacerbation as above from COVID-19 Giving steroids, pulmonary toilet, nebulizers Continue home maintenance inhalers Plan Glaucoma-continue home eyedrops Hyperlipidemia-continue atorvastatin CAD-history of CAD s/p inferior STEMI in 2019 with 2 BJ to RCA-continue apixaban, atorvastatin, carvedilol, no acute issues Carotid artery stenosis-severe left ICA stenosis-he has declined surgical intervention. It is asymptomatic. Continue apixaban and atorvastatin CKD stage III-creatinine at baseline at 1.6. Renally dose medications and avoid nephrotoxins. Follow BMP Current smoker-still smoking 1 or 2 cigarettes a week-encourage cessation HTN-blood pressures are acceptable. Continue carvedilol, Entresto, spironolactone DVT prophylaxis-Eliquis Disposition-admit to PCU, consult PT/OT History of Present Illness Chief Complaint: Shortness of breath, low oxygen levels Primary Care Provider: Cami Grossman, This patient is a 78-year-old male with a history of CAD s/p inferior STEMI in 2019 with 2 BJ to RCA, HFrEF/ischemic CM with EF 35-40%, permanent A-fib on Eliquis, COPD, severe left ICA stenosis, HTN, moderate-severe pulmonary HTN and right-sided heart failure, moderate MR, CKD stage III, GI bleed who presents to the hospital with worsening shortness of breath and hypoxia at home to the 70s. His is currently hospitalized with COVID. In the ER, he was 86% on room air and was placed on 3L NC supplemental O2. Chest x-ray negative for pneumonia but shows cardiomegaly and emphysema. His troponin was mildly elevated and his BNP was elevated but he actually appeared dry to the ER physician and was given a small amount of IV fluids. Bio Safend respiratory panel was pending at the time of admission but later came back positive for COVID-19. He will be admitted for acute respiratory failure with hypoxemia in the setting of COVID-19 Allergies Allergy/AdvReac Type Severity Reaction Status Date / Time No Known Drug Allergies Allergy Unknown . Verified 08/25/24 09:57 Home Medications Medication Instructions Recorded Confirmed Type latanoprost 0.005 % eye drops 1 drp OPB HS 08/31/19 08/25/24 History albuterol sulfate 90 mcg/actuation 2 puff inhalation Q4H PRN 07/03/23 08/25/24 History aerosol inhaler (Ventolin HFA) Shortness Of Breath nitroglycerin 0.4 mg sublingual 0.4 mg sublingual UD PRN Chest Pain 07/03/23 08/25/24 History tablet carvedilol 3.125 mg tablet 3.125 mg PO BID #180 tabs 07/26/23 08/25/24 Rx timolol maleate 0.5 % eye drops 1 drp OPB QAM 08/05/23 08/25/24 History spironolactone 25 mg tablet 12.5 mg (1/2 x 25 mg) PO QAM #30 08/09/23 08/25/24 Rx tabs apixaban 2.5 mg tablet (Eliquis) 2.5 mg PO BID 08/26/23 08/25/24 History cyanocobalamin (vitamin B-12) 500 1,000 mcg (2 x 500 mcg) PO QAM 10/11/23 08/25/24 Rx mcg tablet #180 tabs ferrous sulfate 325 mg (65 mg 325 mg PO BIDM #180 tabs 10/11/23 08/25/24 Rx iron) tablet,delayed release folic acid 400 mcg tablet 400 mcg PO QAM #90 tabs 10/11/23 08/25/24 Rx fluticasone 250 mcg-salmeterol 50 1 inh inhalation BID #60 ea 04/13/24 08/25/24 Rx mcg/dose blistr powdr for inhalation (Advair Diskus) furosemide 40 mg tablet 40 mg PO DAILY PRN Weight gain, 04/21/24 08/25/24 Rx sob, edema #90 tabs pantoprazole 40 mg tablet,delayed 40 mg PO BID #180 tabs 06/02/24 08/25/24 Rx release atorvastatin 80 mg tablet 80 mg PO HS #90 tabs 08/12/24 08/25/24 Rx sacubitril 49 mg-valsartan 51 mg 1 tab PO BID 08/20/24 08/25/24 History tablet (Entresto) Past Med/Surg History Problem List (Updated 08/25/24 @ 19:05 by Nasra López MD) Acute respiratory failure with hypoxia COVID-19 Elevated troponin Thrombocytopenia History of ST elevation myocardial infarction (STEMI) (08/2019) Atrial fibrillation B12 deficiency Lung nodule, multiple Colon polyp Non-ST elevation NM (NSTEMI) (Acute) Anemia Mitral regurgitation HFrEF (heart failure with reduced ejection fraction) Heme positive stool Periorbital edema Carotid stenosis Carotid artery disease Coronary artery disease COPD (chronic obstructive pulmonary disease) inhaler daily/prn HLD (hyperlipidemia) CKD (chronic kidney disease) stage 3, GFR 30-59 ml/min Tobacco abuse History of SCC (squamous cell carcinoma) of skin Glaucoma Hypertension Rheumatic fever Medical History Osteoarthritis Myocardial Infarction 2018--had heart cath with 2 BJ placed--follows with Dr. Elizabeth History of COVID-19 12/2022--mild symptoms, no symptoms now Surgical History History of tooth extraction all teeth History of heart artery stent (08/2019) 2 BJ placed 08/2019 @ [facility] History of cataract extraction bilateral Family History Father Rheumatic heart disease Mother Pleurisy Other No family history of adverse response to anesthesia Social History Smoking Status: Light tobacco smoker Tobacco Type: Cigarettes Age Started Using Tobacco: 17; packs per day: 1; Cigarettes Per Day: "not even a pack a week" (advised on policy); Second Hand Exposure: No; Do You Dip or Chew Tobacco: No; Tobacco Cessation Education Requested by Patient: No Hx Alcohol Use: No Hx Substance Use: No Preferred Language: Uzbek Communication Ability: Effective Visual Impairment: No Limitations Hearing Ability: Normal 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 Beliefs That Will Affect Care: None marital status: Current Living Situation: Spouse current occupational status: retired current occupation: [employer] How many Children do You have: 3 How many Children do You have Comment: 2 daughters, 1 son Other Information That Helps Us Care for You: No Feels Safe at Home: Yes Safety Concerns: Feels Safe At This Time Childhood Exposure to Second-Hand Smoke: Yes Diet: regular Diet Comment: regular caffeine: Yes during the past year weight has: decreased > 10 lbs Dental Care, Regularly: No Physical Activity Frequency: Does not Exercise Seatbelt Use: always Sunscreen Use: Yes Assistive Devices: Denture - Upper, Denture - Lower and Glasses Review of Systems Review of Systems: All systems reviewed & are unremarkable except as noted in HPI & below Physical Exam Constitutional: + thin; no acute distress Eyes: + anicteric sclerae Neck: trachea midline, no thyromegaly Respiratory: normal respiratory effort; no cough Auscultation: + wheezes (Mild expiratory bilateral); no crackles and no rhonchi Cardiovascular: Rate/Rhythm: regular rate and + irregularly irregular Heart Sounds: no murmur Vessels: dorsalis pedis pulses present Extremities: no edema Chest (Breasts): Chest: normal inspection of chest Gastrointestinal (Abdomen): normal bowel sounds, soft, nontender, no hepatosplenomegaly Musculoskeletal: Extremities: extremities normal to inspection; no cyanosis and no clubbing Skin: no rashes, warm and dry Neurologic: moves all extremities and awake; no focal motor deficits Psychiatric: A+Ox3, euthymic affect Lymphatic: no lymphedema Results & Data Results & Data Vital Signs (Past 12 Hours) Vital Signs Temp Pulse Pulse Resp BP BP Pulse Ox 08/25/24 08:15 81 08/25/24 07:23 99 08/25/24 07:22 84 16 153/95 H 98 08/25/24 07:20 08/25/24 06:49 36.8 C 95 H 27 H 149/90 H 86 L O2 Del Method O2 Flow Rate 08/25/24 08:15 08/25/24 07:23 Nasal Cannula 5 08/25/24 07:22 Nasal Cannula 3 08/25/24 07:20 Nasal Cannula 3 08/25/24 06:49 Room Air Laboratory Results CBC, PT/INR, CMP, troponin, BNP, lipase, bio fire viral respiratory panel all reviewed Diagnostic Findings Chest x-ray image personally reviewed by me ECG Additional Comments: ECG on 08/25/2024 at 707 with atrial fibrillation, rate 95, right axis deviation and RVH, old inferior and anterior infarcts, unchanged from previous Code Status & VTE Plan Code Status DNR/DNI VTE Prophylaxis Plan VTE Prophylaxis will be ordered: Yes PG Care Time/CCT Total # of Minutes Spent Total Time Spent with Patient: Total time spent is greater than 50% in coordination of care (as documented) at patient's floor/unit and/or counseling patient: Coding Level of Care Code 31403 INT INP/OBS CARE 3/75MIN Diagnoses COVID-19 U07.1 Acute respiratory failure with hypoxia J96.01 Thrombocytopenia D69.6 Elevated troponin R79.89 HFrEF (heart failure with reduced ejection fraction) I50.20 Atrial fibrillation I48.91 COPD (chronic obstructive pulmonary disease) J44.9
[2024-08-25] MEDS: MAGNESIUM SULFATE / D5W 1 GM/100 ML BAG IV STA (08:56)
[2024-08-25] MEDS: SODIUM CHLORIDE 0.9% 500 ML IV SCH (08:58)
[2024-08-25] MEDS: dexAMETHasone**PF** 10 MG/ML VIAL IV ONE (08:59)
[2024-08-25] MEDS: guaiFENesin 600 MG TABCR PO STA (09:03)
[2024-08-25] MEDS: ALBUTEROL HFA 8 GM INHALER INH ONE (09:04)
[2024-08-25] MEDS: IPRATROPIUM BROMIDE HFA INHALER INH STA (09:27)
[2024-08-25] MEDS ORDERED: ACETAMINOPHEN 325 MG TAB PO PRN (09:57)
[2024-08-25] MEDS ORDERED: NITROGLYCERIN SL 0.4 MG/TAB TAB SL PRN (09:57)
[2024-08-25] MEDS ORDERED: ALUMINUM/MAGNESIUM SUSP 30 ML UDC PO PRN (09:57)
[2024-08-25] MEDS ORDERED: ONDANSETRON INJ 2 MG/ML 2 ML VIAL IV PRN (09:57)
[2024-08-25] MEDS ORDERED: MAGNESIUM HYDROXIDE SUSP 30 ML UDC PO PRN (09:57)
[2024-08-25] MEDS ORDERED: POLYETHYLENE (MIRALAX) 17 GM PACK PO PRN (09:57)
[2024-08-25] MEDS: ALBUT/IPRATROP 3MG/0.5MG NEB 3 ML VIAL NEB SCH (11:39)
[2024-08-25] MEDS: SPIRONOLACTONE 12.5 MG TAB PO SCH (12:20)
[2024-08-25] MEDS: FLUTICASONE/VILANTEROL 100/25MCG 14 PUFFS/INHALER INH SCH (12:20)
[2024-08-25] MEDS: FOLIC ACID 400 MCG TAB PO SCH (12:21)
[2024-08-25] MEDS: VALSARTAN/SACUBITRIL 51/49 MG TAB PO SCH (12:21)
[2024-08-25] MEDS: PANTOprazole 40 MG TAB PO SCH (12:21)
[2024-08-25] MEDS: carvediloL 3.125 MG TAB PO SCH (12:21)
[2024-08-25] MEDS: APIXABAN 2.5 MG TAB PO SCH (12:22)
[2024-08-25] MEDS: CYANOCOBALAMIN (B-12) 500 MCG TABLET PO SCH (12:22)
[2024-08-25] MEDS: FERROUS SULFATE 325 MG TAB PO SCH (16:53)
[2024-08-25] MEDS: ATORVASTATIN 40 MG TAB PO SCH (20:11)
[2024-08-25] MEDS: REMDESIVIR 200 MG in SODIUM CHLORIDE 0.9% 210 ML IV STA (20:11)
[2024-08-25] MEDS: LATANOPROST 0.005% OP SOLN 2.5 ML BTL OPB SCH (22:29)
[2024-08-26 08:05] VITALS: TEMP 97.2
[2024-08-26 08:42] LABS: BUN Creatinine Ratio 23.4 (10-20); C Reactive Protein 2.62 mg/dl (0-0.5); Creatinine Clr Calc Pharmacy 32.6 ml/min; Est GFR (African American) 57.3 ml/min; Est GFR (Non-African American) 49.4 ml/min; Magnesium 1.9 mg/dl (1.7-2.4); Potassium 4.3 mmol/L (3.5-5.1)
[2024-08-26 08:44] LABS: Hematocrit (blood only) 36.8 % (42.0-52.0); Hemoglobin 12.7 g/dl (14.0-18.0); Immature Granulocytes # (auto) 0.02 K/uL (0.01-0.20); Immature Granulocytes % (auto) 0.3 %; Lymphocytes # (auto) 0.43 K/uL (1.20-3.40); Lymphocytes % (auto) 7.4 %; Mean Corpuscular Hemoglobin 30.8 pg (25.0-34.0); Mean Corpuscular Hgb Conc 34.5 g/dL (32.0-36.0); Mean Corpuscular Volume 89.1 fL (80.0-100.0); Mean Platelet Volume 12.4 fL (9.4-12.4); Monocytes # (auto) 0.37 K/uL (0.11-0.59); Monocytes % (auto) 6.4 %; Neutrophils # (auto) 4.99 K/uL (1.40-6.50); Neutrophils % (auto) 85.9 %; Platelet Count 91 K/uL (130-400); RDW Standard Deviation 48.8 fL (36.4-46.3); Red Blood Count 4.13 M/uL (4.70-6.10); White Blood Count 5.81 K/ul (4.8-10.8)
[2024-08-26] MEDS: dexAMETHasone 6 MG in SYRINGE 0 ML IV SCH (08:50)
[2024-08-26 11:56] VITALS: BP 102/63; PULSE 85; RESP 18; O2SAT 92
--- NOTE | 2024-08-26 12:44 | Communication Note ---
Date of Service: August 26, 2024 By CMS guidelines, a determination that the admission or continued stay is not medically necessary has been made by a member of the UR committee and a physician for this hospital stay, therefore a Code 44 will be completed and the Inpatient admission will be changed to outpatient.
--- NOTE | 2024-08-26 12:48 | Discharge Summary ---
Discharge Summary Date of Service August 26, 2024 Principal Dx & Hospital Course #1 = Principal Diagnosis (1) COVID-19: Presents with 2 days of sore throat, nasal congestion, and worsening shortness of breath and cough productive of green sputum. Mild headache but no objective fever. Tested positive for COVID-19 on admission. His is currently hospitalized with COVID-19 With acute respiratory failure with hypoxemia-requiring 5 L nasal cannula on admission and now weaned to room air at rest and 2LNC with exertion on 2 step walk test Was treated with 1 dose of Remdesevir and 2 doses of IV dexamethasone and felt tremendously better Will not give paxlovid on discharge due to too many interactions with critical medications he needs at home and already rapidly improving COntinue dexamethasone 6 mg po once daily to complete a 10 day course after discharge Flutter valve, incentive spirometry, and bronchodilator inhalers after discharge (2) Acute respiratory failure with hypoxia: Secondary to COVID-19 with bronchitis and acute COPD exacerbation. Chest x-ray negative for pneumonia Giving steroids, nebs, pulmonary toilet, supplemental O2 as above-needs 2LNC with exertion on discharge (3) Thrombocytopenia: Low platelets in the 80s, he has had a history of low platelets in the past. Likely secondary to viral illness Platelets up to91 on day of discharge-expect will continue to improve f/u with PCP (4) Elevated troponin: Troponin mildly elevated on admission at 59 with 2-hour repeat at 58, then down to 39 No chest pain, ECG without acute ischemic changes Suspect myocardial demand ischemia in the setting of acute respiratory failure with hypoxia and COVID-19 illness No need for echocardiogram (5) HFrEF (heart failure with reduced ejection fraction): Stable at this time but does have significant cardiomegaly on chest x-ray. He is at his baseline weight Continue home spironolactone, Entresto, carvedilol. He is not on SGLT2i due to cost Daily weights, low-sodium diet after discharge Lasix as needed for volume overload or weight gain as outpt (6) Atrial fibrillation: Permanent atrial fibrillation, rates are controlled Continue carvedilol and Eliquis (7) COPD (chronic obstructive pulmonary disease): With acute COPD exacerbation as above from COVID-19 Gave steroids, pulmonary toilet, nebulizers Continue home maintenance inhalers and albuterol prn after discharge Plan Glaucoma-continue home eyedrops Hyperlipidemia-continue atorvastatin CAD-history of CAD s/p inferior STEMI in 2019 with 2 BJ to RCA-continue apixaban, atorvastatin, carvedilol, no acute issues Carotid artery stenosis-severe left ICA stenosis-he has declined surgical intervention. It is asymptomatic. Continue apixaban and atorvastatin CKD stage III-creatinine at baseline at 1.6 on admission and actually down to 1.3 on day of discharge. Renally dose medications and avoid nephrotoxins. Follow BMP as outpt Current smoker-still smoking 1 or 2 cigarettes a week-encouraged cessation after discharge HTN-blood pressures are acceptable. Continue carvedilol, Entresto, spironolactone DVT prophylaxis-Eliquis Disposition-stable for dc to home with supplemental O2 Notes For Next Care Provider None Medication Changes From Visit Added dexamethasone 6mg po daily x 8 more days Admission HPI Per Admitting Provider This patient is a 78-year-old male with a history of CAD s/p inferior STEMI in 2019 with 2 BJ to RCA, HFrEF/ischemic CM with EF 35-40%, permanent A-fib on Eliquis, COPD, severe left ICA stenosis, HTN, moderate-severe pulmonary HTN and right-sided heart failure, moderate MR, CKD stage III, GI bleed who presents to the hospital with worsening shortness of breath and hypoxia at home to the 70s. His is currently hospitalized with COVID. In the ER, he was 86% on room air and was placed on 3L NC supplemental O2. Chest x-ray negative for pneumonia but shows cardiomegaly and emphysema. His troponin was mildly elevated and his BNP was elevated but he actually appeared dry to the ER physician and was given a small amount of IV fluids. Bio fire respiratory panel was pending at the time of admission but later came back positive for COVID-19. He will be admitted for acute respiratory failure with hypoxemia in the setting of COVID-19 Discharge Exam Constitutional + thin; no acute distress Eyes + anicteric sclerae Neck trachea midline, no thyromegaly Respiratory normal respiratory effort; no cough Auscultation: + wheezes (Mild expiratory bilateral); no crackles and no rhonchi Cardiovascular Rate/Rhythm: regular rate and + irregularly irregular Heart Sounds: no murmur Extremities: no edema Chest (Breasts) Chest: normal inspection of chest Musculoskeletal Extremities: extremities normal to inspection; no cyanosis and no clubbing Skin no rashes, warm and dry Neurologic moves all extremities and awake; no focal motor deficits Psychiatric A+Ox3, euthymic affect Lymphatic no lymphedema Discharge Plan Discharge Items Patient Disposition: Home - Self-Care Reason For Visit: respiratory failure, COVID Discharge Diagnosis: Acute respiratory failure with hypoxemia COVID-19 COPD exacerbation Activity: As commented below Lifting: Gradually increase as tolerated Bathing: No limitations Exercise/Sports: Gradually increase as tolerated Non-emergency contact: Primary Care Provider Call non-emergency contact if: you have any medication questions and your symptoms worsen Follow-up/Referrals: Cami Grossman DO [Primary Care Provider] - (Follow up within 1-2 weeks) Diet: Heart Healthy Addtl Attending Provider Instructions: Please finish out 8 more days of the steroid pill called dexamethasone for your low oxygen levels and COVID. You will need to wear 2L via the nasal cannula only when you are up and about, walking around. Otherwise, you can remove the oxygen when at rest. Pending Studies at Discharge: No Stand-Alone Forms: My [facility] [employer] Render, Smoking Cessation Medications and DC Order Prescriptions: New dexamethasone 6 mg tablet 6 mg PO DAILY Qty: 8 0RF Continued carvedilol 3.125 mg tablet 3.125 mg PO BID Qty: 180 3RF Hold Instructions: To be determined by your physicians on follow up visit Rx Instructions: must administer with a meal/food ferrous sulfate 325 mg (65 mg iron) tablet,delayed release (DR/EC) 325 mg PO BIDM Qty: 180 1RF folic acid 400 mcg tablet 400 mcg PO QAM Qty: 90 1RF cyanocobalamin (vitamin B-12) 500 mcg tablet 1,000 mcg PO QAM Qty: 180 1RF fluticasone propion-salmeterol [Advair Diskus] 250-50 mcg/dose blister with device 1 inh inhalation BID Qty: 60 5RF atorvastatin 80 mg tablet 80 mg PO HS Qty: 90 1RF Eliquis 2.5 mg tablet 2.5 mg PO BID furosemide 40 mg tablet 40 mg PO DAILY PRN (Reason: Weight gain, sob, edema) Qty: 90 3RF pantoprazole 40 mg tablet,delayed release (DR/EC) 40 mg PO BID Qty: 180 1RF Entresto 49-51 mg tablet 1 tab PO BID latanoprost 0.005 % drops 1 drp OPB HS nitroglycerin 0.4 mg Tablet, Sublingual 0.4 mg sublingual UD PRN (Reason: Chest Pain) albuterol sulfate [Ventolin HFA] 90 mcg/actuation Hfa Aerosol Inhaler 2 puff INHALATION Q4H PRN (Reason: Shortness Of Breath) timolol maleate 0.5 % drops 1 drp OPB QAM Rx Instructions: right eye spironolactone 25 mg tablet 12.5 mg PO QAM Qty: 30 0RF Discharge Orders: Discharge Order (Routine); Ordered 08/26/24 Ordered By: Nasra Chacon/Other Patient Handouts: Chronic Lung Disease Nutrition Admission Data Admit Date/Time: 08/25/24 09:00 Attending Provider: Nasra López Admit Provider: Nasra López Primary Care Provider: Cami Grossman Other Providers: Nasra López Hospital Stay Data Consultations 08/25/24 09:40 ED Decision to Admit Stat Pending Results Patient Have Any Pending Studies at Discharge: No Discharge Instructions Given to Patient (Per Discharging Provider) Please finish out 8 more days of the steroid pill called dexamethasone for your low oxygen levels and COVID. You will need to wear 2L via the nasal cannula only when you are up and about, walking around. Otherwise, you can remove the oxygen when at rest. Total Time Total Time Spent Total Time Spent (In Minutes): 35 min Total Time Includes: Examination of the Patient, Discharge Planning and Medication Reconciliation Coding Level of Care Code 59182 INP/OBS DISCH >30 MIN Diagnoses COVID-19 U07.1 Acute respiratory failure with hypoxia J96.01 Thrombocytopenia D69.6 Elevated troponin R79.89 HFrEF (heart failure with reduced ejection fraction) I50.20 Atrial fibrillation I48.91 COPD (chronic obstructive pulmonary disease) J44.1 COPD type: COPD with acute exacerbation
[2024-08-26] MEDS ORDERED: REMDESIVIR 100 MG in SODIUM CHLORIDE 0.9% 230 ML IV SCH (20:00)
--- NOTE | 2024-08-27 22:13 | Electrocardiogram Report ---
Test Reason : Blood Pressure : */* mmHG Vent. Rate : 95 BPM Atrial Rate : * BPM P-R Int : * ms QRS Dur : 76 ms QT Int : 370 ms P-R-T Axes : * 269 -27 degrees QTcB Int : 464 ms Atrial fibrillation Right superior axis deviation Inferior infarct (cited on or before 31-Aug-2019) Anterior infarct (cited on or before 31-Aug-2019) Abnormal ECG When compared with ECG of 06-Aug-2023 17:30, Premature ventricular complexes are no longer Present Confirmed by Ranjith Aldana ([id number]) on 08/27/2024 10:13:31 PM Referred By: REFERRED SELF Confirmed By: Ranjith Aldana
== END 2024-08-26 15:48 | disposition home or self-care (01) | DRG 177 ==
LOC: ED 06:43 → EDINP 09:00 → 2S 09:48

== ENCOUNTER 2024-12-14 11:49 | Inpatient (IN) ==
--- NOTE | 2024-12-14 12:25 | Emergency Department Note ---
History of Present Illness General Chief complaint: Shortness of Breath/Dyspnea Stated complaint: LOW OXYGEN, WEAK/HARD TO WALK, DEHYDRATION, SOB Time Seen by Provider: 12/14/24 12:05 History of Present Illness Patient is a 79-year-old male with past medical history significant for hypertension, COPD, CKD, dyslipidemia, coronary artery disease, CHF, atrial fibrillation on Eliquis, among other chronic medical problems who presents to the emergency department for evaluation of weakness, malaise, cough and shortness of breath. His symptoms started over the last 2 or 3 days. On Saturday, he reports that he "just did not feel well." He felt a little weak, like he was getting sick, but nothing specific. He subsequently developed a cough that is productive of yellow sputum with progressively worsening shortness of breath. He admits to anorexia and some diarrhea. No vomiting. No fevers. A daughter tested positive for influenza A recently and he was in close contact with her. They have been watching his oxygen saturation levels at home, they were in the low 90s yesterday, but today documented 83% and they thus present here for evaluation. He feels similar to when he was admitted last August with COVID. He is on Advair chronically and has an albuterol inhaler, but did not use the inhaler over the weekend when he began to feel short of breath. He previously has required oxygen, had home oxygen after his admission with COVID last fall, but no longer has it at home. No other medication changes recently. He is not vaccinated for influenza. No recent COVID boosters. Home Medications Medication Instructions Recorded Confirmed Type latanoprost 0.005 % eye drops 1 drp OPB HS 08/31/19 12/14/24 History albuterol sulfate 90 mcg/actuation 2 puff inhalation Q4H PRN 07/03/23 12/14/24 History aerosol inhaler (Ventolin HFA) Shortness Of Breath nitroglycerin 0.4 mg sublingual 0.4 mg sublingual UD PRN Chest Pain 07/03/23 12/14/24 History tablet carvedilol 3.125 mg tablet 3.125 mg PO BID #180 tabs 07/26/23 12/14/24 Rx timolol maleate 0.5 % eye drops 1 drp OPR QAM 08/05/23 12/14/24 History apixaban 2.5 mg tablet (Eliquis) 2.5 mg PO BID 08/26/23 12/14/24 History cyanocobalamin (vitamin B-12) 500 1,000 mcg (2 x 500 mcg) PO QAM 10/11/23 12/14/24 Rx mcg tablet #180 tabs ferrous sulfate 325 mg (65 mg 325 mg PO BIDM #180 tabs 10/11/23 12/14/24 Rx iron) tablet,delayed release folic acid 400 mcg tablet 400 mcg PO QAM #90 tabs 10/11/23 12/14/24 Rx atorvastatin 80 mg tablet 80 mg PO HS #90 tabs 08/12/24 12/14/24 Rx fluticasone 250 mcg-salmeterol 50 1 inh inhalation BID #60 ea 10/12/24 12/14/24 Rx mcg/dose blistr powdr for inhalation (Advair Diskus) pantoprazole 40 mg tablet,delayed 40 mg PO BID #180 tabs 11/24/24 12/14/24 Rx release furosemide 40 mg tablet 40 mg PO DAILY PRN Weight gain, 12/14/24 12/14/24 History sob, edema sacubitril 49 mg-valsartan 51 mg 1 tab PO BID 12/14/24 12/14/24 History tablet (Entresto) Allergies Allergy/AdvReac Type Severity Reaction Status Date / Time No Known Drug Allergies Allergy Unknown . Verified 12/14/24 14:58 Past Med/Surg History Problem List (Updated 12/14/24 @ 20:08 by Abdirizak Briseno) Hypoxia (Acute) Influenza A (Acute) Acute exacerbation of chronic obstructive pulmonary disease (Acute) Elevated troponin Hypoxia Influenza A Thrombocytopenia History of ST elevation myocardial infarction (STEMI) (08/2019) Atrial fibrillation B12 deficiency Lung nodule, multiple Colon polyp Non-ST elevation CT (NSTEMI) (Acute) Anemia Mitral regurgitation HFrEF (heart failure with reduced ejection fraction) Heme positive stool Periorbital edema Carotid stenosis Carotid artery disease Coronary artery disease COPD (chronic obstructive pulmonary disease) (Acute) inhaler daily/prn HLD (hyperlipidemia) CKD (chronic kidney disease) stage 3, GFR 30-59 ml/min Tobacco abuse History of SCC (squamous cell carcinoma) of skin Glaucoma Hypertension Rheumatic fever Medical History COVID-19 (08/2024) Acute respiratory failure with hypoxia Osteoarthritis Myocardial Infarction 2018--had heart cath with 2 BJ placed--follows with Dr. Elizabeth History of COVID-19 12/2022--mild symptoms, no symptoms now Surgical History History of tooth extraction all teeth History of heart artery stent (08/2019) 2 BJ placed 08/2019 @ [facility] History of cataract extraction bilateral Family History Father Rheumatic heart disease Mother Pleurisy Other No family history of adverse response to anesthesia Social History Smoking Status: Former smoker Tobacco Type: Cigarettes Age Started Using Tobacco: 17; packs per day: 1; Cigarettes Per Day: "not even a pack a week" (advised on policy); Second Hand Exposure: Yes; Do You Dip or Chew Tobacco: No; Hx Alcohol Use: No Hx Substance Use: No Preferred Language: Kuwaiti Communication Ability: Effective Visual Impairment: No Limitations Hearing Ability: Normal Second Ride Fare Collector Required: No Beliefs That Will Affect Care: None marital status: Current Living Situation: Spouse current occupational status: retired current occupation: [employer] How many Children do You have: 3 How many Children do You have Comment: 2 daughters, 1 son Other Information That Helps Us Care for You: No Feels Safe at Home: Yes Safety Concerns: Feels Safe At This Time Childhood Exposure to Second-Hand Smoke: Yes Diet: regular Diet Comment: regular caffeine: Yes during the past year weight has: decreased > 10 lbs Dental Care, Regularly: No Physical Activity Frequency: Does not Exercise Seatbelt Use: always Sunscreen Use: Yes Assistive Devices: Denture - Upper and Denture - Lower Review of Systems A total of 10 systems reviewed and were otherwise negative Physical Exam Vital Signs Vital Signs - 24 hr 12/14/24 11:58 12/14/24 12:15 12/14/24 12:16 Temperature 37.1 C Temperature Source Oral Pulse Rate 93 H 86 Pulse Rate from SpO2 Sensor 92 H Pulse Rhythm Respiratory Rate 24 23 Respiratory Effort / Characteristics Short of Breath SOB on Exertion Short of Breath SOB on Exertion Blood Pressure 162/89 H Blood Pressure Mean 113 Pulse Oximetry 89 L 98 Oxygen Delivery Method Room Air Nasal Cannula Room Air Oxygen Flow Rate 4 Sepsis Recent Fever Within 48 Hours No Sepsis New/Unexplained Change in Mental Status No Sepsis Action Taken by Nursing No Action Required 12/14/24 12:16 12/14/24 12:18 12/14/24 12:20 Temperature Temperature Source Pulse Rate 90 90 Pulse Rate from SpO2 Sensor Pulse Rhythm Regular Respiratory Rate 24 Respiratory Effort / Characteristics Blood Pressure Blood Pressure Mean Pulse Oximetry 89 L 89 L Oxygen Delivery Method Room Air Room Air Oxygen Flow Rate Sepsis Recent Fever Within 48 Hours Sepsis New/Unexplained Change in Mental Status Sepsis Action Taken by Nursing 12/14/24 12:30 12/14/24 13:00 12/14/24 13:36 Temperature Temperature Source Pulse Rate 78 75 84 Pulse Rate from SpO2 Sensor 82 78 86 Pulse Rhythm Respiratory Rate 21 24 24 Respiratory Effort / Characteristics Blood Pressure Blood Pressure Mean Pulse Oximetry 99 97 98 Oxygen Delivery Method Nasal Cannula Nasal Cannula Nasal Cannula Oxygen Flow Rate 4 4 4 Sepsis Recent Fever Within 48 Hours Sepsis New/Unexplained Change in Mental Status Sepsis Action Taken by Nursing 12/14/24 13:42 12/14/24 14:09 Temperature Temperature Source Pulse Rate 81 94 H Pulse Rate from SpO2 Sensor 83 87 Pulse Rhythm Respiratory Rate 29 H 27 H Respiratory Effort / Characteristics Blood Pressure 145/69 H Blood Pressure Mean 94 Pulse Oximetry 97 97 Oxygen Delivery Method Nasal Cannula Nasal Cannula Oxygen Flow Rate 4 3 Sepsis Recent Fever Within 48 Hours Sepsis New/Unexplained Change in Mental Status Sepsis Action Taken by Nursing CONSTITUTIONAL: Chronically ill-appearing 79-year-old male who is awake and alert and sitting upright on the gurney. Family is at the bedside. Oxygen saturation 89% on room air in triage, he is 97% on 4 L by nasal cannula in the exam room. EYES: Pupils equal, round, reactive to light and accommodation. EOMs intact without nystagmus. Sclera are anicteric. ENT: Tympanic membranes intact, with normal landmarks. External canals are clear. Oral and nasopharynx are clear. Mucous membranes are moist, no lesions, tongue and gums appear normal. CARDIOVASCULAR: Irregular rate. No murmur appreciated. RESPIRATORY: Breath sounds markedly diminished with expiratory wheezes throughout. GI: Bowel sounds are present. Abdomen is soft, nontender, nondistended. No organomegaly. No pulsatile masses. No guarding or rebound. MUSCULOSKELETAL: Full range of motion of extremities x 4 with good strength. No cyanosis, edema, joint tenderness or swelling. No deformity. INTEGUMENTARY: No lesions or rash, normal skin turgor. Course Course The patient was seen and assessed as above. External medical records were reviewed, including recent [facility] notes and prior hospitalization. He presents to the emergency department for evaluation of malaise, shortness of breath and low oxygen saturation at home in the setting of COPD. He had a positive flu a contact. I would like was initiated. Laboratory studies were collected. He was treated with a DuoNeb. EKG and chest x-ray were obtained. Nasal cannula oxygen was supplemented. CBC with differential, CMP, coags, magnesium and upper respiratory BioFire were obtained. Patient reviewed with attending physician, Dr. Villalobos who agrees with the ED workup. Diagnostics, as interpreted by me: Laboratory studies: Normal white count at 6500, no left shift noted. H&H 13.8 and 42.5. Platelet count 84,000, which is chronic and stable for the patient. INR 1.3. Creatinine mildly elevated, 1.6 but chronic and stable for the patient. No electrolyte imbalance requiring correction. Mildly elevated troponin at 55.3. Upper respiratory BioFire is positive for influenza A. ECG: Atrial fibrillation 88 bpm, occasional PACs. No acute ischemic changes Cardiac Monitoring: Cardiac monitoring: An order was placed for continuous cardiac monitoring. The monitor shows a rate controlled A-fib in the 90s per my interpretation. Imaging studies: Chest x-ray chronic, emphysematous changes, no infiltrate, no consolidation to suspect pneumonia. Patient was reassessed after the first DuoNeb. He reported feeling improved with the breathing treatment. He was coughing more. All laboratory and diagnostic imaging studies were reviewed with him. Family was also present at the bedside and test results reviewed with them. He was ordered a second DuoNeb, Decadron IV and Tamiflu. After review of the information above and other included data, I feel the patient requires admission/observation for further care and management. He was agreeable. [facility] and patient reviewed with MAYTE Medina PA-C. Differential diagnosis: Viral illness, bronchitis, pneumonia, pneumothorax, COPD exacerbation, CHF, cardiac ischemia, pulmonary embolism, mass or malignancy, among others. Administered Medications Albuterol (Albut/Ipratrop 3mg/0.5mg Neb 3 Ml Vial) 3 ml INH Q6R CARLOS Stop: 01/13/25 18:59 Last Admin: 12/14/24 19:45 Dose: 3 ml Documented By: NORAH Discontinued Medications Albuterol (Albut/Ipratrop 3mg/0.5mg Neb 3 Ml Vial) 3 ml INH NOW STA Stop: 12/14/24 12:19 Last Admin: 12/14/24 12:39 Dose: 3 ml Documented By: ANÍBAL Albuterol (Albut/Ipratrop 3mg/0.5mg Neb 3 Ml Vial) 3 ml NEB NOW STA; Protocol Stop: 12/14/24 13:37 Last Admin: 12/14/24 13:54 Dose: 3 ml Documented By: ANÍBAL Carvedilol (Carvedilol 3.125 Mg Tab) 3.125 mg PO NOW STA Stop: 12/14/24 15:35 Last Admin: 12/14/24 15:46 Dose: Not Given Documented By: ORESTES Dexamethasone Sodium Phosphate (DexamethasonePf 10 Mg/Ml Vial) 10 mg IV NOW ONE Stop: 12/14/24 14:08 Last Admin: 12/14/24 14:37 Dose: 10 mg Documented By: ANÍBAL Oseltamivir Phosphate (Oseltamivir Phosphate 75 Mg Cap) 75 mg PO NOW STA; Protocol Stop: 12/14/24 14:13 Last Admin: 12/14/24 14:37 Dose: 75 mg Documented By: ANÍBAL Medical Decision Making Differential Diagnosis See ED course. Medical Records Attestation: I reviewed the patient's medical records. Home Medications Current Medication List: was personally reviewed by me Laboratory Data Attestation: I reviewed the patient's lab results. 12/14/24 12:10 12/14/24 12:10 Lab Results 12/14/24 12/14/24 12/14/24 Range/Units 12:10 12:13 14:05 WBC 6.52 (4.8-10.8) K/ul RBC 4.61 L (4.70-6.10) M/uL Hgb 13.8 L (14.0-18.0) g/dl Hct 42.5 (42.0-52.0) % MCV 92.2 (80.0-100.0) fL MCH 29.9 (25.0-34.0) pg MCHC 32.5 (32.0-36.0) g/dL RDW Std Deviation 50.9 H (36.4-46.3) fL RDW Coeff of Juice 15.0 H (11.5-14.5) % Plt Count 84 L (130-400) K/uL MPV 11.7 (9.4-12.4) fL Immature Gran % (Auto) 0.3 % Neut % (Auto) 81.6 % Lymph % (Auto) 6.9 % Mitchell % (Auto) 10.6 % Eos % (Auto) 0.0 % Baso % (Auto) 0.6 % Neut # (Auto) 5.32 (1.40-6.50) K/uL Lymph # (Auto) 0.45 L (1.20-3.40) K/uL Mitchell # (Auto) 0.69 H (0.11-0.59) K/uL Eos # (Auto) 0.00 (0.00-0.50) K/uL Baso # (Auto) 0.04 (0.00-0.20) K/uL Immature Gran # (Auto) 0.02 (0.01-0.20) K/uL PT 13.6 H (9.0-12.0) Seconds INR 1.3 H (0.9-1.1) APTT 31 (21-31) Seconds PTT Ratio 1.2 Sodium 141 (136-145) mmol/L Potassium 4.4 (3.5-5.1) mmol/L Chloride 108 H (98-107) mmol/L Carbon Dioxide 24 (21-32) mmol/L Anion Gap 9 (3-11) BUN 26 H (6-23) mg/dl Creatinine 1.61 H (0.6-1.4) mg/dl Est Cr Clr Drug Dosing Not Reportable eGFR 43.50 BUN/Creatinine Ratio 16.1 (10-20) Glucose 114 H (70-99(Fasting)) mg/dl Calcium 9.1 (8.6-10.3) mg/dl Magnesium 1.7 (1.7-2.4) mg/dl Total Bilirubin 1.5 H (0.2-1.0) mg/dl AST 20 (13-39) U/L ALT 12 (7-52) U/L Alkaline Phosphatase 79 (34-104) U/L Troponin I High Sens 55.3 H* 59.8 H* (0-20) pg/ml Total Protein 6.8 (6.0-8.3) gm/dl Albumin 4.2 (3.4-5.0) gm/dl Globulin 2.6 (2.5-4.0) gm/dl Albumin/Globulin Ratio 1.6 (0.9-2) Adenovirus (PCR) Not Detected (NotDetected) B. pertussis DNA (PCR) Not Detected (NotDetected) B.parapertussis DNA PCR Not Detected (NotDetected) C. pneumoniae DNA (PCR) Not Detected (NotDetected) Coronavirus OC43 (PCR) Not Detected (NotDetected) Coronavirus HKU1 (PCR) Not Detected (NotDetected) Coronavirus 229E (PCR) Not Detected (NotDetected) SARS-CoV-2 (PCR) Not Detected (NotDetected) Coronavirus NL63 (PCR) Not Detected (NotDetected) Human Metapneumovir PCR Not Detected (NotDetected) Influenza A (H3) PCR DETECTED A (NotDetected) Influenza Type B (PCR) Not Detected (NotDetected) M. pneumoniae (PCR) Not Detected (NotDetected) Parainfluenza 1 (PCR) Not Detected (NotDetected) Parainfluenza 2 (PCR) Not Detected (NotDetected) Parainfluenza 3 (PCR) Not Detected (NotDetected) Parainfluenza 4 (PCR) Not Detected (NotDetected) RSV (PCR) Not Detected (NotDetected) Entero/Rhino (PCR) Not Detected (NotDetected) Imaging Data Attestation: I personally reviewed and interpreted this imaging study as follows: Radiologist's Impression: Chest X-Ray 12/14/24 12:18 XR chest 1V portable CLINICAL HISTORY: Dyspnea. COMPARISON STUDY: Chest CT June 25, 2024. Chest radiograph August 25, 2024. FINDINGS: There is no pneumothorax. Blunting of the costophrenic angles is chronic. There is underlying emphysema. No consolidation is identified to suggest pneumonia. Cardiomegaly is unchanged. There is no evidence for pulmonary edema. Multiple pulmonary nodules are again noted. These are better depicted on CT of June 25, 2024. IMPRESSION: 1. No acute cardiopulmonary findings. 2. Cardiomegaly. 3. Emphysema. 4. Redemonstration of multiple indeterminate pulmonary nodules, better depicted on prior CT. ACT 112: Negative or not required by law. Electronically signed by: Jerome Kasper M.D. 12/14/2024 1:24 PM MDM Narrative See ED course Impression & Plan Hypoxia, Acute exacerbation of chronic obstructive pulmonary disease, Influenza A Discharge Plan Visit Data Chief Complaint: Shortness of Breath/Dyspnea Stated Complaint: LOW OXYGEN, WEAK/HARD TO WALK, DEHYDRATION, SOB ED Provider: Kathrin Villalobos ED Midlevel Provider: Abdirizak Briseno Discharge Problem: Hypoxia, Acute exacerbation of chronic obstructive pulmonary disease, Influenza A Patient Disposition: Admitted As Inpatient Discharge Instructions Interventions: ED Discharge Assessment Last Done: 12/14/24 16:40
[2024-12-14] MEDS: ALBUT/IPRATROP 3MG/0.5MG NEB 3 ML VIAL INH STA (12:39)
[2024-12-14 12:51] LABS: Basophils # (auto) 0.04 K/uL (0.00-0.20); Basophils % (auto) 0.6 %; Hematocrit (blood only) 42.5 % (42.0-52.0); Hemoglobin 13.8 g/dl (14.0-18.0); Immature Granulocytes # (auto) 0.02 K/uL (0.01-0.20); Immature Granulocytes % (auto) 0.3 %; Lymphocytes # (auto) 0.45 K/uL (1.20-3.40); Lymphocytes % (auto) 6.9 %; Mean Corpuscular Hemoglobin 29.9 pg (25.0-34.0); Mean Corpuscular Hgb Conc 32.5 g/dL (32.0-36.0); Mean Corpuscular Volume 92.2 fL (80.0-100.0); Mean Platelet Volume 11.7 fL (9.4-12.4); Monocytes # (auto) 0.69 K/uL (0.11-0.59); Monocytes % (auto) 10.6 %; Neutrophils # (auto) 5.32 K/uL (1.40-6.50); Neutrophils % (auto) 81.6 %; Platelet Count 84 K/uL (130-400); RDW Standard Deviation 50.9 fL (36.4-46.3); Red Blood Count 4.61 M/uL (4.70-6.10); White Blood Count 6.52 K/ul (4.8-10.8)
--- NOTE | 2024-12-14 12:57 | Emergency Department Note ---
ED Visit Note I was consulted by the Advanced Practice Provider. I personally made/approved the management plan and take responsibility for the patient management. This includes the aspects of: -History/Physical -MDM .
[2024-12-14 13:09] LABS: Alanine Aminotransferase 12 U/L (7-52); Albumin Globulin Ratio 1.6 (0.9-2); Albumin Level 4.2 gm/dl (3.4-5.0); Alkaline Phosphatase 79 U/L (34-104); Anion Gap 9 (3-11); Aspartate Aminotransferase 20 U/L (13-39); BUN Creatinine Ratio 16.1 (10-20); Bilirubin,Total 1.5 mg/dl (0.2-1.0); Blood Urea Nitrogen 26 mg/dl (6-23); Calcium 9.1 mg/dl (8.6-10.3); Carbon Dioxide 24 mmol/L (21-32); Chloride 108 mmol/L (98-107); Globulin 2.6 gm/dl (2.5-4.0); Glucose 114 mg/dl (70-99(Fasting)); Magnesium 1.7 mg/dl (1.7-2.4); Potassium 4.4 mmol/L (3.5-5.1); Sodium 141 mmol/L (136-145); Total Protein 6.8 gm/dl (6.0-8.3)
[2024-12-14 13:15] LABS: INR 1.3 (0.9-1.1); Partial Thromboplastin Ratio 1.2; Partial Thromboplastin Time 31 Seconds (21-31); Prothrombin Time 13.6 Seconds (9.0-12.0)
[2024-12-14 13:20] LABS: Troponin I High Sensitivity 55.3 pg/ml (0-20)
--- NOTE | 2024-12-14 13:25 | XRay Report ---
XR chest 1V portable CLINICAL HISTORY: Dyspnea. COMPARISON STUDY: Chest CT June 25, 2024. Chest radiograph August 25, 2024. FINDINGS: There is no pneumothorax. Blunting of the costophrenic angles is chronic. There is underlyi ng emphysema. No consolidation is identified to suggest pneumonia. Cardiomegaly is unchanged. There i s no evidence for pulmonary edema. Multiple pulmonary nodules are again noted. These are better depic yadi on CT of June 25, 2024. IMPRESSION: 1. No acute cardiopulmonary findings. 2. Cardiomegaly. 3. Emphysema. 4. Redemonstration of multiple indeterminate pulmonary nodules, better depicted on prior CT. ACT 112: Negative or not required by law. Electronically signed by: Jerome Kasper M.D. 12/14/2024 1:24 PM
[2024-12-14 13:29] LABS: Adenovirus PCR Not Detected (NotDetected); Bordetella parapertussis PCR Not Detected (NotDetected); Bordetella pertussis PCR Not Detected (NotDetected); Chlamydia pneumoniae PCR Not Detected (NotDetected); Coronavirus 229E PCR Not Detected (NotDetected); Coronavirus CoV-2 (COVID19)PCR Not Detected (NotDetected); Coronavirus HKU1 PCR Not Detected (NotDetected); Coronavirus NL63 PCR Not Detected (NotDetected); Coronavirus OC43PCR Not Detected (NotDetected); Human Metapneumovirus PCR Not Detected (NotDetected); Influenza A (H3) PCR DETECTED (NotDetected); Influenza B PCR Not Detected (NotDetected); Mycoplasma pneumoniae PCR Not Detected (NotDetected); Parainfluenza Virus 1 PCR Not Detected (NotDetected); Parainfluenza Virus 2 PCR Not Detected (NotDetected); Parainfluenza Virus 3 PCR Not Detected (NotDetected); Parainfluenza Virus 4 PCR Not Detected (NotDetected); Respiratory Syncytial VirusPCR Not Detected (NotDetected); Rhinovirus/Enterovirus PCR Not Detected (NotDetected)
[2024-12-14] MEDS: ALBUT/IPRATROP 3MG/0.5MG NEB 3 ML VIAL NEB STA (13:54)
--- NOTE | 2024-12-14 14:12 | History & Physical Report ---
Date of Service December 14, 2024 Assessment & Plan (1) Influenza A: Plan: Haroon is a 79-year-old male with PMH of HTN, rheumatic fever, glaucoma, HLD, CAD, STEMI, atrial fibrillation (on Eliquis), and B12 deficiency. He presented on 12/14 for SOB, productive cough, and weakness. Symptoms started on Saturday night(12/11), when he developed generalized malaise, but then progressed over the weekend to include SOB at rest/exertion, and productive cough. Home pulse ox w as around 83% on RA on the morning of admission. Influenza A (+) on arrival Supportive care Droplet isolation precautions Tamiflu BID Acetaminophen as needed for pain/fever DuoNeb 3 mL Q6R for wheezing (2) Hypoxia: Plan: Patient's SpO2 dropping to low 80% range in the ED on RA Supplemental oxygen as needed to maintain SpO2 89-92% Continuous pulse oximetry (3) Elevated troponin: Plan: Troponin 55-->59 on arrival; trend to peak Clinically, patient denies chest pain While patient does have significant cardiac history, suspect this may be demand ischemia in the setting of viral illness Continuous telemetry monitoring for now Plan Disposition: Admit to [facility] telemetry DNR/DNI Heart healthy diet VTE PPx: Eliquis History of Present Illness Chief Complaint: SOB/dyspnea Primary Care Provider: Cmai Grossman DO Haroon is a 79-year-old male with PMH of HTN, rheumatic fever, glaucoma, HLD, CAD, STEMI, atrial fibrillation (on Eliquis), and B12 deficiency. He presented on 12/14 for SOB, productive cough, and weakness. Patient's symptoms started on Saturday night, when he developed generalized malaise, but then progressed over the weekend. On Saturday, he reported both SOB at rest and with exertion as well as a hacking dry cough. He then developed productive cough the morning of Thursday 12/14. Patient's reports that his home pulse ox was around 83% on RA, and they decided to come to the emergency department. Patient was previously on supplemental oxygen following an episode of COVID in August 2024, but this was returned after he was doing okay in the fall. He does have a history of COPD, but is not currently on supplemental oxygen. No CPAP at night. He endorses both SOB at rest and with exertion, as well as wheezing. He does report that the DuoNebs in the emergency department helped significantly. No dizziness or lightheadedness with walking. One of the patient's daughters recently tested positive for influenza. Patient denies hemoptysis, pleuritic CP, or history of DVT/PE. He did not take his regular morning medicine today; no recent change in medications. He is a former tobacco cigarette smoker, but has been gradually decreasing the number of cigarettes per day. Patient quit entirely a few weeks ago; declines nicotine patch on arrival. He denies recent alcohol use. Patient is hypertensive at 145/69, and tachypneic at 27 RPM on admission; SpO2 is 97% on RA. ED course: Tamiflu 75 mg p.o. Decadron 10 mg IV DuoNeb 3 mL x 2 ROS: Patient endorses cold intolerance, SOB both at rest and with exertion, generalized fatigue, productive cough (yellow sputum production), wheezing, and diarrhea x 1 day. Patient denies fever, chills, night-sweats, body aches, chest pain, chest pressure, chest palpitations, nausea, vomiting, burning with urination, blood in the urine or stool, swelling in the legs, or numbness or tingling in the arms or legs. Allergies Allergy/AdvReac Type Severity Reaction Status Date / Time No Known Drug Allergies Allergy Unknown . Verified 12/14/24 14:58 Home Medications Medication Instructions Recorded Confirmed Type latanoprost 0.005 % eye drops 1 drp OPB HS 08/31/19 12/14/24 History albuterol sulfate 90 mcg/actuation 2 puff inhalation Q4H PRN 07/03/23 12/14/24 History aerosol inhaler (Ventolin HFA) Shortness Of Breath nitroglycerin 0.4 mg sublingual 0.4 mg sublingual UD PRN Chest Pain 07/03/23 12/14/24 History tablet carvedilol 3.125 mg tablet 3.125 mg PO BID #180 tabs 07/26/23 12/14/24 Rx timolol maleate 0.5 % eye drops 1 drp OPR QAM 08/05/23 12/14/24 History apixaban 2.5 mg tablet (Eliquis) 2.5 mg PO BID 08/26/23 12/14/24 History cyanocobalamin (vitamin B-12) 500 1,000 mcg (2 x 500 mcg) PO QAM 10/11/23 12/14/24 Rx mcg tablet #180 tabs ferrous sulfate 325 mg (65 mg 325 mg PO BIDM #180 tabs 10/11/23 12/14/24 Rx iron) tablet,delayed release folic acid 400 mcg tablet 400 mcg PO QAM #90 tabs 10/11/23 12/14/24 Rx atorvastatin 80 mg tablet 80 mg PO HS #90 tabs 08/12/24 12/14/24 Rx fluticasone 250 mcg-salmeterol 50 1 inh inhalation BID #60 ea 10/12/24 12/14/24 Rx mcg/dose blistr powdr for inhalation (Advair Diskus) pantoprazole 40 mg tablet,delayed 40 mg PO BID #180 tabs 11/24/24 12/14/24 Rx release furosemide 40 mg tablet 40 mg PO DAILY PRN Weight gain, 12/14/24 12/14/24 His tory sob, edema sacubitril 49 mg-valsartan 51 mg 1 tab PO BID 12/14/24 12/14/24 History tablet (Entresto) Past Med/Surg History Problem List (Updated 12/14/24 @ 20:08 by Abdirizak Briseno) Hypoxia (Acute) Influenza A (Acute) Acute exacerbation of chronic obstructive pulmonary disease (Acute) Elevated troponin Hypoxia Influenza A Thrombocytopenia History of ST elevation myocardial infarction (STEMI) (08/2019) Atrial fibrillation B12 deficiency Lung nodule, multiple Colon polyp Non-ST elevation NE (NSTEMI) (Acute) Anemia Mitral regurgitation HFrEF (heart failure with reduced ejection fraction) Heme positive stool Periorbital edema Carotid stenosis Carotid artery disease Coronary artery disease COPD (chronic obstructive pulmonary disease) (Acute) inhaler daily/prn HLD (hyperlipidemia) CKD (chronic kidney disease) stage 3, GFR 30-59 ml/min Tobacco abuse History of SCC (squamous cell carcinoma) of skin Glaucoma Hypertension Rheumatic fever Medical History COVID-19 (08/2024) Acute respiratory failure with hypoxia Osteoarthritis Myocardial Infarction 2018--had heart cath with 2 BJ placed--follows with Dr. Elizabeth History of COVID-19 12/2022--mild symptoms, no symptoms now Surgical History History of tooth extraction all teeth History of heart artery stent (08/2019) 2 BJ placed 08/2019 @ [facility] History of cataract extraction bilateral Family History Father Rheumatic heart disease Mother Pleurisy Other No family history of adverse response to anesthesia Social History Smoking Status: Former smoker Tobacco Type: Cigarettes Age Started Using Tobacco: 17; packs per day: 1; Cigarettes Per Day: "not even a pack a week" (advised on policy); Second Hand Exposure: Yes; Do You Dip or Chew Tobacco: No; Hx Alcohol Use: No Hx Substance Use: No Preferred Language: Hungarian Communication Ability: Effective Visual Impairment: No Limitations Hearing Ability: Normal Measurement Supervisor Required: No Beliefs That Will Affect Care: None marital status: Current Living Situation: Spouse current occupational status: retired current occupation: [employer] How many Children do You have: 3 How many Children do You have Comment: 2 daughters, 1 son Other Information That Helps Us Care for You: No Feels Safe at Home: Yes Safety Concerns: Feels Safe At This Time Childhood Exposure to Second-Hand Smoke: Yes Diet: regular Diet Comment: regular caffeine: Yes during the past year weight has: decreased > 10 lbs Dental Care, Regularly: No Physical Activity Frequency: Does not Exercise Seatbelt Use: always Sunscreen Use: Yes Assistive Devices: Denture - Upper and Denture - Lower Review of Systems Review of Systems: See HPI above Physical Exam Physical Exam: General: no acute distress; pleasant affect; daughter and at bedside; non- toxic appearing; cooperative; SpO2 97% on 3L NC HEENT: normocephalic, atraumatic; no scleral icterus; PERRLA w/ EOMs intact; vision and hearing grossly intact Neck: supple; no lymphadenopathy; trachea midline Skin: warm, dry without signs of tenting; no cyanosis; no rashes, bruising, lesions, or erythema noted CV: chest wall NTP; RRR; S1/S2 normal; no murmurs/rubs/gallops; pulses intact and symmetric at radial, DP, and PT Lungs: no acute respiratory distress; symmetrical chest wall expansion; expiratory wheeze auscultated in the lower lung sigala bilaterally (R>L) ABD: Soft, NTP; BS present; no rebound/guarding; no distention MSK: no tics or fasciculations; no edema noted in the LEs b/l, nonerythematous Neuro: A&Ox3; normal mood and affect; fluent speech; no focal deficits; sensation grossly intact in the LEs b/l Trialed patient on RA; patient got up to use restroom, and when he returned his SpO2 was around 82% on RA after exertion Results & Data Results & Data Vital Signs (Past 12 Hours) Vital Signs Temp Pulse Resp BP Pulse Ox O2 Del Method 12/14/24 14:09 94 H 27 H 145/69 H 97 12/14/24 13:42 81 29 H 97 12/14/24 13:36 84 24 98 12/14/24 13:00 75 24 97 12/14/24 12:30 78 21 99 12/14/24 12:20 90 12/14/24 12:18 90 24 89 L Room Air 12/14/24 12:16 89 L Room Air 12/14/24 12:16 Room Air 12/14/24 12:15 86 23 98 12/14/24 11:58 37.1 C 93 H 24 162/89 H 89 L Room Air Laboratory Results Abnormal lab results 12/14/24 12/14/24 Range/Units 12:10 12:13 RBC 4.61 L (4.70-6.10) M/uL Hgb 13.8 L (14.0-18.0) g/dl RDW Std Deviation 50.9 H (36.4-46.3) fL RDW Coeff of Juice 15.0 H (11.5-14.5) % Plt Count 84 L (130-400) K/uL Lymph # (Auto) 0.45 L (1.20-3.40) K/uL Gem # (Auto) 0.69 H (0.11-0.59) K/uL PT 13.6 H (9.0-12.0) Seconds INR 1.3 H (0.9-1.1) Chloride 108 H (98-107) mmol/L BUN 26 H (6-23) mg/dl Creatinine 1.61 H (0.6-1.4) mg/dl Glucose 114 H (70-99(Fasting)) mg/dl Total Bilirubin 1.5 H (0.2-1.0) mg/dl Troponin I High Sens 55.3 H* (0-20) pg/ml Influenza A (H3) PCR DETECTED A (NotDetected) Diagnostic Findings Chest X-Ray 12/14/24 12:18 XR chest 1V portable CLINICAL HISTORY: Dyspnea. COMPARISON STUDY: Chest CT June 25, 2024. Chest radiograph August 25, 2024. FINDINGS: There is no pneumothorax. Blunting of the costophrenic angles is chronic. There is underlying emphysema. No consolidation is identified to suggest pneumonia. Cardiomegaly is unchanged. There is no evidence for pulmonary edema. Multiple pulmonary nodules are again noted. These are better depicted on CT of June 25, 2024. IMPRESSION: 1. No acute cardiopulmonary findings. 2. Cardiomegaly. 3. Emphysema. 4. Redemonstration of multiple indeterminate pulmonary nodules, better depicted on prior CT. ACT 112: Negative or not required by law. Electronically signed by: Jerome Kasper M.D. 12/14/2024 1:24 PM ECG Additional Comments: ECG revealed atrial fibrillation with PVCs at 88 bpm; QTc 430 Code Status & VTE Plan Code Status DNR/DNI VTE Prophylaxis Plan VTE Prophylaxis will be ordered: Yes Supervising Physician Co-Signing Physician Notes I personally saw and examined the patient. I independently reviewed the labs, EKG, imaging, problem list, medication list, past medical history and family history. I verified all toure points and agree with Juan Medina PA-C with the following exceptions and/or additions: 79-year-old male with COPD presents to the ER with shortness of breath and generalized weakness. Influenza positive in the emergency room. O/E A&Ox3, HS increase rate, regular rhythm, no murmurs, Chest posterior end expiratory wheeze, rhonchi b/l, Abdo SNT A/P Influenza - Not vaccinated, Tamiflu Hypoxia - Aim O2 sats > 88% COPD with mild exacerbation - steroids deferred on admission given increased risk of secondary bacterial infections in setting of influenza, recommend adding depending on clinical course, Duonebs q6h, Formoterol/budesonide Nebs BID PG Care Time/CCT Total # of Minutes Spent Total Time Spent with Patient: Total time spent is greater than 50% in coordination of care (as documented) at patient's floor/unit and/or counseling patient: Coding [place] [address] INT INP/OBS CARE 3/75MIN Patient Type Established Medical Decision Making High Complexity Diagnoses Influenza A J10.1 Hypoxia R09.02 Elevated troponin R79.89
[2024-12-14] MEDS: dexAMETHasone**PF** 10 MG/ML VIAL IV ONE (14:37)
[2024-12-14] MEDS: OSELTAMIVIR PHOSPHATE 75 MG CAP PO STA (14:37)
[2024-12-14] MEDS: carvediloL 3.125 MG TAB PO STA (15:46)
[2024-12-14] MEDS ORDERED: ACETAMINOPHEN 325 MG TAB PO PRN (17:26)
[2024-12-14] MEDS ORDERED: Patient's HEIGHT &/or WEIGHT Needed SCH (17:45)
[2024-12-14] MEDS: ALBUT/IPRATROP 3MG/0.5MG NEB 3 ML VIAL INH SCH (19:45)
--- OUTSIDE RECORDS SUMMARY | 2024-12-14 19:56 | External Medical Summary | Summary of Care ---
Author Name Unknown Organization [facility] Address [address] [place] [address] Phone [phone] Care Team Providers Care Truck Rental Clerk Name Role Phone Jossezaira Camirohan Ibrahim Primary Care Provider [phone] Reason for Visit * Reason Onset Date Comments Appointment 10/13/2024 Encounter Details Date Type Department Care Team (Late st Contact Info) Description 10/13/2024 Telephone Nephrology, Vince Fields [address] [facility] [place] [address] Jenn Veliz MD [address] [facility] [place] [address] Appointment Allergies No known active allergiesdocumented as of this encounter (statuses as of 10/13/2024) Medications Latanoprost 0.005 % Ophthalmic Solution (Xalatan) INSTILL 1 DROP INTO EACH EYE DAILY AT BEDTIME 7.5 mL 3 2 Active Atorvastatin Calcium 80 MG Oral Tablet (Lipitor)Indicat ions:Coronary artery disease involving [place] coronary artery of [place] heart without angina pectoris,Dyslipi demia, goal LDL below 100 TAKE 1 TABLET BY MOUTH EVERYDAY AT BEDTIME 90 Tablet 3 2 Active Ventolin HFA 108 (90 Base) MCG/ACT Inhalation Aerosol SolutionIndicati ons:COPD, moderate (HCC) Inhale 2 Puffs by mouth every 4 hours as needed for Wheezing. 18 g 3 3 Active Fluticasone-Salm eterol 250-50 MCG/ACT Inhalation Aerosol Powder Breath Activated (Advair Diskus)Indicatio ns:COPD, moderate (HCC) INHALE 1 PUFF BY MOUTH IN THE MORNING AND BEFORE BEDTIME 60 Each 2 3 Active Nitroglycerin 0.4 MG Sublingual Tablet Sublingual (Nitrostat) Place 1 Tablet under the tongue every 5 minutes as needed for Pain, Chest. 25 Tablet 2 3 Active Pantoprazole Sodium 40 MG Oral Tablet Delayed Release (Protonix)Indica tions:Gastrointe stinal hemorrhage associated with chronic gastritis Take 1 Tablet by mouth in the morning. 30 minutes before the first meal of the day. Do not crush, split or chew the tablet. 30 Tablet 1 3 Active Additional Information Patient taking differently:40 mg OralBID (.AM/PM), 30 minutes before the first meal of the day. Do not crush, split or chew the tablet, Reported on 08/14/2023 Folic Acid 400 MCG Oral Tablet Take 1 Tablet by mouth in the morning. 3 Active Cyanocobalamin 500 MCG Oral Tablet Take 2 Tablets by mouth in the morning. 3 Active Ferrous Sulfate 325 (65 Fe) MG Oral Tablet Delayed Release Take 1 Tablet by mouth in the morning and 1 Tablet before bedtime. 3 Active Spironolactone 25 MG Oral Tablet (Aldactone) Take 1 Tablet by mouth. 0.5 mg a day Active Furosemide 40 MG Oral Tablet (Lasix)Indicatio ns:HFrEF (heart failure with reduced ejection fraction) (HCC) Take 1 Tablet by mouth daily. 90 Tablet 1 3 Active Carvedilol 3.125 MG Oral Tablet (Coreg) Take 1 Tablet by mouth 2 times a day with morning and evening meals. 180 Tablet 3 3 Active Entresto 24-26 MG Oral Tablet (sacubitril-vals butch 24-26 mg per tab) Take 1 Tablet by mouth in the morning and 1 Tablet before bedtime. Active Apixaban 2.5 MG Oral Tablet Take 1 Tablet by mouth in the morning and 1 Tablet before bedtime. Active Timolol Hemihydrate 0.5 % Ophthalmic Solution (Betimol) Instill 1 Drop into both eyes in the morning and 1 Drop before bedtime. Active documented as of this encounter (statuses as of 10/13/2024) Active Problems Problem Noted Date Diagnosed Date HFrEF (heart failure with reduced ejection fract ion) 11/14/2022 Overview (01/09/2023): [facility] cardiology Pulmonary hypertension 10/02/2022 Overview (01/09/2023): Dr Elizabeth Paroxysmal atrial fibrillation 05/04/2021 More than 50 percent stenosi s of left internal carotid artery 09/09/2020 Overview (01/04/2021): >80% Old NV (myocardial infarction) 09/02/2019 Hypertensive kidney disease with chronic kidney disease stage III 07/22/2019 History of SCC (squamous cell carcinoma) of skin 07/22/2019 Overview (07/22/2019): Forehead Hx of nonmelanoma skin cancer 10/28/2018 Overview (10/28/2018): squamous cell carcinoma (R lateral forehead) Dyslipidemia, goal LDL below 100 07/30/2017 Stage 3a chronic kidney disease 03/20/2016 Overview (07/04/2020): GFR 49.6 COPD, moderate 09/06/2011 Tobacco use disorder 11/28/2005 Generalized osteoarthritis 11/28/2005 Lung granuloma 11/28/2005 Primary hypertension Coronary artery disease invo lving [place] coronary artery of [place] heart without angina pectoris Overview (07/09/2022): NYHA Class II Increased intraocular pressure, right Primary open angle glaucoma (POAG) of both eyes, moderate stage documented as of this encounter (statuses as of 10/13/2024) Resolved Problems Problem Noted Date Diagnosed Date Resolved Date Squamous cell carcinoma of forehead 11/27/2018 07/22/2019 CKD (chronic kidney disease), stage III 03/20/2016 08/14/2019 Overview (03/22/2016): GFR 49.6 ADVANCE DIRECTIVE INFORMATION 11/28/2005 10/05/2024 Overview (11/28/2005): No, Advance Directive brochure given to patient. COPD, severity to be determined 11/28/2005 09/06/2011 documented as of this encounter (statuses as of 10/13/2024) Immunizations Name Administration Dates Next Due COVID-19 mRNA, LNP-s, No Pre serve, 2-Dose Series (Moderna) 09/29/2021,01/25/2021,12/28/2020 COVID-19, mRNA, LNP-s, PF, B ooster, 100mcg/0.5mg (Moderna) 03/26/2022 Pneumococcal Conjugate Vacc, 13 Valent (Prevnar) 03/20/2016 Pneumococcal Polysaccharide PPV23 (Pneumovax) 07/30/2017,01/18/2009 documented as of this encounter Social History Tobacco Use Types Packs/Day Years Used Date Smoking Tobacco: Every Day Cigarettes 0.1 62 Started: 1961 Smokeless Tobacco: Never Comments:Trying to quit Alcohol Use Standard Drinks/Week Comments No 0 (1 standard drink = 0.6 oz pur e alcohol) PHQ-2 Answer Date Recorded PHQ Adult Total Score 1 08/28/2024 Hunger Vital Sign Answer Date Recorded Within the past 12 months, y ou worried that your food would run out before you got the money to buy more. Never true 08/28/20 24 Within the past 12 months, t he food you bought just didn't last and you didn't have money to get more. Never true 08/28/2024 Childcare Answer Date Recorded Do you feel overwhelmed with taking care of a child, family member or friend? No 08/28/2024 Does your family need help f inding childcare? (Household - for ages 0-17 years) Not on file 08/28/2024 Clothing Answer Date Recorded Have you been unable to get clothing when it was really needed? No 08/28/2024 Is your family able to get c lothes or diapers when needed? (Household - for ages 0-17 years) Not on file 08/28/2024 Personal Safety Answer Date Recorded Do you feel unsafe or have concerns for your saf ety? No 08/28/2024 Do you have concerns for you r family's safety? (Household - for ages 0-17 years) Not on file 08/28/2024 Utilities Answer Date Recorded Do you have trouble paying y our heating, water, or electric bill? No 08/28/2024 Is your family able to pay t he heat, water, or electric bill? (Household - for ages 0-17 years) Not on file 08/28/2024 Does your family have access to good internet? (Household - for ages 0-17 years) Not on file 08/28/2024 Employment Status Answer Date Recorded Are you unemployed or without regular income? No 08/28/2024 [facility] the [facility] have a [facility]? (Household - for ages 0-17 years) Not on file 08/28/2024 Social Connections Answer Date Recorded How often do you feel lonely or isolated from th ose around you? Rarely 08/28/2024 Financial Resource Strain Answer Date R ecorded Do you have any trouble payi ng for your medications, or do you think you might in the future? No 08/28/2024 Does your family have troubl e paying for medicine? (Household - for ages 0-17 years) Not on file 08/28/2024 Transportation Needs Answer Date Record ed Do you have trouble getting a ride to medical visits or work? (Adult - for ages 18 years and over) Not on file 08/28/2024 Does your family have a hard time getting a ride to doctors visits? (Household - for ages 0-17 years) Not on file 08/28/2024 Has lack of transportation k ept you from medical appointments, meetings, work, or from getting things needed for daily living? Check all that apply. No 08/28/2024 Do you (or your family) have trouble finding or paying for a ride (transportation)? (Household - for ages 0-17 years) Not on file 08/28/2024 Housing Stability Answer Date Recorded Do you currently live in a s helter or have no steady place to sleep at night? No 08/28/2024 Do you think you are at risk of becoming homeless? (Adult - for ages 18 years and over) Not on file 08/28/2024 Does your family worry about paying for your home or becoming homeless? (Household - for ages 0-17 years) Not on file 0 08/28/2024 Are you homeless or worried that you might be in the future? No 08/28/2024 Are you (or your family) alberta eless or worried that you might be in the future? (Household - for ages 0-17 years) Not on file Food Insecurity Answer Date Recorded Do you need food for this week? No 08/28/2024 Are you able to get enough f ood for your family? (Household - for ages 0-17 years) Not on file 08/28/2024 Does your family need food t his week? (Household - for ages 0-17 years) Not on file 08/28/2024 Do you always have enough fo od for your family? (Household - for ages 0-17 years) Not on file 08/28/2024 Sex and Gender Information Value Date Recorded Sex Assigned at Not on file Legal Sex Male 5:26 AM EST Gender Identity Not on file Sexual Orientation Not on file Occupation Industry Job Start Date Job End Date retired Not on file Not on file Not on file documented as of this encounter Miscellaneous Notes * Telephone Encounter - Chioma Blount OSA - 10/13/2024 10:24 AM EST 10/13/24 Called patient, left message. Trying to get patient scheduled with Nephrology for appointment. Please offer first available in clinic with Dr. Veliz on 10/15. If not, please schedule first available at [facility] or . My G message being sent out as well. documented in this encounter Plan of Treatment Health Maintenance Due Date Last Done Comments DISCUSS TOBACCO CESSATION (REFER TO SMARTSET #9991) 1945 O2 ASSESSMENT COMPLETED IN PAST YEAR FOR COPD 1964 Zoster Vaccines (1 of 2) 1996 CKD PHOS USE SMARTSET 35107 01/09/2024 02/0 07/2023, 01/09/2022, 01/04/2021, Additional history exists GFR 02/19/2024 08/21/2023, 08/02, 07/17/2023, Additional history exists COVID-19 Vaccine ( season) 2024 03/26/2022, 09/29/2021, 01/25/2021, Additional history exists Influenza Vaccine (FLU shot) (#1) 2024 07/30/2018 (Refused) Albumin/Creatinine Ratio 08/14/2024 023, 01/09/2023, 01/09/2022, Additional history exists CKD HGB USE SMARTSET 70627 08/21/202408/21, 08/14/2023, 07/17/2023, Additional history exists Colonoscopy 09/16/2024 09/16/2023, 07/02, 07/11/2023 Depression Screening 08/28/2025 08/28/2024 DTap/Tdap Vaccines (2 - Td or Tdap) 07/30/2028 07/30/2018 (Refused) Alpha-1 Antitrypsin Completed 01/09/2023 RETIRED - COLONOSCOPY-ANNUAL AGES 18-100 Discontinued 09/16/2023, 07/11/2023, 07/11/2023 Pneumococcal Vaccine: 65+ Years Completed 06/02/2024, 07/30/2017, 03/20/2016, Additional history exists HPV (Gardasil) Vaccine Aged Out No lo nger eligible based on patient's age to complete this topic Hepatitis B Vaccine Aged Out No longe r eligible based on patient's age to complete this topic MENINGOCOCCAL (MENACTRA/MENVEO) Aged Out No longer eligible based on patient's age to complete this topic documented as of this encounter Medical Devices Not on filedocumented as of this encounter Advance Directives Healthcare Agents on File Name Relationship Healthcare Agent Relationshi p Communication Marlene Catalan Spouse Health Care Repr esentative (appointed verbally by patient or by statute hierarchy) Care Teams Truck Rental Clerk Relationship Specialty Start Date End Date Cami Grossman DO [address] [facility] [address] [place] [address] PCP - General Family Medicine 09/16/23 documented as of this encounter
--- OUTSIDE RECORDS SUMMARY | 2024-12-14 19:56 | External Medical Summary | Summary of Care ---
Author Name Unknown Organization [facility] Address [address] [facility] [place] [address] Phone [phone] Care Team Providers Care Color Expert Name Role Phone Jossezaira Camirohan Ibrahim Primary Care Provider [phone]- [phone] Reason for Visit * Reason Comments eRx-Medication Refill Encounter Details Date Type Department Care Team (Late st Contact Info) Description 10/13/2024 Refill Nephrology [address] [place] [address] Mary Stern MD [address] [facility] [place] [address] Allergies No known active allergiesdocumented as of this encounter (statuses as of 10/13/2024) Medications Latanoprost 0.005 % Ophthalmic Solution (Xalatan) INSTILL 1 DROP INTO EACH EYE DAILY AT BEDTIME 7.5 mL 3 11/15/20 22 Active Atorvastatin Calcium 80 MG Oral Tablet (Lipitor)Indica tions:Coronary artery disease involving jena coronary artery of jena heart without angina pectoris,Dyslip idemia, goal LDL below 100 TAKE 1 TABLET BY MOUTH EVERYDAY AT BEDTIME 90 Tablet 3 11/24/20 22 Active Ventolin HFA 108 (90 Base) MCG/ACT Inhalation Aerosol SolutionIndicat ions:COPD, moderate (HCC) Inhale 2 Puffs by mouth every 4 hours as needed for Wheezing. 18 g 3 03/25/20 23 Active Fluticasone-Zurdo meterol 250-50 MCG/ACT Inhalation Aerosol Powder Breath Activated (Advair Diskus)Indicati ons:COPD, moderate (HCC) INHALE 1 PUFF BY MOUTH IN THE MORNING AND BEFORE BEDTIME 60 Each 2 06/21/20 23 Active Nitroglycerin 0.4 MG Sublingual Tablet Sublingual (Nitrostat) Place 1 Tablet under the tongue every 5 minutes as needed for Pain, Chest. 25 Tablet 2 06/28/20 23 Active Pantoprazole Sodium 40 MG Oral Tablet Delayed Release (Protonix)Indic ations:Gastroin testinal hemorrhage associated with chronic gastritis Take 1 Tablet by mouth in the morning. 30 minutes before the first meal of the day. Do not crush, split or chew the tablet. 30 Tablet 1 08/12/20 23 Active Additional Information Patient taking differently:40 mg OralBID (.AM/PM), 30 minutes before the first meal of the day. Do not crush, split or chew the tablet, Reported on 08/14/2023 Folic Acid 400 MCG Oral Tablet Take 1 Tablet by mouth in the morning. 08/09/20 23 Active Cyanocobalamin 500 MCG Oral Tablet Take 2 Tablets by mouth in the morning. 08/09/20 23 Active Ferrous Sulfate 325 (65 Fe) MG Oral Tablet Delayed Release Take 1 Tablet by mouth in the morning and 1 Tablet before bedtime. 08/09/20 23 Active Spironolactone 25 MG Oral Tablet (Aldactone) Take 1 Tablet by mouth. 0.5 mg a day Active Furosemide 40 MG Oral Tablet (Lasix)Indicati ons:HFrEF (heart failure with reduced ejection fraction) ([facility]) Take 1 Tablet by mouth daily. 90 Tablet 1 08/15/20 23 Active Entresto 24-26 MG Oral Tablet (sacubitril-christoph sartan 24-26 mg per tab) Take 1 Tablet by mouth in the morning and 1 Tablet before bedtime. Active Apixaban 2.5 MG Oral Tablet Take 1 Tablet by mouth in the morning and 1 Tablet before bedtime. Active Timolol Hemihydrate 0.5 % Ophthalmic Solution (Betimol) Instill 1 Drop into both eyes in the morning and 1 Drop before bedtime. Active Carvedilol 3.125 MG Oral Tablet (Coreg) TAKE 1 TABLET BY MOUTH 2 TIMES A DAY WITH MORNING AND EVENING MEALS 180 Tablet 3 10/13/20 24 Active Carvedilol 3.125 MG Oral Tablet (Coreg) Take 1 Tablet by mouth 2 times a day with morning and evening meals. 180 Tablet 3 08/15/20 23 024 Discontinued documented as of this encounter (statuses as of 10/13/2024) Active Problems Problem Noted Date Diagnosed Date HFrEF (heart failure with reduced ejection fract ion) 11/14/2022 Overview (01/09/2023): [place] [facility] Pulmonary hypertension 10/02/2022 Overview (01/09/2023): Dr Elizabeth Paroxysmal atrial fibrillation 05/04/2021 More than 50 percent stenosi s of left internal carotid artery 09/09/2020 Overview (01/04/2021): >80% Old [place] (myocardial infarction) 09/02/2019 Hypertensive kidney disease with [...] Primary hypertension Coronary artery disease invo lving jena coronary artery of jena heart without angina pectoris Overview (07/09/2022): NYHA [...] No 08/28/2024 Does the household have a [facility]? (Household - for [...] encounter Miscellaneous Notes * Telephone Encounter - Mary Stern MD - 10/13/2024 4:01 PM ESTSigned Prescriptions: Disp Refills Carvedilol 3.125 MG Oral Tablet (Coreg) 180 Ta*3 Sig: TAKE 1 TABLET BY MOUTH 2 TIMES A DAY WITH MORNING AND EVENING MEALS Authorizing Provider: MARY STERN * Telephone Encounter - Danya Vides RN - 10/13/2024 10:15 AM ESTPending Prescriptions: Disp Refills Carvedilol 3.125 MG Oral Tablet (Coreg) 180 Ta*3 Sig: TAKE 1 TABLET BY MOUTH 2 TIMES A DAY WITH MORNING AND EVENING MEALS * Telephone Encounter - Danya Vides, RN - 10/13/2024 10:01 AM EST Prescription request received from pharmacy pending. Please authorize. Last OV 08/15/23 Was to be seen in December and was not rescheduled. Note sent to absorber operator. documented in this encounter Plan of Treatment Health Maintenance Due Date Last Done Comments DISCUSS TOBACCO CESSATION (REFER TO SMARTSET #3291) 1945 O2 ASSESSMENT COMPLETED IN PAST YEAR FOR COPD 1964 Zoster Vaccines (1 of 2) 1996 CKD PHOS USE SMARTSET 56443 01/09/2024 02/0 07/2023, 01/09/2022, 01/04/2021, Additional history exists GFR 02/19/2024 08/21/2023, 08/02, 07/17/2023, Additional history exists COVID-19 Vaccine ( season) 2024 03/26/2022, 09/29/2021, 01/25/2021, Additional history exists Influenza Vaccine (FLU shot) (#1) 2024 07/30/2018 (Refused) Albumin/Creatinine Ratio 08/14/2024 023, 01/09/2023, 01/09/2022, Additional history exists CKD HGB USE SMARTSET 51954 08/21/202408/21, 08/14/2023, 07/17/2023, Additional history exists Colonoscopy [...] patient or by statute hierarchy) Care Teams Color Expert Relationship Specialty Start Date End Date Cami Grossman DO [address] [facility] [address] [place] [address] PCP - General Family Medicine 09/16/23 documented as of this encounter
--- OUTSIDE RECORDS SUMMARY | 2024-12-14 19:56 | External Medical Summary | Summary of Care ---
Author Name Unknown Organization [facility] Address [address] [place] [address] Phone [phone] Care Team Providers Care Smash Hand Name Role Phone Jossezaira Camirohan Ibrahim Primary Care Provider [phone]- [phone] Reason for Visit * Reason Onset Date Comments Appointment 10/13/2024 Encounter Details Date Type Department Care Team (Late st Contact Info) Description 10/13/2024 Telephone Nephrology, Vince Fields [address] [place] [address] Jenn Veliz MD [address] [place] [address] Appointment Allergies No known active allergiesdocumented as of this encounter (statuses as of 10/13/2024) Medications Latanoprost 0.005 % Ophthalmic Solution (Xalatan) INSTILL 1 DROP INTO EACH EYE DAILY AT BEDTIME 7.5 mL 3 2 Active Atorvastatin Calcium 80 MG Oral Tablet (Lipitor)Indicat ions:Coronary artery disease involving douglas coronary artery of douglas heart without angina pectoris,Dyslipi demia, goal LDL [...] reduced ejection fract ion) 11/14/2022 Overview (01/09/2023): [facility] cardiology Pulmonary hypertension 10/02/2022 Overview (01/09/2023): Dr Elizabeth Paroxysmal atrial fibrillation 05/04/2021 More than 50 percent stenosi s of left internal carotid artery 09/09/2020 Overview (01/04/2021): >80% Old [place] (myocardial infarction) 09/02/2019 Hypertensive kidney disease with [...] Primary hypertension Coronary artery disease invo lving douglas coronary artery of douglas heart without angina pectoris Overview (07/09/2022): NYHA [...] No 08/28/2024 Does the household have a [facility]? (Household - for ages [...] encounter Miscellaneous Notes * Telephone Encounter - Danya Vides RN - 10/13/2024 10:16 AM EST Economic Geographer- Please call to schedule with Dr Veliz. Was due to be seen in December 2023 and never got rescheduled. Likely prefers clinic. documented in this encounter Plan of Treatment Health Maintenance Due Date Last Done Comments DISCUSS TOBACCO CESSATION (REFER TO SMARTSET #3291) 1945 O2 ASSESSMENT COMPLETED IN PAST YEAR FOR COPD 1964 Zoster Vaccines (1 of 2) 1996 CKD PHOS USE SMARTSET 32634 01/09/2024 02/0 07/2023, 01/09/2022, 01/04/2021, Additional history exists GFR 02/19/2024 08/21/2023, 08/02, 07/17/2023, Additional history exists COVID-19 Vaccine ( season) 2024 03/26/2022, 09/29/2021, 01/25/2021, Additional history exists Influenza Vaccine (FLU shot) (#1) 2024 07/30/2018 (Refused) Albumin/Creatinine Ratio 08/14/2024 023, 01/09/2023, 01/09/2022, Additional history exists CKD HGB USE SMARTSET 04390 08/21/202408/21, 08/14/2023, 07/17/2023, Additional history exists Colonoscopy [...] Relationship Healthcare Agent Relationshi p Communication Marlene Hossein Spouse Health Care Repr esentative (appointed verbally by patient or by statute hierarchy) Care Teams Smash Hand Relationship Specialty Start Date End Date Cami Grossman DO [address] [facility] [address] [place] [address] PCP - General Family Medicine 09/16/23 documented as of this encounter
--- OUTSIDE RECORDS SUMMARY | 2024-12-14 19:56 | External Medical Summary | Summary of Care ---
Author Name Unknown Organization [facility] Address [address] [place] [address] Phone [phone] Care Team Providers Care Planting Machine Crewman Name Role Phone Jossezaira Camirohan Ibrahim Primary Care Provider [phone]- [phone] Reason for Visit * Reason Onset Date Comments Appointment 10/13/2024 Encounter Details Date Type Department Care Team (Late st Contact Info) Description 10/13/2024 Telephone Nephrology, Vince Fields [address] [place] [address] Jenn Veliz MD [address] [place] [address] Appointment Allergies No known active allergiesdocumented as of this encounter (statuses as of 10/13/2024) Medications Latanoprost 0.005 % Ophthalmic Solution (Xalatan) INSTILL 1 DROP INTO EACH EYE DAILY AT BEDTIME 7.5 mL 3 2 Active Atorvastatin Calcium 80 MG Oral Tablet (Lipitor)Indicat ions:Coronary artery disease involving chenega coronary artery of chenega heart without angina pectoris,Dyslipi demia, goal LDL [...] Primary hypertension Coronary artery disease invo lving chenega coronary artery of chenega heart without angina pectoris Overview (07/09/2022): NYHA [...] No 08/28/2024 Does the household have a [facility] source [facility] income? (Household - for ages [...] for appointment. Please offer first available in [facility] with Dr. Veliz. If not, please schedule first available at [facility]. My G message being sent out as well. documented in this encounter Plan of Treatment Health Maintenance Due Date Last Done Comments DISCUSS TOBACCO CESSATION (REFER TO SMARTSET #3291) 1945 O2 ASSESSMENT COMPLETED IN PAST YEAR FOR COPD 1964 Zoster Vaccines (1 of 2) 1996 CKD PHOS USE SMARTSET 66613 01/09/2024/0 07/2023, 01/09/2022, 01/04/2021, Additional history exists GFR 02/19/2024 08/21/2023, 08/02, 07/17/2023, Additional history exists COVID-19 Vaccine ( season) 2024 03/26/2022, 09/29/2021, 01/25/2021, Additional history exists Influenza Vaccine (FLU shot) (#1) 2024 07/30/2018 (Refused) Albumin/Creatinine Ratio 08/14/2024 023, 01/09/2023, 01/09/2022, Additional history exists CKD HGB USE SMARTSET 76452 08/21/202408/21, 08/14/2023, 07/17/2023, Additional history exists Colonoscopy [...] patient or by statute hierarchy) Care Teams Planting Machine Crewman Relationship Specialty Start Date End Date Cami Grossman DO [address] [facility] [address] [place] [address] PCP - General Family Medicine 09/16/23 documented as of this encounter
[2024-12-14] MEDS: LATANOPROST 0.005% OP SOLN 2.5 ML BTL OPB SCH (20:24)
[2024-12-14] MEDS: PANTOprazole 40 MG TAB PO SCH (20:25)
[2024-12-14] MEDS: OSELTAMIVIR PHOSPHATE SUSP 30 MG/5 ML UDP PO SCH (20:25)
[2024-12-14] MEDS: carvediloL 3.125 MG TAB PO SCH (20:25)
[2024-12-14] MEDS: APIXABAN 2.5 MG TAB PO SCH (20:25)
[2024-12-14] MEDS: ATORVASTATIN 40 MG TAB PO SCH (20:25)
[2024-12-14] MEDS ORDERED: Nursing to Pharmacy Communication SCH (20:30)
[2024-12-14] MEDS: VALSARTAN/SACUBITRIL 51/49 MG TAB PO SCH (23:09)
[2024-12-14] MEDS: BUDESONIDE 0.5 MG/2 ML VIAL (PULMICORT) NEB SCH (23:11)
[2024-12-14] MEDS: FORMOTEROL 20 MCG/2 ML VIAL NEB SCH (23:11)
[2024-12-15 06:53] LABS: Hematocrit (blood only) 38.4 % (42.0-52.0); Hemoglobin 12.8 g/dl (14.0-18.0); Immature Granulocytes # (auto) 0.01 K/uL (0.01-0.20); Immature Granulocytes % (auto) 0.2 %; Lymphocytes # (auto) 0.32 K/uL (1.20-3.40); Lymphocytes % (auto) 7.1 %; Mean Corpuscular Hemoglobin 30.3 pg (25.0-34.0); Mean Corpuscular Hgb Conc 33.3 g/dL (32.0-36.0); Mean Corpuscular Volume 90.8 fL (80.0-100.0); Mean Platelet Volume 11.8 fL (9.4-12.4); Monocytes # (auto) 0.34 K/uL (0.11-0.59); Monocytes % (auto) 7.5 %; Neutrophils # (auto) 3.86 K/uL (1.40-6.50); Neutrophils % (auto) 85.2 %; Platelet Count 81 K/uL (130-400); RDW Coefficient of Variation 14.6 % (11.5-14.5); RDW Standard Deviation 48.5 fL (36.4-46.3); Red Blood Count 4.23 M/uL (4.70-6.10); White Blood Count 4.53 K/ul (4.8-10.8)
[2024-12-15 07:16] LABS: BUN Creatinine Ratio 21.8 (10-20); Calcium 8.7 mg/dl (8.6-10.3); Creatinine Clr Calc Pharmacy 33.1 ml/min; Potassium 4.2 mmol/L (3.5-5.1)
[2024-12-15 07:22] LABS: Troponin I High Sensitivity 41.2 pg/ml (0-20)
[2024-12-15] MEDS: TIMOLOL MALEATE 0.5% OP SOLN 5 ML BTL OPR SCH (07:43)
--- NOTE | 2024-12-15 16:38 | Hospitalist Progress Note ---
Date of Service December 15, 2024 Assessment & Plan (1) Influenza A: Plan: This pt is a 79-year-old male with PMH of HTN, COPD, glaucoma, HLD, CAD/STEMI, atrial fibrillation (on Eliquis), and B12 deficiency. He presented on 12/14 for 3 days of SOB, productive cough, and weakness. Home pulse ox was around 83% on RA on the morning of admission. Influenza A (+)/Acute respiratory failure with hypoxia/Acute COPD exacerbation. Chest x-ray negative for pneumonia With diffuse wheezing--> add on prednisone 40mg po daily Continue nebs, pulmonary toilet, supplemental O2 as needed (home O2 is 2LNC w/ exertion)-check 2 step prior to discharge Continue Supportive care Continue Tamiflu BID through AM of AM of 12/19 Acetaminophen as needed for pain/fever (2) Elevated troponin: Plan: Troponin mildly elevated at 55/59/41. Denies CP, ECG with Afib, no ischemic changes Suspect myocardial demand ischemia in the setting of acute illness with hypoxia Can downgrade off tele (3) Thrombocytopenia: Plan: Low platelets in the 80s, he has had a history of low platelets in the past. Likely secondary to viral illness and expect will continue to improve B12 level normal in 2023 follow CBC f/u with PCP (4) Lung nodule, multiple: Plan: Due for 6 month f/u chest CT-he has this scheduled as an outpt he believes Plan HFrEF (heart failure with reduced ejection fraction): Stable at this time but does have significant cardiomegaly on chest x-ray. He is at his baseline weight Continue home Entresto, carvedilol. He is not on SGLT2i due to cost. Previously on aldactone but now not on home med list Daily weights, low-sodium diet after discharge Lasix as needed for volume overload or weight gain as outpt Atrial fibrillation: Permanent atrial fibrillation, rates are controlled Continue carvedilol and Eliquis Can downgrade off tele CAD-history of CAD s/p inferior STEMI in 2019 with 2 BJ to RCA-continue apixaban, atorvastatin, carvedilol, no acute issues Carotid artery stenosis-severe left ICA stenosis-he has declined surgical intervention. It is asymptomatic. Continue apixaban and atorvastatin CKD stage III-creatinine at baseline at 1.6 on admission and actually down to 1.3 now. Renally dose medications and avoid nephrotoxins. Follow BMP HTN-blood pressures are acceptable. Continue carvedilol, Entresto Glaucoma-continue home eyedrops Hyperlipidemia-continue atorvastatin VTE PPx: Eliquis Disposition: continued stay, downgrade off tele, likely dc to home tomorrow, 2 step walk test in AM to determine if new O2 needs Admission and Anticipated Discharge Date Admission Date: December 14, 2024 Subjective Pt reports feeling better, weaned off O2 but POx 87-90% while talking to me on room air. COughing up small amounts of sputum. Moving bowels with some loose stools. Eating well. Tele with Afib, rates 60-90s Physical Exam Constitutional: + thin; no acute distress Respiratory: normal respiratory effort; no cough Auscultation: + wheezes (diffuse exp); no crackles and no rhonchi Cardiovascular: Rate/Rhythm: regular rate and + irregularly irregular Heart Sounds: no murmur Extremities: no edema Psychiatric: A+Ox3, euthymic affect Results & Data Results & Data Vital Signs (Past 12 Hours) Vital Signs Temp Pulse Pulse Resp BP Pulse Ox O2 Del Method 12/15/24 15:02 36.7 C 70 14 103/66 92 Nasal Cannula 12/15/24 14:36 90 12/15/24 12:11 84 18 96 Nasal Cannula 12/15/24 11:10 36.3 C L 88 20 135/82 96 Nasal Cannula 12/15/24 09:08 Nasal Cannula 12/15/24 07:44 36.7 C 96 H 18 146/76 H 95 Nasal Cannula 12/15/24 07:15 83 12/15/24 07:04 86 20 95 Nasal Cannula O2 Flow Rate 12/15/24 15:02 3 12/15/24 14:36 12/15/24 12:11 2 12/15/24 11:10 2 12/15/24 09:08 3 12/15/24 07:44 2 12/15/24 07:15 12/15/24 07:04 3 Laboratory Results CBC, CMP, troponin reviewed PG Care Time/CCT Total # of Minutes Spent Total Time Spent with Patient: Total time spent is greater than 50% in coordination of care (as documented) at patient's floor/unit and/or counseling patient: Coding Level of Care Code 02055 SUB INP/OBS CARE 3/50MIN Diagnoses Influenza A J10.1 Elevated troponin R79.89 Thrombocytopenia D69.6 Lung nodule, multiple R91.8
[2024-12-15] MEDS: predniSONE 20 MG TAB PO SCH (17:25)
[2024-12-15 20:07] VITALS: RESP 18
--- NOTE | 2024-12-16 06:14 | Electrocardiogram Report ---
Test Reason : Blood Pressure : */* mmHG Vent. Rate : 88 BPM Atrial Rate : * BPM P-R Int : * ms QRS Dur : 78 ms QT Int : 356 ms P-R-T Axes : * -89 -67 degrees QTcB Int : 430 ms Atrial fibrillation with premature ventricular or aberrantly conducted complexes Left axis deviation Inferior infarct (cited on or before 31-Aug-2019) Anterior infarct (cited on or before 31-Aug-2019) Abnormal ECG When compared with ECG of 25-Aug-2024 07:07, No significant change was found Confirmed by Ranjith Aldana ([id number]) on 12/16/2024 6:13:55 AM Referred By: Confirmed By: Ranjith Aldana
[2024-12-16 06:56] LABS: BUN Creatinine Ratio 21.8 (10-20); Calcium 8.5 mg/dl (8.6-10.3); Creatinine Clr Calc Pharmacy 35.6 ml/min; Potassium 4.2 mmol/L (3.5-5.1)
[2024-12-16 07:01] LABS: Acanthocytes 1+; Echinocytes 1+; Hematocrit (blood only) 39.1 % (42.0-52.0); Hemoglobin 13.2 g/dl (14.0-18.0); Immature Granulocytes # (auto) 0.02 K/uL (0.01-0.20); Immature Granulocytes % (auto) 0.3 %; Lymphocytes # (auto) 0.32 K/uL (1.20-3.40); Lymphocytes % (auto) 5.1 %; Mean Corpuscular Hemoglobin 30.3 pg (25.0-34.0); Mean Corpuscular Hgb Conc 33.8 g/dL (32.0-36.0); Mean Corpuscular Volume 89.9 fL (80.0-100.0); Mean Platelet Volume 11.7 fL (9.4-12.4); Monocytes # (auto) 0.15 K/uL (0.11-0.59); Monocytes % (auto) 2.4 %; Neutrophils # (auto) 5.74 K/uL (1.40-6.50); Neutrophils % (auto) 92.2 %; Platelet Count 91 K/uL (130-400); RDW Coefficient of Variation 14.6 % (11.5-14.5); RDW Standard Deviation 47.9 fL (36.4-46.3); Red Blood Count 4.35 M/uL (4.70-6.10); White Blood Count 6.23 K/ul (4.8-10.8)
[2024-12-16 07:37] VITALS: BP 120/63; TEMP 97.9
[2024-12-16 13:45] VITALS: PULSE 98; O2SAT 96
--- NOTE | 2024-12-16 14:20 | Discharge Summary ---
Discharge Summary Date of Service December 16, 2024 Principal Dx & Hospital Course #1 = Principal Diagnosis (1) Influenza A: This pt is a 79-year-old male with PMH of HTN, COPD, glaucoma, HLD, CAD/STEMI, atrial fibrillation (on Eliquis), and B12 deficiency. He presented on 12/14 for 3 days of SOB, productive cough, and weakness. Home pulse ox was around 83% on RA on the morning of admission. Influenza A (+)/Acute respiratory failure with hypoxia/Acute COPD exacerbation. Chest x-ray negative for pneumonia With diffuse wheezing--> added on prednisone 40mg po daily and much improved on the day of discharge-finish out 5-day burst of prednisone 40 mg daily-needs 3 more days after discharge Received inhaled corticosteroid and bronchodilator nebs, pulmonary toilet, supplemental O2 -weaned down to room air at rest and needs 2L NC O2 with exertion on discharge Continue Tamiflu 30 Mg p.o. BID through AM of 12/19 Acetaminophen as needed for pain/fever Overall much improved and stable for discharge home (2) Elevated troponin: Troponin mildly elevated at 55/59/41. Denies CP, ECG with Afib, no ischemic changes Suspect myocardial demand ischemia in the setting of acute illness with hypoxia He had no significant events on telemetry other than rate controlled A-fib (3) Thrombocytopenia: Low platelets in the 80s, he has had a history of low platelets in the past. Likely secondary to viral illness and expect will continue to improve-improved to 91 on day of discharge, no evidence of bleeding B12 level normal in 2023, CT abdomen/pelvis with normal liver and spleen in 2022 but his platelets were normal at that time follow CBC as an outpatient in 1 week f/u with PCP and consider repeat imaging of the spleen and liver (4) Lung nodule, multiple: Due for 6 month f/u chest CT-he has this scheduled as an outpt he believes hide and would wait at least 4 weeks after this infection to clear up before imaging Plan HFrEF (heart failure with reduced ejection fraction): Stable at this time but does have significant cardiomegaly on chest x-ray. He is at his baseline weight Continue home Entresto, carvedilol. He is not on SGLT2i due to cost. Previously on aldactone but now not on home med list Daily weights, low-sodium diet Lasix as needed for volume overload or weight gain as outpt Atrial fibrillation: Permanent atrial fibrillation, rates are controlled Continue carvedilol and Eliquis CAD-history of CAD s/p inferior STEMI in 2019 with 2 BJ to RCA-continue apixaban, atorvastatin, carvedilol, no acute issues Carotid artery stenosis-severe left ICA stenosis-he has declined surgical intervention. It is asymptomatic. Continue apixaban and atorvastatin CKD stage III-creatinine at baseline at 1.6 on admission and actually down to 1.2 now. Renally dose medications and avoid nephrotoxins. Follow BMP regularly as an outpatient HTN-blood pressures are acceptable. Continue carvedilol, Entresto Glaucoma-continue home eyedrops Hyperlipidemia-continue atorvastatin VTE PPx: Eliquis Disposition: Stable for discharge to home. Discussed care with his at the bedside on the day of discharge Notes For Next Care Provider Check CBC in 1 week as an outpatient for thrombocytopenia Consider CT abdomen/pelvis or ultrasound the abdomen to look at liver and spleen as part of workup for thrombocytopenia Needs CT chest for routine follow-up of pulmonary nodules in 1 month Medication Changes From Visit Added prednisone 40 mg p.o. daily x 3 more days Added Tamiflu 30 mg p.o. twice daily x 3 more days Admission HPI Per Admitting Provider Haroon is a 79-year-old male with PMH of HTN, rheumatic fever, glaucoma, HLD, CAD, STEMI, atrial fibrillation (on Eliquis), and B12 deficiency. He presented on 12/14 for SOB, productive cough, and weakness. Patient's symptoms started on Saturday night, when he developed generalized malaise, but then progressed over the weekend. On Saturday, he reported both SOB at rest and with exertion as well as a hacking dry cough. He then developed productive cough the morning of Thursday 12/14. Patient's reports that his home pulse ox was around 83% on RA, and they decided to come to the emergency department. Patient was previously on supplemental oxygen following an episode of COVID in August 2024, but this was returned after he was doing okay in the fall. He does have a history of COPD, but is not currently on supplemental oxygen. No CPAP at night. He endorses both SOB at rest and with exertion, as well as wheezing. He does report that the DuoNebs in the emergency department helped significantly. No dizziness or lightheadedness with walking. One of the patient's daughters recently tested positive for influenza. Patient denies hemoptysis, pleuritic CP, or history of DVT/PE. He did not take his regular morning medicine today; no recent change in medications. He is a former tobacco cigarette smoker, but has been gradually decreasing the number of cigarettes per day. Patient quit entirely a few weeks ago; declines nicotine patch on arrival. He denies recent alcohol use. Patient is hypertensive at 145/69, and tachypneic at 27 RPM on admission; SpO2 is 97% on RA. ED course: Tamiflu 75 mg p.o. Decadron 10 mg IV DuoNeb 3 mL x 2 ROS: Patient endorses cold intolerance, SOB both at rest and with exertion, generalized fatigue, productive cough (yellow sputum production), wheezing, and diarrhea x 1 day. Patient denies fever, chills, night-sweats, body aches, chest pain, chest pressure, chest palpitations, nausea, vomiting, burning with urination, blood in the urine or stool, swelling in the legs, or numbness or tingling in the arms or legs. Discharge Exam Constitutional + thin; no acute distress Respiratory normal respiratory effort; no cough Auscultation: + wheezes (Mild in left upper lung field, much improved from pr evious); no crackles and no rhonchi Cardiovascular Rate/Rhythm: regular rate and + irregularly irregular Heart Sounds: no murmur Extremities: no edema Psychiatric A+Ox3, euthymic affect Discharge Plan Discharge Items Patient Disposition: Home - Self-Care Reason For Visit: INFLUENZA A, HYPOXIA Discharge Diagnosis: Influenza A Acute respiratory failure with hypoxia COPD exacerbation Condition on Discharge: Good Activity: Resume your previous activity Non-emergency contact: Primary Care Provider Call non-emergency contact if: you have any medication questions and your symptoms worsen Follow-up/Referrals: Cami Grossman DO [Primary Care Provider] - (Please follow-up within 1 to 2 weeks) Diet: Heart Healthy Addtl Attending Provider Instructions: Please finish out the course of Tamiflu and the prednisone for your infection and COPD exacerbation. You do not need oxygen when sitting or at rest, but you should put it on and turn it on to 2 L when you get up and walk around. Your platelet count was slightly low as we discussed. Please have your primary care physician recheck your complete blood count in 1 week to ensure it has returned to normal. Pending Studies at Discharge: No Stand-Alone Forms: My [facility] [address], Smoking Cessation Medications and DC Order Prescriptions: New oseltamivir 30 mg capsule 30 mg PO BID 3 Days Qty: 6 0RF prednisone 20 mg Tablet 40 mg PO DAILY Qty: 6 0RF Continued carvedilol 3.125 mg tablet 3.125 mg PO BID Qty: 180 3RF Hold Instructions: To be determined by your physicians on follow up visit Rx Instructions: must administer with a meal/food ferrous sulfate 325 mg (65 mg iron) tablet,delayed release (DR/EC) 325 mg PO BIDM Qty: 180 1RF folic acid 400 mcg tablet 400 mcg PO QAM Qty: 90 1RF cyanocobalamin (vitamin B-12) 500 mcg tablet 1,000 mcg PO QAM Qty: 180 1RF atorvastatin 80 mg tablet 80 mg PO HS Qty: 90 1RF fluticasone propion-salmeterol [Advair Diskus] 250-50 mcg/dose blister with device 1 inh inhalation BID Qty: 60 5RF pantoprazole 40 mg tablet,delayed release (DR/EC) 40 mg PO BID Qty: 180 1RF Eliquis 2.5 mg tablet 2.5 mg PO BID latanoprost 0.005 % drops 1 drp OPB HS nitroglycerin 0.4 mg Tablet, Sublingual 0.4 mg sublingual UD PRN (Reason: Chest Pain) Rx Instructions: Spouse states they're probably , pt would need a new script if possible. albuterol sulfate [Ventolin HFA] 90 mcg/actuation Hfa Aerosol Inhaler 2 puff INHALATION Q4H PRN (Reason: Shortness Of Breath) timolol maleate 0.5 % drops 1 drp OPR QAM Rx Instructions: right eye furosemide 40 mg tablet 40 mg PO DAILY PRN (Reason: Weight gain, sob, edema) sacubitril-valsartan [Entresto] 49-51 mg Tablet 1 tab PO BID Discharge Orders: Discharge Order (Routine); Ordered 12/16/24 Ordered By: Nasra López Admission Data Admit Date/Time: 12/14/24 14:43 Attending Provider: Nasra López Admit Provider: Hipolito Arnold Primary Care Provider: Cami Grossman Other Providers: Hipolito Arnold Hospital Stay Data Consultations 12/14/24 14:19 ED Decision to Admit Stat Pending Results Patient Have Any Pending Studies at Discharge: No Discharge Instructions Given to Patient (Per Discharging Provider) Please finish out the course of Tamiflu and the prednisone for your infection and COPD exacerbation. You do not need oxygen when sitting or at rest, but you should put it on and turn it on to 2 L when you get up and walk around. Your platelet count was slightly low as we discussed. Please have your primary care physician recheck your complete blood count in 1 week to ensure it has returned to normal. Total Time Total Time Spent Total Time Spent (In Minutes): 35 minutes Total Time Includes: Examination of the Patient, Discharge Planning and Medication Reconciliation Coding Level of Care Code 35900 INP/OBS DISCH >30 MIN Diagnoses Influenza A J10.1 Elevated troponin R79.89 Thrombocytopenia D69.6 Lung nodule, multiple R91.8
== END 2024-12-16 16:41 | disposition home or self-care (01) | DRG 193 ==
LOC: ED 11:49 → SUATTDRO 14:43 → 2W 14:43